=== PATIENT | female | born 1995 | race Two or more races ===

== ENCOUNTER 2020-08-25 12:15 | Outpatient (REF) | payer OTHER, SELFPAY | END 2020-08-25 12:16 | disposition home or self-care (01) | LOC: HO.LAB 12:15 | PROVIDERS: Visit Provider Internal Medicine | DX: Z20.828 Contact with and (suspected) exposure to other viral communicable diseases (principal) | CPT/HCPCS: 87635 ==

== ENCOUNTER → 2020-10-11 10:21 | Outpatient (BNVA) | payer OTHER, SELFPAY | PROVIDERS: PCP Internal Medicine; Visit Provider Student in an Organized Health Care Education/Training Program | DX: M35.00 Sjogren syndrome, unspecified (principal) | CPT/HCPCS: Q3014 ==

== ENCOUNTER 2023-01-28 18:30 | Emergency (ER) | payer OTHER, SELFPAY ==
[2023-01-28 18:37] VITALS: BP 135/94; PULSE 105; RESP 18; TEMP 36.7; O2SAT 100; BMI 25.8
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
[2023-01-28] MEDS: Tetracaine HCl/PF 0.5% Oph Sol 4 ML DROPS 3 DROP EYE-LEFT (20:25)
[2023-01-28] MEDS: Fluorescein Sodium STRIP 1 STRIP EYE-LEFT (20:25)
== END 2023-01-28 20:28 | disposition home or self-care (01) ==
PROVIDERS: Emergency Provider Emergency Medicine Emergency Medical Services
DX: M35.00 Sjogren syndrome, unspecified (principal); H57.12 Ocular pain, left eye; R51.9 Headache, unspecified
CPT/HCPCS: 99282; 99283

== ENCOUNTER 2023-02-26 08:10 | Outpatient (REF) | payer OTHER, SELFPAY ==
[2023-02-26 09:55] LABS: MANUAL DIFF FLAG NO
[2023-02-26 10:08] LABS: Basophils Percent Auto 0.3 % (0-2); Eosinophils Absolute Auto 0.1 X10*3/uL (0.0-0.4); Eosinophils Percent Auto 1.8 % (0-4); Hematocrit 35.6 % (37.0-47.0); Hemoglobin 11.1 g/dl (12.0-16.0); Imm Gran Abs Auto 0.01 X10*3/uL (0.00-0.03); Imm Gran Pct Auto 0.3 % (0.0-0.4); Lymphocytes Absolute Auto 0.9 X10*3/uL (1.2-4.9); Lymphocytes Percent Auto 22.4 % (20-40); Mean Corpuscular HGB Conc 31.2 g/dl (31.0-35.0); Mean Corpuscular Hemoglobin 25.1 pg (27.0-33.0); Mean Corpuscular Volume 80.4 fL (80.0-98.0); Monocytes Absolute Auto 0.2 X10*3/uL (0.1-1.2); Monocytes Percent Auto 4.2 % (2-11); Neutrophils Absolute Auto 2.7 x10*3/uL (2.0-8.3); Platelet Count 310 X10*3/uL (160-400); Red Blood Count 4.43 X10*6/uL (4.20-5.50); White Blood Count 3.8 X10*3/uL (4.8-10.8)
[2023-02-26 10:53] LABS: Erythrocyte Sedimentation Rate 11 MM/HR (0-20)
[2023-02-26 11:00] LABS: Alanine Aminotransferase 9 U/L (0-31); Albumin Level 4.2 g/dL (3.5-5.0); Alkaline Phosphatase 46 U/L (39-117); Anion Gap 10 (12-20); Aspartate Amino Transferase 15 U/L (5-31); Bilirubin Total 0.4 mg/dL (0.0-1.0); Blood Urea Nitrogen 9 mg/dL (9-16); C Reactive Protein 0.49 mg/dL (< or = 0.50); Calcium 9.2 mg/dL (8.4-10.2); Carbon Dioxide 26 mmol/L (22-29); Chloride 107 mmol/L (96-108); Estimated Glomerular Filt Rate > 60; Glucose Random 86 mg/dL (60-115); Potassium 4.1 mmol/L (3.3-5.1); Sodium 139 mmol/L (135-145); Total Protein 7.4 g/dL (6.5-8.0)
[2023-02-26 11:04] LABS: Creatinine Urine 100.78 mg/dL; Total Protein Urine Random < 7 mg/dL (<12)
[2023-02-26 11:17] LABS: TSH reflex Free T4 1.72 uIU/mL (0.32-4.0)
[2023-02-26 11:18] LABS: Vitamin D 25-OH Total 10.2 ng/mL (>30)
[2023-03-03 21:22] LABS: Anti DNA DS Antibody 41 IU/mL; SM/Ribonucleoprotein Ab <1.0 NEG AI (<1.0 NEG); Smith Protein <1.0 NEG AI (<1.0 NEG)
== END 2023-02-26 08:11 | disposition home or self-care (01) ==
LOC: HO.LAB 08:10
PROVIDERS: Absent Provider Nurse Practitioner Family; PCP Nurse Practitioner Family; Visit Provider Nurse Practitioner Family
DX: Z13.29 Encounter for screening for other suspected endocrine disorder (principal); M25.50 Pain in unspecified joint; M35.00 Sjogren syndrome, unspecified; H15.002 Unspecified scleritis, left eye
CPT/HCPCS: 36415; 80053; 82306; 84156; 84443; 85025; 85652; 86140; 86225; 86235; 99212

== ENCOUNTER → 2023-04-02 10:48 | Outpatient (BNVA) | payer OTHER, SELFPAY | PROVIDERS: PCP Nurse Practitioner Family; Visit Provider Nurse Practitioner Family | DX: M35.00 Sjogren syndrome, unspecified (principal); H15.002 Unspecified scleritis, left eye; E55.9 Vitamin D deficiency, unspecified; Z79.899 Other long term (current) drug therapy | CPT/HCPCS: 99212 ==

== ENCOUNTER 2023-06-16 14:11 | Outpatient (REF) | payer OTHER, SELFPAY ==
[2023-06-16 14:31] LABS: MANUAL DIFF FLAG NO
[2023-06-16 15:02] LABS: Basophils Percent Auto 0.2 % (0-2); Eosinophils Absolute Auto 0.1 X10*3/uL (0.0-0.4); Eosinophils Percent Auto 1.7 % (0-4); Hematocrit 35.1 % (37.0-47.0); Hemoglobin 11.2 g/dl (12.0-16.0); Imm Gran Abs Auto 0.02 X10*3/uL (0.00-0.03); Imm Gran Pct Auto 0.5 % (0.0-0.4); Lymphocytes Absolute Auto 0.8 X10*3/uL (1.2-4.9); Lymphocytes Percent Auto 19.5 % (20-40); Mean Corpuscular HGB Conc 31.9 g/dl (31.0-35.0); Mean Corpuscular Hemoglobin 25.6 pg (27.0-33.0); Mean Corpuscular Volume 80.3 fL (80.0-98.0); Mean Platelet Volume 9.6 fL (9.4-12.3); Monocytes Absolute Auto 0.1 X10*3/uL (0.1-1.2); Monocytes Percent Auto 3.4 % (2-11); Neutrophils Absolute Auto 3.1 x10*3/uL (2.0-8.3); Neutrophils Percent Auto 74.7 % (45-73); Platelet Count 299 X10*3/uL (160-400); Red Blood Count 4.37 X10*6/uL (4.20-5.50); Red Cell Distribution Width 14.8 % (11.0-16.0); White Blood Count 4.1 X10*3/uL (4.8-10.8)
[2023-06-16 15:39] LABS: Erythrocyte Sedimentation Rate 7 MM/HR (0-20)
[2023-06-16 19:15] LABS: Appearance Urine Clear; Color Urine Yellow; Glucose Urine UA Negative (Negative); Leukocyte Esterase Urine Negative (Negative); Nitrite Urine Negative (Negative); Urine Blood Negative (Negative); Urine Ketones Negative (Negative); Urine Protein Negative (Neg-Trace)
[2023-06-16 19:19] LABS: Bacteria Urine None Seen (None Seen); Hyaline Casts Urine 0-2 /LPF (0-2); RBC Urine 0-2 /HPF (0-2); Squamous Epithelial Cell Urine 0-2 /HPF (0-2); WBC Urine 0-5 /HPF (0-5)
[2023-06-16 19:25] LABS: Creatinine Urine 190.88 mg/dL; Protein/Creatinine Ratio, Ur 0.05 (<0.2); Total Protein Urine Random 9 mg/dL (<12)
[2023-06-17 02:10] LABS: Alanine Aminotransferase 11 U/L (0-31); Albumin Level 4.1 g/dL (3.5-5.0); Alkaline Phosphatase 45 U/L (39-117); Anion Gap 13 (12-20); Aspartate Amino Transferase 18 U/L (5-31); Bilirubin Total 0.3 mg/dL (0.0-1.0); Blood Urea Nitrogen 9 mg/dL (9-16); C Reactive Protein 0.41 mg/dL (< or = 0.50); Carbon Dioxide 23 mmol/L (22-29); Chloride 108 mmol/L (96-108); Estimated Glomerular Filt Rate > 60; Glucose Random 117 mg/dL (60-115); Potassium 3.7 mmol/L (3.3-5.1); Sodium 140 mmol/L (135-145); Total Protein 7.5 g/dL (6.5-8.0)
[2023-06-17 13:23] LABS: Prot Elec - Albumin 4.1 g/dL (3.8-4.8); Prot Elec - Alpha1 0.3 g/dL (0.2-0.3); Prot Elec - Alpha2 0.6 g/dL (0.5-0.9); Prot Elec - Beta 1 0.4 g/dL (0.4-0.6); Prot Elec - Beta 2 0.3 g/dL (0.2-0.5); Prot Elec - Gamma 1.6 g/dL (0.8-1.7); Prot Elec - Total Protein 7.4 g/dL (6.1-8.1)
[2023-06-17 19:18] LABS: Complement C3 99 mg/dL (83-193)
[2023-06-18 10:34] LABS: IgA 289 mg/dL (47-310); IgG 1937 mg/dL (600-1640); IgM 73 mg/dL (50-300)
[2023-06-18 13:08] LABS: Cardiolipin IgG Ab <2.0 GPL-U/mL; Cardiolipin IgM Ab <2.0 MPL-U/mL
[2023-06-18 21:18] LABS: TS Negative Control Passed; TS Panel A 0; TS Panel B 0; TS Positive Control Passed; TSpotTB Negative (Negative)
[2023-06-19 09:37] LABS: Anti DNA DS Antibody 17 IU/mL; Myeloperoxidase Antibody <1.0 AI; Proteinase 3 PR3 Antibodies <1.0 AI
[2023-06-20 00:14] LABS: PTT (LAC) Screen 33 sec (<=40)
[2023-06-20 18:22] LABS: HLA B27 Negative (Negative)
[2023-06-20 23:53] LABS: Beta-2 Glycoprotein IgA <2.0 U/mL (<20.0); Beta-2 Glycoprotein IgG <2.0 U/mL (<20.0); Beta-2 Glycoprotein IgM <2.0 U/mL (<20.0)
[2023-06-26 16:53] LABS: TPMT Activity 14
== END 2023-06-16 14:12 | disposition home or self-care (01) ==
LOC: HO.LAB 14:11
PROVIDERS: PCP Nurse Practitioner Family; Visit Provider Student in an Organized Health Care Education/Training Program
DX: Z11.7 Encounter for testing for latent tuberculosis infection (principal); D68.61 Antiphospholipid syndrome; M35.00 Sjogren syndrome, unspecified; H15.009 Unspecified scleritis, unspecified eye; Z79.624 Long term (current) use of inhibitors of nucleotide synthesis
CPT/HCPCS: 36415; 80053; 81001; 82657; 82784; 84156; 84165; 85025; 85597; 85598; 85613; 85652; 85670; 85730; 86021; 86140; 86146; 86147; 86160; 86225; 86334; 86481; 86812

== ENCOUNTER 2023-06-20 11:39 | Outpatient (AMB) | payer OTHER, SELFPAY ==
--- NOTE | 2023-06-20 11:42 | A.OFFVIS_ITS ---
Intake Vital Signs 06/20/23 11:43 Height 5 ft 3 in Weight 146 lb 6.191 oz BMI 25.9 BP 102/64 Blood Pressure Location Rt brachial Position Sitting Pulse 93 Pulse Source Pulse Oximeter Temp 97.4 F Temp Source Skin Pulse Oximetry (%) 98 Intake Visit Reasons: sjogrens Intake Note: Pt seen today for SS follow up. Sees Dr Millard for ophthalmology Event Crew Technician Required: No Pc Installation Engineer: Pc Installation Engineer Present Accompanied by: Self / Same As Patient Allergies No Known Allergies [No Known Allergies*] Allergy (Verified 06/20/23 11:45) Medication List - Last Reconciled 06/20/23 by Darien Remy MD hydroxychloroquine 200 mg PO DAILY HPI HPI Comments History of Present Illness Details This is a 27-year-old female with Sjogren's who presents for follow-up. She was last seen by Nichol Fletcher 02/23. Patient states that she was diagnosed with Sjogren's around 2013. She states that she was on hydroxychloroquine consistently at some point, she might have been on other meds but she does not remember. She states that since November of 2022 she has been having left eye redness and swelling. She was evaluated by Ophthalmology and was diagnosed with filamentous keratitis and episcleritis. She received antibiotic and steroid eyedrops which provides some relief but she continues to have left eye redness and pain. This year old so she has been having intermittent rashes on her hands, chest, legs. The rashes are worse in the sun. Also has pain and swelling of her hands associated with morning stiffness lasting a few hours. The rashes burn, they do not itch. 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 Her hands hurt in the morning and at night. She states that she has had Raynaud's all her life. Sometimes she has to wear heated gloves. She also states that she has had dry eyes for many years, she uses artificial tears consistently. She has intermittent dry mouth and sometimes uses Biotene mouthwash. She has been losing a substantial amount of hair recently. Large clumps of hair. She denies any fevers. She does get chills sometimes. She never took her temperature. She denies any significant weight change. Denies mouth ulcers. She denies any history of DVT/PE. Patient never attempted . She is unaware of any family history of autoimmune rheumatic disease. REPLACED BY [facility] Medical History (Updated 06/20/23 @ 14:01 by Darien Remy MD) Joint pain Kidney stones Sjogrens syndrome Sjogrens syndrome Surgical History No pertinent past surgical history Family History Mother HTN (hypertension) Osteoarthritis Father Rosana Gehrig's disease Maternal Grandfather Rheumatoid arthritis Social History Household Members: Family Housing: House Alcohol intake: current Alcohol intake frequency: does not drink Patient Tobacco Use Status: Never used Tobacco Tobacco use type: Cigarette e-Cigarette/Vaping Use: Never Used service: No Current occupational status: employed Current occupation: [employer] Reproductive History Menstrual Total pregnancies: 0 Review of Systems Const Reports chills, Reports fatigue, Denies fever(s) and Denies weight loss Eyes Reports dry eyes and Reports eye pain ENT Reports dry mouth Card Reports no additional complaints Musc Reports arthralgias, Reports joint swelling and Reports stiffness Skin/Breast Reports alopecia, Reports photosensitivity, Reports rash and Reports skin pain Endo Reports fatigue Physical Exam Vital Signs: Last Vital Signs Temp 97.4 F 06/20/23 11:43 Pulse 93 06/20/23 11:43 BP 102/64 06/20/23 11:43 Pulse Ox 98 06/20/23 11:43 BMI result Body Mass Index 25.9 Const General: cooperative, healthy appearing and comfortable Orientation/consciousness: patient oriented x3 Limitations: no limitations HEENT Head: Yes normocephalic and Yes atraumatic Resp Effort & Inspection: normal respiratory effort and able to speak in complete sentences Auscultation: clear to auscultation bilaterally Cardio Rate: regular rate Rhythm: regular rhythm GI Inspection: No distended Palpation (GI): Soft to palpation and nontender Skin Other: Rashes in pictures are over the last few months. Today however patient does not have any active rashes Left breast inspection was with medical reception Saba present in the room as driver trainee. There were no rashes noted Neuro General: patient oriented x3 Extrem Other: Diffuse fibromyalgia tender points with no swollen or tender joints Normal nailfold capillaroscopy Assessment & Plan Assessment & Plan (1) SLE (systemic lupus erythematosus): Code(s): M32.9 - Systemic lupus erythematosus, unspecified Qualifiers: Systemic lupus erythematosus type: other Systemic lupus erythematosus organ involvement: unspecified Qualified Code(s): M32.8 - Other forms of systemic lupus erythematosus Plan: This is a 27-year-old female previously diagnosed with Sjogren's starting around 2013 who presents for follow-up. Upon evaluation I believe patient's symptoms are more consistent with SLE (arthralgias, skin rashes, episcleritis/scleritis, hair loss, lymphopenia, normocytic anemia, +VICKIE +++SSa +SSb +RF + DsDNA) Over the last 8 months patient has been having recurrent attacks of e piscleritis, she was prescribed steroid eyedrops without much improvement. She also has been having recurrent hand swelling, recurrent rashes on hands, chest. Worsening hair loss. Start prednisone 30 mg daily for 1 week then remain on 20 mg daily. Follow-up in 1 month. The rashes on her hands can be an allergic reaction to the left she wears during work as a beautician however the rashes are not be treated they are other painful. Will discuss DMARDs next visit Plan I spent 48 minutes reviewing patient's chart, evaluating patient, ordering diagnostic workup, counseling patient and documenting in the chart Medications: New prednisone Take 3 tabs by mouth once daily with breakfast for 1 week then stay on 2 tabs daily 63 tabs 1RF Changed From hydroxychloroquine 200 mg PO DAILY 30 tabs 0RF M35.00 - Sjogren syndrome, unspecified To hydroxychloroquine Take 2 tabs by mouth daily 4 days a week and 1 tab daily 3 days a week 35 tabs 2RF M35.00 - Sjogren syndrome, unspecified Coding Level of Care Code Est Pt Level 5 (47883) Diagnoses SLE (systemic lupus erythematosus) M32.8 Systemic lupus erythematosus type: other Systemic lupus erythematosus organ involvement: unspecified
[2023-06-20 11:43] VITALS: BP 102/64; PULSE 93; TEMP 36.3; O2SAT 98; BMI 25.9
== END 2023-06-20 12:20 | disposition home or self-care (01) ==
PROVIDERS: PCP Nurse Practitioner Family; Visit Provider Student in an Organized Health Care Education/Training Program
DX: M32.8 Other forms of systemic lupus erythematosus (principal)
CPT/HCPCS: 99215

== ENCOUNTER → 2023-06-20 11:39 | Outpatient (BNVA) | payer OTHER, SELFPAY | PROVIDERS: PCP Nurse Practitioner Family; Visit Provider Student in an Organized Health Care Education/Training Program | DX: M32.8 Other forms of systemic lupus erythematosus (principal); M35.00 Sjogren syndrome, unspecified | CPT/HCPCS: 99212 ==

== ENCOUNTER 2023-07-14 11:41 | Outpatient (AMB) | payer OTHER, SELFPAY ==
--- NOTE | 2023-07-14 11:46 | A.OFFVIS_ITS ---
Intake Vital Signs 07/14/23 11:47 Height 5 ft 3 in Weight 143 lb 11.862 oz BMI 25.5 BP 106/74 Blood Pressure Location Rt brachial Position Sitting Pulse 88 Pulse Source Pulse Oximeter Temp 97.3 F Temp Source Skin Pulse Oximetry (%) 98 Intake Visit Reasons: SLE Intake Note: Pt seen today for SLE follow up. Currently on prednsione 20mg daily. States she feels great and eye is better; missed a couple doses of prednisone and felt the difference in increased pain. Application Integration Engineer Required: No Accompanied by: Self / Same As Patient Allergies No Known Allergies [No Known Allergies*] Allergy (Verified 07/14/23 12:04) Medication List - Last Reconciled 07/14/23 by Darien Remy MD hydroxychloroquine Take 2 tabs by mouth daily 4 days a week and 1 tab daily 3 days a week prednisone 20 mg PO DAILY HPI HPI Comments History of Present Illness Details 27-year-old female with SLE returns for follow-up. Patient took prednisone 30 mg daily for 1 week, 20 mg daily for 1 week and currently is on 10 mg daily. States that she feels much better overall. Left eye redness and pain is much improved. As well as joint pain, body aches and rashes. When she missed prednisone for couple of days she felt increased pain. Initial history: This is a 27-year-old female with Sjogren's who presents for follow-up. She was last seen by Nichol Fletcher 02/23. Patient states that she was diagnosed with Sjogren's around 2013. She states that she was on hydroxychloroquine consistently at some point, she might have been on other meds but she does not remember. She states that since November of 2022 she has been having left eye redness and swelling. She was evaluated by Ophthalmology and was diagnosed with filamentous keratitis and episcleritis. She received antibiotic and steroid eyedrops which provides some relief but she continues to have left eye redness and pain. This year old so she has been having intermittent rashes on her hands, chest, legs. The rashes are worse in the sun. Also has pain and swelling of her hands associated with morning stiffness lasting a few hours. The rashes burn, they do not itch. 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 Her hands hurt in the morning and at night. She states that she has had Raynaud's all her life. Sometimes she has to wear heated gloves. She also states that she has had dry eyes for many years, she uses artificial tears consistently. She has intermittent dry mouth and sometimes uses Biotene mouthwash. She has been losing a substantial amount of hair recently. Large clumps of hair. She denies any fevers. She does get chills sometimes. She never took her temperature. She denies any significant weight change. Denies mouth ulcers. She denies any history of DVT/PE. Patient never attempted preg amee. She is unaware of any family history of autoimmune rheumatic disease. 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 Review of Systems [facility] Reports arthralgias Skin/Breast Reports alopecia Physical Exam Vital Signs: Last Vital Signs Temp 97.3 F 07/14/23 11:47 Pulse 88 07/14/23 11:47 BP 106/74 07/14/23 11:47 Pulse Ox 98 07/14/23 11:47 BMI result Body Mass Index 25.5 Const General: cooperative, healthy appearing and comfortable Orientation/consciousness: patient oriented x3 Limitations: no limitations HEENT Head: Yes normocephalic and Yes atraumatic Eyes Other: Left eye erythema is at least 90% better Resp Effort & Inspection: normal respiratory effort and able to speak in complete sentences Auscultation: clear to auscultation bilaterally Cardio Rate: regular rate Rhythm: regular rhythm GI Inspection: No distended Palpation (GI): Soft to palpation and nontender Neuro General: patient oriented x3 Extrem Other: Diffuse fibromyalgia tender points with no swollen or tender joints Normal nailfold capillaroscopy Assessment & Plan Assessment & Plan (1) SLE (systemic lupus erythematosus): Comment: SLE (arthralgias, skin rashes, episcleritis/scleritis, hair loss, lymphopenia, normocytic anemia, +VICKIE +++SSa +SSb +RF + DsDNA) dx around 2013 Code(s): M32.9 - Systemic lupus erythematosus, unspecified Qualifiers: Systemic lupus erythematosus type: other Systemic lupus erythematosus organ involvement: unspecified Qualified Code(s): M32.8 - Other forms of systemic lupus erythematosus Plan: This is a 27-year-old female presents for follow-up. Patient's scleritis/episcleritis is significantly improved on prednisone. Will continue prednisone and will slowly taper it off. Continue prednisone 10 mg for 2 more weeks then reduce by 2.5 mg every 2 weeks and stay on 2.5 mg daily until next visit. Labs before next visit in 8 weeks If patient's eye symptoms recur after prednisone is tapered. Will have to start another DMARD such as methotrexate Continue hydroxychloroquine 400 mg daily 4 days a week and 200 mg daily 3 days a week Plan I spent 28 minutes reviewing patient's chart, evaluating patient, ordering diagnostic workup, counseling patient and documenting in the chart Orders: Orders Complete Blood Count Auto Diff 7 Weeks M32.9 - Systemic lupus erythematosus, unspecified Complement C4 7 Weeks M32.9 - Systemic lupus erythematosus, unspecified Protein Creatinine Ratio, Ur 7 Weeks M32.9 - Systemic lupus erythematosus, unspecified UA w Microscopic 7 Weeks M32.9 - Systemic lupus erythematosus, unspecified Comprehensive Met. Panel 7 Weeks M32.9 - Systemic lupus erythematosus, unspecified Anti DNA DS Antibody 7 Weeks M32.9 - Systemic lupus erythematosus, unspecified Complement C3 7 Weeks M32.9 - Systemic lupus erythematosus, unspecified Medications: New prednisone Take 3 tabs by mouth once daily for 2 weeks then 2 tabs daily for 2 weeks then stay on 1 tab daily 2.5 mg PO Q OTHER DAY 100 tabs 1RF Coding Level of Care Code Est Pt Level 4 (01478) Diagnoses Other forms of systemic lupus erythematosus, unspecified organ involvement status M32.8 Systemic lupus erythematosus type: other Systemic lupus erythematosus organ involvement: unspecified
[2023-07-14 11:47] VITALS: BP 106/74; PULSE 88; TEMP 36.3; O2SAT 98; BMI 25.5
== END 2023-07-14 12:04 | disposition home or self-care (01) ==
PROVIDERS: PCP Nurse Practitioner Family; Referring Provider Nurse Practitioner Family; Visit Provider Student in an Organized Health Care Education/Training Program
DX: M32.8 Other forms of systemic lupus erythematosus (principal)
CPT/HCPCS: 99214

== ENCOUNTER → 2023-07-14 11:41 | Outpatient (BNVA) | payer OTHER, SELFPAY | PROVIDERS: PCP Nurse Practitioner Family; Referring Provider Nurse Practitioner Family; Visit Provider Student in an Organized Health Care Education/Training Program | DX: M32.8 Other forms of systemic lupus erythematosus (principal); Z79.52 Long term (current) use of systemic steroids; Z79.899 Other long term (current) drug therapy | CPT/HCPCS: 99212 ==

== ENCOUNTER 2023-09-06 10:03 | Outpatient (REF) | payer OTHER, SELFPAY ==
[2023-09-06 10:23] LABS: MANUAL DIFF FLAG NO
[2023-09-06 11:17] LABS: Basophils Percent Auto 0.6 % (0-2); Eosinophils Absolute Auto 0.1 X10*3/uL (0.0-0.4); Eosinophils Percent Auto 2.6 % (0-4); Hematocrit 36.1 % (37.0-47.0); Hemoglobin 11.5 g/dl (12.0-16.0); Imm Gran Abs Auto 0.02 X10*3/uL (0.00-0.03); Imm Gran Pct Auto 0.6 % (0.0-0.4); Lymphocytes Absolute Auto 1.1 X10*3/uL (1.2-4.9); Mean Corpuscular HGB Conc 31.9 g/dl (31.0-35.0); Mean Corpuscular Volume 81.7 fL (80.0-98.0); Mean Platelet Volume 9.6 fL (9.4-12.3); Monocytes Absolute Auto 0.3 X10*3/uL (0.1-1.2); Monocytes Percent Auto 8.6 % (2-11); Neutrophils Percent Auto 56.6 % (45-73); Platelet Count 296 X10*3/uL (160-400); Red Blood Count 4.42 X10*6/uL (4.20-5.50); Red Cell Distribution Width 14.2 % (11.0-16.0); White Blood Count 3.5 X10*3/uL (4.8-10.8)
[2023-09-06 11:20] LABS: Appearance Urine Clear; Color Urine Yellow; Glucose Urine UA Negative (Negative); Leukocyte Esterase Urine Small (1+) (Negative); Nitrite Urine Negative (Negative); PH 6.5 (5.0-9.0); UMIC TRIGGER UA YES; Urine Blood Negative (Negative); Urine Ketones Negative (Negative); Urine Protein Negative (Neg-Trace)
[2023-09-06 11:37] LABS: Bacteria Urine Trace (None Seen); Hyaline Casts Urine 0-2 /LPF (0-2); RBC Urine 0-2 /HPF (0-2); WBC Urine 0-5 /HPF (0-5)
[2023-09-06 11:51] LABS: Creatinine Urine 163.14 mg/dL; Protein/Creatinine Ratio, Ur 0.06 (<0.2); Total Protein Urine Random 9 mg/dL (<12)
[2023-09-06 12:00] LABS: Alanine Aminotransferase 7 U/L (0-31); Alkaline Phosphatase 36 U/L (39-117); Anion Gap 9 (12-20); Aspartate Amino Transferase 15 U/L (5-31); Bilirubin Total 0.3 mg/dL (0.0-1.0); Blood Urea Nitrogen 9 mg/dL (9-16); Calcium 8.9 mg/dL (8.4-10.2); Carbon Dioxide 27 mmol/L (22-29); Chloride 107 mmol/L (96-108); Estimated Glomerular Filt Rate > 60; Glucose Random 85 mg/dL (60-115); Potassium 3.9 mmol/L (3.3-5.1); Sodium 139 mmol/L (135-145)
[2023-09-08 23:24] LABS: Anti DNA DS Antibody 12 IU/mL
[2023-09-09 23:09] LABS: Complement C3 91 mg/dL (83-193)
== END 2023-09-06 10:04 | disposition home or self-care (01) ==
LOC: HO.LAB 10:03
PROVIDERS: PCP Nurse Practitioner Family; Visit Provider Student in an Organized Health Care Education/Training Program
DX: M32.9 Systemic lupus erythematosus, unspecified (principal)
CPT/HCPCS: 36415; 80053; 81001; 82570; 84156; 85025; 86160; 86225

== ENCOUNTER 2023-09-09 10:45 | Outpatient (AMB) | payer OTHER, SELFPAY ==
[2023-09-09 10:46] VITALS: BP 110/80; PULSE 90; TEMP 36.5; O2SAT 98; BMI 26.6
--- NOTE | 2023-09-09 10:46 | A.OFFVIS_ITS ---
Intake Vital Signs 3 09/09/23 10:46 Height 5 ft 3 in Weight 150 lb 5.684 oz BMI 26.6 BP 110/80 Blood Pressure Location Rt brachial Position Sitting Pulse 90 Pulse Source Pulse Oximeter Temp 97.7 F Temp Source Skin Pulse Oximetry (%) 98 Intake Visit Reasons: SLE Intake Note: Pt last seen 07/14/23, presents today for follow up and test results. 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 On hydroxychloroquine and prednisone. Currently on prednisone 2.5 mg daily. States that since prednisone dose was lowered from 10 mg daily she started having intermittent flare-ups of her left eye pain and joint pain. She has not had any rashes recently. States that she continues to lose large clumps of hair Initial history: This is a 27-year-old female with Sjogren's who presents for follow-up. She was last seen by Nichol Fletcher 02/23. Patient states that she was diagnosed with Sjogren's around 2013. She states that she was on hydroxychloroquine consistently at some point, she might have been on other meds but she does not remember. She states that since November of 2022 she has been having left eye redness and swelling. She was evaluated by Ophthalmology and was diagnosed with filamentous keratitis and episcleritis. She received antibiotic and steroid eyedrops which provides some relief but she continues to have left eye redness and pain. This year old so she has been having intermittent rashes on her hands, chest, legs. The rashes are worse in the sun. Also has pain and swelling of her hands associated with morning stiffness lasting a few hours. The rashes burn, they do not itch. 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 Her hands hurt in the morning and at night. She states that she has had Raynaud's all her life. Sometimes she has to wear heated gloves. She also states that she has had dry eyes for many years, she uses artificial tears consistently. She has intermittent dry mouth and sometimes uses Biotene mouthwash. She has been losing a substantial amount of hair recently. Large clumps of hair. She denies any fevers. She does get chills sometimes. She never took her temperature. She denies any significant weight change. Denies mouth ulcers. She denies any history of DVT/PE. Patient never attempted . She is unaware of any family history of autoimmune rheumatic disease. [facility] Medical History (Updated 09/09/23 @ 11:27 by Darien Remy MD) Sjogrens syndrome Joint pain Kidney stones Surgical History No pertinent past surgical history Family History Mother HTN (hypertension) Osteoarthritis Father Rosana Gehrig's disease Maternal Grandfather Rheumatoid arthritis Social History Household Members: Family Housing: House Alcohol intake: current Alcohol intake frequency: does not drink Patient Tobacco Use Status: Never used Tobacco Tobacco use type: Cigarette e-Cigarette/Vaping Use: Never Used service: No Current occupational status: employed 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 Review of Systems Eyes Reports irritation and Reports eye pain Musc Reports arthralgias Skin/Breast Reports alopecia Physical Exam Vital Signs: Last Vital Signs Temp 97.7 F 09/09/23 10:46 Pulse 90 09/09/23 10:46 BP 110/80 09/09/23 10:46 Pulse Ox 98 09/09/23 10:46 BMI result Body Mass Index 26.6 Const General: cooperative, healthy appearing and comfortable Orientation/consciousness: patient oriented x3 Limitations: no limitations HEENT Head: Yes normocephalic and Yes atraumatic Eyes Other: Resp Effort & Inspection: normal respiratory effort and able to speak in complete sentences Auscultation: clear to auscultation bilaterally Cardio Rate: regular rate Rhythm: regular rhythm GI Inspection: No distended Palpation (GI): Soft to palpation and nontender Neuro General: patient oriented x3 Extrem Other: Multiple fibromyalgia tender points Bilateral tender wrists, MCPs and PIPs without swelling Normal nailfold capillaroscopy Assessment & Plan Assessment & Plan (1) SLE (systemic lupus erythematosus): Comment: SLE (arthralgias, skin rashes, episcleritis/scleritis, hair loss, lymphopenia, normocytic anemia, +VICKIE +++SSa +SSb +RF + DsDNA) dx around 2013 Code(s): M32.9 - Systemic lupus erythematosus, unspecified Qualifiers: Systemic lupus erythematosus type: other Systemic lupus erythematosus organ involvement: unspecified Qualified Code(s): M32.8 - Other forms of systemic lupus erythematosus Plan: This is a 27-year-old female with SLE returns for follow-up. Patient's scleritis/episcleritis is significantly improved on on prednisone but started having intermittent flare-ups since dose was reduced to less than 10 mg daily. Increase prednisone to 10 mg daily for 2 weeks, 7.5 mg for 2 weeks then remain on 5 mg daily. Advised patient to make an appointment with Dr. Millard She also has arthralgias. Ongoing hair loss. Given ongoing SLE activity. Will need to add DMARDs. Discussed risks and benefits of methotrexate. 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 technician (current) drug therapy Plan: Follow-up regularly with Ophthalmology (4) Hair loss: Code(s): L65.9 - Nonscarring hair loss, unspecified Plan: Advised patient to request a dermatology referral from her PCP Plan I spent 40 minutes reviewing patient's chart, evaluating patient, ordering diagnostic workup, counseling patient and documenting in the chart Orders: Orders 2 Complete Blood Count Auto Diff 2 Months M32.9 - Systemic lupus erythematosus, unspecified Complement C3 2 Months M32.9 - Systemic lupus erythematosus, unspecified Complement C4 2 Months M32.9 - Systemic lupus erythematosus, unspecified Anti DNA DS Antibody 2 Months M32.9 - Systemic lupus erythematosus, unspecified Erythrocyte Sedimentation Rate 2 Months M32.9 - Systemic lupus erythematosus, unspecified UA w Microscopic 2 Months M32.9 - Systemic lupus erythematosus, unspecified Protein Creatinine Ratio, Ur 2 Months M32.9 - Systemic lupus erythematosus, unspecified Comprehensive Met. Panel 2 Months M32.9 - Systemic lupus erythematosus, unspecified C Reactive Protein 2 Months M32.9 - Systemic lupus erythematosus, unspecified Medications: New 2 folic acid 1 mg PO DAILY 90 tabs 0RF methotrexate sodium 2.5 mg PO QWEEK 48 tabs 0RF Changed 2 From prednisone Take 3 tabs by mouth once daily for 2 weeks then 2 tabs daily for 2 weeks then stay on 1 tab daily 2.5 mg PO Q OTHER DAY 100 tabs 1RF To prednisone Take 4 tabs by mouth once daily for 2 weeks then 3 tabs daily for 2 weeks then stay on 2 tabs daily 158 tabs 1RF Coding Level of Care Code Est Pt Level 5 (65253) Diagnoses Other forms of systemic lupus erythematosus, unspecified organ involvement status M32.8 Systemic lupus erythematosus type: other Systemic lupus erythematosus organ involvement: unspecified 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
== END 2023-09-09 11:16 | disposition home or self-care (01) ==
PROVIDERS: PCP Nurse Practitioner Family; Visit Provider Student in an Organized Health Care Education/Training Program
DX: M32.8 Other forms of systemic lupus erythematosus (principal); Z79.631 Long term (current) use of antimetabolite agent; Z79.899 Other long term (current) drug therapy; L65.9 Nonscarring hair loss, unspecified
CPT/HCPCS: 99215

== ENCOUNTER → 2023-09-09 10:45 | Outpatient (BNVA) | payer OTHER, SELFPAY | PROVIDERS: PCP Nurse Practitioner Family; Visit Provider Student in an Organized Health Care Education/Training Program | DX: M32.8 Other forms of systemic lupus erythematosus (principal); L65.9 Nonscarring hair loss, unspecified; Z79.631 Long term (current) use of antimetabolite agent; Z79.899 Other long term (current) drug therapy | CPT/HCPCS: 99212 ==

== ENCOUNTER 2023-11-10 09:33 | Outpatient (AMB) | payer OTHER, SELFPAY ==
--- NOTE | 2023-11-10 09:39 | MHC.OFFVIS ---
Intake Vital Signs 11/10/23 09:41 Height 5 ft 3 in Weight 151 lb 0.266 oz BMI 26.7 BP 108/62 Blood Pressure Location Rt brachial Position Sitting Pulse 87 Pulse Source Pulse Oximeter Temp 97.0 F Temp Source Skin Pulse Oximetry (%) 98 Oxygen Delivery Method Room Air Intake Visit Reasons: SLE Intake Note: Pt last seen 09/09/23 presents today for follow up and test results. Expressed she did not complete labs because she has not been compliant with medications; feels the new med is not working and feels overwhelmed with current regimen. 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 Over the last 2 months, patient has been overwhelmed with her condition and her medications and she only took methotrexate for about 4 weeks. Has been taking prednisone 2.5 mg daily, not as prescribed. Taking hydroxychloroquine once daily. She states that she continues to get hair thinning, she denies any mouth ulcers. Denies any skin rashes. Continues to have joint pains but no significant swelling. She states that her left eye has been somewhat red recently but overall stable. She has an appointment with Ophthalmology in January Initial history: This is a 27-year-old female with Sjogren's who presents for follow-up. She was last seen by Nichol Fletcher 02/23. Patient states that she was diagnosed with Sjogren's around 2013. She states that she was on hydroxychloroquine consistently at some point, she might have been on other meds but she does not remember. She states that since November of 2022 she has been having left eye redness and swelling. She was evaluated by Ophthalmology and was diagnosed with filamentous keratitis and episcleritis. She received antibiotic and steroid eyedrops which provides some relief but she continues to have left eye redness and pain. This year old so she has been having intermittent rashes on her hands, chest, legs. The rashes are worse in the sun. Also has pain and swelling of her hands associated with morning stiffness lasting a few hours. The rashes burn, they do not itch. 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 Her hands hurt in the morning and at night. She states that she has had Raynaud's all her life. Sometimes she has to wear heated gloves. She also states that she has had dry eyes for many years, she uses artificial tears consistently. She has intermittent dry mouth and sometimes uses Biotene mouthwash. She has been losing a substantial amount of hair recently. Large clumps of hair. She denies any fevers. She does get chills sometimes. She never took her temperature. She denies any significant weight change. Denies mouth ulcers. She denies any history of DVT/PE. Patient never attempted . She is unaware of any family history of autoimmune rheumatic disease. 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 Systems Eyes Reports eye pain Musc Reports arthralgias Skin/Breast Reports alopecia Physical Exam Vital Signs: Last Vital Signs Temp 97.0 F 11/10/23 09:41 Pulse 87 11/10/23 09:41 BP 108/62 11/10/23 09:41 Pulse Ox 98 11/10/23 09:41 Oxygen Delivery Method Room Air 11/10/23 09:41 BMI result Body Mass Index 26.7 Const General: cooperative, healthy appearing and comfortable Orientation/consciousness: patient oriented x3 Limitations: no limitations HEENT Head: Yes normocephalic and Yes atraumatic Resp Effort & Inspection: normal respiratory effort and able to speak in complete sentences Cardio Rate: regular rate Rhythm: regular rhythm GI Inspection: No distended Palpation (GI): Soft to palpation and nontender Neuro General: patient oriented x3 Extrem Other: Multiple fibromyalgia tender points Bilateral tender wrists, MCPs and PIPs without swelling Normal nailfold capillaroscopy Assessment & Plan Assessment & Plan (1) SLE (systemic lupus erythematosus): Comment: SLE (arthralgias, skin rashes, episcleritis/scleritis, hair loss, lymphopenia, normocytic anemia, +VICKIE +++SSa +SSb +RF + DsDNA) dx around 2013 Code(s): M32.9 - Systemic lupus erythematosus, unspecified Qualifiers: Systemic lupus erythematosus type: other Systemic lupus erythematosus organ involvement: unspecified Qualified Code(s): M32.8 - Other forms of systemic lupus erythematosus Plan: This is a 27-year-old female with SLE returns for follow-up. Patient did not take methotrexate as prescribed last visit. She is overwhelmed with her condition and medications. Upon evaluation today. Patient is doing well. Only minimal erythema of her left eye. She is on prednisone 2.5 mg daily and hydroxychloroquine as prescribed Continue hydroxychloroquine 400 mg daily 4 days a week and 200 mg daily 3 days a week. Continue prednisone 2.5 mg daily. Follow-up with ophthalmology Labs before next visit in 3 months (2) Long-term use of hydroxychloroquine: Code(s): Z79.899 - Other usp (current) drug therapy Plan: Follow-up regularly with Ophthalmology. According to patient. She has an appointment in January (3) Hair loss: Code(s): L65.9 - Nonscarring hair loss, unspecified Plan: Advised patient to request a dermatology referral from her PCP Plan I spent 30 minutes reviewing patient's chart, evaluating patient, ordering diagnostic workup, counseling patient and documenting in the chart Orders: Orders Complement C4 3 Months M32.9 - Systemic lupus erythematosus, unspecified C Reactive Protein 3 Months M32.9 - Systemic lupus erythematosus, unspecified Protein Creatinine Ratio, Ur 3 Months M32.9 - Systemic lupus erythematosus, unspecified UA w Microscopic 3 Months M32.9 - Systemic lupus erythematosus, unspecified Anti DNA DS Antibody 3 Months M32.9 - Systemic lupus erythematosus, unspecified Complement C3 3 Months M32.9 - Systemic lupus erythematosus, unspecified Erythrocyte Sedimentation Rate 3 Months M32.9 - Systemic lupus erythematosus, unspecified Complete Blood Count Auto Diff 3 Months M32.9 - Systemic lupus erythematosus, unspecified Comprehensive Met. Panel 3 Months M32.9 - Systemic lupus erythematosus, unspecified Medications: Changed From prednisone 5 mg PO DAILY To prednisone 2.5 mg PO DAILY 90 tabs 1RF Refilled hydroxychloroquine orally; Take 400 mg daily X 5 days a week and 200 mg daily X 2 days a week 144 tabs 0RF M35.00 - Sjogren syndrome, unspecified Coding Level of Care Code Est Pt Level 4 (21514) Diagnoses Other forms of systemic lupus erythematosus, unspecified organ involvement status M32.8 Systemic lupus erythematosus type: other Systemic lupus erythematosus organ involvement: unspecified Long-term use of hydroxychloroquine Z79.899 Hair loss L65.9
[2023-11-10 09:41] VITALS: BP 108/62; PULSE 87; TEMP 36.1; O2SAT 98; BMI 26.7
== END 2023-11-10 10:06 | disposition home or self-care (01) ==
PROVIDERS: PCP Nurse Practitioner Family; Visit Provider Student in an Organized Health Care Education/Training Program
DX: M32.8 Other forms of systemic lupus erythematosus (principal); Z79.899 Other long term (current) drug therapy; L65.9 Nonscarring hair loss, unspecified
CPT/HCPCS: 99214

== ENCOUNTER → 2023-11-10 09:33 | Outpatient (BNVA) | payer OTHER, SELFPAY | PROVIDERS: PCP Nurse Practitioner Family; Visit Provider Student in an Organized Health Care Education/Training Program | DX: M32.8 Other forms of systemic lupus erythematosus (principal); L65.9 Nonscarring hair loss, unspecified; Z79.899 Other long term (current) drug therapy | CPT/HCPCS: 99212 ==

== ENCOUNTER 2024-02-09 12:15 | Outpatient (REF) | payer OTHER, SELFPAY ==
[2024-02-09 13:04] LABS: MANUAL DIFF FLAG NO
[2024-02-09 13:21] LABS: Basophils Percent Auto 0.3 % (0-2); Eosinophils Absolute Auto 0.1 X10*3/uL (0.0-0.4); Eosinophils Percent Auto 1.4 % (0-4); Hematocrit 36.1 % (37.0-47.0); Hemoglobin 11.7 g/dl (12.0-16.0); Imm Gran Abs Auto 0.02 X10*3/uL (0.00-0.03); Imm Gran Pct Auto 0.5 % (0.0-0.4); Lymphocytes Absolute Auto 1.1 X10*3/uL (1.2-4.9); Lymphocytes Percent Auto 29.1 % (20-40); Mean Corpuscular HGB Conc 32.4 g/dl (31.0-35.0); Mean Corpuscular Hemoglobin 25.8 pg (27.0-33.0); Mean Corpuscular Volume 79.5 fL (80.0-98.0); Mean Platelet Volume 9.8 fL (9.4-12.3); Monocytes Absolute Auto 0.2 X10*3/uL (0.1-1.2); Monocytes Percent Auto 4.1 % (2-11); Neutrophils Absolute Auto 2.4 x10*3/uL (2.0-8.3); Neutrophils Percent Auto 64.6 % (45-73); Platelet Count 303 X10*3/uL (160-400); Red Blood Count 4.54 X10*6/uL (4.20-5.50); Red Cell Distribution Width 14.1 % (11.0-16.0); White Blood Count 3.6 X10*3/uL (4.8-10.8)
[2024-02-09 13:35] LABS: Appearance Urine Clear; Color Urine Yellow; Glucose Urine UA Negative (Negative); Leukocyte Esterase Urine Small (1+) (Negative); Nitrite Urine Negative (Negative); UMIC TRIGGER UA YES; Urine Blood Negative (Negative); Urine Ketones Negative (Negative); Urine Protein Negative (Neg-Trace)
[2024-02-09 13:42] LABS: Bacteria Urine 1+ (None Seen); Hyaline Casts Urine 0-2 /LPF (0-2); RBC Urine 0-2 /HPF (0-2)
[2024-02-09 14:01] LABS: Alanine Aminotransferase 11 U/L (0-31); Alkaline Phosphatase 44 U/L (39-117); Anion Gap 9 (12-20); Aspartate Amino Transferase 18 U/L (5-31); Bilirubin Total 0.4 mg/dL (0.0-1.0); Blood Urea Nitrogen 8 mg/dL (9-16); C Reactive Protein 0.69 mg/dL (< or = 0.50); Calcium 9.2 mg/dL (8.4-10.2); Carbon Dioxide 27 mmol/L (22-29); Chloride 106 mmol/L (96-108); Erythrocyte Sedimentation Rate 9 MM/HR (0-20); Estimated Glomerular Filt Rate > 60; Glucose Random 78 mg/dL (60-115); Potassium 3.3 mmol/L (3.3-5.1); Sodium 139 mmol/L (135-145); Total Protein 7.4 g/dL (6.5-8.0)
[2024-02-09 14:07] LABS: Creatinine Urine 46.05 mg/dL; Total Protein Urine Random < 7 mg/dL (<12)
[2024-02-10 11:58] LABS: Complement C3 106 mg/dL (83-193)
[2024-02-10 22:58] LABS: Anti DNA DS Antibody 9 IU/mL
== END 2024-02-09 12:16 | disposition home or self-care (01) ==
LOC: HO.LAB 12:15
PROVIDERS: PCP Nurse Practitioner Family; Visit Provider Student in an Organized Health Care Education/Training Program
DX: N32.9 Bladder disorder, unspecified (principal)
CPT/HCPCS: 36415; 80053; 81001; 82570; 84156; 85025; 85652; 86140; 86160; 86225

== ENCOUNTER 2024-02-11 09:20 | Outpatient (AMB) | payer OTHER, SELFPAY ==
[2024-02-11 09:22] VITALS: BP 118/74; PULSE 104; O2SAT 99; BMI 27.1
--- NOTE | 2024-02-11 09:22 | A.OFFVIS_ITS ---
Intake Vital Signs 02/11/24 09:22 Height 5 ft 3 in Weight 152 lb 12.485 oz BMI 27.1 BP 118/74 Blood Pressure Location Rt brachial Position Sitting Pulse 104 H Pulse Source Pulse Oximeter Pulse Oximetry (%) 99 Oxygen Delivery Method Room Air Intake Visit Reasons: SLE Intake Note: Patient last seen 11/10/23 presents today for follow up and test results. Reports she found out on Friday she was and does not plan on keeping it. Also reports redness in eyes and skin dryness. 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 She remains on hydroxychloroquine 2 tabs daily 5 days a week and 1 tab daily 2 days a week. Remains on prednisone 2.5 mg daily. Has been doing fairly well overall. Continues to have intermittent redness of her left eye. She was recently evaluated by Dr. Millard and no additional treatment was suggested continues to have intermittent rashes. Continues to have hair loss but improved from before. She just found out a few days ago. She has not planning to keep it. Initial history: This is a 27-year-old female with Sjogren's who presents for follow-up. She was last seen by Nichol Fletcher 02/23. Patient states that she was diagnosed with Sjogren's around 2013. She states that she was on hydroxychloroquine consistently at some point, she might have been on other meds but she does not remember. She states that since November of 2022 she has been having left eye redness and swelling. She was evaluated by Ophthalmology and was diagnosed with filamentous keratitis and episcleritis. She received antibiotic and steroid eyedrops which provides some relief but she continues to have left eye redness and pain. This year old so she has been having intermittent rashes on her hands, chest, legs. The rashes are worse in the sun. Also has pain and swelling of her hands associated with morning stiffness lasting a few hours. The rashes burn, they do not itch. 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 Her hands hurt in the morning and at night. She states that she has had Raynaud's all her life. Sometimes she has to wear heated gloves. She also states that she has had dry eyes for many years, she uses artificial tears consistently. She has intermittent dry mouth and sometimes uses Biotene mouthwash. She has been losing a substantial amount of hair recently. Large clumps of hair. She denies any fevers. She does get chills sometimes. She never took her temperature. She denies any significant weight change. Denies mouth ulcers. She denies any history of DVT/PE. Patient never attempted . She is unaware of any family history of autoimmune rheumatic disease. [facility] Medical History (Updated 02/11/24 @ 10:17 by Darien Remy MD) Joint pain Kidney stones Surgical History No pertinent past surgical history Family History Mother HTN (hypertension) Osteoarthritis Father Rosana Gehrig's disease Maternal Grandfather Rheumatoid arthritis Social History Household Members: Family Housing: House Alcohol intake: current Alcohol intake frequency: does not drink Patient Tobacco Use Status: Never used Tobacco Tobacco use type: Cigarette e-Cigarette/Vaping Use: Never Used service: No Current occupational status: employed 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 Review of Systems [facility] Reports arthralgias Skin/Breast Reports alopecia Physical Exam Vital Signs: Last Vital Signs Pulse 104 H 02/11/24 09:22 BP 118/74 02/11/24 09:22 Pulse Ox 99 02/11/24 09:22 Oxygen Delivery Method Room Air 02/11/24 09:22 BMI result Body Mass Index 27.1 Const General: cooperative, healthy appearing and comfortable Orientation/consciousness: patient oriented x3 Limitations: no limitations HEENT Head: Yes normocephalic and Yes atraumatic Eyes Other: Very faint redness on the lateral aspect of left eye Resp Effort & Inspection: normal respiratory effort and able to speak in complete sentences Cardio Rate: regular rate Rhythm: regular rhythm GI Inspection: No distended Palpation (GI): Soft to palpation and nontender Neuro General: patient oriented x3 Extrem Other: Few fibromyalgia tender points No active synovitis today Normal nailfold capillaroscopy Assessment & Plan Assessment & Plan (1) SLE (systemic lupus erythematosus): Comment: SLE (arthralgias, skin rashes, episcleritis/scleritis, hair loss, lymphopenia, normocytic anemia, +VICKIE +++SSa +SSb +RF + DsDNA) dx around 2013 HCQ + PDN regularly 2022 MTX 2022 stopped after one-month could not be tolerated Code(s): M32.9 - Systemic lupus erythematosus, unspecified Qualifiers: Systemic lupus erythematosus type: other Systemic lupus erythematosus organ involvement: unspecified Qualified Code(s): M32.8 - Other forms of systemic lupus erythematosus Plan: This is a 28-year-old female with SLE returns for follow-up. Upon evaluation today. Patient is doing well. Only minimal erythema of her left eye. She is on prednisone 2.5 mg daily and hydroxychloroquine as prescribed Continue hydroxychloroquine 400 mg daily 4 days a week and 200 mg daily 2 days a week. Continue prednisone 2.5 mg daily. Patient just found out that she was . She is 5-6 weeks . She has not planning to keep it. Follow-up with ophthalmology Labs before next visit in 3 months (2) Long-term use of hydroxychloroquine: Comment: eye exam OK 01/2024 Code(s): Z79.899 - Other retirement (current) drug therapy Plan: Continue to follow-up regularly with Ophthalmology (3) Hair loss: Code(s): L65.9 - Nonscarring hair loss, unspecified Plan: Advised patient that if it gets worse, to request a dermatology referral from her PCP Plan I spent 25 minutes reviewing patient's chart, evaluating patient, ordering diagnostic workup, counseling patient and documenting in the chart Medications: Refilled hydroxychloroquine orally; Take 400 mg daily X 5 days a week and 200 mg daily X 2 days a week 144 tabs 0RF M35.00 - Sjogren syndrome, unspecified prednisone 2.5 mg PO DAILY 90 tabs 1RF Coding Level of Care Code Est Pt Level 4 (17399) Diagnoses Other forms of systemic lupus erythematosus, unspecified organ involvement status M32.8 Systemic lupus erythematosus type: other Systemic lupus erythematosus organ involvement: unspecified Long-term use of hydroxychloroquine Z79.899 Hair loss L65.9
== END 2024-02-11 09:53 | disposition home or self-care (01) ==
PROVIDERS: PCP Nurse Practitioner Family; Visit Provider Student in an Organized Health Care Education/Training Program
DX: M32.8 Other forms of systemic lupus erythematosus (principal); Z79.899 Other long term (current) drug therapy; L65.9 Nonscarring hair loss, unspecified
CPT/HCPCS: 99214

== ENCOUNTER → 2024-02-11 09:20 | Outpatient (BNVA) | payer OTHER, SELFPAY | PROVIDERS: PCP Nurse Practitioner Family; Visit Provider Student in an Organized Health Care Education/Training Program | DX: M32.8 Other forms of systemic lupus erythematosus (principal); L65.9 Nonscarring hair loss, unspecified; Z79.899 Other long term (current) drug therapy | CPT/HCPCS: 99212 ==

== ENCOUNTER 2024-05-11 09:17 | Outpatient (AMB) | payer OTHER, SELFPAY ==
--- NOTE | 2024-05-11 09:28 | MHC.PC.OV ---
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 I am assuming her care as her provider has left the practice. Patient is requesting an annual physical. In addition, she has been diagnosed with SLE. Patient is under the care of a sales promoter. She has getting a combination of methotrexate hydroxychloroquine and prednisone. Symptoms are reasonably controlled on the medications. In addition especially since she has been on the prednisone in the past year, patient is reporting symptoms of anxiety and depression. 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 She is feeling tired towards the end of the day and reports inadequate sleep. Frequent crying episodes. 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 1. Little interest or pleasure in doing things: nearly every day 2. Feeling down, depressed, or hopeless: nearly every day 3. Trouble falling or staying asleep, or sleeping too much: more than half the days 4. Feeling tired or having little energy: nearly every day 5. Poor appetite or overeating: nearly every day 6. Feeling bad about yourself - or that you are a failure or have let yourself or your family down: nearly every day 7. Trouble concentrating on things, such as reading the newspaper or watching television: several days 8. Moving or speaking so slowly that other people could have noticed. Or the opposite - being so fidgety or restless that you have been moving around a lot more than usual: more than half the days 9. Thoughts that you would be better off or of hurting yourself in some way: more than half the days Total score: 22 Depression Screening Interpretation: Positive Depression Screening Done: Yes Source: Developed by Drs. Travis Bolton, Christelle Vences, Isaiah Mahoney and colleagues, with an educational damian from [employer]. Thrive Questionnaire Date Thrive assessed: 05/11/24 I am a: Patient What is your living situation today?: I have a steady place to live Within the past 12 months, did the food you bought not last and you didn't have the money to get more?: Never true Within the past 12 months, did you worry whether your food would run out before you got money to buy more?: Never true Do you have trouble paying for medicines?: No Do you have trouble getting transportation to medical appointments?: No Do you have trouble paying your heating and electricity bill?: No Do you have trouble taking care of your child, family member or friend?: No Do you have trouble with day-to-day activities such as bathing, preparing meals, shopping, managing finances, etc.?: No Are you currently unemployed and looking for a job?: No Are you interested in more education?: No Currently or been in a relationship where the following occur: No concerns reported THRIVE Score: 0 AUDIT C Alcohol Use Questionnaire (AUDIT-C) 1. How often do you have a drink containing alcohol?: Never Total Score: 0 FERNY-7 AMB Questionnaire FERNY-7 Date FERNY - 7 assessed: 05/11/24 Feeling nervous, anxious, or on edge: 2 = More than half the days Not being able to stop or control worryin = Nearly every day Worrying too much about different things: 3 = Nearly every day Trouble relaxin = Nearly every day Being so restless that it is hard to sit still: 2 = More than half the days Becoming easily annoyed or irritable: 3 = Nearly every day Feeling afraid as if something awful might happen: 2 = More than half the days Total FERNY-7 score (0-4 normal; 5-9 mild; 10-14 moderate; 15-21 severe): 18 Source: Developed by Drs. Travis Bolton, Christelle Vences, Isaiah Mahoney and colleagues, with an educational damian from [employer]. Physical exam (Primary Care) Vital Signs: Last Vital Signs Pulse 101 H 05/11/24 09:30 BP 132/70 05/11/24 09:30 Pulse Ox 100 05/11/24 09:30 Oxygen Delivery Method Room Air 05/11/24 09:30 BMI result Body Mass Index 26.4 Tobacco/Smoking Status: Tobacco use Status Tobacco use date assessed 05/11/24 05/11/24 09:41 Patient Tobacco Use Status Never used Tobacco 05/11/24 09:41 Tobacco use type Cigarette 05/11/24 09:41 e-Cigarette/Vaping Use Never Used 05/11/24 09:41 PHQ-9: PHQ-9 Score PHQ-9: Total score 22 05/11/24 09:41 Depression Screening Interpretation: Positive Thrive Assessment: Date of Thrive Assessment Date Thrive assessed 05/11/24 05/11/24 09:41 Currently or been in a relationship where the following occur: No concerns reported Const General: cooperative and healthy appearing Nutritional Appearance: well nourished Orientation/consciousness: patient oriented x3 Limitations: no limitations HENMT Head: Yes normal to inspection Eyes General: appearance normal, both eyes and all related structures Neck Neck: Yes normal visual inspection Chest Chest palpation & inspection: normal palpation of entire chest wall Resp Effort & Inspection: normal respiratory effort Neuro General: patient oriented x3 Assessment and Plan Assessment & Plan (1) SLE (systemic lupus erythematosus): Comment: SLE (arthralgias, skin rashes, episcleritis/scleritis, hair loss, lymphopenia, normocytic anemia, +VICKIE +++SSa +SSb +RF + DsDNA) dx around 2013 HCQ + PDN regularly 2022 MTX 2022 stopped after one-month could not be tolerated Code(s): M32.9 - Systemic lupus erythematosus, unspecified Qualifiers: Systemic lupus erythematosus type: other Systemic lupus erythematosus organ involvement: unspecified Qualified Code(s): M32.8 - Other forms of systemic lupus erythematosus Plan: Patient has an upcoming appointment with sales promoter. She believes that the prednisone is causing most of her anxiety symptoms. I encouraged the patient to discuss with him (2) Annual physical exam: Code(s): Z00.00 - Encounter for general adult medical examination without abnormal findings Plan: Blood work has been reviewed. (3) Generalized anxiety disorder: Code(s): F41.1 - Generalized anxiety disorder Plan: High PHQ score noted. Patient is reluctant to start medications. [facility] has been contacted for possible therapy sessions. Coding Level of Care Code Est Pt Level 4 (54683) Est Pt Prev Care 18-39y(38512) Diagnoses Other forms of systemic lupus erythematosus, unspecified organ involvement status M32.8 Systemic lupus erythematosus type: other Systemic lupus erythematosus organ involvement: unspecified Annual physical exam Z00.00 Generalized anxiety disorder F41.1
[2024-05-11 09:30] VITALS: BP 132/70; PULSE 101; O2SAT 100; BMI 26.4
== END 2024-05-11 10:16 | disposition home or self-care (01) ==
PROVIDERS: PCP Nurse Practitioner Family; Visit Provider Internal Medicine
DX: Z00.00 Encounter for general adult medical examination without abnormal findings (principal); F41.1 Generalized anxiety disorder; M32.8 Other forms of systemic lupus erythematosus
CPT/HCPCS: 96127; 99395

== ENCOUNTER 2024-06-28 10:04 | Outpatient (AMB) | payer OTHER, SELFPAY ==
--- NOTE | 2024-06-28 10:11 | MHC.PC.OV ---
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 Required: No Accompanied by: Self / Same As Patient Allergies No Known Allergies [No Known Allergies*] Allergy (Verified 06/29/24 05:43) Medication List - Last Reconciled 06/29/24 by Luca Nelson MD hydrocortisone 1% (Preparation H Hydrocortisone) 1 appl topical TID PRN hydrocortisone acetate (Anusol-HC) 25 mg MO BEDTIME hydroxychloroquine orally; Take 400 mg daily X 5 days a week and 200 mg daily X 2 days a week prednisone 2.5 mg PO DAILY Tobacco use date assessed: 06/28/24 Dental Screening Dental Screen Date: 06/28/24 Did you have a dental visit in the last 12 months?: No Did you have a dental problem in the last 6 months where you did not have access to dental care?: No Was dental information given to patient?: No HPI Back pain and stool with blood HPI Details 28-year-old female presents to the office for a sick visit. Patient is reporting that she has blood-streaked stool on a few occasions in the past week. She admits to be constipated. There has been no change in her diet. She is not taking any prednisone currently. Able to function and do activities of daily living. Has been seeing logistics analytics manager for her lupus. 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 1. Little interest or pleasure in doing things: nearly every day 2. Feeling down, depressed, or hopeless: nearly every day 3. Trouble falling or staying asleep, or sleeping too much: more than half the days 4. Feeling tired or having little energy: nearly every day 5. Poor appetite or overeating: nearly every day 6. Feeling bad about yourself - or that you are a failure or have let yourself or your family down: nearly every day 7. Trouble concentrating on things, such as reading the newspaper or watching television: several days 8. Moving or speaking so slowly that other people could have noticed. Or the opposite - being so fidgety or restless that you have been moving around a lot more than usual: more than half the days 9. Thoughts that you would be better off or of hurting yourself in some way: more than half the days Total score: 22 Depression Screening Interpretation: Positive Depression Screening Done: Yes Source: Developed by Drs. Travis Bolton, Christelle Vences, Isaiah Mahoney and colleagues, with an educational damian from [employer]. Thrive Questionnaire Date Thrive assessed: 06/28/24 I am a: Patient What is your living situation today?: I have a steady place to live Within the past 12 months, did the food you bought not last and you didn't have the money to get more?: Never true Within the past 12 months, did you worry whether your food would run out before you got money to buy more?: Never true Do you have trouble paying for medicines?: No Do you have trouble getting transportation to medical appointments?: No Do you have trouble paying your heating and electricity bill?: No Do you have trouble taking care of your child, family member or friend?: No Do you have trouble with day-to-day activities such as bathing, preparing meals, shopping, managing finances, etc.?: No Are you currently unemployed and looking for a job?: No Are you interested in more education?: No Please select the resources that you would like help with: None Currently or been in a relationship where the following occur: No concerns reported THRIVE Score: 0 AUDIT C Alcohol Use Questionnaire (AUDIT-C) 1. How often do you have a drink containing alcohol?: Never Total Score: 0 FERNY-7 AMB Questionnaire FERNY-7 Date FERNY - 7 assessed: 06/28/24 Feeling nervous, anxious, or on edge: 2 = More than half the days Not being able to stop or control worryin = Nearly every day Worrying too much about different things: 3 = Nearly every day Trouble relaxin = Nearly every day Being so restless that it is hard to sit still: 2 = More than half the days Becoming easily annoyed or irritable: 3 = Nearly every day Feeling afraid as if something awful might happen: 2 = More than half the days Total FERNY-7 score (0-4 normal; 5-9 mild; 10-14 moderate; 15-21 severe): 18 Source: Developed by Drs. Travis Bolton, Christelle Vences, Isaiah Mahoney and colleagues, with an educational damian from [employer]. Physical exam (Primary Care) Vital Signs: Last Vital Signs Pulse 84 06/28/24 10:12 BP 106/80 06/28/24 10:12 Pulse Ox 98 06/28/24 10:12 Oxygen Delivery Method Room Air 06/28/24 10:12 BMI result Body Mass Index 26.1 Tobacco/Smoking Status: Tobacco use Status Tobacco use date assessed 06/28/24 06/28/24 10:16 Patient Tobacco Use Status Never used Tobacco 06/28/24 10:16 Tobacco use type Cigarette 06/28/24 10:16 e-Cigarette/Vaping Use Never Used 06/28/24 10:16 PHQ-9: PHQ-9 Score PHQ-9: Total score 22 06/28/24 10:16 Depression Screening Interpretation: Positive Thrive Assessment: Date of Thrive Assessment Date Thrive assessed 06/28/24 06/28/24 10:16 Currently or been in a relationship where the following occur: No concerns reported Const General: cooperative and healthy appearing Nutritional Appearance: well nourished Orientation/consciousness: patient oriented x3 Limitations: no limitations HENMT Head: Yes normal to inspection Eyes General: appearance normal, both eyes and all related structures Neck Neck: Yes normal visual inspection Chest Chest palpation & inspection: normal palpation of entire chest wall Resp Effort & Inspection: normal respiratory effort Neuro General: patient oriented x3 Assessment and Plan Assessment & Plan (1) Hemorrhoids: Code(s): K64.9 - Unspecified hemorrhoids Plan: Empiric diagnosis of hemorrhoids made. Patient was advised to softeners stool by taking stool softeners or milk of magnesia. Anusol suppositories and preparation H were ordered. If symptoms do not improve to follow-up here. Medications: New hydrocortisone 1% (Preparation H Hydrocortisone) 1 appl topical TID PRN 28.35 grams 0RF skin irritation hydrocortisone acetate (Anusol-HC) 25 mg MO BEDTIME 12 ea 0RF Coding Level of Care Code Est Pt Level 3 (46588) Complex EM visit Add On G2211 Diagnoses Hemorrhoids K64.9
[2024-06-28 10:12] VITALS: BP 106/80; PULSE 84; O2SAT 98; BMI 26.1
== END 2024-06-28 10:55 | disposition home or self-care (01) ==
PROVIDERS: PCP Internal Medicine; Visit Provider Internal Medicine
DX: K64.9 Unspecified hemorrhoids (principal)
CPT/HCPCS: 99213; G2211

== ENCOUNTER 2024-07-22 12:13 | Outpatient (REF) | payer OTHER, SELFPAY ==
[2024-07-23 09:05] LABS: HBS Num1 47.56 mIU/mL (0-7.99); HBc Num1 0.09 S/CO (0.00-0.79); HBsAGNum1 0.31 S/CO (0.00-0.99); Hepatitis A Antibody IgM 0.22 Index (0-0.79); Hepatitis B Core Antibody Nonreactive (Nonreactive); Hepatitis B Surface Antigen Negative (Negative); ~HepC Num1 0.14 S/CO (0.00-0.79); ~Hepatitis A Antibody IgM Nonreactive (Nonreactive); ~Hepatitis B Surface Antibody REACTIVE (Nonreactive); ~Hepatitis C Antibody Nonreactive (Nonreactive)
[2024-07-25 23:28] LABS: TS Negative Control Passed; TS Panel A 0; TS Panel B 0; TS Positive Control Passed; TSpotTB Negative (Negative)
== END 2024-07-22 12:14 | disposition home or self-care (01) ==
LOC: HO.LAB 12:13
PROVIDERS: PCP Internal Medicine; Visit Provider Student in an Organized Health Care Education/Training Program
DX: Z11.59 Encounter for screening for other viral diseases (principal); Z11.7 Encounter for testing for latent tuberculosis infection
CPT/HCPCS: 36415; 86481; 86704; 86706; 86709; 86803; 87340

== ENCOUNTER 2024-07-28 11:10 | Outpatient (AMB) | payer OTHER, SELFPAY ==
--- NOTE | 2024-07-28 11:11 | MHC.OFFWIV ---
Intake Vital Signs 07/28/24 11:12 Height 5 ft 3 in Weight 149 lb BMI 26.4 BP 124/74 Blood Pressure Location Lt brachial Position Sitting Pulse 119 H Pulse Source Pulse Oximeter Temp 100.2 F Temp Source Oral Pulse Oximetry (%) 98 Oxygen Delivery Method Room Air Intake Visit Reasons: EP fever, tension headache Intake Note: PT c/o fever 103 and tension headache. Started Friday. Patient Tobacco Use Status: Never used Tobacco Allergies No Known Allergies [No Known Allergies*] Allergy (Verified 07/28/24 11:11) Do you need a note to return to daycare/school/sports/work: No HPI EP fever, tension headache HPI Details This note is constructed using voice recognition software. While every effort has been made to ensure accuracy, electronics inspector errors may have been included. The patient is a 28 year old female who presents to the clinic today with fever, sinus congestion, and generalized body aches for the past 4 days. She tried Tylenol 500 mg, which did not resolve her symptoms, but higher doses tend to cause GI upset. The headache is frontal, does not involve any confusion, dizziness, lightheadedness and she has not had any trauma, and it seems to be at the same time as the fever. She has not tried any Motrin. 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 Current occupational exposures/hazards: No Cognitive needs: No Hearing needs: No Vision needs: Yes (Glasses) Review of Systems Const All systems reviewed & are unremarkable except as noted in HPI and below Physical Exam Vital Signs: Last Vital Signs Temp 100.2 F 07/28/24 11:12 Pulse 119 H 07/28/24 11:12 BP 124/74 07/28/24 11:12 Pulse Ox 98 07/28/24 11:12 Oxygen Delivery Method Room Air 07/28/24 11:12 BMI result Body Mass Index 26.4 Const General: cooperative, healthy appearing, comfortable and no acute distress Orientation/consciousness: patient oriented x3 Limitations: no limitations HEENT Head: Yes normal to inspection Ears: hearing grossly normal bilaterally, external ears normal, TM normal on the right and TM abnormal bulging (Slight) on the left and erythematous (Mild) on the left General nose exam: Normal external nose present, Normal nares present and No nasal discharge present Face and sinus: Yes normal facial exam and Yes sinuses nontender Mouth: Normal oral and palatal mucosa present and moist mucous membranes Throat: Yes tonsils normal, Yes uvula midline and Yes posterior oropharynx abnormal (Erythema) Eyes General: appearance normal, both eyes and all related structures Neck Neck: Yes normal visual inspection Resp Effort & Inspection: normal respiratory effort, able to speak in complete sentences, Actively coughing, no respiratory distress, not tachypneic, no tripod positioning and no use of accessory muscles Auscultation: clear to auscultation bilaterally Cardio Jugular venous distension: no JVD Rate: regular rate Rhythm: regular rhythm Heart sounds: S1 normal heart sound present, S2 normal heart sound present, no click, no gallops, no murmurs and no rubs Skin General skin exam: no rashes or lesions noted, elasticity normal and turgor normal Neuro General: patient oriented x3 Extrem General: Yes normal to inspection and Yes no clubbing, cyanosis or edema Assessment & Plan Assessment & Plan (1) URI (upper respiratory infection): Code(s): J06.9 - Acute upper respiratory infection, unspecified Qualifiers: URI type: unspecified URI Qualified Code(s): J06.9 - Acute upper respiratory infection, unspecified Plan: Viral swab obtained to rule out Covid based on symptoms. Advised mask wearing while symptomatic and quarantine per current CDC guidelines. Reviewed at home support methods including hydration, humidification, vix vapor rub, sinus rinse. Discussed treatment with antiviral therapy for covid with paxlovid including appropriate use and side effects, and need to start medication within 5 day of symptom onset, preferably within 48 hours of symptom onset. Patient wishes to decline paxlovid. Advised follow up with worsening symptoms such as dyspnea at rest, which would require emergent evaluation. (2) Otitis media: Code(s): H66.90 - Otitis media, unspecified, unspecified ear Qualifiers: Otitis media type: suppurative Chronicity: acute Laterality: left Recurrence: non-recurrent Spontaneous tympanic membrane rupture: without spontaneous rupture Qualified Code(s): H66.002 - Acute suppurative otitis media without spontaneous rupture of ear drum, left ear Plan: Physical examination reveals likely early otitis media on the left. Antibiotic sent to requested pharmacy, and advised patient to hold off on starting medication until after results of COVID swab. Reviewed appropriate use and doses of acetaminophen and ibuprofen, as well as use food in the stomach to help prevent and minimize GI side effects. Plan See above for full details and plan. Reviewed likelihood that headache is associated with fever, and the increased hydration as well as use of antipyretics at appropriate doses will likely resolve this. Additionally she appears to have an early otitis media on the left, which she will start the antibiotics if symptoms do not improve, worsen, and/or her COVID swab is also negative. Advised follow up with worsening symptoms or failure to resolve. Orders: Orders SARS-CoV2/FLU/RSV Today J06.9 - Acute upper respiratory infection, unspecified Medications: New amoxicillin-pot clavulanate 875-125 mg 1 tab PO BID 7 days 14 tabs 0RF Coding Level of Care Code Est Pt Level 3 (52231) Diagnoses Upper respiratory tract infection, unspecified type J06.9 URI type: unspecified URI Non-recurrent acute suppurative otitis media of left ear without spontaneous rupture of tympanic membrane H66.002 Otitis media type: suppurative Chronicity: acute Laterality: left Recurrence: non-recurrent Spontaneous tympanic membrane rupture: without spontaneous rupture
[2024-07-28 11:12] VITALS: BP 124/74; PULSE 119; TEMP 37.9; O2SAT 98; BMI 26.4
== END 2024-07-28 13:12 | disposition home or self-care (01) ==
PROVIDERS: PCP Internal Medicine; Visit Provider Registered Nurse
DX: J06.9 Acute upper respiratory infection, unspecified (principal); H66.002 Acute suppurative otitis media without spontaneous rupture of ear drum, left ear

== ENCOUNTER 2024-07-28 11:10 | Outpatient (REF) | payer OTHER, SELFPAY ==
[2024-07-28 14:35] LABS: Influenza A PCR NEGATIVE (Negative); Influenza B PCR NEGATIVE (Negative); Resp Syncy Virus RNA Qual PCR NEGATIVE (Negative); SARS COV2 PCR INHOUSE NEGATIVE (Negative)
== END 2024-07-28 11:11 | disposition home or self-care (01) ==
LOC: HO.LAB 11:10
PROVIDERS: PCP Internal Medicine; Visit Provider Registered Nurse
DX: J06.9 Acute upper respiratory infection, unspecified (principal); H66.002 Acute suppurative otitis media without spontaneous rupture of ear drum, left ear
CPT/HCPCS: 0241U; 99212

== ENCOUNTER 2024-07-30 10:02 | Emergency (ER) | payer OTHER, SELFPAY ==
--- NOTE | ~2024-07-30 | XR_ITS ---
EXAMINATION: XR CHEST CLINICAL INFORMATION: Fever. Chest pain. COMPARISON: None available. TECHNIQUE: Frontal and lateral chest radiographs were performed. FINDINGS: The heart is normal in size. Both lungs are clear. No pleural effusion. No pneumothorax. No acute osseous abnormality. XR/XR chest 2V IMPRESSION: No acute cardiopulmonary disease. Electronically signed by: Harlan Hancock DO 07/30/2024 02:21 PM EDT RP
--- NOTE | ~2024-07-30 | CT_ITS ---
EXAMINATION: CT HEAD WITHOUT CONTRAST CLINICAL INFORMATION: Head and neck pain. COMPARISON: None available. TECHNIQUE: Contiguous axial imaging was performed from the skull base to vertex without intravenous administration of contrast. This CT examination was performed using dose optimization techniques as appropriate, variously including the following: *Automated exposure control *Adjustment of mA and/or kV according to patient size (this includes techniques or standardized protocols for targeted exams where dose is matched to indication/reason for exam; i.e. extremities or head) *Use of iterative reconstruction technique DLP: 636 mGy-cm FINDINGS: There is no acute intracranial hemorrhage. There is no evidence of acute/subacute cerebral or cerebellar infarction. There is no midline shift or mass effect. There is no extra-axial fluid collection. The ventricles are normal in size. The orbits are symmetric and within normal limits. The calvarium is intact. The visualized paranasal sinuses and mastoid air cells are clear. CT/CT head/brain wo IV con IMPRESSION: No acute intracranial pathology. Electronically signed by: Harlan Hancock DO 07/30/2024 02:20 PM EDT
[2024-07-30 10:12] VITALS: BP 117/83; PULSE 105; RESP 20; TEMP 37.1; O2SAT 99; BMI 26.6
[2024-07-30 10:52] LABS: MANUAL DIFF FLAG NO
[2024-07-30 10:53] LABS: Basophils Percent Auto 0.7 % (0-2); Eosinophils Percent Auto 0.3 % (0-4); Hematocrit 35.5 % (37.0-47.0); Hemoglobin 11.7 g/dl (12.0-16.0); Imm Gran Abs Auto 0.02 X10*3/uL (0.00-0.03); Imm Gran Pct Auto 0.7 % (0.0-0.4); Lymphocytes Absolute Auto 0.3 X10*3/uL (1.2-4.9); Lymphocytes Percent Auto 11.5 % (20-40); Mean Corpuscular Hemoglobin 25.8 pg (27.0-33.0); Mean Corpuscular Volume 78.2 fL (80.0-98.0); Mean Platelet Volume 9.8 fL (9.4-12.3); Monocytes Absolute Auto 0.1 X10*3/uL (0.1-1.2); Monocytes Percent Auto 2.8 % (2-11); Neutrophils Absolute Auto 2.4 x10*3/uL (2.0-8.3); Platelet Count 157 X10*3/uL (160-400); Red Blood Count 4.54 X10*6/uL (4.20-5.50); Red Cell Distribution Width 13.8 % (11.0-16.0); White Blood Count 2.9 X10*3/uL (4.8-10.8)
[2024-07-30 11:01] LABS: INTERNATIONAL NORM RATIO 1.1 (0.9-1.1); Prothrombin Time 12.5 SEC (10.9-12.4)
[2024-07-30 11:12] LABS: Alanine Aminotransferase 48 U/L (0-31); Albumin Level 4.1 g/dL (3.5-5.0); Alkaline Phosphatase 85 U/L (39-117); Anion Gap 12 (12-20); Aspartate Amino Transferase 115 U/L (5-31); Bilirubin Total 0.4 mg/dL (0.0-1.0); Blood Urea Nitrogen 7 mg/dL (9-16); C Reactive Protein 7.99 mg/dL (< or = 0.50); Calcium 8.7 mg/dL (8.4-10.2); Carbon Dioxide 26 mmol/L (22-29); Chloride 102 mmol/L (96-108); Creatinine Clr Calc Pharmacy 106.1; Estimated Glomerular Filt Rate > 60; Glucose Random 111 mg/dL (60-115); Magnesium 2.1 mg/dL (1.6-2.6); Sodium 136 mmol/L (135-145); Total Protein 7.5 g/dL (6.5-8.0)
[2024-07-30 11:47] LABS: Adenovirus PCR Not Detected (Not Detect.); Bordetella parapertussis PCR Not Detected (Not Detect.); Bordetella pertussis PCR Not Detected (Not Detect.); Chlamydia pneumoniae PCR Not Detected (Not Detect.); Coronavirus 229E PCR Not Detected (Not Detect.); Coronavirus HKU1 PCR Not Detected (Not Detect.); Coronavirus NL63 PCR Not Detected (Not Detect.); Coronavirus OC43 PCR Not Detected (Not Detect.); Erythrocyte Sedimentation Rate 10 MM/HR (0-20); Human metapneumovirus PCR Not Detected (Not Detect.); Influenza A PCR Not Detected (Not Detect.); Influenza B PCR Not Detected (Not Detect.); Mycoplasma pneumoniae PCR Not Detected (Not Detect.); Parainfluenza 1 PCR Not Detected (Not Detect.); Parainfluenza 2 PCR Not Detected (Not Detect.); Parainfluenza 3 PCR Not Detected (Not Detect.); Parainfluenza 4 PCR Not Detected (Not Detect.); RSV PCR Not Detected (Not Detect.); Rhino/Enterovirus PCR Not Detected (Not Detect.)
[2024-07-30 11:51] LABS: SARS-CoV-2 PCR Not Detected (Not Detect.)
[2024-07-30 12:03] VITALS: TEMP 37.1
[2024-07-30 12:06] LABS: Monotest Negative (Negative)
[2024-07-30 12:21] LABS: Lipase 21 U/L (8-78)
[2024-07-30 12:35] LABS: Lactic Acid 0.9 mmol/L (0.5-2.0)
[2024-07-30 13:10] LABS: CT PCR NOT DETECTED (Not Detect.); NG PCR NOT DETECTED (Not Detect.)
--- NOTE | 2024-07-30 13:11 | ED_ITS ---
HPI - Fever General Chief Complaint: Fever Stated Complaint: fever Time Seen by Provider: 07/30/24 13:10 Source: patient Mode of arrival: ambulatory Limitations: no limitations History of Present Illness HPI Narrative: 28-year-old female presents emergency department for fever. Patient is on hydroxychloroquine for systemic lupus erythematous patient has also been diagnosed with rheumatoid arthritis in the past. She has gone for the past few days she was seen at a walk-in and given some antibiotics she had she continues to have fevers patient did get a CT scan of her head but no x-ray or urine was sent while waiting in triage. She had complained of ORTIZ and neck stiffness in triage. She does have hypervigilant polypositive review of systems for me but denies neck pain or stiffness. Has a headache not worse when shaking her head. Last dose of tylenol at 0700 afebrile now and on arrival. MD elicited complaint: fever Related Data Previous Rx's ?Medication ?Instructions ?Recorded hydroxychloroquine 200 mg tablet See Rx Instructions PO .COMPLEX 02/11/24 #144 tabs amoxicillin 875 mg-potassium 1 tab PO BID 7 days #14 tabs 07/28/24 clavulanate 125 mg tablet cefuroxime axetil 500 mg tablet 500 mg PO BID 7 days #14 tabs 07/30/24 Allergies Allergy/AdvReac Type Severity Reaction Status Date / Time No Known Allergies Allergy Verified 07/30/24 10:16 [No Known Allergies*] Review of Systems 2 Review of Systems: Review of systems: General: Patient complains of fever but does not have 1 on arrival denies any chills recent illness or falls Musculoskeletal: back pain or body aches no injuries HEENT: headache, denies runny nose, ear pain Respiratory: shortness of breath, cough Cardiovascular: no chest pain or palpitations : denies dysuria, frequency Abdomen: o nausea vomiting and abdominal pain Extremities: no swelling, has pain Skin: no diaphoresis Yes all other systems are reviewed and are negative PMFSH Past Medical History Medical History Joint pain Kidney stones Surgical History No pertinent past surgical history Family History Family History Mother HTN (hypertension) Osteoarthritis Father Rosana Gehrig's disease Maternal Grandfather Rheumatoid arthritis Other Mental health disorder Social History Social History Household Members: Family Housing: House Alcohol intake: current Alcohol intake frequency: a few times a month Patient Tobacco Use Status: Never used Tobacco Tobacco use type: Cigarette e-Cigarette/Vaping Use: Never Used Second Hand Smoke Exposure: No Advance Directives: No Advance Directives Information Provided: Yes Do you have a plan to hurt others: No Plan service: No Current occupational status: employed 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 Patient is alert and oriented to person place and time. Patient has no dysphagia or dysarthia, denies good vision in all four vision oneal no nystagmus on exam, good strength to upper and lower extremities with normal reflexes to brachioradialis, wrist, patella and achilles. Negative romberg, good finger to nose and heel to newberry. General: Well-appearing well-nourished in no signs of distress HEENT: Normocephalic atraumatic Neck: No signs of JVD, no masses no tenderness or lymphadenopathy Cardiovascular: Regular rate and rhythm Respiratory: Clear to auscultation bilaterally but very limited effort on respiration Abdomen: Soft nontender no masses Extremities: Normal pedal pulses no signs of edema Skin: Dry warm no rashes Back: No tenderness full ROM Course Course Course Narrative: Patient in the room still is not going to see urine sample and now is complaining of ?major headache? which I will treat with Toradol Tylenol fluids Reglan and Benadryl. Patient continues to look well continues to have normal vitals still afebrile has had no episodes of emesis but states she is nauseous placing this pending is urinalysis with an isolated elevated CRP I do not think this is something that continues to require an LP and I do think she is likely safe to go home if the urinalysis unremarkable. Reevaluation(s) Reevaluation #1: Patient ambulate to the bathroom without any issues was able to give us a urine sample at this time which was sent. Time: 14:53 Reevaluation #2: He is urine does show he bladder infection start the patient cefuroxime have the patient follow up with her doctor. Time: 15:08 Medications Administered Discontinued Medications Generic Name Dose Route Start Last Admin Trade Name Freq PRN Reason Stop Dose Admin Diphenhydramine HCl 25 mg 07/30/24 14:28 07/30/24 14:52 Diphenhydramine Hcl 50 Mg/Ml Vial IVPUSH 07/30/24 14:29 25 mg ONCE ONE Administration Sodium Chloride 1,000 mls @ 999 mls/hr 07/30/24 13:30 07/30/24 14:53 Ns IV 07/30/24 14:30 999 mls/hr .Q1H1M SHIRA Administration Acetaminophen 1,000 mg in 100 mls @ 400 mls/hr 07/30/24 13:19 07/30/24 14:52 Ofirmev IV 07/30/24 13:33 400 mls/hr ONCE ONE Administration Ketorolac Tromethamine 15 mg 07/30/24 13:19 07/30/24 14:52 Ketorolac Tromethamine 15 Mg/Ml Vial IVPUSH 07/30/24 13:20 15 mg ONCE ONE Administration Metoclopramide HCl 10 mg 07/30/24 14:28 07/30/24 14:52 Metoclopramide Hcl 10 Mg/2 Ml Vial IVPUSH 07/30/24 14:29 10 mg ONCE ONE Administration Medical Decision Making Medical Decision Making [facility] Narrative: Patient is very nontoxic appearance I do not think she has no LP at this time I will add on an x-ray and labs and urine. Differential Diagnosis Differential Diagnoses: The differential diagnosis associated with the presentation includes Lupus viral syndrome weakness recurrent fever the appears to have resolved very less likely meningitis as the patient is nontoxic in appearance has no sign of meningismus on arrival here has not given us a urine sample labs are fairly unremarkable other than elevated LFTs which is likely associated with long-term hydroxychloroquine use and an elevated CRP. Admission/Observation Consideration of admission/observation: Escalation of care including admission/observation considered Consult Healthcare Provider Management of the patient was discussed with: Hospitalist and Content Analyst Lab Data MDM Lab Attestation statement: I reviewed the patient's lab results. Elevated CRP low white blood cell count 07/30/24 10:44 07/30/24 10:44 Labs: Lab Results 07/30/24 07/30/24 07/30/24 Range/Units 10:44 10:44 12:01 WBC 2.9 L (4.8-10.8) X10*3/uL RBC 4.54 (4.20-5.50) X10*6/uL Hgb 11.7 L (12.0-16.0) g/dl Hct 35.5 L (37.0-47.0) % MCV 78.2 L (80.0-98.0) fL MCH 25.8 L (27.0-33.0) pg MCHC 33.0 (31.0-35.0) g/dl RDW 13.8 (11.0-16.0) % Plt Count 157 L D (160-400) X10*3/uL MPV 9.8 (9.4-12.3) fL Immature Gran % (Auto) 0.7 H (0.0-0.4) % Neut % (Auto) 84.0 H (45-73) % Lymph % (Auto) 11.5 L (20-40) % [place] % (Auto) 2.8 (2-11) % Eos % (Auto) 0.3 (0-4) % Baso % (Auto) 0.7 (0-2) % Lymph # (Auto) 0.3 L (1.2-4.9) X10*3/uL [place] # (Auto) 0.1 (0.1-1.2) X10*3/uL Eos # (Auto) 0.0 (0.0-0.4) X10*3/uL Baso # (Auto) 0.0 (0.0-0.2) X10*3/uL Abs Immat Gran (auto) 0.02 (0.00-0.03) X10*3/uL Absolute Neuts (auto) 2.4 (2.0-8.3) x10*3/uL Absolute Nucleated RBC 0.000 (0.0-0.012) X10*3/uL Nucleated RBC % (auto) 0.0 (0.0-0.2) /100WBC ESR 10 (0-20) MM/HR PT 12.5 H (10.9-12.4) SEC INR 1.1 (0.9-1.1) Sodium 136 (135-145) mmol/L Potassium 4.0 D (3.3-5.1) mmol/L Chloride 102 (96-108) mmol/L Carbon Dioxide 26 (22-29) mmol/L Anion Gap 12 (12-20) BUN 7 L (9-16) mg/dL Creatinine 0.71 (0.5-1.4) mg/dL Estim Creat Clear Calc 106.1 Estimated GFR > 60 Random Glucose 111 (60-115) mg/dL Lactic Acid 0.9 (0.5-2.0) mmol/L Calcium 8.7 (8.4-10.2) mg/dL Magnesium 2.1 (1.6-2.6) mg/dL Total Bilirubin 0.4 (0.0-1.0) mg/dL AST 115 H (5-31) U/L ALT 48 H (0-31) U/L Alkaline Phosphatase 85 (39-117) U/L C-Reactive Protein 7.99 H (< or = 0.50) mg/dL Total Protein 7.5 (6.5-8.0) g/dL Albumin 4.1 (3.5-5.0) g/dL Lipase 21 (8-78) U/L Urine Color Urine Appearance Urine pH (5.0-9.0) Ur Specific Delta (1.005-1.025) Urine Protein (Neg-Trace) mg/dL Urine Glucose (UA) (Negative) mg/dL Urine Ketones (Negative) mg/dL Urine Blood (Negative) Urine Nitrite (Negative) Ur Leukocyte Esterase (Negative) Urine RBC (0-2) /HPF Urine WBC (0-5) /HPF Ur Squamous Epith Cells (0-2) /HPF Urine Bacteria (None Seen) Hyaline Casts (0-2) /LPF Respiratory Panel Kimble See Note Adenovirus (Rapid PCR) Not Detected (Not Detect.) B.pert (TEM-PCR) Not Detected (Not Detect.) B.parapertussis DNA PCR Not Detected (Not Detect.) C. pneumoniae DNA (PCR) Not Detected (Not Detect.) Chlam trachomat DNA PCR NOT DETECTED (Not Detect.) Coronavirus OC43 (PCR) Not Detected (Not Detect.) Coronavirus HKU1 (PCR) Not Detected (Not Detect.) Coronavirus 229E (PCR) Not Detected (Not Detect.) Coronavirus NL63 (PCR) Not Detected (Not Detect.) Monoscreen Negative (Negative) Human Metapneumovir PCR Not Detected (Not Detect.) Influenza A (RT-PCR) Not Detected (Not Detect.) Influenza Type A (PCR) Cancelled Influenza B (RT-PCR) Not Detected (Not Detect.) Influenza Type B (PCR) Cancelled M. pneumoniae (PCR) Not Detected (Not Detect.) N.gonorrhoeae DNA (PCR) NOT DETECTED (Not Detect.) Parainfluenza 1 (PCR) Not Detected (Not Detect.) Parainfluenza 2 (PCR) Not Detected (Not Detect.) Parainfluenza 3 (PCR) Not Detected (Not Detect.) Parainfluenza 4 (PCR) Not Detected (Not Detect.) RSV (PCR) Not Detected (Not Detect.) RSV RNA Qual (PCR) Cancelled Entero/Rhino (PCR) Not Detected (Not Detect.) SARS-CoV-2 RNA (RT-PCR) Cancelled Not Detected 07/30/24 Range/Units 14:50 WBC (4.8-10.8) X10*3/uL RBC (4.20-5.50) X10*6/uL Hgb (12.0-16.0) g/dl Hct (37.0-47.0) % MCV (80.0-98.0) fL MCH (27.0-33.0) pg MCHC (31.0-35.0) g/dl RDW (11.0-16.0) % Plt Count (160-400) X10*3/uL MPV (9.4-12.3) fL Immature Gran % (Auto) (0.0-0.4) % Neut % (Auto) (45-73) % Lymph % (Auto) (20-40) % [place] % (Auto) (2-11) % Eos % (Auto) (0-4) % Baso % (Auto) (0-2) % Lymph # (Auto) (1.2-4.9) X10*3/uL [place] # (Auto) (0.1-1.2) X10*3/uL Eos # (Auto) (0.0-0.4) X10*3/uL Baso # (Auto) (0.0-0.2) X10*3/uL Abs Immat Gran (auto) (0.00-0.03) X10*3/uL Absolute Neuts (auto) (2.0-8.3) x10*3/uL Absolute Nucleated RBC (0.0-0.012) X10*3/uL Nucleated RBC % (auto) (0.0-0.2) /100WBC ESR (0-20) MM/HR PT (10.9-12.4) SEC INR (0.9-1.1) Sodium (135-145) mmol/L Potassium (3.3-5.1) mmol/L Chloride (96-108) mmol/L Carbon Dioxide (22-29) mmol/L Anion Gap (12-20) BUN (9-16) mg/dL Creatinine (0.5-1.4) mg/dL Estim Creat Clear Calc Estimated GFR Random Glucose (60-115) mg/dL Lactic Acid (0.5-2.0) mmol/L Calcium (8.4-10.2) mg/dL Magnesium (1.6-2.6) mg/dL Total Bilirubin (0.0-1.0) mg/dL AST (5-31) U/L ALT (0-31) U/L Alkaline Phosphatase (39-117) U/L C-Reactive Protein (< or = 0.50) mg/dL Total Protein (6.5-8.0) g/dL Albumin (3.5-5.0) g/dL Lipase (8-78) U/L Urine Color Dark Yellow Urine Appearance Clear Urine pH 6.5 (5.0-9.0) Ur Specific Delta 1.025 (1.005-1.025) Urine Protein 100 (2+) H (Neg-Trace) mg/dL Urine Glucose (UA) Negative (Negative) mg/dL Urine Ketones 80 (Negative) mg/dL Urine Blood Large (3+) H (Negative) Urine Nitrite Negative (Negative) Ur Leukocyte Esterase Trace H (Negative) Urine RBC >20 H (0-2) /HPF Urine WBC 6-10 H (0-5) /HPF Ur Squamous Epith Cells 3-5 (0-2) /HPF Urine Bacteria None Seen (None Seen) Hyaline Casts 0-2 (0-2) /LPF Respiratory Panel [place] Adenovirus (Rapid PCR) (Not Detect.) B.pert (TEM-PCR) (Not Detect.) B.parapertussis DNA PCR (Not Detect.) C. pneumoniae DNA (PCR) (Not Detect.) Chlam trachomat DNA PCR (Not Detect.) Coronavirus OC43 (PCR) (Not Detect.) Coronavirus HKU1 (PCR) (Not Detect.) Coronavirus 229E (PCR) (Not Detect.) Coronavirus NL63 (PCR) (Not Detect.) Monoscreen (Negative) Human Metapneumovir PCR (Not Detect.) Influenza A (RT-PCR) (Not Detect.) Influenza Type A (PCR) Influenza B (RT-PCR) (Not Detect.) Influenza Type B (PCR) M. pneumoniae (PCR) (Not Detect.) N.gonorrhoeae DNA (PCR) (Not Detect.) Parainfluenza 1 (PCR) (Not Detect.) Parainfluenza 2 (PCR) (Not Detect.) Parainfluenza 3 (PCR) (Not Detect.) Parainfluenza 4 (PCR) (Not Detect.) RSV (PCR) (Not Detect.) RSV RNA Qual (PCR) Entero/Rhino (PCR) (Not Detect.) SARS-CoV-2 RNA (RT-PCR) Independent Interpretation I performed an independent interpretation of an: Plain X-Ray Radiology Impression Discussion of test interpretation with radiology: I discussed test interpretation with the radiologist and I have reviewed the radiologist's reading. Independent Historian Clinical information obtained from an independent historian. History obtained from or confirmed by: Parent External Record Review External record reviewed: Inpatient record, Office record, Outpatient record, Prior outpatient labs and Prior outpatient radiology Discharge Plan Discharge Clinical Impression: UTI (urinary tract infection) Patient Disposition: Home, Self-Care Instructions: Urinary Tract Infection in Women (DC) Additional Instructions: You were seen today for a bladder infection. You were treat with antibiotics. Please call to follow up. Prescriptions: New cefuroxime axetil 500 mg tablet 500 mg PO BID 7 Days Qty: 14 0RF No Action hydroxychloroquine 200 mg tablet See Rx Instructions PO .COMPLEX Qty: 144 0RF Rx Instructions: orally; Take 400 mg daily X 5 days a week and 200 mg daily X 2 days a week amoxicillin-pot clavulanate 875-125 mg tablet 1 tab PO BID 7 Days Qty: 14 0RF Referrals: Luca Nelson MD [Primary Care Provider] - (Please call follow-up for your bladder infection.) Stand Alone Forms: Work/School Release Print Language: Welsh
[2024-07-30] MEDS: Metoclopramide HCl 10 MG/2 ML VIAL IVPUSH (14:52)
[2024-07-30] MEDS: Acetaminophen 1,000 MG/100 ML PIGGYBACK 400 MG IV (14:52)
[2024-07-30] MEDS: diphenhydrAMINE HCL 50 MG/ML VIAL 25 MG IVPUSH (14:52)
[2024-07-30] MEDS: Ketorolac Tromethamine 15 MG/ML VIAL IVPUSH (14:52)
[2024-07-30] MEDS: 0.9 % Sodium Chloride 1,000 ML 999 ML IV (14:53)
[2024-07-30 14:55] LABS: Appearance Urine Clear; Color Urine Dark Yellow; Glucose Urine UA Negative (Negative); Leukocyte Esterase Urine Trace (Negative); Nitrite Urine Negative (Negative); PH 6.5 (5.0-9.0); Specific Gravity - Urine 1.025 (1.005-1.025); UMIC TRIGGER UACC YES; Urine Blood Large (3+) (Negative); Urine Ketones 80 mg/dL (Negative); Urine Protein 100 (2+) mg/dL (Neg-Trace)
[2024-07-30 14:58] LABS: Bacteria Urine None Seen (None Seen); Hyaline Casts Urine 0-2 /LPF (0-2); RBC Urine >20 /HPF (0-2); UACC Culture Trigger YES
[2024-07-30 16:00] VITALS: BP 94/59; PULSE 94; RESP 15; TEMP 37.3; O2SAT 98
[2024-07-30] MEDS: cefuroxime axetiL 500 MG TABLET PO (16:08)
[2024-07-30 16:12] VITALS: BP 94/59; PULSE 94; RESP 15; TEMP 37.3; O2SAT 98
== END 2024-07-30 16:14 | disposition home or self-care (01) ==
PROVIDERS: Physician Assistant; Emergency Provider Student in an Organized Health Care Education/Training Program; PCP Internal Medicine
DX: N39.0 Urinary tract infection, site not specified (principal); Z03.818 Encounter for observation for suspected exposure to other biological agents ruled out; R05.9 Cough, unspecified; R50.9 Fever, unspecified; R06.02 Shortness of breath; Z79.899 Other long term (current) drug therapy; M32.9 Systemic lupus erythematosus, unspecified
CPT/HCPCS: 36415; 70450; 71046; 80053; 81001; 83605; 83690; 83735; 85025; 85610; 85652; 86140; 86308; 87040; 87086; 87491; 87591; 87633; 96374; 96375; 99284; J0131; J1200; J1885; J2765

== ENCOUNTER 2024-08-02 11:43 | Outpatient (AMB) | payer OTHER, SELFPAY ==
--- NOTE | 2024-08-02 11:48 | MHC.OFFVIS ---
Vital Signs 08/02/24 11:51 Height 5 ft 2 in Weight 141 lb 12.116 oz BMI 25.9 BP 100/62 Blood Pressure Location Rt brachial Position Sitting Pulse 91 Pulse Source Pulse Oximeter Pulse Oximetry (%) 98 Oxygen Delivery Method Room Air Intake Visit Reasons: Sle Intake Note: Patient presents for SLE. Allergies No Known Allergies [No Known Allergies*] Allergy (Verified 08/02/24 11:50) Medication List - Last Reconciled 08/02/24 by Darien Remy MD cefuroxime axetil 500 mg PO BID 7 days hydroxychloroquine orally; Take 400 mg daily X 5 days a week and 200 mg daily X 2 days a week prednisone Take 4 tabs daily for 1 week, 3 tabs daily for 1 week, 2 tabs daily for 1 week, 1 tab daily for 1 week then stop HPI Comments Details: 28-year-old female with SLE returns for follow-up. Patient was on hydroxychloroquine as prescribed and prednisone 2.5 mg daily. She self-discontinued her prednisone in the beginning of June due to mood changes. About a week ago patient started having a diffuse skin rash, on her chest, abdomen, extremities. She is on slightly itchy, also having diffuse muscle and joint pains. Five days ago she went to the emergency room with fever and a headache. She was diagnosed with otitis media and prescribed Augmentin. She did not take the Augmentin. Two days later she went back to the hospital complaining of fever. She was diagnosed with UTI and discharged on Keflex. CT scan of the head was negative. She states that the fevers and headaches have resolved. She has not had a flare-up of her eye inflammation. She states that she has history of kidney stones. She had 5 episodes. She had lithotripsy approximately 2018 and has not had any recurrence since. She was told to hydrate regularly she has been having diffuse abdominal pain, more towards the left flank area. Associated with bloating. She also had some blood in the stool. She was evaluated by her PCP and diagnosed with hemorrhoids Initial history: This is a 27-year-old female with Sjogren's who presents for follow-up. She was last seen by Nichol Fletcher 02/23. Patient states that she was diagnosed with Sjogren's around 2013. She states that she was on hydroxychloroquine consistently at some point, she might have been on other meds but she does not remember. She states that since November of 2022 she has been having left eye redness and swelling. She was evaluated by Ophthalmology and was diagnosed with filamentous keratitis and episcleritis. She received antibiotic and steroid eyedrops which provides some relief but she continues to have left eye redness and pain. This year old so she has been having intermittent rashes on her hands, chest, legs. The rashes are worse in the sun. Also has pain and swelling of her hands associated with morning stiffness lasting a few hours. The rashes burn, they do not itch. 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 Her hands hurt in the morning and at night. She states that she has had Raynaud's all her life. Sometimes she has to wear heated gloves. She also states that she has had dry eyes for many years, she uses artificial tears consistently. She has intermittent dry mouth and sometimes uses Biotene mouthwash. She has been losing a substantial amount of hair recently. Large clumps of hair. She denies any fevers. She does get chills sometimes. She never took her temperature. She denies any significant weight change. Denies mouth ulcers. She denies any history of DVT/PE. Patient never attempted . She is unaware of any family history of autoimmune rheumatic disease. [facility] Medical History Joint pain Kidney stones Surgical History No pertinent past surgical history Family History Mother HTN (hypertension) Osteoarthritis Father Rosana Gehrig's disease Maternal Grandfather Rheumatoid arthritis Other Mental health disorder Social History Household Members: Family Housing: House Alcohol intake: current Alcohol intake frequency: a few times a month Patient Tobacco Use Status: Never used Tobacco Tobacco use type: Cigarette e-Cigarette/Vaping Use: Never Used Second Hand Smoke Exposure: No service: No Current occupational status: employed 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 Current occupational exposures/hazards: No Cognitive needs: No Hearing needs: No Vision needs: Yes (Glasses) Female Reproductive History Menstrual Total pregnancies: 0 Review of Systems GI Reports abdominal pain and Reports bloating Musc Reports myalgias and Reports arthralgias Skin/Breast Reports alopecia and Reports rash Physical Exam Vital Signs: Last Vital Signs Pulse 91 08/02/24 11:51 BP 100/62 08/02/24 11:51 Pulse Ox 98 08/02/24 11:51 Oxygen Delivery Method Room Air 08/02/24 11:51 BMI result Body Mass Index 25.9 Const General: cooperative, healthy appearing and comfortable Orientation/consciousness: patient oriented x3 Limitations: no limitations HEENT Head: Yes normocephalic and Yes atraumatic Eyes Other: Very faint redness on the lateral aspect of left eye Resp Effort & Inspection: normal respiratory effort and able to speak in complete sentences Cardio Rate: regular rate Rhythm: regular rhythm GI Other: Mild diffuse abdominal tenderness, some guarding towards the epigastric area Skin Other: Diffuse maculopapular rash on chest, abdomen, arms, legs. Neuro General: patient oriented x3 Extrem Other: Diffuse muscle and joint tenderness. No sherman synovitis Assessment & Plan Assessment & Plan (1) SLE (systemic lupus erythematosus): Comment: SLE (arthralgias, skin rashes, episcleritis/scleritis, hair loss, lymphopenia, normocytic anemia, +VICKIE +++SSa +SSb +RF + DsDNA) dx around 2013 HCQ + PDN regularly 2022 MTX 2022 stopped after one-month could not be tolerated Code(s): M32.9 - Systemic lupus erythematosus, unspecified Category: Medical Qualifiers: Systemic lupus erythematosus type: other Systemic lupus erythematosus organ involvement: unspecified Qualified Code(s): M32.8 - Other forms of systemic lupus erythematosus Plan: This is a 28-year-old female with SLE returns for follow-up. Patient was doing fairly well on hydroxychloroquine and was on 2.5 mg daily. She self discontinued her prednisone in the beginning of June due to mood changes. She has been having symptoms of fever, headache, diffuse rashes, diffuse body aches, over the last 1-2 weeks. Labs showed leukopenia and thrombocytopenia, elevated LFTs. Symptoms consistent with an SLE flare likely due to discontinuation of prednisone. Start prednisone taper. Continue with hydroxychloroquine 400 mg daily x5 days a week and 200 mg daily x2 days a week I will consider adding azathioprine. However can not do it today due to transaminitis which may be a component of her SLE flare-up. Labs before next visit in 4 weeks (2) Long-term use of hydroxychloroquine: Comment: eye exam OK 01/2024 Code(s): Z79.899 - Other fdc (current) drug therapy Category: Medical Plan: Continue to follow-up regularly with Ophthalmology (3) Abdominal pain: Code(s): R10.9 - Unspecified abdominal pain Category: Medical Plan: Complaining of diffuse abdominal pain and bloating, history of kidney stones s/p lithotripsy, will check an abdominal CT scan Plan I spent 35 minutes reviewing patient's chart, evaluating patient, ordering diagnostic workup, counseling patient and documenting in the chart Orders: Orders Complete Blood Count Auto Diff 4 Weeks M32.8 - Other forms of systemic lupus erythematosus Comprehensive Met. Panel 4 Weeks M32.8 - Other forms of systemic lupus erythematosus C Reactive Protein 4 Weeks M32.8 - Other forms of systemic lupus erythematosus Erythrocyte Sedimentation Rate 4 Weeks M32.8 - Other forms of systemic lupus erythematosus CT abdomen pelvis wo IV con Today R10.9 - Unspecified abdominal pain Medications: New prednisone Take 4 tabs daily for 1 week, 3 tabs daily for 1 week, 2 tabs daily for 1 week, 1 tab daily for 1 week then stop 70 tabs 0RF Coding Level of Care Code Est Pt Level 4 (44681) Complex EM visit Add On G2211 Diagnoses Other forms of systemic lupus erythematosus, unspecified organ involvement status M32.8 Systemic lupus erythematosus type: other Systemic lupus erythematosus organ involvement: unspecified Long-term use of hydroxychloroquine Z79.899 Abdominal pain R10.9
[2024-08-02 11:51] VITALS: BP 100/62; PULSE 91; O2SAT 98; BMI 25.9
== END 2024-08-02 12:17 | disposition home or self-care (01) ==
PROVIDERS: PCP Internal Medicine; Visit Provider Student in an Organized Health Care Education/Training Program
DX: M32.8 Other forms of systemic lupus erythematosus (principal); Z79.899 Other long term (current) drug therapy; R10.9 Unspecified abdominal pain
CPT/HCPCS: 99214; G2211

== ENCOUNTER → 2024-08-02 11:43 | Outpatient (BNVA) | payer OTHER, SELFPAY | PROVIDERS: PCP Internal Medicine; Visit Provider Student in an Organized Health Care Education/Training Program | DX: M32.8 Other forms of systemic lupus erythematosus (principal); R10.9 Unspecified abdominal pain; Z79.899 Other long term (current) drug therapy | CPT/HCPCS: 99212 ==

== ENCOUNTER 2024-09-03 13:07 | Outpatient (REF) | payer OTHER, SELFPAY ==
[2024-09-03 13:25] LABS: MANUAL DIFF FLAG NO
[2024-09-03 13:47] LABS: Basophils Percent Auto 0.5 % (0-2); Eosinophils Absolute Auto 0.1 X10*3/uL (0.0-0.4); Eosinophils Percent Auto 2.1 % (0-4); Hematocrit 34.9 % (37.0-47.0); Hemoglobin 11.3 g/dl (12.0-16.0); Imm Gran Abs Auto 0.05 X10*3/uL (0.00-0.03); Imm Gran Pct Auto 0.8 % (0.0-0.4); Lymphocytes Absolute Auto 1.9 X10*3/uL (1.2-4.9); Mean Corpuscular HGB Conc 32.4 g/dl (31.0-35.0); Mean Corpuscular Hemoglobin 25.7 pg (27.0-33.0); Mean Corpuscular Volume 79.5 fL (80.0-98.0); Mean Platelet Volume 9.6 fL (9.4-12.3); Monocytes Absolute Auto 0.3 X10*3/uL (0.1-1.2); Monocytes Percent Auto 4.1 % (2-11); Neutrophils Percent Auto 62.5 % (45-73); Platelet Count 409 X10*3/uL (160-400); Red Blood Count 4.39 X10*6/uL (4.20-5.50); Red Cell Distribution Width 14.9 % (11.0-16.0); White Blood Count 6.3 X10*3/uL (4.8-10.8)
[2024-09-03 13:48] LABS: Appearance Urine Clear; Color Urine Yellow; Glucose Urine UA Negative (Negative); Leukocyte Esterase Urine Negative (Negative); Nitrite Urine Negative (Negative); Specific Gravity - Urine 1.015 (1.005-1.025); Urine Blood Negative (Negative); Urine Ketones Negative (Negative); Urine Protein Negative (Neg-Trace)
[2024-09-03 13:50] LABS: Bacteria Urine None Seen (None Seen); Hyaline Casts Urine 0-2 /LPF (0-2); RBC Urine 0-2 /HPF (0-2); Squamous Epithelial Cell Urine 0-2 /HPF (0-2); WBC Urine 0-5 /HPF (0-5)
[2024-09-03 14:21] LABS: Creatinine Urine 102.85 mg/dL; Total Protein Urine Random < 7 mg/dL (<12)
[2024-09-03 14:25] LABS: Alanine Aminotransferase 8 U/L (0-31); Albumin Level 4.4 g/dL (3.5-5.0); Alkaline Phosphatase 49 U/L (39-117); Anion Gap 12 (12-20); Aspartate Amino Transferase 19 U/L (5-31); Bilirubin Total 0.3 mg/dL (0.0-1.0); Blood Urea Nitrogen 8 mg/dL (9-16); C Reactive Protein 0.21 mg/dL (< or = 0.50); Calcium 9.3 mg/dL (8.4-10.2); Carbon Dioxide 25 mmol/L (22-29); Chloride 105 mmol/L (96-108); Estimated Glomerular Filt Rate > 60; Glucose Random 83 mg/dL (60-115); Potassium 3.4 mmol/L (3.3-5.1); Sodium 139 mmol/L (135-145); Total Protein 7.7 g/dL (6.5-8.0)
[2024-09-03 14:29] LABS: Erythrocyte Sedimentation Rate 6 MM/HR (0-20)
[2024-09-06 09:53] LABS: Complement C3 104 mg/dL (83-193)
[2024-09-07 16:09] LABS: Anti DNA DS Antibody 14 IU/mL
== END 2024-09-03 13:08 | disposition home or self-care (01) ==
LOC: HO.LAB 13:07
PROVIDERS: PCP Internal Medicine; Visit Provider Student in an Organized Health Care Education/Training Program
DX: M32.9 Systemic lupus erythematosus, unspecified (principal); M32.8 Other forms of systemic lupus erythematosus
CPT/HCPCS: 36415; 80053; 81001; 82570; 84156; 85025; 85652; 86140; 86160; 86225

== ENCOUNTER 2024-09-07 11:38 | Outpatient (AMB) | payer OTHER, SELFPAY ==
--- NOTE | 2024-09-07 11:43 | A.OFFVIS_ITS ---
Vital Signs 09/07/24 11:45 Height 5 ft 2 in Weight 147 lb 11.355 oz BMI 27.0 BP 100/70 Blood Pressure Location Lt brachial Position Sitting Pulse 94 Pulse Source Pulse Oximeter Pulse Oximetry (%) 98 Oxygen Delivery Method Room Air Intake Visit Reasons: SLE/CM Intake Note: Patient presents for SLE. Allergies No Known Allergies [No Known Allergies*] Allergy (Verified 09/07/24 11:45) Medication List - Last Reconciled 09/07/24 by Darien Remy MD azathioprine 50 mg PO DAILY cefuroxime axetil 500 mg PO BID 7 days hydroxychloroquine orally; Take 400 mg daily X 5 days a week and 200 mg daily X 2 days a week prednisone 2.5 mg PO DAILY HPI Comments Details: 28-year-old female with SLE returns for follow-up. She finished her prednisone taper as prescribed. She is doing much better overall. She has no complaints today. She remains on hydroxychloroquine as prescribed. Initial history: This is a 27-year-old female with Sjogren's who presents for follow-up. She was last seen by Nichol Fletcher 02/23. Patient states that she was diagnosed with Sjogren's around 2013. She states that she was on hydroxychloroquine consistently at some point, she might have been on other meds but she does not remember. She states that since November of 2022 she has been having left eye redness and swelling. She was evaluated by Ophthalmology and was diagnosed with filamentous keratitis and episcleritis. She received antibiotic and steroid eyedrops which provides some relief but she continues to have left eye redness and pain. This year old so she has been having intermittent rashes on her hands, chest, legs. The rashes are worse in the sun. Also has pain and swelling of her hands associated with morning stiffness lasting a few hours. The rashes burn, they do not itch. 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 Her hands hurt in the morning and at night. She states that she has had Raynaud's all her life. Sometimes she has to wear heated gloves. She also states that she has had dry eyes for many years, she uses artificial tears consistently. She has intermittent dry mouth and sometimes uses Biotene mouthwash. She has been losing a substantial amount of hair recently. Large clumps of hair. She denies any fevers. She does get chills sometimes. She never took her temperature. She denies any significant weight change. Denies mouth ulcers. She denies any history of DVT/PE. Patient never attempted . She is unaware of any family history of autoimmune rheumatic disease. COUNT INCLUDES THE [facility] Medical History Joint pain Kidney stones Surgical History No pertinent past surgical history Family History Mother HTN (hypertension) Osteoarthritis Father Rosana Gehrig's disease Maternal Grandfather Rheumatoid arthritis Other Mental health disorder Social History Household Members: Family Housing: House Alcohol intake: current Alcohol intake frequency: a few times a month Patient Tobacco Use Status: Never used Tobacco Tobacco use type: Cigarette e-Cigarette/Vaping Use: Never Used Second Hand Smoke Exposure: No service: No Current occupational status: employed 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 Current occupational exposures/hazards: No Cognitive needs: No Hearing needs: No Vision needs: Yes (Glasses) Female Reproductive History Menstrual Total pregnancies: 1 Number of Living Children: 0 Review of Systems Const Reports no additional complaints Musc Denies arthralgias and Denies joint swelling Skin/Breast Denies rash Physical Exam Vital Signs: Last Vital Signs Pulse 94 09/07/24 11:45 BP 100/70 09/07/24 11:45 Pulse Ox 98 09/07/24 11:45 Oxygen Delivery Method Room Air 09/07/24 11:45 BMI result Body Mass Index 27.0 Const General: cooperative, healthy appearing and comfortable Orientation/consciousness: patient oriented x3 Limitations: no limitations HEENT Head: Yes normocephalic and Yes atraumatic Eyes Other: No conjunctival erythema today Resp Effort & Inspection: normal respiratory effort and able to speak in complete sen tences Auscultation: clear to auscultation bilaterally Cardio Rate: regular rate Rhythm: regular rhythm GI Other: Mild diffuse abdominal tenderness, some guarding towards the epigastric area Skin Other: Her rashes resolved Neuro General: patient oriented x3 Extrem Other: No active synovitis today Assessment & Plan Assessment & Plan (1) SLE (systemic lupus erythematosus): Comment: SLE (arthralgias, skin rashes, episcleritis/scleritis, hair loss, lymphopenia, normocytic anemia, +VICKIE +++SSa +SSb +RF + DsDNA) dx around 2013 HCQ + PDN regularly 2022 MTX 2022 stopped after one-month could not be tolerated Code(s): M32.9 - Systemic lupus erythematosus, unspecified Category: Medical Qualifiers: Systemic lupus erythematosus type: other Systemic lupus erythematosus organ involvement: unspecified Qualified Code(s): M32.8 - Other forms of systemic lupus erythematosus Plan: This is a 28-year-old female with SLE returns for follow-up. Her SLE flare resolved with prednisone taper. Advised patient to keep the prednisone at 2.5 mg daily for now. Continue hydroxychloroquine as prescribed Start azathioprine 50 mg daily. Blood work in one-month and before next visit in 2 months (2) Long-term use of hydroxychloroquine: Comment: eye exam OK 01/2024 Code(s): Z79.899 - Other termite technician (current) drug therapy Category: Medical Plan: Continue to follow-up regularly with Ophthalmology (3) Encounter for monitoring azathioprine therapy: Code(s): Z51.81 - Encounter for therapeutic drug level monitoring; Z79.624 - termite technician (current) use of inhibitors of nucleotide synthesis Category: Medical Plan: Discussed risks and benefits of azathioprine including GI upset, slightly increased risk of infections, transaminitis, cytopenias. We will monitor her blood work frequently Plan I spent 25 minutes reviewing patient's chart, evaluating patient, ordering diagnostic workup, counseling patient and documenting in the chart Orders: Orders Complete Blood Count Auto Diff 2 Months M32.8 - Other forms of systemic lupus erythematosus Comprehensive Met. Panel 2 Months M32.8 - Other forms of systemic lupus e rythematosus Comprehensive Met. Panel 1 Month M32.8 - Other forms of systemic lupus erythematosus Erythrocyte Sedimentation Rate 1 Month M32.8 - Other forms of systemic lupus erythematosus C Reactive Protein 2 Months M32.8 - Other forms of systemic lupus erythematosus Erythrocyte Sedimentation Rate 2 Months M32.8 - Other forms of systemic lupus erythematosus Complete Blood Count Auto Diff 1 Month M32.8 - Other forms of systemic lupus erythematosus C Reactive Protein 1 Month M32.8 - Other forms of systemic lupus erythematosus Medications: New azathioprine 50 mg PO DAILY 30 tabs 0RF prednisone 2.5 mg PO DAILY 90 tabs 0RF Refilled hydroxychloroquine orally; Take 400 mg daily X 5 days a week and 200 mg daily X 2 days a week 144 tabs 0RF M35.00 - Sjogren syndrome, unspecified Discontinued prednisone Discontinued Reason: Doctor's Order Take 4 tabs daily for 1 week, 3 tabs daily for 1 week, 2 tabs daily for 1 week, 1 tab daily for 1 week then stop 70 tabs 0RF Coding Level of Care Code Est Pt Level 4 (77075) Complex EM visit Add On G2211 Diagnoses Other forms of systemic lupus erythematosus, unspecified organ involvement status M32.8 Systemic lupus erythematosus type: other Systemic lupus erythematosus organ involvement: unspecified Long-term use of hydroxychloroquine Z79.899 Encounter for monitoring azathioprine therapy Z51.81; Z79.624
[2024-09-07 11:45] VITALS: BP 100/70; PULSE 94; O2SAT 98; BMI 27.0
== END 2024-09-07 12:04 | disposition home or self-care (01) ==
LOC: HO.RHE 11:39
PROVIDERS: PCP Internal Medicine; Visit Provider Student in an Organized Health Care Education/Training Program
DX: M32.8 Other forms of systemic lupus erythematosus (principal); Z79.899 Other long term (current) drug therapy; Z51.81 Encounter for therapeutic drug level monitoring; Z79.624 Long term (current) use of inhibitors of nucleotide synthesis
CPT/HCPCS: 99214; G2211

== ENCOUNTER → 2024-09-07 11:38 | Outpatient (BNVA) | payer OTHER, SELFPAY | PROVIDERS: PCP Internal Medicine; Visit Provider Student in an Organized Health Care Education/Training Program | DX: M32.8 Other forms of systemic lupus erythematosus (principal); M35.01 Sjogren syndrome with keratoconjunctivitis; Z79.899 Other long term (current) drug therapy; Z79.624 Long term (current) use of inhibitors of nucleotide synthesis; Z51.81 Encounter for therapeutic drug level monitoring | CPT/HCPCS: 99212 ==

== ENCOUNTER 2024-09-24 17:06 | Outpatient (REF) | payer OTHER, SELFPAY | END 2024-09-24 17:07 | disposition home or self-care (01) | LOC: HO.CT 17:06 | PROVIDERS: PCP Internal Medicine; Visit Provider Student in an Organized Health Care Education/Training Program | DX: R10.9 Unspecified abdominal pain (principal) | CPT/HCPCS: 74176 ==

== ENCOUNTER → 2024-09-24 17:09 | Outpatient (BNV) | payer OTHER, SELFPAY | PROVIDERS: PCP Internal Medicine; Visit Provider Radiology Diagnostic Radiology | DX: R10.9 Unspecified abdominal pain (principal) | CPT/HCPCS: 74176 ==

== ENCOUNTER 2024-11-17 10:15 | Outpatient (AMB) | payer OTHER, SELFPAY ==
--- NOTE | 2024-11-17 10:38 | MHC.OFFVIS ---
Vital Signs 11/17/24 10:42 Height 5 ft 2 in Weight 150 lb 12.739 oz BMI 27.6 BP 112/80 Blood Pressure Location Lt brachial Position Sitting Pulse 86 Pulse Source Pulse Oximeter Pulse Oximetry (%) 98 Oxygen Delivery Method Room Air Intake Visit Reasons: SLE Intake Note: Patient presents for SLE. Allergies No Known Allergies [No Known Allergies*] Allergy (Verified 11/17/24 10:41) Medication List - Last Reconciled 11/17/24 by Darien Remy MD cefuroxime axetil 500 mg PO BID 7 days cholecalciferol (vitamin D3) 50 mcg PO DAILY 3 months hydroxychloroquine orally; Take 400 mg daily X 5 days a week and 200 mg daily X 2 days a week prednisone 2.5 mg PO DAILY HPI Comments Details: 29-year-old female with SLE returns for follow-up. She remains on hydroxychloroquine and prednisone 2.5 mg daily. She took azathioprine 50 mg daily for one-month, she did not do the requested blood work. She states that she continues feel about the same. She continues to have significant hair loss, she showed me pictures when she had clumps of hair falling out, she also gets intermittent rashes on her palms. She has been having abdominal pain and bloating that has been chronic. CT scan of the abdomen was done 2 months ago but has not been read yet Initial history: This is a 27-year-old female with Sjogren's who presents for follow-up. She was last seen by Nichol Fletcher 02/23. Patient states that she was diagnosed with Sjogren's around 2013. She states that she was on hydroxychloroquine consistently at some point, she might have been on other meds but she does not remember. She states that since November of 2022 she has been having left eye redness and swelling. She was evaluated by Ophthalmology and was diagnosed with filamentous keratitis and episcleritis. She received antibiotic and steroid eyedrops which provides some relief but she continues to have left eye redness and pain. This year old so she has been having intermittent rashes on her hands, chest, legs. The rashes are worse in the sun. Also has pain and swelling of her hands associated with morning stiffness lasting a few hours. The rashes burn, they do not itch. 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 Her hands hurt in the morning and at night. She states that she has had Raynaud's all her life. Sometimes she has to wear heated gloves. She also states that she has had dry eyes for many years, she uses artificial tears consistently. She has intermittent dry mouth and sometimes uses Biotene mouthwash. She has been losing a substantial amount of hair recently. Large clumps of hair. She denies any fevers. She does get chills sometimes. She never took her temperature. She denies any significant weight change. Denies mouth ulcers. She denies any history of DVT/PE. Patient never attempted . She is unaware of any family history of autoimmune rheumatic disease. 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 Current occupational exposures/hazards: No Cognitive needs: No Hearing needs: No Vision needs: Yes (Glasses) Female Reproductive History Menstrual Total pregnancies: 1 Number of Living Children: 0 Review of Systems Musc Reports myalgias Skin/Breast Reports alopecia and Reports rash Physical Exam Vital Signs: Last Vital Signs Pulse 86 11/17/24 10:42 BP 112/80 11/17/24 10:42 Pulse Ox 98 11/17/24 10:42 Oxygen Delivery Method Room Air 11/17/24 10:42 BMI result Body Mass Index 27.6 Const General: cooperative, healthy appearing and comfortable Orientation/consciousness: patient oriented x3 Limitations: no limitations HEENT Head: Yes normocephalic and Yes atraumatic Eyes Other: No conjunctival erythema today Resp Effort & Inspection: normal respiratory effort and able to speak in complete sentences Auscultation: clear to auscultation bilaterally Cardio Rate: regular rate Rhythm: regular rhythm Skin General skin exam: no rashes or lesions noted Neuro General: patient oriented x3 Extrem Other: No active synovitis today Multiple fibromyalgia tender points Assessment & Plan Assessment & Plan (1) SLE (systemic lupus erythematosus): Comment: SLE (arthralgias, skin rashes, episcleritis/scleritis, hair loss, lymphopenia, normocytic anemia, +VICKIE +++SSa +SSb +RF + DsDNA) dx around 2013 HCQ + PDN regularly 2022 MTX 2022 stopped after one-month could not be tolerated Code(s): M32.9 - Systemic lupus erythematosus, unspecified Category: Medical Qualifiers: Systemic lupus erythematosus type: other Systemic lupus erythematosus organ involvement: unspecified Qualified Code(s): M32.8 - Other forms of systemic lupus erythematosus Plan: This is a 29-year-old female with SLE returns for follow-up. On hydroxychloroquine and prednisone 2.5 mg daily. She took azathioprine 50 mg daily for one-month and did not do the requested blood work. She does not recall any side effects related to it. She continues to have signs suggestive of active SLE including significant hair loss and intermittent rashes. Discussed with patient that we need to escalate her treatment, restart azathioprine again and slowly increase the dose. Patient however would like to try natural treatments 1st We discussed natural treatments and supplements for lupus. At this time I will start patient on vitamin-D 2000 units daily, advised patient to start taking turmeric around 2000 mg a day. Follow an anti-inflammatory diet Labs before next visit in 3 months (2) Long-term use of hydroxychloroquine: Comment: eye exam OK 01/2024 Code(s): Z79.899 - Other terminal operations supervisor (current) drug therapy Category: Medical Plan: Continue to follow-up regularly with Ophthalmology (3) Abdominal pain: Code(s): R10.9 - Unspecified abdominal pain Category: Medical Qualifiers: Abdominal location: generalized Qualified Code(s): R10.84 - Generalized abdominal pain Plan: Ongoing abdominal pain for more than 2 months. Referred patient to GI. Patient did a CT scan about 2 months ago and has not been read yet. We will attempt to reach out to radiology and ask for a to be read as soon as possible (4) Fibromyalgia, primary: Code(s): M79.7 - Fibromyalgia Category: Medical Plan: Discussed management of fibromyalgia including managing stress, sleeping well, regular exercise Plan I spent 25 minutes reviewing patient's chart, evaluating patient, ordering diagnostic workup, counseling patient and documenting in the chart Orders: Orders Anti DNA DS Antibody 3 Months M32.8 - Other forms of systemic lupus erythematosus, Z79.899 - Other terminal operations supervisor (current) drug therapy Complement C3 3 Months M32.8 - Other forms of systemic lupus erythematosus, Z79.899 - Other terminal operations supervisor (current) drug therapy Complement C4 3 Months M32.8 - Other forms of systemic lupus erythematosus, Z79.899 - Other longterm (current) drug therapy Protein Creatinine Ratio, Ur 3 Months M32.8 - Other forms of systemic lupus erythematosus, Z79.899 - Other terminal operations supervisor (current) drug therapy UA w Microscopic 3 Months M32.8 - Other forms of systemic lupus erythematosus, Z79.899 - Other terminal operations supervisor (current) drug therapy Complement C3 3 Months M32.8 - Other forms of systemic lupus erythematosus, Z79.899 - Other terminal operations supervisor (current) drug therapy UA w Microscopic 3 Months M32.8 - Other forms of systemic lupus erythematosus, Z79.899 - Other longterm (current) drug therapy Comprehensive Met. Panel 3 Months M32.8 - Other forms of systemic lupus erythematosus, Z79.899 - Other terminal operations supervisor (current) drug therapy C Reactive Protein 3 Months M32.8 - Other forms of systemic lupus erythematosus, Z79.899 - Other longterm (current) drug therapy Erythrocyte Sedimentation Rate 3 Months M32.8 - Other forms of systemic lupus erythematosus, Z79.899 - Other terminal operations supervisor (current) drug therapy Complete Blood Count Auto Diff 3 Months M32.8 - Other forms of systemic lupus erythematosus, Z79.899 - Other longterm (current) drug therapy Comprehensive Met. Panel 3 Months M32.8 - Other forms of systemic lupus erythematosus, Z79.899 - Other terminal operations supervisor (current) drug therapy Vitamin D 25-OH Total 3 Months E55.9 - Vitamin D deficiency, unspecified Anti DNA DS Antibody 3 Months M32.8 - Other forms of systemic lupus erythematosus, Z79.899 - Other terminal operations supervisor (current) drug therapy Complement C4 3 Months M32.8 - Other forms of systemic lupus erythematosus, Z79.899 - Other terminal operations supervisor (current) drug therapy C Reactive Protein 3 Months M32.8 - Other forms of systemic lupus erythematosus, Z79.899 - Other longterm (current) drug therapy Erythrocyte Sedimentation Rate 3 Months M32.8 - Other forms of systemic lupus erythematosus, Z79.899 - Other longterm (current) drug therapy Protein Creatinine Ratio, Ur 3 Months M32.8 - Other forms of systemic lupus erythematosus, Z79.899 - Other longterm (current) drug therapy Complete Blood Count Auto Diff 3 Months M32.8 - Other forms of systemic lupus erythematosus, Z79.899 - Other terminal operations supervisor (current) drug therapy Referrals Gastroenterology Referral R10.9 - Unspecified abdominal pain Medications: New cholecalciferol (vitamin D3) 50 mcg PO DAILY 3 months 90 caps 0RF Refilled prednisone 2.5 mg PO DAILY 90 tabs 0RF hydroxychloroquine orally; Take 400 mg daily X 5 days a week and 200 mg daily X 2 days a week 144 tabs 0RF M35.00 - Sjogren syndrome, unspecified Discontinued azathioprine Discontinued Reason: Patient Completed Course 50 mg PO DAILY 30 tabs 0RF Coding Level of Care Code Est Pt Level 4 (48249) Diagnoses Other forms of systemic lupus erythematosus, unspecified organ involvement status M32.8 Systemic lupus erythematosus type: other Systemic lupus erythematosus organ involvement: unspecified Long-term use of hydroxychloroquine Z79.899 Generalized abdominal pain R10.84 Abdominal location: generalized Fibromyalgia, primary M79.7
[2024-11-17 10:42] VITALS: BP 112/80; PULSE 86; O2SAT 98; BMI 27.6
== END 2024-11-17 11:18 | disposition home or self-care (01) ==
PROVIDERS: PCP Internal Medicine; Visit Provider Student in an Organized Health Care Education/Training Program
DX: M32.8 Other forms of systemic lupus erythematosus (principal); Z79.899 Other long term (current) drug therapy; R10.84 Generalized abdominal pain; M79.7 Fibromyalgia
CPT/HCPCS: 99214

== ENCOUNTER → 2024-11-17 10:15 | Outpatient (BNVA) | payer OTHER, SELFPAY | PROVIDERS: PCP Internal Medicine; Visit Provider Student in an Organized Health Care Education/Training Program | DX: M32.8 Other forms of systemic lupus erythematosus (principal); M79.7 Fibromyalgia; E55.9 Vitamin D deficiency, unspecified; M35.00 Sjogren syndrome, unspecified; R10.84 Generalized abdominal pain; Z79.899 Other long term (current) drug therapy | CPT/HCPCS: 99212 ==

== ENCOUNTER 2025-02-09 06:35 | Outpatient (REF) | payer OTHER, SELFPAY ==
--- OUTSIDE RECORDS SUMMARY | 2025-02-09 06:38 | XMS_ITS | Encounter Summary ---
Author Organization [facility] Address [address] [place] [address] [address] [place] [address] Care Team Providers Care Blacksmith Supervisor Name Role Phone Toshia King Primary Care Provider [phone] Encounter Details Date Type Department Care Team (Latest Contact Info) Description 04/23/2019 Abstract [facility] CONVERSIONS Dental, Provider, DDS Social History Tobacco Use Types Packs/Day Years Used Date Smoking Tobacco: Never Assessed Comments Unknown Sex and Gender Information Value Date Recorded Sex Assigned at Female 09/02/2022 10:31 AM EDT Legal Sex Female 10:31 AM EDT Gender Identity Not on file Sexual Orientation Not on file documented as of this encounter Plan of Treatment Not on file documented as of this encounter Visit Diagnoses Not on filedocumented in this encounter Care Teams Blacksmith Supervisor Relationship Specialty Start Date End Date Toshia King FNP PCP - General Family Medicine 08/24/21 04/17/23 documented as of this encounter
--- OUTSIDE RECORDS SUMMARY | 2025-02-09 06:38 | XMS_ITS | Encounter Summary ---
Author Organization [facility] Address [address] [place] [address] Phone Care Team Providers Care Hostel Manager Name Role Phone Nati Winter NP Primary Care Provider Raven jackson Encounter Details Date Type Department Care Team (Late st Contact Info) Description 07/09/2012 Documentation EM Family Medicine [address] [place], [place] [id number] Family Medicine, Physician [address] [place] [address] Social History Tobacco Use Types Packs/Day Years Used Date Smoking Tobacco: Never Assessed Comments Unknown Sex and Gender Information Value Date Recorded Sex Assigned at Not on file Legal Sex Female 5:06 PM EDT Gender Identity Not on file Sexual Orientation Not on file documented as of this encounter Plan of Treatment Not on file documented as of this encounter Visit Diagnoses Not on filedocumented in this encounter Care Teams Hostel Manager Relationship Specialty Start Date End Date Nati Winter NP PCP - General 06/13/17 04/09/23 documented as of this encounter
--- OUTSIDE RECORDS SUMMARY | 2025-02-09 06:38 | XMS_ITS | Encounter Summary ---
Author Organization [facility] Address [address] [place] [address] Phone Care Team Providers Care Oil Recovery Unit Operator Name Role Phone Nati Winter NP Primary Care Provider Raven jackson Encounter Details Date Type Department Care Team (Late st Contact Info) Description 01/27/2015 Documentation EM Family Medicine [address] [place], [place] [phone] Family Medicine, Physician [address] [place] [address] Social History Tobacco Use Types Packs/Day Years [...] on filedocumented in this encounter Care Teams Oil Recovery Unit Operator Relationship Specialty Start Date End Date Nati Winter NP PCP - General 06/13/17 04/09/23 documented as of this encounter
--- OUTSIDE RECORDS SUMMARY | 2025-02-09 06:38 | XMS_ITS | Encounter Summary ---
Author Organization [facility] Address [address] [place] [address] Phone Care Team Providers Care Curriculum Designer Name Role Phone Nati Winter NP Primary Care Provider Raven jackson Encounter Details Date Type Department Care Team (Late st Contact Info) Description 09/06/2013 Documentation EM Family Medicine [address] [place], [place] [phone] Family Medicine, Physician [address] [place] [address] Social History Tobacco Use Types Packs/Day Years [...] on filedocumented in this encounter Care Teams Curriculum Designer Relationship Specialty Start Date End Date Nati Winter NP PCP - General 06/13/17 04/09/23 documented as of this encounter
--- OUTSIDE RECORDS SUMMARY | 2025-02-09 06:38 | XMS_ITS | Clinical Summary ---
Author Organization [employer] Address [address] [place] [address] [address] [place] [address] Care Team Providers Care Sash Clamp Operator Name Role Phone Unavailable Primary Care Provider Unavailabl e Social History Tobacco Use Types Packs/Day Years Used Date Smoking Tobacco: Never Assessed Comments Unknown Sex and Gender Information Value Date Recorded Sex Assigned at Female 09/02/2022 10:31 AM EDT Legal Sex Female 10:31 AM EDT Gender Identity Not on file Sexual Orientation Not on file Last Filed Vital Signs Vital Sign Reading Time Taken Comments Blood Pressure 122/82 01/06/2020 12:03 AM EST Pulse 60 01/06/2020 12:03 AM EST Temperature - - Respiratory Rate - - Oxygen Saturation - - Inhaled Oxygen Concentration - - Weight 65 kg (143 lb 3.2 oz) 01/06/2020 12:03 AM EST Height 161.3 cm (5' 3.5 ) 01/06/2020 12:03 AM ES T Body Mass Index 24.97 01/06/2020 12:03 AM EST Plan of Treatment Health Maintenance Due Date Last Done Comments Depression Screening 1996 Alcohol/Substance Use Screening 2008 Tobacco Screening 2008 Family Planning (PISQ) 2011 Pap Smear 2017 Hepatitis B Vaccines (2 of 3 - 19+ 3-dose series) 03/25/2019 02/25/2019 COVID-19 Vaccine ( - 2023-2 5 season) 2024 Influenza Vaccine (#1) 2024 8, 09/29/2017 DTaP/Tdap/Td Vaccines (2 - T d or Tdap) 02/25/2029 02/25/2019 Zoster Vaccines (1 of 2) 2046 RSV Patients and Patients Aged 60 years or older (1 - 1-dose 75+ series) 2071 HIB Vaccines Aged Out No longer eligi ble based on patient's age to complete this topic HPV Vaccines Aged Out No longer eligi ble based on patient's age to complete this topic Hepatitis A Vaccines Aged Out No long er eligible based on patient's age to complete this topic IPV Vaccines Aged Out No longer eligi ble based on patient's age to complete this topic Meningococcal Vaccine Aged Out No neeraj remigio eligible based on patient's age to complete this topic Pneumococcal Vaccine: Pediatrics (0 to 5 Years) and At-Risk Patients (6 to 49) Years) Aged Out No longer eligible b ased on patient's age to complete this topic RSV under 20 months Aged Out No longe r eligible based on patient's age to complete this topic Rotavirus Vaccines Aged Out No longer eligible based on patient's age to complete this topic
--- OUTSIDE RECORDS SUMMARY | 2025-02-09 06:38 | XMS_ITS | Clinical Summary ---
Author Organization [facility] Address [address] [place] [address] Phone Care Team Providers Care Violin Mechanic Name Role Phone Unavailable Primary Care Provider Unavailabl e Immunizations Immunization Administration Dates Next Due DTaP 5 11/02/2001, 8,05/02/1997, 997,1996 H1N1 01/11/2010 HPV, Quadrivalent 05/31/2011,08/10/2010,01/12/20 10 Hep A, ped/adol 11/23/2014,05/31/2011 Hep B, ped/adol 04/04/1997,1996,1996 Hib (PRP-T) 05/01/1998, 7,01/27/1997, 997 IPV 11/02/2001 Influenza Split 08/03/2013,11/16/2012,07/17/2011 Influenza, injectable, quadrivalent 11/23/2014 MMR 11/02/2001,05/01/1998 Meningococcal Conj (Menactra) MCV4P 06/11/2016,1 OPV 04/04/1997,01/27/1997,1996 Tdap 09/01/2008 Varicella 09/01/2008,04/23/1999 Family History Relation Name Status Comments Mother Alive Mother: Hyperte nsion Other Family history of Hyperlipidemia, No family history of ADD/ADHD, No family history of Strabismus, Family history of Obesity, No family history of Cancer, Family history of Diabetes mellitus, Family history of Asthma, Family history of *CVA/Stroke, No family history of Deafness, Family history of *Sudden /MO under 55, Family history of Migraines, Family history of *Heart Disease, Family history of *Thrombophilia, No family history of Seizure disorder, No family history of Developmental dislocation of hip, No family history of *Dental caries Sister Alive Sister: Alive a nd well Social History Tobacco Use Types Packs/Day Years Used Date Smoking Tobacco: Never Comments:Never smoker Comments Unknown Sex and Gender Information Value Date Recorded Sex Assigned at Not on file Legal Sex Female 5:06 PM EDT Gender Identity Not on file Sexual Orientation Not on file Last Filed Vital Signs Vital Sign Reading Time Taken Comments Blood Pressure 105/74 03/05/2016 12:00 AM EDT Pulse 82 03/05/2016 12:00 AM EDT Temperature 36.6 ??C (97.9 ??F) 07/12/2013 12:00 AM E DT Respiratory Rate - - Oxygen Saturation - - Inhaled Oxygen Concentration - - Weight 64.2 kg (141 lb 9.6 oz) 03/05/2016 12:00 AM EDT Height 158.8 cm (5' 2.5 ) 03/05/2016 12:00 AM ED T Body Mass Index 25.49 03/05/2016 12:00 AM EDT Plan of Treatment Health Maintenance Due Date Last Done Comments DTaP,Tdap,and Td Vaccines (7 - Td or Tdap) 09/01/2018 09/01/2008, 11/02/2001, 05/02/1998, Additional history exists Influenza Vaccines (#1) 2024 11/23/19 15, 08/03/2013, 11/16/2012, Additional history exists COVID-19 Vaccine ( season) 2024 Hepatitis B Vaccines Completed 04/04/1997, 1996, 1996 HIB Vaccines Completed 05/01/1998, 12/1996, 01/27/1997, Additional history exists IPV Vaccines Completed 11/02/2001, 12/1996, 01/27/1997, Additional history exists MMR Vaccines Completed 11/02/2001, 05/01/1998 Varicella Vaccines Completed 09/01/2008, 04/23/1999 HPV Vaccines Completed 05/31/2011, 06/2010, 01/11/2010 Hepatitis A Vaccines Completed 11/23/2014, 05/31/20 11 Meningococcal Vaccine Aged Out 06/11/2016, 008 No longer eligible based on patient's age to complete this topic Men B Vaccine Aged Out No longer elig ible based on patient's age to complete this topic Pneumococcal Vaccine Aged Out No long er eligible based on patient's age to complete this topic
--- OUTSIDE RECORDS SUMMARY | 2025-02-09 06:38 | XMS_ITS ---
Author Organization [facility] Address [address] [place], [place] [id number] Care Team Providers Care Analyst Market Intelligence Name Role Phone ArturoRaymond Unavailable [phone] Results Component Value Reference Range Notes Ultrasound : Pelvic Reviewed date:02/19/2024 05:32:00 PM Interpretation:failed MAB Performing Lab: Notes/Report: failed MAB Medications Medication SIG (Take, Route, Frequency, Duration) Notes Start Date End Date Status Ondansetron 4 MG 1 tablet on the tongue and allow to dissolve Orally Every 8 hours PRN for 30 days 02/12/2024 Active Acetaminophen 500 MG 2 tablets Orally every 8 hrs PRN 02/12/2024 Active miSOPROStol 200 MCG 4 tablets Buccally every 3 hours for 3-4 doses for 1 days as directed disp in house [id number] exp. 12/2802/12/2024 Active metroNIDAZOLE 0.75 % 1 applicatorful at bedtime Vaginal Nightly for 5 days 05/27/2023 Not-Taking Ibuprofen 800 MG 1 tablet with food or milk as needed Orally every 6-8 hrs for 3 days As needed for pain and cramping with food, max 3 tablets every 24 hours 02/12/2024 Active predniSONE Active Hydroxychloroquine Sulfate Active Social History Sex Assigned At : Social History Observation Description Sex Assigned At Female Encounters Encounter Location Date Provider Diagnosis [facility] [address] [place], [place] [id number] 02/19/2024 Raymond Morris Failed attempted termination of with unspecified complications O07.30 and Counseling/Contraceptiv e Advice Z30.09 Assessments Encounter Date Diagnosis (ICD Code) Assessment Notes Treatment Notes Treatment Clinical Notes Section Notes 02/19/2024 Failed attempted termination of with unspecified complications (ICD-10 - O07.30) refer for D&C and possible IUD placement under deep sedation at [facility] with Dr. Amaya. extension counseling completed. reviewed anticipatory guidance and ED recos in interim 02/19/2024 Counseling/Contra ceptive Advice (ICD-10 - Z30.09) discussed options. client had suicidal ideation on nexplanon and prefers non-hormonal methods if possible. was considering hormonal vs. non-hormonal IUD but not sure yet. Reviewed [facility] handouts and referred to [email or web address]. client will discuss with Dr. Amaya at referral 02/19/2024 Other Plan Of Treatment Treatment Notes Assessment Notes Failed attempted termination of with unspecified complications refer for D&C and possible IUD placement under deep sedation at [facility] with Dr. Amaya. extension counseling completed. reviewed anticipatory guidance and ED recos in interim Counseling/Contraceptive Advice discusse d options. client had suicidal ideation on nexplanon and prefers non-hormonal methods if possible. was considering hormonal vs. non-hormonal IUD but not sure yet. Reviewed [facility] handouts and referred to [email or web address]. client will discuss with Dr. 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 [address] [place], [id number] Subjective: * Chief Complaints: * ??? 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 Client is here for a MAB follow up. Client took 4 rounds of misoprostol for misoprostol only regimen on Sat. 02/13. Had a small amount of bleeding filling one pad with a few clots. Now spotting, continues to have moderate intermittent cramping and nausea. ???Visit Narrative:?Reason for the visit:?MAB Follow Up.? Client is here for a MAB follow up. Client took 4 rounds of misoprostol for misoprostol only regimen on Sat. 02/13. Had a small amount of bleeding filling one pad with a few clots. Now spotting, continues to have moderate intermittent cramping and nausea. * ROS:?General/Constitutional:?Denies?Chills.?Denies?Fever.?Denies?Lightheadedness.?Gastrointestinal:?Denies?Abdominal pain.?Admits?Nausea.?Vaginal/Breast/ Control FU:?Patient denies?Heavy vaginal bleeding.?Admits?Signs/Symptoms of .?Denies?Breast pain.? * Medical History:? * Surgical History:? * Hospitalization/Major Diagno stic Procedure:? * Medications:?TakingpredniSON E Hydroxychloroquine Sulfate Ibuprofen 800 MG Tablet 1 tablet with food or milk as needed Orally every 6-8 hrs As needed for pain and cramping with food, max 3 tablets every 24 hoursOndansetron 4 MG Tablet Disintegrating 1 tablet on the tongue and allow to dissolve Orally Every 8 hours PRN Acetaminophen 500 MG Capsule 2 tablets Orally every 8 hrs PRN miSOPROStol 200 MCG Tablet 4 tablets Buccally every 3 hours for 3-4 doses as directed, Notes to Pharmacist: disp in house [id number] exp. 12/28Taking predniSONE Taking Hydroxychloroquine Sulfate Taking Ibuprofen 800 MG Tablet 1 tablet with food or milk as needed Orally every 6-8 hrs As needed for pain and cramping with food, max 3 tablets every 24 hoursTaking Ondansetron 4 MG Tablet Disintegrating 1 tablet on the tongue and allow to dissolve Orally Every 8 hours PRN Taking Acetaminophen 500 MG Capsule 2 tablets Orally every 8 hrs PRN Taking miSOPROStol 200 MCG Tablet 4 tablets Buccally every 3 hours for 3-4 doses as directed, Notes to Pharmacist: disp in house [id number] exp. 12/28Not-Taking/PRNmetroNIDAZOLE 0.75 % Gel 1 applicatorful at bedtime Vaginal Nightly Not-Taking/PRN metroNIDAZOLE 0.75 % Gel 1 applicatorful at bedtime Vaginal Nightly Objective: * Vitals:? * Examination: ???General Examination: ?GENERAL APPEARANCE:? in no acute distress.?PSYCH:? alert, oriented.? Assessment: * Assessment: 1.?Failed attempted terminat ion of with unspecified complications - O07.30?2.?Counseling/Contraceptive Advice - Z.? Plan: * Treatment: 2.?Counseling/Contraceptive Advice? Notes: discussed options. client had suicidal ideation on nexplanon and prefers non-hormonal methods if possible. was considering hormonal vs. non-hormonal IUD but not sure yet. Reviewed [facility] handouts and referred to [email or web address]. client will discuss with Dr. Amaya at referral ?? * Imaging:? * ?Imaging: Ultrasound : Melchor moffett (Performed Date - 02/19/2024) * Procedure Codes:? 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 * Procedure Codes:? * Sign off status: Completed true * Provider:?Raymond Morris CNM, SHIPPING ROOM SUPERVISOR Date:?0 02/19/2024 Generated for Mark wylie/Karlee/Pieteritting on:?02/09/2025 06:38 AM EDT History and Physical Notes * HPI (History of Present Illness) Category Sub-Category Detail Notes Category Not es Visit Narrative Reason for the visit: MAB Follow Up Client is here for a MAB follow up. Client took 4 rounds of misoprostol for misoprostol only regimen on Sat. 02/13. Had a small amount of bleeding filling one pad with a few clots. Now spotting, continues to have moderate intermittent cramping and nausea. MAB Followup [place] When Mifepristone Taken 6 weeks Client is here for a MAB follow up. Client took 4 rounds of misoprostol for misoprostol only regimen on Sat. 02/13. Had a small amount of bleeding filling one pad with a few clots. Now spotting, continues to have moderate intermittent cramping and nausea. Date Mifepristone taken 02/13 Date/time misoprostol taken 02/14 Agreed Follow-Up Plan , Ultrasound Heavy cramping & bleeding within 24 hour s of miso? , Yes Passed (tissue, clots)? , Yes Still experiencing symptoms? 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 Yes Examination Category Sub-Category Detail Notes Category Not es General Examination GENERAL APPEARANCE: in no acute di stress PSYCH: alert, oriented
--- OUTSIDE RECORDS SUMMARY | 2025-02-09 06:38 | XMS_ITS | Patient Health Record ---
Author Organization [facility] Address [address] [id number] Care Team Providers Care Farm Appraiser Name Role Phone Raymond Morris Unavailable [phone] Allergies No Known Allergies Results Component Value Reference Range Notes Ultrasound : Pelvic Reviewed date:02/19/2024 05:32:00 PM Interpretation:failed MAB Performing Lab: Notes/Report: failed MAB Test, Urine Reviewed date:02/12/2024 04:14:13 PM Interpretation:Positive Performing Lab: Notes/Report: Positive Test, Urine positive Lot # [id number] Exp. Date 05/05/2025 hCG,Beta Subunit, [id number] Reviewed date:02/16/2024 04:26:08 PM Interpretation:9301 Performing Lab:[facility], [address] [place] [address], Phone - [phone], Director - [facility] Notes/Report: hCG,Beta Subunit,Qnt,Serum 9301 <5 MIU/ML Males and non- females: <5 mIU/mL Female (weeks of gestation): 4 weeks 5-100 mIU/mL 5 weeks 200-3000 mIU/mL 6 weeks 10,000-80,000 mIU/mL 7-14 weeks 90,000-500,000 mIU/mL 15-26 weeks 5,000-80,000 mIU/mL Peak: Late 1st Trimester 300,000 mIU/mL Interpretation: hCG levels increase exponentially during very early , after reaching a plateau during the late first trimester. hCG levels steadily decline until a steady state which is seen throughout the second and third trimesters. Although the main clinical utility of hCG levels lies within early , these findings underline the importance of hCG throughout gestational physiology and suggest that variations in hCG levels may be associated with adverse clinical outcomes such as loss, preeclampsia, delivery and growth restriction. Reason For Referral No Information Medications Medication SIG (Take, Route, Frequency, Duration) [...] 1 days as directed disp in house [id number] exp. 12/2802/12/2024 Active predniSONE Active Hydroxychloroquine Sulfate Active metroNIDAZOLE 0.75 % 1 applicatorful at bedtime Vaginal Nightly for 5 days 05/27/2023 Not-Taking Ibuprofen 800 MG 1 tablet with food or milk as needed Orally every 6-8 hrs for 3 days As needed for pain and cramping with food, max 3 tablets every 24 hours 02/12/2024 Active Social History Sex Assigned At : Social History Observation Description Sex Assigned At Female Vital Signs Height 63 in 02/12/2024 Weight 152 lbs 02/12/2024 BMI 26.92 kg/m2 02/12/2024 Encounters Encounter Location Date Provider Diagnosis [address] [id number] 02/12/2024 Raymond Morris Encounter for electi ve termination of Z33.2 and test, result positive Z32.[address] [id number] 02/19/2024 Raymond Morris Failed attempted termination of with unspecified complications O07.30 and Counseling/Contraceptiv e Advice Z30.[address] [id number] 02/10/2024 Raymond Morris Assessments Encounter Date Diagnosis (ICD Code) Assessment Notes Treatment Notes Treatment Clinical Notes Section Notes 02/12/2024 Encounter for elective termination of (ICD-10 - Z33.2) Clt is a good candidate for medication with a at less than or equal to 77 days gestational age. The patient has no medical contraindications. The patient understands the protocol and possible side effects, the follow up options, and the need for an aspiration procedure if the medication fails. The patient has been given emergency contact information.Client is contraindicated for mifepristone due to chronic corticosteroid use and in collaboration with medical receptionist biller and extended informed consent conversation including benefits, risks and alternatives client opts for trial of misoprostol only regimen. She understands efficacy may be approximately 80%. reviewed medication education Consents reviewed and signed by Clt. Preprocedure ultrasound done: {NOT PERFORMED. CLT understands the risks of foregoing a preprocedure ultrasound that include: ectopic , inaccurate dating and early loss} Hgb POC done: No. Gestational age less than 70 days and no anemia symptoms or hx After review with the CLT on FU methods the agreed upon follow up method will be: (2) Hcg quant in 4-7 days MED AB KIT given with: Med AB during and aftercare instructions, [facility] Fact Sheet, Rh form, All options Talk[facility] referral card, ectopic warnings sheet, provided online links to misoprostol only regimen instructions handout from [facility] 02/19/2024 Failed attempted termination of with unspecified complications (ICD-10 - O07.30) refer for D&C and possible IUD placement under deep sedation at [facility] with Dr. Amaya. extension counseling completed. reviewed anticipatory guidance and ED recos in interim 02/19/2024 Counseling/Contra ceptive Advice (ICD-10 - Z30.09) discussed options. client had suicidal ideation on nexplanon and prefers non-hormonal methods if possible. was considering hormonal vs. non-hormonal IUD but not sure yet. Reviewed [facility] handouts and referred to [email or web address]. client will discuss with Dr. Amaya at referral 02/12/2024 test, result positive (ICD-10 - Z32.01) 02/19/2024 Other Plan Of Treatment No Information Insurance Providers Payer Name Payer Address Payer Phone Subscriber Number Group Number Insured Name Patient Relationship to Insured Coverage Start Date Coverage End Date [facility] [address] [place] [phone] [id number] Niranjan Keerthi Self - patient is the insured 2022 Medical (General) History Medical History History ICD Code Past hx of BV Depression/Anxiety lupus sepsis age 16 with acute renal and hepat ic failure Hospitalization History Reason Date(Month/Year) Years ago hospitalization for TSS
--- OUTSIDE RECORDS SUMMARY | 2025-02-09 06:38 | XMS_ITS ---
Author Organization [facility] Address [address] [id number] Care Team Providers Care Olericulture Teacher Name Role Phone Raymond Morris Unavailable [phone] Allergies No Known Allergies Results Component Value Reference Range Notes Test, Urine Reviewed date:02/12/2024 04:14:13 PM Interpretation:Positive Performing Lab: Notes/Report: Positive Test, Urine positive Lot # [id number] Exp. Date 05/05/2025 hCG,Beta Subunit, [id number] Reviewed date:02/16/2024 04:26:08 PM Interpretation:9301 Performing Lab:[facility], [address] [place] [address], Phone - [phone], Director - [facility] Notes/Report: hCG,Beta Subunit,Qnt,Serum 9301 <5 MIU/ML Males [...] as loss, preeclampsia, delivery and growth restriction. REASON FOR VISIT 6weeks 4d Medications Medication SIG (Take, Route, Frequency, Duration) Notes Start Date End Date Status miSOPROStol 200 MCG 4 tablets Buccally every 3 hours for 3-4 doses for 1 days as directed disp in house [id number] exp. 12/2802/12/2024 Active Acetaminophen 500 MG 2 tablets Orally every 8 hrs PRN 02/12/2024 Active metroNIDAZOLE 0.75 % 1 applicatorful at bedtime Vaginal Nightly for 5 days 05/27/2023 Not-Taking Ondansetron 4 MG 1 tablet on the tongue and allow to dissolve Orally Every 8 hours PRN for 30 days 02/12/2024 Active Hydroxychloroquine Sulfate Active Ibuprofen 800 MG 1 tablet with food or milk as needed Orally every 6-8 hrs for 3 days As needed for pain and cramping with food, max 3 tablets every 24 hours 02/12/2024 Active predniSONE Active Social History Sex Assigned At : Social History Observation Description Sex Assigned At Female Vital Signs Height 63 in 02/12/2024 Weight 152 lbs 02/12/2024 BMI 26.92 kg/m2 02/12/2024 Encounters Encounter Location Date Provider Diagnosis [facility] [address] [place], [place] [id number] 02/12/2024 Raymond Morris Encounter for electi ve termination of Z33.2 and test, result positive Z32.01 Assessments Encounter Date Diagnosis (ICD Code) Assessment [...] chronic corticosteroid use and in collaboration with special forces medical sergeant and extended informed consent conversation including benefits, [...] with: Med AB during and aftercare instructions, [facility] Fact Sheet, Rh form, All options Talkline referral card, ectopic warnings sheet, provided online links to misoprostol only regimen instructions handout from [facility] 02/12/2024 test, result positive (ICD-10 - Z32.01) Plan Of Treatment Medication Medication Name Sig Start Date Stop Date Notes miSOPROStol 200 MCG 4 tablets Buccally every 3 hours for 3-4 doses for 1 days 02/12/2024 disp in house [id number] exp. 12/28 Acetaminophen 500 MG 2 tablets Orally ev beka 8 hrs PRN 02/12/2024 Ondansetron 4 MG 1 tablet on the tong ue and allow to dissolve Orally Every 8 hours PRN for 30 days 02/12/2024 Ibuprofen 800 MG 1 tablet with food o r milk as needed Orally every 6-8 hrs for 3 days 02/12/2024 Treatment Notes Assessment Notes Encounter for elective termi [place] of [place] is a good candidate for medication with [...] chronic corticosteroid use and in collaboration with special forces medical sergeant and extended informed consent conversation including benefits, [...] with: Med AB during and aftercare instructions, [facility] Fact Sheet, Rh form, All options Talkline referral card, ectopic warnings sheet, provided online links to misoprostol only regimen instructions handout from [facility] Next Appt Details Follow Up: 1 Week, Reason: w ould like to discuss contraception at follow up visit Progress Notes * [place]ion UREÑAiDOB:1995 (28 yo F)Acc No.[id number]:02/12/2024 Patient:?Keerthi UREÑA Provider:?Raymond Morris CNM, FNP :1995???Age:28 Y???Sex:Female D ate:02/12/2024 Address:[address] [place] [address], [id number] Subjective: * Chief Complaints: * ???6weeks 4d * HPI: ???MAB Eligibility:?Further F/U Needed:?Dizziness, clt was having bw at [facility] and reports fainted during, reports had never experienced before. Reports no fainting since, diziness come and goes with nausea, usually in morning. , Hx or current anemia, reports currently ok with bw today. , Syncope (fainting) during bw.?.?Contraindications?Long-term systemic corticosteroid use.?EGA?6 weeks and 4 days days based on , Sure LMP Brainjuicer.?Where and when client is planning on completing MAB?Clt is planning to take miso 02/14/24. clt reports does not have work on this day and will have mother to support them. Clt reports mother is aware and will be present for support. Clt will take roughly midday, vaginally..?Client presenting for medication visit. * ROS:?General/Constitutional:?Patient denies?Dizziness.?Denies?Chills.?Denies?Fever.?Denies?Lightheadedness.?Gastrointestinal:?Admits?Nausea.?Vaginal/Breast/ Control FU:?Patient denies?Vaginal bleeding.?Admits?Signs/Symptoms of .?Admits?Breast pain.?Missed period(s)? Admits.?Genitourinary:?Denies?Abdominal pain/swelling.?Musculoskeletal:?Patient denies?R shoulder pain.? * Medical History:? * Tallier History:?Last menstrual period:?06/03/2023.?Last pap smear date:?3+ years ago as of 2022 ,NIL per client,.?Menarche: ?Past the age of menarche:?Yes ?Age of menarche:?11 ???Periods:?every 28 days.?Sexual activity:?currently sexually active.? * OB History:?Total pregnancies:?0.? * Surgical History:?Denies Pas t Surgical History * Hospitalization/Major Diagno stic Procedure:?Years ago hospitalization for TSS * Family History:? Parents have hx of HBP. * Social History:?Food Access:?Food Access?The Client's current access to food is?Secure Food Access ???Housing:?Housing?The client's current living situation is:?stable housing ???Medication :?Medication ?Patent provided verbal consent for MAB today.?Yes ?Patient would like to discuss STI testing today.?No ?Patient would like to discuss contraception today.?Yes, at follow up appt Would be open to nexplanon ?Some people experience pressure around or control from others in their life. Is anyone pressuring you around your decisions about your ??No ?Are you experiencing pressure around sex you are having??No ?Is anyone trying to interfere with your use of contraception??No ?MAB patient plan?Reviewed caregiving obligations, Reviewed work obligations, Reviewed support person plan, Reviewed safety/privacy plan (describe in notes), Offered medical note, Reviewed patient self care (describe in notes) * Medications:?TakingpredniSON E Hydroxychloroquine Sulfate Taking predniSONE Taking Hydroxychloroquine Sulfate Not-Taking/PRNmetroNIDAZOLE 0.75 % Gel 1 applicatorful at bedtime Vaginal Nightly Medication List reviewed and reconciled with the patientNot-Taking/PRN metroNIDAZOLE 0.75 % Gel 1 applicatorful at bedtime Vaginal Nightly Medication List reviewed and reconciled with the patient * Allergies:?N.K.D.A.no[Allerg ies Verified] Objective: * Vitals:?BP: Not Taken - Decl ined by Patient, Ht: 63 in, Wt:152lbs, BMI:26.92Index, Ht-cm: 160.02, Wt-k.95. * Examination: ???General Examination: ?GENERAL APPEARANCE:? in no acute distress , in no acute distress.?PSYCH:? alert, oriented , alert, oriented.? Assessment: * Assessment: 1.?Encounter for elective te rmination of - Z33.2 (Primary)?2.? test, result positive - Z32.01? Plan: * Treatment: ?LAB: Test, Urine (Collection Date & Time - 02/12/2024)?Positive* ? Value Reference Range ? Test, Urine positive * ?Lot # [id number] * ?Exp. Date 05/05/2025 Notes: Clt is a good candidate for medication with a at less than or equal to 77 days gestational age. The patient has no medical contraindications. The patient understands the protocol and possible side effects, the follow up options, and the need for an aspiration procedure if the medication fails. The patient has been given emergency contact information. Client is contraindicated for mifepristone due to chronic corticosteroid use and in collaboration with special forces medical sergeant and extended informed consent conversation including benefits, [...] with: Med AB during and aftercare instructions, [facility] Fact Sheet, Rh form,All options Talkline referral card, ectopic warnings sheet, provided online links to misoprostol only regimen instructions handout from [facility] ??2.? test, result positive?LAB: hCG,Beta Subunit, [id number] (Collection Date & Time - 02/12/2024 02:18 PM)* Gigi Busch 02/12/2024 02 :18:16 PM EDT >stat labbaseline HCG ?LAB: Test, Urine (Collection Date & Time - 02/12/2024)?Positive* ? Value Reference Range ? Test, Urine positive * ?Lot # [id number] * ?Exp. Date 05/05/2025 * Procedure Codes:?44068 Pregn sailaja, [id number] MISOPROSTOL ORAL 200 MCG, Units: 4.00 S0199 MED INDUCED AB ORAL INGEST MED * Follow Up:?1 Week (Reason: w ould like to discuss contraception at follow up visit) * Billing Information: * Visit Code:? * Procedure Codes:? 97334 , Urine. S0191 MISOPROSTOL ORAL 200 MCG. Units: 4.00. S0199 MED INDUCED AB ORAL INGEST MED. * Sign off status: Completed true * Provider:?Raymond Morris CNM, MOBILE CRANE OPERATOR Date:?0 02/12/2024 Generated for Mark wylie/Karlee/Emmaransmitting on:?02/09/2025 06:38 AM EDT History and Physical Notes * HPI (History of Present Illness) Category Sub-Category Detail Notes Category Not es MAB Eligibility Further F/U Needed: Dizziness, c lt was having bw at [facility] and reports fainted during, reports had never experienced before. Reports no fainting since, diziness come and goes with nausea, usually in morning. , Hx or current anemia, reports currently ok with bw today. , Syncope (fainting) during bw. Client presenting for medication visit Contraindications Long-term systemic c orticosteroid use EGA 6 weeks and 4 days d ays based on , Sure LMP upPlaySay Where and when client is carlos nning on completing MAB Clt is planning to take miso 02/14/24. c lt reports does not have work on this day and will have mother to support them. Clt reports mother is aware and will be present for support. Clt will take roughly midday, vaginally. Examination Category Sub-Category Detail Notes Category Not es General Examination GENERAL APPEARANCE: in no ac [place] distress , in no acute distress PSYCH: alert, oriented , al ert, oriented
--- OUTSIDE RECORDS SUMMARY | 2025-02-09 06:38 | XMS_ITS | Encounter Summary ---
Author Organization [facility] Address [address] [place] [address] Phone Care Team Providers Care Bill Checker Name Role Phone Nati Winter NP Primary Care Provider Raven jackson Encounter Details Date Type Department Care Team (Late st Contact Info) Description 06/17/2014 Documentation EM Family Medicine [address] [place], [place] [phone] Family Medicine, Physician [address] [place] [address] Social History Tobacco Use Types Packs/Day Years [...] on filedocumented in this encounter Care Teams Bill Checker Relationship Specialty Start Date End Date Nati Winter NP PCP - General 06/13/17 04/09/23 documented as of this encounter
--- OUTSIDE RECORDS SUMMARY | 2025-02-09 06:38 | XMS_ITS | Encounter Summary ---
Author Organization [facility] Address [address] [place] [address] Phone Care Team Providers Care Sales Associate Cashier Name Role Phone Nati Winter NP Primary Care Provider Raven jackson Encounter Details Date Type Department Care Team (Late st Contact Info) Description 06/19/2017 Conversion Encounter [facility] - [address] [address] Social History Tobacco Use Types Packs/Day Years [...] on filedocumented in this encounter Care Teams Sales Associate Cashier Relationship Specialty Start Date End Date Nati Winter NP PCP - General 06/13/17 04/09/23 documented as of this encounter
--- OUTSIDE RECORDS SUMMARY | 2025-02-09 06:38 | XMS_ITS | Clinical Summary ---
Author Organization [facility] Address [address] [place] [address] Care Team Providers Care Delivery Supervisor Name Role Phone Marija Rubio MD Primary Care Provider Social History Tobacco Use Types Packs/Day Years Used Date Smoking Tobacco: Never Assessed Comments Unknown Sex and Gender Information Value Date Recorded Sex Assigned at Not on file Legal Sex Female 11:25 AM EDT Gender Identity Not on file Sexual Orientation Not on file Plan of Treatment Health Maintenance Due Date Last Done Comments Hepatitis C Screening 1995 Pap Smear 2012 DTaP/Tdap/Td (1 - Tdap) 2014 Hep B (1 of 3 - 19+ 3-dose series) 2015 COVID-19 Vaccine ( - 2023-2 5 season) 2024 Influenza (#1) 2024 Zoster (Shingrix) (1 of 2) 2046 HPV Vaccine Aged Out No longer eligi ble based on patient's age to complete this topic Hep A Aged Out No longer eligi ble based on patient's age to complete this topic Hib Aged Out No longer eligi ble based on patient's age to complete this topic Meningococcal ACWY Aged Out No longer eligible based on patient's age to complete this topic Pneumococcal Aged Out No longer eligi ble based on patient's age to complete this topic Care Teams Delivery Supervisor Relationship Specialty Start Date End Date Marija Rubio MD [address] [place] [id number] PCP - General 06/09/23
--- OUTSIDE RECORDS SUMMARY | 2025-02-09 06:38 | XMS_ITS | Encounter Summary ---
Author Organization [facility] Address [address] [place] [address] Phone Care Team Providers Care Change Of Address Clerk Name Role Phone Nati Winter NP Primary Care Provider Raven jackson Encounter Details Date Type Department Care Team (Late st Contact Info) Description 07/31/2012 Documentation EM Family Medicine [address] [place], [place] [phone] Family Medicine, Physician [address] [place] [address] Social History Tobacco Use Types Packs/Day Years [...] on filedocumented in this encounter Care Teams Change Of Address Clerk Relationship Specialty Start Date End Date Nati Winter NP PCP - General 06/13/17 04/09/23 documented as of this encounter
--- OUTSIDE RECORDS SUMMARY | 2025-02-09 06:38 | XMS_ITS | Encounter Summary ---
Author Organization [facility] Address [address] [place] [address] Phone Care Team Providers Care Multimedia Services Coordinator Name Role Phone Nati Winter NP Primary Care Provider Raven jackson Encounter Details Date Type Department Care Team (Late st Contact Info) Description 12/21/2014 Documentation EM Family Medicine [address] [place], [place] [phone] Family Medicine, Physician [address] [place] [address] Social History Tobacco Use Types Packs/Day Years [...] on filedocumented in this encounter Care Teams Multimedia Services Coordinator Relationship Specialty Start Date End Date Nati Winter NP PCP - General 06/13/17 04/09/23 documented as of this encounter
--- OUTSIDE RECORDS SUMMARY | 2025-02-09 06:38 | XMS_ITS | Encounter Summary ---
Author Organization [facility] Address [address] [place] [address] Phone Care Team Providers Care Bid Clerk Name Role Phone Nati Winter NP Primary Care Provider Raven jackson Encounter Details Date Type Department Care Team (Late st Contact Info) Description 07/09/2012 Documentation EM Family Medicine [address] [place], [place] [phone] Family Medicine, Physician [address] [place] [address] Social History Tobacco Use Types Packs/Day Years [...] on filedocumented in this encounter Care Teams Bid Clerk Relationship Specialty Start Date End Date Nati Winter NP PCP - General 06/13/17 04/09/23 documented as of this encounter
--- OUTSIDE RECORDS SUMMARY | 2025-02-09 06:38 | XMS_ITS | Encounter Summary ---
Author Organization [facility] Address [address] [place] [address] Phone Care Team Providers Care Ditcher Name Role Phone Nati Winter NP Primary Care Provider Raven jackson Encounter Details Date Type Department Care Team (Late st Contact Info) Description 02/10/2015 Documentation EM Family Medicine [address] [place], [place] [phone] Family Medicine, Physician [address] [place] [address] Social History Tobacco Use Types Packs/Day Years [...] on filedocumented in this encounter Care Teams Ditcher Relationship Specialty Start Date End Date Nati Winter NP PCP - General 06/13/17 04/09/23 documented as of this encounter
--- OUTSIDE RECORDS SUMMARY | 2025-02-09 06:38 | XMS_ITS ---
Author Organization [facility] Address [address] [place] [id number] Care Team Providers Care Fitting Supervisor Name Role Phone Raymond Morris Unavailable [phone] REASON FOR VISIT MAB F/U - non urgent Social History Sex Assigned At : Social History Observation Description Sex Assigned At Female Encounters Encounter Location Date Provider Diagnosis [facility] [address] [facility] [address] [place], [place] [phone] 02/10/2024 Raymond Morris Plan Of Treatment No Information Progress Notes * [place] UREÑAB:1995 (28 yo F)Acc No.[id number]:02/10/2024 Patient:?Keerthi UREÑA :1995???Age:28 Y???Sex:Female Address:[address] [place] [address], [phone] * true * Date:? Generated for Printi inessa/Kennag/eTransmitting on:?02/09/2025 06:38 AM EDT
--- OUTSIDE RECORDS SUMMARY | 2025-02-09 06:39 | XMS_ITS | Encounter Summary ---
Author Organization [facility] Address [address] [place] [address] Phone Care Team Providers Care Director Of Resource Development Name Role Phone Nati Winter NP Primary Care Provider Raven jackson Encounter Details Date Type Department Care Team (Late st Contact Info) Description 07/09/2012 Documentation EM Family Medicine [address] [place], [place] [phone] Family Medicine, Physician [address] [place] [address] Social History Tobacco Use Types Packs/Day Years [...] on filedocumented in this encounter Care Teams Director Of Resource Development Relationship Specialty Start Date End Date Nati Winter NP PCP - General 06/13/17 04/09/23 documented as of this encounter
--- OUTSIDE RECORDS SUMMARY | 2025-02-09 06:39 | XMS_ITS | Encounter Summary ---
Author Organization [facility] Address [address] [place] [address] Phone Care Team Providers Care Consumer Marketing Manager Name Role Phone Nati Winter NP Primary Care Provider Raven jackson Encounter Details Date Type Department Care Team (Late st Contact Info) Description 07/09/2012 Documentation EM Family Medicine [address] [place], [place] [phone] Family Medicine, Physician [address] [place] [address] Social History Tobacco Use Types Packs/Day Years [...] on filedocumented in this encounter Care Teams Consumer Marketing Manager Relationship Specialty Start Date End Date Nati Winter NP PCP - General 06/13/17 04/09/23 documented as of this encounter
[2025-02-09 06:54] LABS: MANUAL DIFF FLAG NO
[2025-02-09 07:29] LABS: Eosinophils Absolute Auto 0.1 X10*3/uL (0.0-0.4); Eosinophils Percent Auto 3.4 % (0-4); Hematocrit 35.9 % (37.0-47.0); Hemoglobin 11.3 g/dl (12.0-16.0); Imm Gran Abs Auto 0.03 X10*3/uL (0.00-0.03); Imm Gran Pct Auto 0.8 % (0.0-0.4); Mean Corpuscular HGB Conc 31.5 g/dl (31.0-35.0); Mean Corpuscular Hemoglobin 25.2 pg (27.0-33.0); Mean Corpuscular Volume 80.1 fL (80.0-98.0); Monocytes Absolute Auto 0.2 X10*3/uL (0.1-1.2); Monocytes Percent Auto 4.5 % (2-11); Neutrophils Absolute Auto 2.2 x10*3/uL (2.0-8.3); Neutrophils Percent Auto 63.3 % (45-73); Platelet Count 304 X10*3/uL (160-400); Red Blood Count 4.48 X10*6/uL (4.20-5.50); Red Cell Distribution Width 14.5 % (11.0-16.0); White Blood Count 3.5 X10*3/uL (4.8-10.8)
[2025-02-09 07:54] LABS: Appearance Urine Clear; Color Urine Yellow; Glucose Urine UA Negative (Negative); Leukocyte Esterase Urine Negative (Negative); Nitrite Urine Negative (Negative); PH 5.5 (5.0-9.0); Specific Gravity - Urine >= 1.030 (1.005-1.025); Urine Blood Negative (Negative); Urine Ketones Negative (Negative); Urine Protein Negative (Neg-Trace)
[2025-02-09 08:01] LABS: Bacteria Urine None Seen (None Seen); Hyaline Casts Urine 0-2 /LPF (0-2); RBC Urine 0-2 /HPF (0-2); WBC Urine 0-5 /HPF (0-5)
[2025-02-09 08:07] LABS: Alanine Aminotransferase 10 U/L (0-31); Albumin Level 4.1 g/dL (3.5-5.0); Alkaline Phosphatase 44 U/L (39-117); Anion Gap 9 (12-20); Aspartate Amino Transferase 24 U/L (5-31); Bilirubin Total 0.2 mg/dL (0.0-1.0); Blood Urea Nitrogen 16 mg/dL (9-16); C Reactive Protein 0.54 mg/dL (< or = 0.50); Calcium 8.8 mg/dL (8.4-10.2); Carbon Dioxide 22 mmol/L (22-29); Chloride 110 mmol/L (96-108); Estimated Glomerular Filt Rate > 60; Glucose Random 87 mg/dL (60-115); Potassium 4.1 mmol/L (3.3-5.1); Sodium 137 mmol/L (135-145); Total Protein 7.2 g/dL (6.5-8.0)
[2025-02-09 08:17] LABS: Erythrocyte Sedimentation Rate 8 MM/HR (0-20)
[2025-02-09 08:23] LABS: Vitamin D 25-OH Total 26.7 ng/mL (>30)
[2025-02-09 08:53] LABS: Protein/Creatinine Ratio, Ur 0.04 (<0.2); Total Protein Urine Random 9 mg/dL (<12)
[2025-02-10 12:53] LABS: Complement C3 107 mg/dL (83-193)
[2025-02-10 22:28] LABS: Anti DNA DS Antibody 26 IU/mL
== END 2025-02-09 06:36 | disposition home or self-care (01) ==
LOC: HO.LAB 06:35
PROVIDERS: PCP Internal Medicine; Visit Provider Student in an Organized Health Care Education/Training Program
DX: M32.8 Other forms of systemic lupus erythematosus (principal); E55.9 Vitamin D deficiency, unspecified; Z79.899 Other long term (current) drug therapy
CPT/HCPCS: 36415; 80053; 81001; 82306; 82570; 84156; 85025; 85652; 86140; 86160; 86225

== ENCOUNTER 2025-02-15 15:37 | Outpatient (AMB) | payer OTHER, SELFPAY ==
[2025-02-15 15:39] VITALS: BP 116/64; PULSE 75; O2SAT 99; BMI 28.4
--- NOTE | 2025-02-15 15:39 | MHC.OFFVIS ---
Vital Signs 02/15/25 15:39 Height 5 ft 2 in Weight 155 lb 3.287 oz BMI 28.4 BP 116/64 Blood Pressure Location Lt brachial Position Sitting Pulse 75 Pulse Source Pulse Oximeter Pulse Oximetry (%) 99 Oxygen Delivery Method Room Air Intake Visit Reasons: SLE Intake Note: Patient last seen by Doctor Darien Remy on 07/14/24. Presents today for Crohn's Colitis follow up and test results. Allergies No Known Allergies [No Known Allergies*] Allergy (Verified 02/15/25 15:42) Medication List - Last Reconciled 02/15/25 by Fransisca Palacios MD cholecalciferol (vitamin D3) 50 mcg PO DAILY 3 months hydroxychloroquine orally; Take 400 mg daily X 5 days a week and 200 mg daily X 2 days a week prednisone 2.5 mg PO DAILY HPI Comments Details: Patient is a 29 year female with SLE here today for follow up Interval History: Patient last seen 11/17/[address] Remy. At that time patient was following up for her lupus and her lupus was not well controlled. But because she was frustrated with medications she wanted to try natural remedies including turmeric and healthy lifestyle. Despite changing her lifestyle she has not noticed significant improvement and today continues to be frustrated with her diagnosis and complains of the same rash, joint pain, brain fog and fatigue. Rheumatologic History: SLE (arthralgias, skin rashes, episcleritis/scleritis, hair loss, lymphopenia, normocytic anemia, +VICKIE +++SSa +SSb +RF + DsDNA) dx around 2013 HCQ + PDN regularly 2022 MTX 2022 stopped after one-month could not be tolerated Initial history: This is a 27-year-old female with Sjogren's who presents for follow-up. She was last seen by Nichol Fletcher 02/23. Patient states that she was diagnosed with Sjogren's around 2013. She states that she was on hydroxychloroquine consistently at some point, she might have been on other meds but she does not remember. She states that since November of 2022 she has been having left eye redness and swelling. She was evaluated by Ophthalmology and was diagnosed with filamentous keratitis and episcleritis. She received antibiotic and steroid eyedrops which provides some relief but she continues to have left eye redness and pain. This year old so she has been having intermittent rashes on her hands, chest, legs. The rashes are worse in the sun. Also has pain and swelling of her hands associated with morning stiffness lasting a few hours. The rashes burn, they do not itch. 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 Her hands hurt in the morning and at night. She states that she has had Raynaud's all her life. Sometimes she has to wear heated gloves. She also states that she has had dry eyes for many years, she uses artificial tears consistently. She has intermittent dry mouth and sometimes uses Biotene mouthwash. She has been losing a substantial amount of hair recently. Large clumps of hair. She denies any fevers. She does get chills sometimes. She never took her temperature. She denies any significant weight change. Denies mouth ulcers. She denies any history of DVT/PE. Patient never attempted . She is unaware of any family history of autoimmune rheumatic disease. Current Rheumatology Medication(s): Hydroxychloroquine 200 mg twice a day 5 days a week and 200 mg once a day 2 days a week Prednisolone 2.5 mg daily [facility] Medical History Joint pain Kidney stones Surgical History No pertinent past surgical history Family History Mother HTN (hypertension) Osteoarthritis Father Rosana Gehrig's disease Maternal Grandfather Rheumatoid arthritis Other Mental health disorder Social History Household Members: Family Housing: House Alcohol intake: current Alcohol intake frequency: a few times a month Patient Tobacco Use Status: Never used Tobacco Tobacco use type: Cigarette e-Cigarette/Vaping Use: Never Used Second Hand Smoke Exposure: No service: No Current occupational status: employed 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 Current occupational exposures/hazards: No Cognitive needs: No Hearing needs: No Vision needs: Yes (Glasses) Review of Systems Const Details: Review of Systems Constitutional: Denies fever, chills, weight loss ENT: Denies vision changes, eye pain or eye redness, dental caries, dry mouth GI: Denies nausea, vomiting, diarrhea, abdominal pain, change in BM Pulm: Denies SOB, LEVIN, hemoptysis, wheezing Cards: Denies chest pain, palpitations Skin: Denies Raynaud's, rash, nail changes, photosensitivity, TIRE ASSEMBLER: Denies headaches, weakness, paresthesias, recurrent falls MSK: as per HPI All other systems reviewed and are unremarkable except noted above Physical Exam Vital Signs: Last Vital Signs Pulse 75 02/15/25 15:39 BP 116/64 02/15/25 15:39 Pulse Ox 99 02/15/25 15:39 Oxygen Delivery Method Room Air 02/15/25 15:39 BMI result Body Mass Index 28.4 Vital signs reviewed Physical Examination CONSTITUITIONAL Patient alert and cooperative. Well appearing and in no apparent painful distress HEENT Conjunctiva and sclera clear. ?Pupils equal round and reactive to light. ?No lymphadenopathy. ? CHEST/RESPIRATORY SYSTEM Normal respiratory effort and able to speak in complete sentences. ?Clear to auscultation bilaterally. ?No crackles, rales, rhonchi, wheezes heard. CARDIAC SYSTEM Regular rate and rhythm. ?S1 and S2 heard no murmurs. ?Radial pulses intact bilaterally MSK Hands: ?Able to make a fist. Tenderness to palpation of the MCPs and PIPs bilaterally right wrists and left. Wrists: ?Full range of motion at the wrists. And S2 palpation bilaterally Elbows: Full range of motion without pain. No tenderness, weakness, swelling, increased warmth or erythema. Shoulders: Full range of motion without pain. No tenderness, weakness, swelling, increased warmth or erythema. Knees: ?Full range of motion. ?No tenderness, swelling, increased warmth or erythema.?No effusion or crepitations Ankles: Full range of motion. ?No tenderness, swelling, increased warmth or erythema.? Feet: ?Positive squeeze test bilaterally Tender points:?No tenderness to palpation of the bilateral trapezius, supraspinatus, greater trochanters, anterior costochondral junctions, bilateral gluteal areas, bilateral suboccipital muscle insertions SKIN Inflammatory papules noted in scalp. Hair thinning Results Reviewed Results Reviewed: Laboratory Tests 09/03/24 02/09/25 13:22 06:52 WBC 3.5 L RBC 4.48 Hgb 11.3 L Hct 35.9 L Plt Count 304 D ESR 8 Sodium 137 Potassium 4.1 D Chloride 110 H Carbon Dioxide 22 BUN 16 Creatinine 0.76 AST 24 ALT 10 C-Reactive Protein 0.21 0.54 H 25-OH Vitamin D Total 26.7 L Lupus activity labs 02/09/24 09/03/24 02/09/25 13:01 13:22 06:52 Double Strand DNA Ab 9 H 14 H 26 H Complement C3 106 104 Complement C4 20 17 18 Urine studies 02/09/25 06:45 Urine Color Yellow Urine Protein Negative Urine Blood Negative Protein/Creatinin Ratio 0.04 CT Abdomen 09/2024 FINDINGS: LUNG BASES: The visualized lung bases are unremarkable. LIVER, GALLBLADDER, AND BILIARY TREE: The liver is normal in size, shape, and attenuation. No focal hepatic lesion or biliary ductal dilatation is present. The gallbladder is unremarkable with no evidence of radiopaque gallstones, gallbladder wall thickening, or obvious pericholecystic inflammatory changes. PANCREAS: Unremarkable. SPLEEN: Unremarkable. ADRENAL GLANDS: Unremarkable. KIDNEYS AND URETERS: The kidneys are normal in size, shape, and attenuation. A punctate calcification midpole right kidney. There is no caliectasis or hydronephrosis. There is no perinephric stranding. BLADDER: Not is nondistended. GASTROINTESTINAL TRACT: The small and large bowel are unremarkable. The appendix is normal. ABDOMINAL WALL: No significant hernia is appreciated. LYMPH NODES: Normal. VASCULAR: Unremarkable. PELVIC VISCERA: There is no free air or free fluid. The uterus is anteverted. No adnexal mass seen. OSSEOUS STRUCTURES: Unremarkable. CT/CT abdomen pelvis wo IV con IMPRESSION: 2 mm nonobstructive radiopaque calculi upper pole right kidney . No caliectasis or hydronephrosis seen. No additional radiopaque calculi. Assessment & Plan Assessment & Plan (1) SLE (systemic lupus erythematosus): Comment: SLE (arthralgias, skin rashes, episcleritis/scleritis, hair loss, lymphopenia, normocytic anemia, +VICKIE +++SSa +SSb +RF + DsDNA) dx around 2013 HCQ + PDN regularly 2022 MTX 2022 stopped after one-month could not be tolerated Code(s): M32.9 - Systemic lupus erythematosus, unspecified Category: Medical Qualifiers: Systemic lupus erythematosus type: other Systemic lupus erythematosus organ involvement: unspecified Qualified Code(s): M32.8 - Other forms of systemic lupus erythematosus Plan: #SLE Patient is a 29-year-old female with SLE here today for follow up. Patient's lupus is currently not controlled on Plaquenil monotherapy. FARZAD SLEDAI 8 (rash, joints, elevated dsDNA) indicating active disease. Not a candidate for methotrexate due to intolerance. Start PA for Benlysta infusions Plan - Start Benlysta 10mg/kg every 2 weeks for 3 doses then every 4 weeks - Continue plaquenil 200mg twice a day for 5 days and once a day for 2 days - Continue prednisone 2.5mg daily - RTC 4 months - Labs before visit: CBC, CMP, ESR, CRP, C3, C4, dsDNA, UA, UPC (2) Long-term use of hydroxychloroquine: Comment: eye exam OK 01/2024 Code(s): Z79.899 - Other moth exterminator (current) drug therapy Category: Medical Plan: #Long-term Use of Hydroxychloroquine Discussed with patient the risks and benefits of hydroxychloroquine in managing the rheumatic condition Benefits include: - Reduced pain, reduce mortality, maintenance of remission and reduction of flares Risks include: - GI upset, skin hyperpigmentation, retinal toxicity (especially after more than 5 years of use), myopathy Advised yearly ophthalmology visits (3) Encounter for monitoring of belimumab therapy: Code(s): Z51.81 - Encounter for therapeutic drug level monitoring; Z79.620 - long term care pharmacist (current) use of immunosuppressive biologic Plan: #long term care pharmacist Belimumab Discussed with patient the risks and benefits of hydroxychloroquine in managing the rheumatic condition Benefits include: - Reduced pain, reduce mortality, maintenance of remission and reduction of flares Risks include: - insomnia, injection site reactions, psychiatric events such as worsening depression/anxiety or suicidal ideation, increased risk of infection Plan I spent 42 minutes reviewing the record and labs, taking a history, examining the patient, discussing the treatment plan, ordering diagnostic work up and documenting in the medical record Orders: Orders Complement C4 4 Months M32.8 - Other forms of systemic lupus erythematosus Erythrocyte Sedimentation Rate 4 Months M32.8 - Other forms of systemic lupus erythematosus Anti DNA DS Antibody 4 Months M32.8 - Other forms of systemic lupus erythematosus Protein Creatinine Ratio, Ur 4 Months M32.8 - Other forms of systemic lupus erythematosus UA w Microscopic 4 Months M32.8 - Other forms of systemic lupus erythematosus Vitamin D 25-OH (D2 and D3) 4 Months E55.9 - Vitamin D deficiency, unspecified Complement C3 4 Months M32.8 - Other forms of systemic lupus erythematosus Complete Blood Count Auto Diff 4 Months M32.8 - Other forms of systemic lupus erythematosus Comprehensive Met. Panel 4 Months M32.8 - Other forms of systemic lupus erythematosus C Reactive Protein 4 Months M32.8 - Other forms of systemic lupus erythematosus Hepatitis A,B,C Profile 4 Months M32.8 - Other forms of systemic lupus erythematosus T Spot TB 4 Months M32.8 - Other forms of systemic lupus erythematosus Referrals Infusion Center Notification M32.8 - Other forms of systemic lupus erythematosus Medications: Refilled prednisone 2.5 mg PO DAILY 90 tabs 1RF M32.8 - Other forms of systemic lupus erythematosus hydroxychloroquine orally; Take 400 mg daily X 5 days a week and 200 mg daily X 2 days a week 144 tabs 1RF M32.8 - Other forms of systemic lupus erythematosus Coding Level of Care Code Est Pt Level 5 (56414) Complex EM visit Add On G2211 Diagnoses Other forms of systemic lupus erythematosus, unspecified organ involvement status M32.8 Systemic lupus erythematosus type: other Systemic lupus erythematosus organ involvement: unspecified Long-term use of hydroxychloroquine Z79.899 Encounter for monitoring of belimumab therapy Z51.81; Z79.620
--- OUTSIDE RECORDS SUMMARY | 2025-02-15 18:41 | XMS_ITS | Encounter Summary ---
Author Organization [employer] [facility] Address [address] [place] [address] 7 [place] [address] Care Team Providers Care Rotor Coil Taper Name Role Phone Toshia King Primary Care Provider [phone] Encounter Details Date Type Department Care Team (Latest Contact Info) Description 04/23/2019 Abstract [facility] CONVERSIONS Dental, Provider, DDS Social History [...] on filedocumented in this encounter Care Teams Rotor Coil Taper Relationship Specialty Start Date End Date Toshia King FNP PCP - General Family Medicine 08/24/21 04/17/23 documented as of this encounter
--- OUTSIDE RECORDS SUMMARY | 2025-02-15 18:41 | XMS_ITS | Patient Health Record ---
Author Organization [facility] Address [address] [id number] Care Team Providers Care Kier Boiler Name Role Phone [place], Raymond Unavailable [phone] Allergies No Known Allergies Results Component Value Reference Range Notes Ultrasound : Pelvic Reviewed date:02/19/2024 05:32:00 PM Interpretation:failed MAB Performing Lab: Notes/Report: failed MAB Reason For Referral No Information Medications Medication [...] 1 days as directed disp in house [id number] exp. 12/2802/12/2024 Active predniSONE Active Hydroxychloroquine Sulfate [...] Female Encounters Encounter Location Date Provider Diagnosis [facility] [address] [facility] [address] [place], [place] [phone] 02/19/2024 Raymond Morris Failed attempted termination of with unspecified complications O07.30 and Counseling/Contraceptiv e Advice Z30.09 Assessments Encounter Date Diagnosis (ICD Code) Assessment Notes Treatment Notes Treatment Clinical Notes Section Notes 02/19/2024 Failed attempted termination of with unspecified complications (ICD-10 - O07.30) refer for D&C and possible IUD placement under deep sedation at [facility] with Dr. Amaya. extension counseling completed. reviewed [...] at referral 02/19/2024 Other Plan Of Treatment No Information Insurance Providers Payer Name Payer Address Payer Phone Subscriber Number Group Number Insured Name Patient Relationship to Insured Coverage Start Date Coverage End Date [facility] [address] [place] [phone] [id number] Keerthi Ureña Self - patient is the insured 2022 Medical (General) History Medical History History ICD Code Past hx of BV Depression/Anxiety lupus sepsis age 16 with acute renal and hepat ic failure Hospitalization History Reason Date(Month/Year) Years ago hospitalization for TSS
--- OUTSIDE RECORDS SUMMARY | 2025-02-15 18:41 | XMS_ITS | Encounter Summary ---
Author Organization [facility] Address [address] [place] [address] Phone Care Team Providers Care Ladle Liner Helper Name Role Phone Nati Winter NP Primary Care Provider Raven jackson Encounter Details Date Type Department Care Team (Late st Contact Info) Description 09/06/2013 Documentation EM Family Medicine [address] [place], [place] [phone] Family Medicine, Physician [address] [place] [address] Social History Tobacco Use Types Packs/Day Years [...] on filedocumented in this encounter Care Teams Ladle Liner Helper Relationship Specialty Start Date End Date Nati Winter NP PCP - General 06/13/17 04/09/23 documented as of this encounter
--- OUTSIDE RECORDS SUMMARY | 2025-02-15 18:41 | XMS_ITS | Encounter Summary ---
Author Organization [facility] Address [address] [place] [address] Phone Care Team Providers Care Almond Paste Molder Name Role Phone Nati Winter NP Primary Care Provider Raven jackson Encounter Details Date Type Department Care Team (Late st Contact Info) Description 06/17/2014 Documentation EM Family Medicine [address] [place], [place] [phone] Family Medicine, Physician [address] [place] [address] Social History Tobacco Use Types Packs/Day Years [...] on filedocumented in this encounter Care Teams Almond Paste Molder Relationship Specialty Start Date End Date Nati Winter NP PCP - General 06/13/17 04/09/23 documented as of this encounter
--- OUTSIDE RECORDS SUMMARY | 2025-02-15 18:41 | XMS_ITS | Encounter Summary ---
Author Organization [facility] Address [address] [place] [address] Phone Care Team Providers Care Automation Engineering Manager Name Role Phone Nati Winter NP Primary Care Provider Raven jackson Encounter Details Date Type Department Care Team (Late st Contact Info) Description 12/21/2014 Documentation EM Family Medicine [address] [place], [place] [phone] Family Medicine, Physician [address] [place] [address] Social History Tobacco Use Types Packs/Day Years [...] on filedocumented in this encounter Care Teams Automation Engineering Manager Relationship Specialty Start Date End Date Nati Winter NP PCP - General 06/13/17 04/09/23 documented as of this encounter
--- OUTSIDE RECORDS SUMMARY | 2025-02-15 18:41 | XMS_ITS ---
Author Organization [facility] Address [address] [facility] [address] [place], [place] [id number] Care Team Providers Care Mine Engineer Name Role Phone [place] Unavailable [phone] Results Component Value Reference Range Notes Ultrasound [...] 1 days as directed disp in house [id number] exp. 12/2802/12/2024 Active metroNIDAZOLE 0.75 % 1 [...] Female Encounters Encounter Location Date Provider Diagnosis [facility] [address] [place], [place] [id number] 02/19/2024 Raymond Morris Failed attempted termination of with unspecified complications O07.30 and Counseling/Contraceptiv e Advice Z30.09 Assessments Encounter Date Diagnosis (ICD Code) Assessment Notes Treatment Notes Treatment Clinical Notes Section Notes 02/19/2024 Failed attempted termination of with unspecified complications (ICD-10 - O07.30) refer for D&C and possible IUD placement under deep sedation at [facility] with Dr. Amaya. extension counseling completed. reviewed [...] possible IUD placement under deep sedation at [facility] with Dr. Amaya. extension counseling completed. reviewed [...] Follow Up: , Reason: for rou mario BOTTOM FILLER care at patient's request in future Progress Notes * Asuncion UREÑAiDOB:1995 (28 yo F)Acc No.[id number]:02/19/2024 Patient:?Keerthi UREÑA Provider:?Raymond Morris CNM, FNP :1995???Age:28 Y???Sex:Female D ate:02/19/2024 Address:[facility] [address] [place], [id number] Subjective: * Chief Complaints: * ??? * HPI: ???MAB Followup:?[place] When Mifepristone Taken?6 weeks.?Date Mifepristone taken?02/13.?Date/time misoprostol taken?02/14.?Agreed Follow-Up Plan?, Ultrasound.?Heavy cramping & bleeding within 24 hours of miso??, Yes.?Passed (tissue, clots)??, Yes.?Still experiencing symptoms??Yes, some nausea.?Current bleeding k9 handler than heaviest after miso??Yes.? Client is here [...] directed, Notes to Pharmacist: disp in house [id number] exp. 12/28Taking predniSONE Taking Hydroxychloroquine Sulfate Taking [...] directed, Notes to Pharmacist: disp in house [id number] exp. 12/28Not-Taking/PRNmetroNIDAZOLE 0.75 % Gel 1 applicatorful at bedtime Vaginal Nightly Not-Taking/PRN metroNIDAZOLE 0.75 % Gel 1 applicatorful at bedtime Vaginal Nightly Objective: * Vitals:? * Examination: ???General Examination: ?GENERAL APPEARANCE:? in no acute distress.?PSYCH:? alert, oriented.? Assessment: * Assessment: 1.?Failed attempted terminat ion of with unspecified complications - O07.30?2.?Counseling/Contraceptive Advice - Z30.09? Plan: * Treatment: 2.?Counseling/Contraceptive Advice? Notes: discussed [...] Codes:? * Follow Up:?Reason: for routi ne BOTTOM FILLER care at patient's request in future * Billing Information: * Visit Code:? * Procedure Codes:? * Sign off status: Completed true * Provider:?Raymond Morris CNM, ELECTRICAL ENGINEERING TECHNOLOGIST Date:?0 02/19/2024 Generated for Mark wylie/Karlee/eTromeliasmitting on:?02/15/2025 06:41 PM EDT History and Physical Notes * HPI [...] symptoms? Y es, some nausea Current bleeding k9 handler than heaviest a fter miso? Yes Examination Category Sub-Category Detail Notes Category Not es General Examination GENERAL APPEARANCE: in no acute di stress PSYCH: alert, oriented
--- OUTSIDE RECORDS SUMMARY | 2025-02-15 18:41 | XMS_ITS ---
Author Organization [facility] Address [address] [place] [id number] Care Team Providers Care Water Pumper Name Role Phone Raymond Morris Unavailable [phone] REASON FOR VISIT MAB F/U - non urgent Social History Sex Assigned At : Social History Observation Description Sex Assigned At Female Encounters Encounter Location Date Provider Diagnosis [facility] [address] [facility] [address] [place], [place] [phone] 02/10/2024 Raymond Morris Plan Of Treatment No Information Progress Notes * Asuncion UREÑAiDOB:1995 (28 yo F)Acc No.[id number]:02/10/2024 Patient:?Keerthi UREÑA :1995???Age:28 Y???Sex:Female Address:[address] [place] [address], [id number] * true * Date:? Generated for Printi ng/Fastanleyg/eTransmitting on:?02/15/2025 06:41 PM EDT
--- OUTSIDE RECORDS SUMMARY | 2025-02-15 18:41 | XMS_ITS | Encounter Summary ---
Author Organization [facility] Address [address] [place] [address] Phone Care Team Providers Care Metal Trim Erector Name Role Phone Nati Winter NP Primary Care Provider Raven jackson Encounter Details Date Type Department Care Team (Late st Contact Info) Description 02/10/2015 Documentation EM Family Medicine [address] [place], [place] [phone] Family Medicine, Physician [address] [place] [address] Social History Tobacco Use Types Packs/Day Years [...] on filedocumented in this encounter Care Teams Metal Trim Erector Relationship Specialty Start Date End Date Nati Winter NP PCP - General 06/13/17 04/09/23 documented as of this encounter
--- OUTSIDE RECORDS SUMMARY | 2025-02-15 18:41 | XMS_ITS | Clinical Summary ---
Author Organization [employer] Address [address] [place] [address] [address] [place] [address] Care Team Providers Care Environmental Auditor Name Role Phone Unavailable Primary Care Provider [...]
--- OUTSIDE RECORDS SUMMARY | 2025-02-15 18:42 | XMS_ITS | Encounter Summary ---
Author Organization [facility] Address [address] [place] [address] Phone Care Team Providers Care Oriental Medicine Practitioner Name Role Phone Nati Winter NP Primary Care Provider Raven jackson Encounter Details Date Type Department Care Team (Late st Contact Info) Description 07/09/2012 Documentation EM Family Medicine [address] [place], [place] [phone] Family Medicine, Physician [address] [place] [address] Social History Tobacco Use Types Packs/Day Years [...] on filedocumented in this encounter Care Teams Oriental Medicine Practitioner Relationship Specialty Start Date End Date Nati Winter NP PCP - General 06/13/17 04/09/23 documented as of this encounter
--- OUTSIDE RECORDS SUMMARY | 2025-02-15 18:42 | XMS_ITS | Encounter Summary ---
Author Organization [facility] Address [address] [place] [address] Phone Care Team Providers Care Harmonica Maker Name Role Phone Nati Winter NP Primary Care Provider Raven jackson Encounter Details Date Type Department Care Team (Late st Contact Info) Description 06/19/2017 Conversion Encounter [facility] - [address] [address] Social History Tobacco Use Types Packs/Day Years [...] on filedocumented in this encounter Care Teams Harmonica Maker Relationship Specialty Start Date End Date Nati Winter NP PCP - General 06/13/17 04/09/23 documented as of this encounter
--- OUTSIDE RECORDS SUMMARY | 2025-02-15 18:42 | XMS_ITS ---
Author Organization [facility] Address [address] [id number] Care Team Providers Care Director Of Design Name Role Phone Raymond Morris Unavailable [phone] Allergies No Known Allergies Results Component Value Reference Range Notes Test, Urine Reviewed date:02/12/2024 04:14:13 PM Interpretation:Positive Performing Lab: Notes/Report: Positive Test, Urine positive Lot # [id number] Exp. Date 05/05/2025 hCG,Beta Subunit, [id number] Reviewed date:02/16/2024 04:26:08 PM Interpretation:9301 Performing Lab:[facility], [address] [place] [address], Phone - [phone], Director - [facility] Notes/Report: hCG,Beta Subunit,Qnt,Serum 9301 <5 MIU/ML Males [...] 1 days as directed disp in house [id number] exp. 12/2802/12/2024 Active Acetaminophen 500 MG 2 [...] 02/12/2024 Encounters Encounter Location Date Provider Diagnosis [facility] [address] [facility] [address] [place], [place] [id number] 02/12/2024 Raymond Morris Encounter for electi ve [...] corticosteroid use and in collaboration with medical physics professor and extended informed consent conversation including benefits, [...] with: Med AB during and aftercare instructions, [facility] Fact Sheet, Rh form, All options Talkline referral card, ectopic warnings sheet, provided online links to misoprostol only regimen instructions handout from [facility] 02/12/2024 test, result positive (ICD-10 - Z32.01) Plan Of Treatment Medication Medication Name Sig Start Date Stop Date Notes miSOPROStol 200 MCG 4 tablets Buccally every 3 hours for 3-4 doses for 1 days 02/12/2024 disp in house [id number] exp. 12/28 Acetaminophen 500 MG 2 tablets [...] corticosteroid use and in collaboration with medical physics professor and extended informed consent conversation including benefits, [...] with: Med AB during and aftercare instructions, [facility] Fact Sheet, Rh form, All options Talkline referral card, ectopic warnings sheet, provided online links to misoprostol only regimen instructions handout from [facility] Next Appt Details Follow Up: 1 Week, Reason: w ould like to discuss contraception at follow up visit Progress Notes * Asuncion UREÑAiDOB:1995 (28 yo F)Acc No.[id number]:02/12/2024 Patient:?Keerthi UREÑA Provider:?Raymond Morris CNM, FNP :1995???Age:28 Y???Sex:Female D ate:02/12/2024 Address:[address] [place] [address], [place], [id number] Subjective: * Chief Complaints: * ???6weeks 4d * HPI: ???MAB Eligibility:?Further F/U Needed:?Dizziness, clt was having bw at [facility] and reports fainted during, reports had never experienced before. Reports no fainting since, diziness come and goes with nausea, usually in morning. , Hx or current anemia, reports currently ok with bw today. , Syncope (fainting) during bw.?.?Contraindications?Long-term systemic corticosteroid use.?EGA?6 weeks and 4 days days based on , Sure LMP [place].?Where and when client is planning on completing [...] denies?R shoulder pain.? * Medical History:? * Environmental Health And Safety Leader History:?Last menstrual period:?06/03/2023.?Last pap smear date:?3+ years [...] ? Test, Urine positive * ?Lot # [id number] * ?Exp. Date 05/05/2025 Notes: Clt is [...] corticosteroid use and in collaboration with medical physics professor and extended informed consent conversation including benefits, [...] with: Med AB during and aftercare instructions, [facility] Fact Sheet, Rh form,All options Talkline referral card, ectopic warnings sheet, provided online links to misoprostol only regimen instructions handout from [facility] ??2.? test, result positive?LAB: hCG,Beta Subunit, Qnt-[id number] (Collection Date & Time - 02/12/2024 02:18 PM)* Gigi Busch 02/12/2024 02 :18:16 PM EDT >stat labbaseline HCG ?LAB: Test, Urine (Collection Date & Time - 02/12/2024)?Positive* ? Value Reference Range ? Test, Urine positive * ?Lot # [id number] * ?Exp. Date 05/05/2025 * Procedure Codes:?32197 Pregn sailaja, [id number] MISOPROSTOL ORAL 200 MCG, Units: 4.00 S0199 MED INDUCED AB ORAL INGEST MED * Follow Up:?1 Week (Reason: w ould like to discuss contraception at follow up visit) * Billing Information: * Visit Code:? * Procedure Codes:? 60097 , Urine. S0191 MISOPROSTOL ORAL 200 MCG. Units: 4.00. S0199 MED INDUCED AB ORAL INGEST MED. * Sign off status: Completed true * Provider:?Raymond Morris CNM, CAR KNOCKER Date:?0 02/12/2024 Generated for Mark wylie/Karlee/Emmaransmitting on:?02/15/2025 06:41 PM EDT History and Physical Notes * HPI (History of Present Illness) Category Sub-Category Detail Notes Category Not es MAB Eligibility Further F/U Needed: Dizziness, c lt was having bw at sack sorter and reports fainted during, reports had never experienced before. Reports no fainting since, diziness come and goes with nausea, usually in morning. , Hx or current anemia, reports currently ok with bw today. , Syncope (fainting) during bw. Client presenting for medication visit Contraindications Long-term systemic c orticosteroid use EGA 6 weeks and 4 days d ays based on , Sure LMP [place] Where and when client is carlos nning [...] General Examination GENERAL APPEARANCE: in no ac kennedi distress , in no acute distress PSYCH: alert, oriented , al ert, oriented
--- OUTSIDE RECORDS SUMMARY | 2025-02-15 18:42 | XMS_ITS | Encounter Summary ---
Author Organization [facility] Address [address] [place] [address] Phone Care Team Providers Care Safety Relief Valve Technician Name Role Phone Nati Winter NP Primary Care Provider Raven jackson Encounter Details Date Type Department Care Team (Late st Contact Info) Description 07/09/2012 Documentation EM Family Medicine [address] [place], [place] [phone] Family Medicine, Physician [address] [place] [address] Social History Tobacco Use Types Packs/Day Years [...] on filedocumented in this encounter Care Teams Safety Relief Valve Technician Relationship Specialty Start Date End Date Nati Winter NP PCP - General 06/13/17 04/09/23 documented as of this encounter
--- OUTSIDE RECORDS SUMMARY | 2025-02-15 18:42 | XMS_ITS | Encounter Summary ---
Author Organization [facility] Address [address] [place] [address] Phone Care Team Providers Care Waterway Traffic Checker Name Role Phone Nati Winter NP Primary Care Provider Raven jackson Encounter Details Date Type Department Care Team (Late st Contact Info) Description 07/09/2012 Documentation EM Family Medicine [address] [place], [place] [phone] Family Medicine, Physician [address] [place] [address] Social History Tobacco Use Types Packs/Day Years [...] on filedocumented in this encounter Care Teams Waterway Traffic Checker Relationship Specialty Start Date End Date Nati Winter NP PCP - General 06/13/17 04/09/23 documented as of this encounter
--- OUTSIDE RECORDS SUMMARY | 2025-02-15 18:42 | XMS_ITS | Encounter Summary ---
Author Organization [facility] Address [address] [place] [address] Phone Care Team Providers Care Warehouse Trainer Name Role Phone Nati Winter NP Primary Care Provider Raven jackson Encounter Details Date Type Department Care Team (Late st Contact Info) Description 01/27/2015 Documentation EM Family Medicine [address] [place], [place] [phone] Family Medicine, Physician [address] [place] [address] Social History Tobacco Use Types Packs/Day Years [...] on filedocumented in this encounter Care Teams Warehouse Trainer Relationship Specialty Start Date End Date Nati Winter NP PCP - General 06/13/17 04/09/23 documented as of this encounter
--- OUTSIDE RECORDS SUMMARY | 2025-02-15 18:42 | XMS_ITS | Encounter Summary ---
Author Organization [facility] Address [address] [place] [address] Phone Care Team Providers Care Gripper Attacher Name Role Phone Nati Winter NP Primary Care Provider Raven jackson Encounter Details Date Type Department Care Team (Late st Contact Info) Description 07/09/2012 Documentation EM Family Medicine [address] [place], [place] [phone] Family Medicine, Physician [address] [place] [address] Social History Tobacco Use Types Packs/Day Years [...] on filedocumented in this encounter Care Teams Gripper Attacher Relationship Specialty Start Date End Date Nati Winter NP PCP - General 06/13/17 04/09/23 documented as of this encounter
--- OUTSIDE RECORDS SUMMARY | 2025-02-15 18:42 | XMS_ITS | Clinical Summary ---
Author Organization [facility] Address [address] [place] [address] Care Team Providers Care Hole Digger Operator Name Role Phone Marija Rubio MD Primary [...] age to complete this topic Care Teams Hole Digger Operator Relationship Specialty Start Date End Date Marija Rubio MD [address] [place] [address] PCP - General 06/09/23
--- OUTSIDE RECORDS SUMMARY | 2025-02-15 18:42 | XMS_ITS | Clinical Summary ---
Author Organization [facility] Address [address] [place] [address] Phone Care Team Providers Care Melting Furnace Skimmer Name Role Phone Unavailable Primary Care Provider [...] history of Deafness, Family history of *Sudden /NM under 55, Family history of Migraines, Family [...]
--- OUTSIDE RECORDS SUMMARY | 2025-02-15 18:42 | XMS_ITS | Encounter Summary ---
Author Organization [facility] Address [address] [place] [address] Phone Care Team Providers Care Horticulturalist Name Role Phone Nati Winter NP Primary Care Provider Raven jackson Encounter Details Date Type Department Care Team (Late st Contact Info) Description 07/31/2012 Documentation EM Family Medicine [address] [place], [place] [phone] Family Medicine, Physician [address] [place] [address] Social History Tobacco Use Types Packs/Day Years [...] on filedocumented in this encounter Care Teams Horticulturalist Relationship Specialty Start Date End Date Nati Winter NP PCP - General 06/13/17 04/09/23 documented as of this encounter
== END 2025-02-15 16:11 | disposition home or self-care (01) ==
LOC: HO.RHE 15:37
PROVIDERS: PCP Internal Medicine; Visit Provider Student in an Organized Health Care Education/Training Program
DX: M32.8 Other forms of systemic lupus erythematosus (principal); Z79.899 Other long term (current) drug therapy; Z51.81 Encounter for therapeutic drug level monitoring; Z79.620 Long term (current) use of immunosuppressive biologic
CPT/HCPCS: 99215; G2211

== ENCOUNTER → 2025-02-15 15:37 | Outpatient (BNVA) | payer OTHER, SELFPAY | PROVIDERS: PCP Internal Medicine; Visit Provider Student in an Organized Health Care Education/Training Program | DX: M32.8 Other forms of systemic lupus erythematosus (principal); E55.9 Vitamin D deficiency, unspecified; Z51.81 Encounter for therapeutic drug level monitoring; Z79.620 Long term (current) use of immunosuppressive biologic; Z79.899 Other long term (current) drug therapy | CPT/HCPCS: 99212 ==

== ENCOUNTER 2025-02-28 14:51 | Outpatient (AMB) | payer OTHER, SELFPAY ==
--- NOTE | 2025-02-28 15:01 | A.OFFPC_ITS ---
Vital Signs 02/28/25 15:03 Height 5 ft 2 in Weight 154 lb 2 oz BMI 28.2 BP 100/64 Blood Pressure Location Rt brachial Position Sitting Pulse 98 Pulse Source Pulse Oximeter Temp 96.8 F Temp Source Temporal Artery Scan Pulse Oximetry (%) 98 Oxygen Delivery Method Room Air Intake Visit Reasons: blood in her stool Intake Note: Patient is here to follow up on blood in stool. Phlebotomy Coordinator Required: No Global Marketing Coordinator: Not Required per policy Accompanied by: Self / Same As Patient Allergies No Known Allergies [No Known Allergies*] Allergy (Verified 02/28/25 15:20) Medication List - Last Reconciled 02/28/25 by Jon Conner PA-C cholecalciferol (vitamin D3) 50 mcg PO DAILY 3 months hydroxychloroquine orally; Take 400 mg daily X 5 days a week and 200 mg daily X 2 days a week prednisone 2.5 mg PO DAILY Tobacco use date assessed: 02/28/25 Dental Screening Dental Screen Date: 02/28/25 Did you have a dental visit in the last 12 months?: No Did you have a dental problem in the last 6 months where you did not have access to dental care?: No Was dental information given to patient?: No HPI blood in her stool HPI Details Patient is a 29-year-old female here today for problem visit. This is the 1st time I am meeting this 29-year-old female with a past medical history significant for lupus, fibromyalgia,? Crohn's colitis. She reports intermittent bright red blood in her stool, with the issue per sisting despite treatment for presumptive hemorrhoids. Notably, the bleeding frequency increased recently, prompting this visit. The stool consistency varies, with episodes of pebble-like and irregularly-shaped stools. The patient has a known history of systemic lupus erythematosus and iron deficiency anemia, with past treatments including steroid use for lupus resulting in weight gain. Constipation is a recurrent issue for her, accompanied by occasional lower abdominal pain. Previous visits determined her anemia status with hemoglobin levels noted at 11.3 in recent lab workups. She is scheduled to see a insurance sales professional regarding her concerns and is eager for interim management advice. The patient denies black tarry stools and instead describes the bleeding as localized, suggesting it may be related to hemorrhoids or anal fissures. [facility] Medical History Joint pain Kidney stones Surgical History No pertinent past surgical history Family History Mother HTN (hypertension) Osteoarthritis Father Rosana Gehrig's disease Maternal Grandfather Rheumatoid arthritis Other Mental health disorder Social History Household Members: Family Housing: House Alcohol intake: current Alcohol intake frequency: a few times a month Patient Tobacco Use Status: Never used Tobacco Tobacco use type: Cigarette e-Cigarette/Vaping Use: Never Used Second Hand Smoke Exposure: No service: No Current occupational status: employed 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 1. Little interest or pleasure in doing things: not at all 2. Feeling down, depressed, or hopeless: not at all 3. Trouble falling or staying asleep, or sleeping too much: not at all 4. Feeling tired or having little energy: not at all 5. Poor appetite or overeating: not at all 6. Feeling bad about yourself - or that you are a failure or have let yourself or your family down: not at all 7. Trouble concentrating on things, such as reading the newspaper or watching television: not at all 8. Moving or speaking so slowly that other people could have noticed. Or the opposite - being so fidgety or restless that you have been moving around a lot more than usual: not at all 9. Thoughts that you would be better off or of hurting yourself in some way: not at all Total score: 0 Depression Screening Interpretation: Negative Depression Screening Done: Yes Source: Developed by Drs. Travis Bolton, Christelle Vences, Isaiah Mahoney and colleagues, with an educational damian from [employer]. Thrive Questionnaire Date Thrive assessed: 02/28/25 I am a: Patient What is your living situation today?: I choose not to answer this question Within the past 12 months, did the food you bought not last and you didn't have the money to get more?: I choose not to answer this question Within the past 12 months, did you worry whether your food would run out before you got money to buy more?: I choose not to answer this question Do you have trouble paying for medicines?: I choose not to answer this question Do you have trouble getting transportation to medical appointments?: I choose not to answer this question Do you have trouble paying your heating and electricity bill?: I choose not to answer this question Do you have trouble taking care of your child, family member or friend?: I choose not to answer this question Do you have trouble with day-to-day activities such as bathing, preparing meals, shopping, managing finances, etc.?: I choose not to answer this question Are you currently unemployed and looking for a job?: I choose not to answer this question Are you interested in more education?: I choose not to answer this question Please select the resources that you would like help with: Transportation and None Currently or been in a relationship where the following occur: I choose not to answer THRIVE Score: 0 AUDIT C Alcohol Use Questionnaire (AUDIT-C) 1. How often do you have a drink containing alcohol?: Never Total Score: 0 FERNY-7 AMB Questionnaire FERNY-7 Date FERNY - 7 assessed: 02/28/25 Feeling nervous, anxious, or on edge: 0 = Not at all Not being able to stop or control worryin = Not at all Worrying too much about different things: 0 = Not at all Trouble relaxin = Not at all Being so restless that it is hard to sit still: 0 = Not at all Becoming easily annoyed or irritable: 0 = Not at all Feeling afraid as if something awful might happen: 0 = Not at all Total FERNY-7 score (0-4 normal; 5-9 mild; 10-14 moderate; 15-21 severe): 0 Source: Developed by Drs. Travis Bolton, Christelle Vences, Isaiah Mahoney and colleagues, with an educational damian from [employer] FERNY-7 Assessment Billing FERNY-7 Assessment Tool: FERNY-7 Assessment 06088 Review of Systems Const Denies headache(s) Eyes Denies loss of vision ENT Denies vertigo, Denies dizziness, Denies headache(s) and Denies sore throat Card Denies chest pain, Denies leg edema and Denies lightheadedness Resp Denies cough, Denies hemoptysis and Denies wheezing GI Denies abdominal pain, Denies melena, Denies constipation, Denies diarrhea and Denies vomiting Denies urinary frequency, Denies dysuria and Denies urinary urgency Musc Denies arthralgias, Denies joint swelling, Denies numbness and Denies tingling Neuro Denies Abnormal speech present, Denies behavioral changes, Denies vertigo, Denies dizziness, Denies headache(s), Denies loss of vision, Denies memory loss, Denies numbness and Denies tingling Psych Denies anxiety, Denies behavioral changes, Denies depression, Denies memory loss and Denies panic attacks Aldo/Lymph Denies easy bleeding and Denies easy bruising Aller/Immun Denies wheezing Physical exam (Primary Care) Vital Signs: Last Vital Signs Temp 96.8 F 02/28/25 15:03 Pulse 98 02/28/25 15:03 BP 100/64 02/28/25 15:03 Pulse Ox 98 02/28/25 15:03 Oxygen Delivery Method Room Air 02/28/25 15:03 BMI result Body Mass Index 28.2 Tobacco/Smoking Status: Tobacco use Status Tobacco use date assessed 02/28/25 02/28/25 15:08 Patient Tobacco Use Status Never used Tobacco 02/28/25 15:08 Tobacco use type Cigarette 02/28/25 15:08 e-Cigarette/Vaping Use Never Used 02/28/25 15:08 PHQ-9: PHQ-9 Score PHQ-9: Total score 0 02/28/25 15:08 Depression Screening Interpretation: Negative Thrive Assessment: Date of Thrive Assessment Date Thrive assessed 02/28/25 02/28/25 15:08 Currently or been in a relationship where the following occur: I choose not to answer Const General: healthy appearing, no acute distress, alert and awake Nutritional Appearance: well nourished Orientation/consciousness: oriented to person, oriented to place and oriented to time HENMT Ears: TM's normal bilaterally General nose exam: Normal nasal mucous membranes and turbinates present Eyes Conjunctivae: conjunctivae normal Sclerae: sclerae normal Pupils: Equal, round and reactive pupils present Neck Neck: Yes no lymphadenopathy and Yes no JVD Thyroid: Thyroid normal Carotids: no bruits Resp Effort & Inspection: normal respiratory effort and not tachypneic Auscultation: no crackles, no rales, no rhonchi and no wheezes Cardio Rate: regular rate Rhythm: regular rhythm Heart sounds: no murmurs and normal S1 and S2 GI Palpation (GI): Soft to palpation, nontender, no hepatomegaly and no splenomegaly Auscultation: normal bowel sounds Skin General skin exam: no rashes or lesions noted and dry skin Neuro General: oriented to person, oriented to place and oriented to time Cranial nerves: Yes Equal, round and reactive pupils present Speech: No Abnormal speech present Gait exam (Neuro): Normal gait present Motor exam (neuro): no tremor noted Extrem Right upper extremity: full ROM Left upper extremity: full ROM Right lower extremity: full ROM; no edema Left lower extremity: full ROM; no edema Psych Mental Status: mental status grossly normal Speech and movement: Normal speech and movement present Affect: normal affect Attitude: cooperative Thought process: Normal thought process present Coding Level of Care Code Est Pt Level 3 (44336) Diagnoses Bright red blood per rectum K62.5 Additional Codes FERNY-7 Assessment Billing - FERNY-7 Assessment Tool: FERNY-7 Assessment 94492 ([id number]) Assessment & Plan Assessment & Plan (1) Bright red blood per rectum: Code(s): K62.5 - Hemorrhage of anus and rectum Category: Medical Plan: Bright red rectal bleeding is suspected to be related to hemorrhoids or anal fissures due to its color indicating a distal source. Management includes stool softeners (Colace) and sitz baths. Pending a gastroenterology evaluation, the patient may require a colonoscopy to rule out conditions like inflammatory bowel disease, given her lupus history.
[2025-02-28 15:03] VITALS: BP 100/64; PULSE 98; TEMP 36; O2SAT 98; BMI 28.2
--- OUTSIDE RECORDS SUMMARY | 2025-02-28 17:40 | XMS_ITS | Encounter Summary ---
Author Organization [employer] [facility] Address [address] [place] [address] [address] [place] [address] Care Team Providers Care Glass Embosser Name Role Phone Toshia King Primary Care Provider [phone] Encounter Details Date Type Department Care Team (Latest Contact Info) Description 04/23/2019 Abstract [facility] CONVERSIONS Dental, Provider, DDS Social History [...] on filedocumented in this encounter Care Teams Glass Embosser Relationship Specialty Start Date End Date Toshia King FNP PCP - General Family Medicine 08/24/21 04/17/23 documented as of this encounter
--- OUTSIDE RECORDS SUMMARY | 2025-02-28 17:40 | XMS_ITS | Patient Health Record ---
Author Organization [facility] Address [address] [id number] Support Name Relationship Address Phone Puja Ureña Emergency Contact Unknown Unava ilable Keerthi Ureña Guarantor Unknown [phone] Allergies No Known Allergies Reason For Referral No Information Medications Medication [...] 1 days as directed disp in house [id number] exp. 12/2802/12/2024 Active predniSONE Active Hydroxychloroquine Sulfate [...] History Observation Description Sex Assigned At Female Plan Of Treatment No Information Insurance Providers Payer Name Payer Address Payer Phone Subscriber Number Group Number Insured Name Patient Relationship to Insured Coverage Start Date Coverage End Date [facility] [address] [place] [phone] [id number] Keerthi Ureña Self - patient is the insured 2022 Medical (General) History Medical History History ICD Code Past hx of BV Depression/Anxiety lupus sepsis age 16 with acute renal and hepat ic failure Hospitalization History Reason Date(Month/Year) Years ago hospitalization for TSS
--- OUTSIDE RECORDS SUMMARY | 2025-02-28 17:40 | XMS_ITS ---
Author Organization [facility] Address [address] [facility] [address] [place], [place] [id number] Care Team Providers Care Customer Sales Consultant Name Role Phone BreedenRaymond Unavailable [phone] Results Component Value Reference Range Notes Ultrasound [...] 1 days as directed disp in house [id number] exp. 12/2802/12/2024 Active metroNIDAZOLE 0.75 % 1 [...] Female Encounters Encounter Location Date Provider Diagnosis [facility] [address] [place], [place] [id number] 02/19/2024 Raymond Morris Failed attempted termination of with unspecified complications O07.30 and Counseling/Contraceptiv e Advice Z30.09 Assessments Encounter Date Diagnosis (ICD Code) Assessment Notes Treatment Notes Treatment Clinical Notes Section Notes 02/19/2024 Failed attempted termination of with unspecified complications (ICD-10 - O07.30) refer for D&C and possible IUD placement under deep sedation at [facility] with Dr. Amaya. extension counseling completed. [...] possible IUD placement under deep sedation at [facility] with Dr. Amaya. extension counseling completed. 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 * HPI: ???MAB Followup:?GA When Mifepristone Taken?6 weeks.?Date Mifepristone taken?02/13.?Date/time misoprostol taken?02/14.?Agreed Follow-Up Plan?, Ultrasound.?Heavy cramping & bleeding within 24 hours of miso??, Yes.?Passed (tissue, clots)??, Yes.?Still experiencing symptoms??Yes, some nausea.?Current bleeding cloth shrinking tester than heaviest after miso??Yes.? Client is here [...] directed, Notes to Pharmacist: disp in house [id number] exp. 12/28Taking predniSONE Taking Hydroxychloroquine Sulfate Taking [...] directed, Notes to Pharmacist: disp in house [id number] exp. 12/28Not-Taking/PRNmetroNIDAZOLE 0.75 % Gel 1 applicatorful [...] Codes:? 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 * Procedure Codes:? * Sign off status: Completed true * Provider:?Raymond Morris CNM, CONDUCTOR SLEEPING CAR Date:?0 02/19/2024 Generated for Mark wylie/Karlee/eTromeliasmitting on:?02/28/2025 05:40 PM EDT History and Physical Notes * [...] symptoms? Y es, some nausea Current bleeding cloth shrinking tester than heaviest a fter miso? Yes Examination Category Sub-Category Detail Notes Category Not es General Examination GENERAL APPEARANCE: in no acute di stress PSYCH: alert, oriented
--- OUTSIDE RECORDS SUMMARY | 2025-02-28 17:40 | XMS_ITS | Clinical Summary ---
Author Organization [employer] Address [address] [place] [address] [address] [place] [address] Care Team Providers Care Slate Splitting Supervisor Name Role Phone Unavailable Primary Care Provider [...]
--- OUTSIDE RECORDS SUMMARY | 2025-02-28 17:41 | XMS_ITS | Encounter Summary ---
Author Organization [facility] Address [address] [place] [address] Phone Care Team Providers Care Rouge Sifter And Miller Name Role Phone Nati Winter NP Primary Care Provider Raven jackson Encounter Details Date Type Department Care Team (Late st Contact Info) Description 12/21/2014 Documentation EM Family Medicine [address] [place], [place] [phone] Family Medicine, Physician [address] [place] [address] Social History Tobacco Use Types Packs/Day Years [...] on filedocumented in this encounter Care Teams Rouge Sifter And Miller Relationship Specialty Start Date End Date Nati Winter NP PCP - General 06/13/17 04/09/23 documented as of this encounter
--- OUTSIDE RECORDS SUMMARY | 2025-02-28 17:41 | XMS_ITS ---
Author Organization [facility] Address [address] [place] [id number] Care Team Providers Care Tank Driver Name Role Phone Raymond Morris Unavailable [phone] REASON FOR VISIT MAB F/U - non urgent Social History Sex Assigned At : Social History Observation Description Sex Assigned At Female Encounters Encounter Location Date Provider Diagnosis [facility] [address] [facility] [address] [place] [phone] 02/10/2024 Raymond Morris Plan Of Treatment No Information Progress Notes * Asuncion UREÑAiDOB:1995 (28 yo F)Acc No.[id number]:02/10/2024 Patient:?Keerthi UREÑA :1995???Age:28 Y???Sex:Female Address:[address] [place] [address], [id number] * true * Date:? Generated for Jodii inessa/Kennag/eTransmitting on:?02/28/2025 05:40 PM EDT
--- OUTSIDE RECORDS SUMMARY | 2025-02-28 17:41 | XMS_ITS | Encounter Summary ---
Author Organization [facility] Address [address] [place] [address] Phone Care Team Providers Care Industrial Design Intern Name Role Phone Nati Winter NP Primary Care Provider Raven jackson Encounter Details Date Type Department Care Team (Late st Contact Info) Description 01/27/2015 Documentation EM Family Medicine [address] [place], [place] [phone] Family Medicine, Physician [address] [place] [address] Social History Tobacco Use Types Packs/Day Years [...] on filedocumented in this encounter Care Teams Industrial Design Intern Relationship Specialty Start Date End Date Nati Winter NP PCP - General 06/13/17 04/09/23 documented as of this encounter
--- OUTSIDE RECORDS SUMMARY | 2025-02-28 17:41 | XMS_ITS | Clinical Summary ---
Author Organization [facility] Address [address] [place] [address] Care Team Providers Care Sql Database Programmer Name Role Phone Marija Rubio MD Primary [...] age to complete this topic Care Teams Sql Database Programmer Relationship Specialty Start Date End Date Marija Rubio MD [address] [place] [address] PCP - General 06/09/23
--- OUTSIDE RECORDS SUMMARY | 2025-02-28 17:41 | XMS_ITS | Encounter Summary ---
Author Organization [facility] Address [address] [place] [address] Phone Care Team Providers Care Help Desk Associate Name Role Phone Nati Winter NP Primary Care Provider Raven jackson Encounter Details Date Type Department Care Team (Late st Contact Info) Description 02/10/2015 Documentation EM Family Medicine [address] [place], [place] [phone] Family Medicine, Physician [address] [place] [address] Social History Tobacco Use Types Packs/Day Years [...] on filedocumented in this encounter Care Teams Help Desk Associate Relationship Specialty Start Date End Date Nati Winter NP PCP - General 06/13/17 04/09/23 documented as of this encounter
--- OUTSIDE RECORDS SUMMARY | 2025-02-28 17:41 | XMS_ITS | Clinical Summary ---
Author Organization [facility] Address [address] [place] [address] Phone Care Team Providers Care Multimedia Specialist Name Role Phone Unavailable Primary Care Provider [...] history of Deafness, Family history of *Sudden /[place] under 55, Family history of Migraines, Family [...]
--- OUTSIDE RECORDS SUMMARY | 2025-02-28 17:41 | XMS_ITS | Encounter Summary ---
Author Organization [facility] Address [address] [place] [address] Phone Care Team Providers Care Liner Assembler Name Role Phone Nati Winter NP Primary Care Provider Raven jackson Encounter Details Date Type Department Care Team (Late st Contact Info) Description 07/09/2012 Documentation EM Family Medicine [address] [place], [place] [phone] Family Medicine, Physician [address] [place] [address] Social History Tobacco Use Types Packs/Day Years [...] on filedocumented in this encounter Care Teams Liner Assembler Relationship Specialty Start Date End Date Nati Winter NP PCP - General 06/13/17 04/09/23 documented as of this encounter
--- OUTSIDE RECORDS SUMMARY | 2025-02-28 17:41 | XMS_ITS | Encounter Summary ---
Author Organization [facility] Address [address] [place] [address] Phone Care Team Providers Care Vp Product Management Name Role Phone Nati Winter NP Primary Care Provider Raven jackson Encounter Details Date Type Department Care Team (Late st Contact Info) Description 09/06/2013 Documentation EM Family Medicine [address] [place], [place] [phone] Family Medicine, Physician [address] [place] [address] Social History Tobacco Use Types Packs/Day Years [...] on filedocumented in this encounter Care Teams Vp Product Management Relationship Specialty Start Date End Date Nati Winter NP PCP - General 06/13/17 04/09/23 documented as of this encounter
--- OUTSIDE RECORDS SUMMARY | 2025-02-28 17:41 | XMS_ITS | Encounter Summary ---
Author Organization [facility] Address [address] [place] [address] Phone Care Team Providers Care Animal Physiology Teacher Name Role Phone Nati Winter NP Primary Care Provider Raven jackson Encounter Details Date Type Department Care Team (Late st Contact Info) Description 07/09/2012 Documentation EM Family Medicine [address] [place], [place] [phone] Family Medicine, Physician [address] [place] [address] Social History Tobacco Use Types Packs/Day Years [...] on filedocumented in this encounter Care Teams Animal Physiology Teacher Relationship Specialty Start Date End Date Nati Winter NP PCP - General 06/13/17 04/09/23 documented as of this encounter
--- OUTSIDE RECORDS SUMMARY | 2025-02-28 17:41 | XMS_ITS | Encounter Summary ---
Author Organization [facility] Address [address] [place] [address] Phone Care Team Providers Care Microbiology Technologist Name Role Phone Nati Winter NP Primary Care Provider Raven jackson Encounter Details Date Type Department Care Team (Late st Contact Info) Description 07/09/2012 Documentation EM Family Medicine [address] [place], [place] [phone] Family Medicine, Physician [address] [place] [address] Social History Tobacco Use Types Packs/Day Years [...] on filedocumented in this encounter Care Teams Microbiology Technologist Relationship Specialty Start Date End Date Nati Winter NP PCP - General 06/13/17 04/09/23 documented as of this encounter
--- OUTSIDE RECORDS SUMMARY | 2025-02-28 17:41 | XMS_ITS | Encounter Summary ---
Author Organization [facility] Address [address] [place] [address] Phone Care Team Providers Care Multifocal Button Generator Name Role Phone Nati Winter NP Primary Care Provider Raven jackson Encounter Details Date Type Department Care Team (Late st Contact Info) Description 06/17/2014 Documentation EM Family Medicine [address] [place], [place] [phone] Family Medicine, Physician [address] [place] [address] Social History Tobacco Use Types Packs/Day Years [...] on filedocumented in this encounter Care Teams Multifocal Button Generator Relationship Specialty Start Date End Date Nati Winter NP PCP - General 06/13/17 04/09/23 documented as of this encounter
--- OUTSIDE RECORDS SUMMARY | 2025-02-28 17:41 | XMS_ITS | Encounter Summary ---
Author Organization [facility] Address [address] [place] [address] Phone Care Team Providers Care Junior Systems Engineer Name Role Phone Nati Winter NP Primary Care Provider Raven jackson Encounter Details Date Type Department Care Team (Late st Contact Info) Description 07/09/2012 Documentation EM Family Medicine [address] [place], [place] [phone] Family Medicine, Physician [address] [place] [address] Social History Tobacco Use Types Packs/Day Years [...] on filedocumented in this encounter Care Teams Junior Systems Engineer Relationship Specialty Start Date End Date Nati Winter NP PCP - General 06/13/17 04/09/23 documented as of this encounter
--- OUTSIDE RECORDS SUMMARY | 2025-02-28 17:41 | XMS_ITS ---
Author Organization [facility] Address [address] [phone] Care Team Providers Care Sharepoint Administrator Name Role Phone Raymond Morris Unavailable [phone] Allergies No Known Allergies Results Component Value Reference Range Notes Test, Urine Reviewed date:02/12/2024 04:14:13 PM Interpretation:Positive Performing Lab: Notes/Report: Positive Test, Urine positive Lot # [id number] Exp. Date 05/05/2025 hCG,Beta Subunit, Qnt-[id number] Reviewed date:02/16/2024 04:26:08 PM Interpretation:9301 Performing Lab:[facility], [address] [place] [address], Phone - [phone], Director - [facility] Notes/Report: hCG,Beta Subunit,Qnt,Serum 9301 <5 MIU/ML Males [...] 1 days as directed disp in house [id number] exp. 12/2802/12/2024 Active Acetaminophen 500 MG 2 [...] 02/12/2024 Encounters Encounter Location Date Provider Diagnosis [facility] [address] [facility] [address] [place], [place] [phone] 02/12/2024 Raymond Morris Encounter for electi ve [...] corticosteroid use and in collaboration with medical claims assistant and extended informed consent conversation including benefits, [...] with: Med AB during and aftercare instructions, [facility] Fact Sheet, Rh form, All options Talkline referral card, ectopic warnings sheet, provided online links to misoprostol only regimen instructions handout from [facility] 02/12/2024 test, result positive (ICD-10 - Z32.01) Plan Of Treatment Medication Medication Name Sig Start Date Stop Date Notes miSOPROStol 200 MCG 4 tablets Buccally every 3 hours for 3-4 doses for 1 days 02/12/2024 disp in house [id number] exp. 12/28 Acetaminophen 500 MG 2 tablets [...] corticosteroid use and in collaboration with medical claims assistant and extended informed consent conversation including benefits, [...] with: Med AB during and aftercare instructions, [facility] Fact Sheet, Rh form, All options Talkline referral card, ectopic warnings sheet, provided online links to misoprostol only regimen instructions handout from [facility] Next Appt Details Follow Up: 1 Week, Reason: w ould like to discuss contraception at follow up visit Progress Notes * Asuncion UREÑAiDOB:1995 (28 yo F)Acc No.[id number]:02/12/2024 Patient:?Keerthi UREÑA Provider:?Raymond Morris CNM, FNP :1995???Age:28 Y???Sex:Female D ate:02/12/2024 Address:[address] [place] [address], [place], [id number] Subjective: * Chief Complaints: * ???6weeks 4d * HPI: ???MAB Eligibility:?Further F/U Needed:?Dizziness, clt was having bw at [facility] and reports fainted during, reports had never experienced before. Reports no fainting since, diziness come and goes with nausea, usually in morning. , Hx or current anemia, reports currently ok with bw today. , Syncope (fainting) during bw.?.?Contraindications?Long-term systemic corticosteroid use.?EGA?6 weeks and 4 days days based on , Sure LMP SoftLayer.?Where and when client is planning on completing [...] denies?R shoulder pain.? * Medical History:? * Nail Cutter History:?Last menstrual period:?06/03/2023.?Last pap smear date:?3+ years [...] ? Test, Urine positive * ?Lot # [id number] * ?Exp. Date 05/05/2025 Notes: Clt is [...] corticosteroid use and in collaboration with medical claims assistant and extended informed consent conversation including benefits, [...] with: Med AB during and aftercare instructions, [facility] Fact Sheet, Rh form,All options Talkline referral card, ectopic warnings sheet, provided online links to misoprostol only regimen instructions handout from [facility] ??2.? test, result positive?LAB: hCG,Beta Subunit, Qnt-[id number] (Collection Date & Time - 02/12/2024 02:18 PM)* Gigi Busch 02/12/2024 02 :18:16 PM EDT >stat labbaseline HCG ?LAB: Test, Urine (Collection Date & Time - 02/12/2024)?Positive* ? Value Reference Range ? Test, Urine positive * ?Lot # [id number] * ?Exp. Date 05/05/2025 * Procedure Codes:?24706 Pregn sailaja, [id number] MISOPROSTOL ORAL 200 MCG, Units: 4.00 S0199 MED INDUCED AB ORAL INGEST MED * Follow Up:?1 Week (Reason: w ould like to discuss contraception at follow up visit) * Billing Information: * Visit Code:? * Procedure Codes:? 61806 , Urine. S0191 MISOPROSTOL ORAL 200 MCG. Units: 4.00. S0199 MED INDUCED AB ORAL INGEST MED. * Sign off status: Completed true * Provider:?Raymond Morris CNM, PROFESSOR OF APOLOGETICS Date:?0 02/12/2024 Generated for Mark wylie/Karlee/Emmaransmitting on:?02/28/2025 05:40 PM EDT History and Physical Notes * HPI (History of Present Illness) Category Sub-Category Detail Notes Category Not es MAB Eligibility Further F/U Needed: Dizziness, c lt was having bw at [facility] and reports fainted during, reports had never experienced before. Reports no fainting since, diziness come and goes with nausea, usually in morning. , Hx or current anemia, reports currently ok with bw today. , Syncope (fainting) during bw. Client presenting for medication visit Contraindications Long-term systemic c orticosteroid use EGA 6 weeks and 4 days d ays based on , Sure LMP upPAYMEY Where and when client is carlos nning [...]
--- OUTSIDE RECORDS SUMMARY | 2025-02-28 17:41 | XMS_ITS | Encounter Summary ---
Author Organization [facility] Address [address] [place] [address] Phone Care Team Providers Care Pharmacy Affairs Assistant Name Role Phone Nati Winter NP Primary Care Provider Raven jackson Encounter Details Date Type Department Care Team (Late st Contact Info) Description 06/19/2017 Conversion Encounter [facility] - [address] [address] Social History Tobacco Use Types Packs/Day Years [...] on filedocumented in this encounter Care Teams Pharmacy Affairs Assistant Relationship Specialty Start Date End Date Nati Winter NP PCP - General 06/13/17 04/09/23 documented as of this encounter
--- OUTSIDE RECORDS SUMMARY | 2025-02-28 17:41 | XMS_ITS | Encounter Summary ---
Author Organization [facility] Address [address] [place] [address] Phone Care Team Providers Care Carpenter Maintenance Name Role Phone Nati Winter NP Primary Care Provider Raven jackson Encounter Details Date Type Department Care Team (Late st Contact Info) Description 07/31/2012 Documentation EM Family Medicine [address] [place], [place] [phone] Family Medicine, Physician [address] [place] [address] Social History Tobacco Use Types Packs/Day Years [...] on filedocumented in this encounter Care Teams Carpenter Maintenance Relationship Specialty Start Date End Date Nati Winter NP PCP - General 06/13/17 04/09/23 documented as of this encounter
== END 2025-02-28 15:31 | disposition home or self-care (01) ==
LOC: HO.HMCH 14:52
PROVIDERS: PCP Internal Medicine; Visit Provider Physician Assistant
DX: K62.5 Hemorrhage of anus and rectum (principal)

== ENCOUNTER → 2025-02-28 14:51 | Outpatient (BNVA) | payer OTHER, SELFPAY | PROVIDERS: PCP Internal Medicine; Visit Provider Physician Assistant | DX: K62.5 Hemorrhage of anus and rectum (principal) | CPT/HCPCS: 96127; 99212 ==

== ENCOUNTER 2025-03-22 08:09 | Outpatient (REF) | payer OTHER, SELFPAY ==
--- OUTSIDE RECORDS SUMMARY | 2025-03-22 09:05 | XMS_ITS | Encounter Summary ---
Author Organization [facility] Address [address] [place] [address] Phone Care Team Providers Care Telegraph Inspector Name Role Phone Nati Winter NP Primary Care Provider Raven jackson Encounter Details Date Type Department Care Team (Late st Contact Info) Description 12/21/2014 Documentation EM Family Medicine [address] [place], [place] [phone] Family Medicine, Physician [address] [place] [address] Social History Tobacco Use Types Packs/Day Years [...] on filedocumented in this encounter Care Teams Telegraph Inspector Relationship Specialty Start Date End Date Nati Winter NP PCP - General 06/13/17 04/09/23 documented as of this encounter
--- OUTSIDE RECORDS SUMMARY | 2025-03-22 09:05 | XMS_ITS | Encounter Summary ---
Author Organization [employer] Address [address] [place] [address] [address] [place] [address] Care Team Providers Care Watch Parts Inspector Name Role Phone Toshia King Primary Care Provider +1- [phone] Encounter Details Date Type Department Care Team (Latest Contact Info) Description 04/23/2019 Abstract [facility] CONVERSIONS Dental, Provider, DDS Social History [...] on filedocumented in this encounter Care Teams Watch Parts Inspector Relationship Specialty Start Date End Date Toshia King FNP PCP - General Family Medicine 08/24/21 04/17/23 documented as of this encounter
--- OUTSIDE RECORDS SUMMARY | 2025-03-22 09:05 | XMS_ITS | Encounter Summary ---
Author Organization [facility] Address [address] [place] [address] Phone Care Team Providers Care Product Management Intern Name Role Phone Nati Winter NP Primary Care Provider Raven jackson Encounter Details Date Type Department Care Team (Late st Contact Info) Description 07/09/2012 Documentation EM Family Medicine [address] [place], [place] [phone] Family Medicine, Physician [address] [place] [address] Social History Tobacco Use Types Packs/Day Years [...] on filedocumented in this encounter Care Teams Product Management Intern Relationship Specialty Start Date End Date Nati Winter NP PCP - General 06/13/17 04/09/23 documented as of this encounter
--- OUTSIDE RECORDS SUMMARY | 2025-03-22 09:05 | XMS_ITS | Encounter Summary ---
Author Organization [facility] Address [address] [place] [address] Phone Care Team Providers Care Payroll Associate Name Role Phone Nati Winter NP Primary Care Provider Raven jackson Encounter Details Date Type Department Care Team (Late st Contact Info) Description 02/10/2015 Documentation EM Family Medicine [address] [place], [place] [phone] Family Medicine, Physician [address] [place] [address] Social History Tobacco Use Types Packs/Day Years [...] on filedocumented in this encounter Care Teams Payroll Associate Relationship Specialty Start Date End Date Nati Winter NP PCP - General 06/13/17 04/09/23 documented as of this encounter
--- OUTSIDE RECORDS SUMMARY | 2025-03-22 09:05 | XMS_ITS | Encounter Summary ---
Author Organization [facility] Address [address] [place] [address] Phone Care Team Providers Care Monitor And Storage Bin Tender Name Role Phone Nati Winter NP Primary Care Provider Raven jackson Encounter Details Date Type Department Care Team (Late st Contact Info) Description 07/09/2012 Documentation EM Family Medicine [address] [place], [place] [phone] Family Medicine, Physician [address] [place] [address] Social History Tobacco Use Types Packs/Day Years [...] on filedocumented in this encounter Care Teams Monitor And Storage Bin Tender Relationship Specialty Start Date End Date Nati Winter NP PCP - General 06/13/17 04/09/23 documented as of this encounter
--- OUTSIDE RECORDS SUMMARY | 2025-03-22 09:05 | XMS_ITS | Encounter Summary ---
Author Organization [facility] Address [address] [place] [address] Phone Care Team Providers Care Shopping Investigator Name Role Phone Nati Winter NP Primary Care Provider Raven jackson Encounter Details Date Type Department Care Team (Late st Contact Info) Description 09/06/2013 Documentation EM Family Medicine [address] [place], [place] [phone] Family Medicine, Physician [address] [place] [address] Social History Tobacco Use Types Packs/Day Years [...] on filedocumented in this encounter Care Teams Shopping Investigator Relationship Specialty Start Date End Date Nati Winter NP PCP - General 06/13/17 04/09/23 documented as of this encounter
--- OUTSIDE RECORDS SUMMARY | 2025-03-22 09:05 | XMS_ITS | Encounter Summary ---
Author Organization [facility] Address [address] [place] [address] Phone Care Team Providers Care Children'S Entertainer Name Role Phone Nati Winter NP Primary Care Provider Raven jackson Encounter Details Date Type Department Care Team (Late st Contact Info) Description 07/09/2012 Documentation EM Family Medicine [address] [place], [place] [id number] Family Medicine, Physician [address] [place] [address] Social History Tobacco Use Types Packs/Day Years [...] on filedocumented in this encounter Care Teams Children'S Entertainer Relationship Specialty Start Date End Date Nati Winter NP PCP - General 06/13/17 04/09/23 documented as of this encounter
--- OUTSIDE RECORDS SUMMARY | 2025-03-22 09:05 | XMS_ITS | Clinical Summary ---
Author Organization [employer] Address [address] [place] [address] [address] [place] [address] Care Team Providers Care Traffic Counter Name Role Phone Unavailable Primary Care Provider [...]
--- OUTSIDE RECORDS SUMMARY | 2025-03-22 09:05 | XMS_ITS | Clinical Summary ---
Author Organization [facility] Address [address] [place] [address] Care Team Providers Care Clinical Application Manager Name Role Phone Marija Rubio MD Primary [...] age to complete this topic Care Teams Clinical Application Manager Relationship Specialty Start Date End Date Marija Rubio MD [address] [place] [id number] PCP - General 06/09/23
--- OUTSIDE RECORDS SUMMARY | 2025-03-22 09:05 | XMS_ITS | Encounter Summary ---
Author Organization [facility] Address [address] [place] [address] Phone Care Team Providers Care Machine Fur Cleaner Name Role Phone Nati Winter NP Primary Care Provider Raven jackson Encounter Details Date Type Department Care Team (Late st Contact Info) Description 07/09/2012 Documentation EM Family Medicine [address] [place], [place] [phone] Family Medicine, Physician [address] [place] [address] Social History Tobacco Use Types Packs/Day Years [...] on filedocumented in this encounter Care Teams Machine Fur Cleaner Relationship Specialty Start Date End Date Nati Winter NP PCP - General 06/13/17 04/09/23 documented as of this encounter
--- OUTSIDE RECORDS SUMMARY | 2025-03-22 09:05 | XMS_ITS | Encounter Summary ---
Author Organization [facility] Address [address] [place] [address] Phone Care Team Providers Care Dye House Hand Name Role Phone Nati Winter NP Primary Care Provider Raven jackson Encounter Details Date Type Department Care Team (Late st Contact Info) Description 01/27/2015 Documentation EM Family Medicine [address] [place], [place] [phone] Family Medicine, Physician [address] [place] [address] Social History Tobacco Use Types Packs/Day Years [...] on filedocumented in this encounter Care Teams Dye House Hand Relationship Specialty Start Date End Date Nati Winter NP PCP - General 06/13/17 04/09/23 documented as of this encounter
--- OUTSIDE RECORDS SUMMARY | 2025-03-22 09:05 | XMS_ITS | Encounter Summary ---
Author Organization [facility] Address [address] [place] [address] Phone Care Team Providers Care Sewer And Drain Technician Name Role Phone Nati Winter NP Primary Care Provider Raven jackson Encounter Details Date Type Department Care Team (Late st Contact Info) Description 06/17/2014 Documentation EM Family Medicine [address] [place], [place] [phone] Family Medicine, Physician [address] [place] [address] Social History Tobacco Use Types Packs/Day Years [...] on filedocumented in this encounter Care Teams Sewer And Drain Technician Relationship Specialty Start Date End Date Nati Winter NP PCP - General 06/13/17 04/09/23 documented as of this encounter
--- OUTSIDE RECORDS SUMMARY | 2025-03-22 09:05 | XMS_ITS | Encounter Summary ---
Author Organization [facility] Address [address] [place] [address] Phone Care Team Providers Care Cloth Picker Name Role Phone Nati Winter NP Primary Care Provider Raven jackson Encounter Details Date Type Department Care Team (Late st Contact Info) Description 06/19/2017 Conversion Encounter [facility] - [address] [address] Social History Tobacco Use Types Packs/Day Years [...] on filedocumented in this encounter Care Teams Cloth Picker Relationship Specialty Start Date End Date Nati Winter NP PCP - General 06/13/17 04/09/23 documented as of this encounter
--- OUTSIDE RECORDS SUMMARY | 2025-03-22 09:05 | XMS_ITS | Encounter Summary ---
Author Organization [facility] Address [address] [place] [address] Phone Care Team Providers Care Carbonizer Name Role Phone Nati Winter NP Primary Care Provider Raven jackson Encounter Details Date Type Department Care Team (Late st Contact Info) Description 07/31/2012 Documentation EM Family Medicine [address] [place], [place] [phone] Family Medicine, Physician [address] [place] [address] Social History Tobacco Use Types Packs/Day Years [...] on filedocumented in this encounter Care Teams Carbonizer Relationship Specialty Start Date End Date Nati Winter NP PCP - General 06/13/17 04/09/23 documented as of this encounter
--- OUTSIDE RECORDS SUMMARY | 2025-03-22 09:05 | XMS_ITS | Clinical Summary ---
Author Organization [facility] Address [address] [place] [address] Phone Care Team Providers Care Film Laboratory Technician Name Role Phone Unavailable Primary Care Provider [...] history of Deafness, Family history of *Sudden /[place] under 55, Family history of Migraines, Family [...]
[2025-03-22 10:20] LABS: TSH reflex Free T4 1.61 uIU/mL (0.32-4.0)
[2025-03-22 11:11] LABS: Folate 6.2 ng/mL (> or = 4.0); Vitamin B12 567 pg/mL (200-900)
[2025-03-23 20:54] LABS: Transglutaminase IgA <1.0 U/mL
[2025-03-26 17:38] LABS: Vitamin D 25-OH, D2 <4 ng/mL; Vitamin D 25-OH, D3 19 ng/mL; Vitamin D 25-OH, Total 19 ng/mL (30-100)
== END 2025-03-22 08:10 | disposition home or self-care (01) ==
LOC: HO.LAB 08:09
PROVIDERS: PCP Internal Medicine; Visit Provider Nurse Practitioner Family
DX: R10.84 Generalized abdominal pain (principal); K59.01 Slow transit constipation; R19.7 Diarrhea, unspecified; E55.9 Vitamin D deficiency, unspecified; K62.5 Hemorrhage of anus and rectum; R14.0 Abdominal distension (gaseous)
CPT/HCPCS: 36415; 82306; 82607; 82746; 84443; 86364; 99202

== ENCOUNTER 2025-03-22 08:09 | Outpatient (AMB) | payer OTHER, SELFPAY ==
--- NOTE | 2025-03-22 08:12 | A.OFFVIS_ITS ---
Vital Signs 03/22/25 08:24 Height 5 ft 2 in Weight 155 lb BMI 28.3 BP 110/72 Blood Pressure Location Rt brachial Position Sitting Pulse 82 Pulse Source Pulse Oximeter Pulse Oximetry (%) 99 Oxygen Delivery Method Room Air Intake Visit Reasons: Abdominal pain Intake Note: ESTABLISHED PATIENT for intial eval of melena. Last abd CT done 09/2024 per PCP. Chief Complaint; C.O. generalized abd pain, rectal pain, mixed BRB/DRB per rectum, GERD + occasional nausea, constipation. Pt reports onset within the last few months. Pt has hx of Lupus. Train Planner Required: No Accompanied by: Self / Same As Patient Allergies No Known Allergies [No Known Allergies*] Allergy (Verified 02/28/25 15:20) HPI HPI Abdominal pain: Details: 29 years old female with past medical history of SLE, fibromyalgia, anemia is here today for initial consultation. Patient was sent to us by her pipe cleaner. Patient reports that for the past few months she has been having more frequent blood in her stool. Patient does admit that she has to strain in order to have a bowel movement. Patient denies any mucus in her stool. Patient denies melena, unintentional weight loss or ribbon like stools. Patient was diagnosed with lupus and has been on hydroxychloroquine and belimubab. Patient reports that she is currently not taking anything to help her move her bowels. Patient is showing me a picture of her bowel movement with bright red blood about 1 cm long and 0.3 cm why outside of the stool. Patient also reports abdominal bloating specially when she is constipated. Patient reports that certain food makes her also your very bloated. Reports acid reflux and epigastric pain occasionally. When constipated her pain is mainly in the lower part of her abdomen. 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 Patient reports that she drinks plenty water. Denies any family history of IBD or colon cancer [facility] Medical History Joint pain Kidney stones Surgical History History of lithotripsy No pertinent past surgical history Family History Mother HTN (hypertension) Osteoarthritis Father Rosana Gehrig's disease Maternal Grandfather Rheumatoid arthritis Other Mental health disorder Social History Household Members: Family Housing: House Alcohol intake: current Alcohol intake frequency: a few times a month Patient Tobacco Use Status: Never used Tobacco Tobacco use type: Cigarette e-Cigarette/Vaping Use: Never Used Second Hand Smoke Exposure: No service: No Current occupational status: employed 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 Current occupational exposures/hazards: No Cognitive needs: No Hearing needs: No Vision needs: Yes (Glasses) Review of Systems Const Denies weight gain and Denies weight loss ENT Reports no additional complaints, Denies dysphagia and Denies odynophagia Card Reports no additional complaints Resp Reports no additional complaints GI Reports abdominal pain, Denies belching, Denies melena, Reports bloating, Denies change in bowel habits, Reports constipation, Denies dysphagia, Denies excessive flatus, Denies dyspepsia, Reports heartburn, Denies diarrhea, Denies loose stools, Denies nausea, Denies odynophagia and Denies vomiting Reports no additional complaints Musc Reports no additional complaints Neuro Reports no additional complaints Psych Reports no additional complaints Endo Reports no additional complaints Physical Exam Vital Signs: Last Vital Signs Pulse 82 03/22/25 08:24 BP 110/72 03/22/25 08:24 Pulse Ox 99 03/22/25 08:24 Oxygen Delivery Method Room Air 03/22/25 08:24 BMI result Body Mass Index 28.3 Const General: healthy appearing, no acute distress and well developed Nutritional Appearance: well nourished Orientation/consciousness: patient oriented x3 Resp Effort & Inspection: normal respiratory effort, able to speak in complete sentences, no tracheal deviation and symmetric chest movement Auscultation: clear to auscultation bilaterally Cardio Rate: regular rate GI Inspection: Yes normal to inspection and No distended Palpation (GI): Soft to palpation, not firm, nontender and No hepatosplenomegaly present Auscultation: normal bowel sounds General: Yes no CVA tenderness Back/Spine/Pelvis Back: no CVA tenderness Skin General skin exam: elasticity normal, turgor normal and dry skin Neuro General: patient oriented x3 Psych Appearance: grossly normal Mental Status: mental status grossly normal Assessment & Plan Assessment & Plan (1) Bright red blood per rectum: Code(s): K62.5 - Hemorrhage of anus and rectum Category: Medical (2) Abdominal pain: Code(s): R10.9 - Unspecified abdominal pain Category: Medical Qualifiers: Abdominal location: generalized Qualified Code(s): R10.84 - Generalized abdominal pain (3) Constipation: Code(s): K59.00 - Constipation, unspecified Qualifiers: Constipation type: slow transit constipation Qualified Code(s): K59.01 - Slow transit constipation (4) Postprandial abdominal bloating: Code(s): R14.0 - Abdominal distension (gaseous) Plan Patient was encouraged to increase fluid intake and activity to promote better bowel motility. Patient will start taking senna daily. Patient reports acid reflux and epigastric pain occasionally postprandially. Will send her for upper GI with barium swallow to evaluate reflux. Will check thyroid studies, transglutaminase, vitamin B12, folate and vitamin-D levels. Will start her on low-dose omeprazole. Patient was encouraged to take his in the morning and have something to eat even small within the half an hour after taking the medication. Patient reports occasional abdominal bloating. Discussed with patient no FODMAP diet. List of food recommended as well as distal to avoid given to patient. We will consider sending her for colonoscopy if she will continue to have rectal bleed. Will consider getting IBD studies with fecal calprotectin. Staff is to call insurance for PA. If positive she will definitely go for colonoscopy. We will order CT enterography to evaluate small bowel. She will return in our office in 3-4 months, sooner on as needed basis. She is agreeable to this plan and verbalizes understanding of instructions. She was given the opportunity to ask questions all questions answered Thank you for allowing me to participate in her care Orders: Orders TSH reflex Free T4 Today K59.00 - Constipation, unspecified FL upper GI w Ba Swallow Today K21.9 - Gastro-esophageal reflux disease without esophagitis Calprotectin, Fecal Today R15.9 - Full incontinence of feces Transglutaminase IgA Today R10.9 - Unspecified abdominal pain Vitamin B12 and Folate Today R19.7 - Diarrhea, unspecified Vitamin D 25-OH (D2 and D3) Today E55.9 - Vitamin D deficiency, unspecified Medications: New sennosides (Natural Senna Laxative) 17.2 mg (2 x 8.6 mg) PO BEDTIME 60 tabs 3RF constipation K59.00 - Constipation, unspecified omeprazole 20 mg PO DAILY 30 caps 3RF K21.9 - Gastro-esophageal reflux disease without esophagitis hydrocortisone 2.5% (Proctosol HC) 1 appl AL BID-QID PRN 30 grams 2RF hemorrhoids K64.9 - Unspecified hemorrhoids Coding Level of Care Code New Pt Level 4 (69923) Diagnoses Bright red blood per rectum K62.5 Generalized abdominal pain R10.84 Abdominal location: generalized Slow transit constipation K59.01 Constipation type: slow transit constipation Postprandial abdominal bloating R14.0 Time Spent (min) 50 Comment 35 minutes spent with patient and additional 15 minutes spent reviewing her records
--- OUTSIDE RECORDS SUMMARY | 2025-03-22 08:13 | XMS_ITS | Patient Health Record ---
Author Organization [facility] Address [address] [id number] Support Name Relationship Address Phone Puja Ureña Emergency Contact Unknown Unava ilable Keerthi Ureña Guarantor Unknown [phone] Allergies No Known Allergies Reason For Referral [...] 1 days as directed disp in house [id number] exp. 12/2802/12/2024 Active predniSONE Active Hydroxychloroquine Sulfate [...] Insured Coverage Start Date Coverage End Date [facility] [address] [place] [phone] [id number] Keerthi Ureña Self - patient is the insured 2022 Medical (General) History Medical History History ICD Code Past hx of BV Depression/Anxiety lupus sepsis age 16 with acute renal and hepat ic failure Hospitalization History Reason Date(Month/Year) Years ago hospitalization for TSS
--- OUTSIDE RECORDS SUMMARY | 2025-03-22 08:13 | XMS_ITS | Encounter Summary ---
Author Organization [employer] Address [address] [place] [address] 7 [place] [address] Care Team Providers Care Primary School Teacher Librarian Name Role Phone Toshia King Primary Care Provider +1- [phone] Encounter Details Date Type Department Care Team (Latest Contact Info) Description 04/23/2019 Abstract [facility] CONVERSIONS Dental, Provider, DDS Social History Tobacco [...] on filedocumented in this encounter Care Teams Primary School Teacher Librarian Relationship Specialty Start Date End Date Toshia King FNP PCP - General Family Medicine 08/24/21 04/17/23 documented as of this encounter
--- OUTSIDE RECORDS SUMMARY | 2025-03-22 08:13 | XMS_ITS | Encounter Summary ---
Author Organization [facility] Address [address] [place] [address] Phone Care Team Providers Care Consulting Sales Executive Name Role Phone Nati Winter NP Primary Care Provider Raven jackson Encounter Details Date Type Department Care Team (Late st Contact Info) Description 12/21/2014 Documentation EM Family Medicine [address] [place], [place] [phone] Family Medicine, Physician [address] [place] [address] Social History Tobacco Use Types Packs/Day Years [...] on filedocumented in this encounter Care Teams Consulting Sales Executive Relationship Specialty Start Date End Date Nati Winter NP PCP - General 06/13/17 04/09/23 documented as of this encounter
--- OUTSIDE RECORDS SUMMARY | 2025-03-22 08:13 | XMS_ITS | Encounter Summary ---
Author Organization [facility] Address [address] [place] [address] Phone Care Team Providers Care Management Liaison Name Role Phone Nati Winter NP Primary Care Provider Raven jackson Encounter Details Date Type Department Care Team (Late st Contact Info) Description 06/17/2014 Documentation EM Family Medicine [address] [place], [place] [phone] Family Medicine, Physician [address] [place] [address] Social History Tobacco Use Types Packs/Day Years [...] on filedocumented in this encounter Care Teams Management Liaison Relationship Specialty Start Date End Date Nati Winter NP PCP - General 06/13/17 04/09/23 documented as of this encounter
--- OUTSIDE RECORDS SUMMARY | 2025-03-22 08:13 | XMS_ITS | Encounter Summary ---
Author Organization [facility] Address [address] [place] [address] Phone Care Team Providers Care Md Allergy Immunology Name Role Phone Nati Winter NP Primary Care Provider Raven jackson Encounter Details Date Type Department Care Team (Late st Contact Info) Description 02/10/2015 Documentation EM Family Medicine [address] [place], [place] [phone] Family Medicine, Physician [address] [place] [address] Social History Tobacco Use Types Packs/Day Years [...] on filedocumented in this encounter Care Teams Md Allergy Immunology Relationship Specialty Start Date End Date Nati Winter NP PCP - General 06/13/17 04/09/23 documented as of this encounter
--- OUTSIDE RECORDS SUMMARY | 2025-03-22 08:13 | XMS_ITS | Clinical Summary ---
Author Organization [employer] Address [address] [place] [address] [address] [place] [address] Care Team Providers Care Commercial Real Estate Associate Name Role Phone Unavailable Primary Care Provider [...] 19+ 3-dose series) 03/25/2019 02/25/2019 COVID-19 Vaccine (2023-2 5 season) 2024 Influenza Vaccine (#1) 2024 [...] patient's age to complete this topic Meningococcal B Vaccine Aged Out No l onger eligible based on patient's age to complete [...]
--- OUTSIDE RECORDS SUMMARY | 2025-03-22 08:13 | XMS_ITS | Encounter Summary ---
Author Organization [facility] Address [address] [place] [address] Phone Care Team Providers Care Quality Nurse Name Role Phone Nati Winter NP Primary Care Provider Raven jackson Encounter Details Date Type Department Care Team (Late st Contact Info) Description 09/06/2013 Documentation EM Family Medicine [address] [place], [place] [phone] Family Medicine, Physician [address] [place] [address] Social History Tobacco Use Types Packs/Day Years [...] on filedocumented in this encounter Care Teams Quality Nurse Relationship Specialty Start Date End Date Nati Winter NP PCP - General 06/13/17 04/09/23 documented as of this encounter
--- OUTSIDE RECORDS SUMMARY | 2025-03-22 08:14 | XMS_ITS | Clinical Summary ---
Author Organization [facility] Address [address] [place] [address] Care Team Providers Care Lining Sewer Name Role Phone Marija Rubio MD Primary [...] age to complete this topic Care Teams Lining Sewer Relationship Specialty Start Date End Date Marija Rubio MD [address] [place] [id number] PCP - General 06/09/23
--- OUTSIDE RECORDS SUMMARY | 2025-03-22 08:14 | XMS_ITS | Encounter Summary ---
Author Organization [facility] Address [address] [place] [address] Phone Care Team Providers Care General Utility Maintenance Repairer Name Role Phone Nati Winter NP Primary Care Provider Raven jackson Encounter Details Date Type Department Care Team (Late st Contact Info) Description 07/09/2012 Documentation EM Family Medicine [address] [place], [place] [phone] Family Medicine, Physician [address] [place] [address] Social History Tobacco Use Types Packs/Day Years [...] on filedocumented in this encounter Care Teams General Utility Maintenance Repairer Relationship Specialty Start Date End Date Nati Winter NP PCP - General 06/13/17 04/09/23 documented as of this encounter
--- OUTSIDE RECORDS SUMMARY | 2025-03-22 08:14 | XMS_ITS | Encounter Summary ---
Author Organization [facility] Address [address] [place] [address] Phone Care Team Providers Care Batt Machine Operator Name Role Phone Nati Winter NP Primary Care Provider Raven jackson Encounter Details Date Type Department Care Team (Late st Contact Info) Description 07/09/2012 Documentation EM Family Medicine [address] [place], [place] [phone] Family Medicine, Physician [address] [place] [address] Social History Tobacco Use Types Packs/Day Years [...] on filedocumented in this encounter Care Teams Batt Machine Operator Relationship Specialty Start Date End Date Nati Winter NP PCP - General 06/13/17 04/09/23 documented as of this encounter
--- OUTSIDE RECORDS SUMMARY | 2025-03-22 08:14 | XMS_ITS | Encounter Summary ---
Author Organization [facility] Address [address] [place] [address] Phone Care Team Providers Care Orthotic And Prosthetic Technician Name Role Phone Nati Winter NP Primary Care Provider Raven jackson Encounter Details Date Type Department Care Team (Late st Contact Info) Description 01/27/2015 Documentation EM Family Medicine [address] [place], [place] [phone] Family Medicine, Physician [address] [place] [address] Social History Tobacco Use Types Packs/Day Years [...] on filedocumented in this encounter Care Teams Orthotic And Prosthetic Technician Relationship Specialty Start Date End Date Nati Winter NP PCP - General 06/13/17 04/09/23 documented as of this encounter
--- OUTSIDE RECORDS SUMMARY | 2025-03-22 08:14 | XMS_ITS | Encounter Summary ---
Author Organization [facility] Address [address] [place] [address] Phone Care Team Providers Care Occupational Therapist Rehab Manager Name Role Phone Nati Winter NP Primary Care Provider Raven jackson Encounter Details Date Type Department Care Team (Late st Contact Info) Description 07/31/2012 Documentation EM Family Medicine [address] [place], [place] [phone] Family Medicine, Physician [address] [place] [address] Social History Tobacco Use Types Packs/Day Years [...] on filedocumented in this encounter Care Teams Occupational Therapist Rehab Manager Relationship Specialty Start Date End Date Nati Winter NP PCP - General 06/13/17 04/09/23 documented as of this encounter
--- OUTSIDE RECORDS SUMMARY | 2025-03-22 08:14 | XMS_ITS | Encounter Summary ---
Author Organization [facility] Address [address] [place] [address] Phone Care Team Providers Care Privacy Attorney Name Role Phone Nati Winter NP Primary Care Provider Raven jackson Encounter Details Date Type Department Care Team (Late st Contact Info) Description 07/09/2012 Documentation EM Family Medicine [address] [place], [place] [phone] Family Medicine, Physician [address] [place] [address] Social History Tobacco Use Types Packs/Day Years [...] on filedocumented in this encounter Care Teams Privacy Attorney Relationship Specialty Start Date End Date Nati Winter NP PCP - General 06/13/17 04/09/23 documented as of this encounter
--- OUTSIDE RECORDS SUMMARY | 2025-03-22 08:14 | XMS_ITS | Encounter Summary ---
Author Organization [facility] Address [address] [place] [address] Phone Care Team Providers Care Brim Stitcher Name Role Phone Nati Winter NP Primary Care Provider Raven jackson Encounter Details Date Type Department Care Team (Late st Contact Info) Description 07/09/2012 Documentation EM Family Medicine [address] [place], [place] [phone] Family Medicine, Physician [address] [place] [address] Social History Tobacco Use Types Packs/Day Years [...] on filedocumented in this encounter Care Teams Brim Stitcher Relationship Specialty Start Date End Date Nati Winter NP PCP - General 06/13/17 04/09/23 documented as of this encounter
--- OUTSIDE RECORDS SUMMARY | 2025-03-22 08:14 | XMS_ITS | Clinical Summary ---
Author Organization [facility] Address [address] [place] [address] Phone Care Team Providers Care Pbx Inspector Name Role Phone Unavailable Primary Care Provider [...] history of Deafness, Family history of *Sudden /[place] under 55, Family history of Migraines, Family [...]
--- OUTSIDE RECORDS SUMMARY | 2025-03-22 08:14 | XMS_ITS | Encounter Summary ---
Author Organization [facility] Address [address] [place] [address] Phone Care Team Providers Care Torch Straightener Name Role Phone Nati Winter NP Primary Care Provider Raven jackson Encounter Details Date Type Department Care Team (Late st Contact Info) Description 06/19/2017 Conversion Encounter [facility] - [address] [address] Social History Tobacco Use Types Packs/Day Years [...] on filedocumented in this encounter Care Teams Torch Straightener Relationship Specialty Start Date End Date Nati Winter NP PCP - General 06/13/17 04/09/23 documented as of this encounter
[2025-03-22 08:24] VITALS: BP 110/72; PULSE 82; O2SAT 99; BMI 28.3
== END 2025-03-22 08:43 | disposition home or self-care (01) ==
LOC: HO.HGI 08:10
PROVIDERS: PCP Internal Medicine; Visit Provider Nurse Practitioner Family
DX: K62.5 Hemorrhage of anus and rectum (principal); R10.84 Generalized abdominal pain; K59.01 Slow transit constipation; R14.0 Abdominal distension (gaseous)
CPT/HCPCS: 99204

== ENCOUNTER 2025-06-08 14:50 | Outpatient (AMB) | payer OTHER, SELFPAY ==
--- NOTE | 2025-06-08 14:53 | MHC.PC.OV ---
Vital Signs 06/08/25 14:54 Height 5 ft 2 in Weight 155 lb 2 oz BMI 28.4 BP 130/80 Blood Pressure Location Lt brachial Position Sitting Pulse 77 Pulse Source Pulse Oximeter Temp 97.1 F Temp Source Temporal Artery Scan Pulse Oximetry (%) 98 Oxygen Delivery Method Room Air Intake Visit Reasons: Annual Exam Intake Note: Patient is here today for a physical. Adult Parole Officer Required: No Recoating Machine Operator: Not Required per policy Accompanied by: Self / Same As Patient Allergies No Known Allergies (No Known Allergies*) Allergy (Verified 06/08/25 14:54) Tobacco use date assessed: 06/08/25 Dental Screening Dental Screen Date: 02/28/25 [facility] Medical History Joint pain Kidney stones Surgical History History of lithotripsy No pertinent past surgical history Family History Mother HTN (hypertension) Osteoarthritis Father Rosana Gehrig's disease Maternal Grandfather Rheumatoid arthritis Other Mental health disorder Social History Household Members: Family Housing: House Alcohol intake: current Alcohol intake frequency: a few times a month Patient Tobacco Use Status: Never used Tobacco Tobacco use type: Cigarette e-Cigarette/Vaping Use: Never Used Second Hand Smoke Exposure: No service: No Current occupational status: employed 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 Current occupational exposures/hazards: No Cognitive needs: No Hearing needs: No Vision needs: Yes (Glasses) Questionnaire Thrive Questionnaire Date Thrive assessed: 02/28/25 I am a: Patient What is your living situation today?: I choose not to answer this question Within the past 12 months, did the food you bought not last and you didn't have the money to get more?: I choose not to answer this question Within the past 12 months, did you worry whether your food would run out before you got money to buy more?: I choose not to answer this question Do you have trouble paying for medicines?: I choose not to answer this question Do you have trouble getting transportation to medical appointments?: I choose not to answer this question Do you have trouble paying your heating and electricity bill?: I choose not to answer this question Do you have trouble taking care of your child, family member or friend?: I choose not to answer this question Do you have trouble with day-to-day activities such as bathing, preparing meals, shopping, managing finances, etc.?: I choose not to answer this question Are you currently unemployed and looking for a job?: I choose not to answer this question Are you interested in more education?: I choose not to answer this question Currently or been in a relationship where the following occur: I choose not to answer THRIVE Score: 0 AUDIT C Alcohol Use Questionnaire (AUDIT-C) 2. How many drinks containing alcohol do you have on a typical day when you are drinking?: 1 or 2 3. How often do you have six or more drinks on one occasion?: Less than monthly Total Score: 1 FERNY-7 AMB Questionnaire FERNY-7 Date FERNY - 7 assessed: 02/28/25 Source: Developed by Drs. Travis Bolton, Christelle Vences, Isaiah Mahoney and colleagues, with an educational damian from [employer]. Physical exam (Primary Care) Vital Signs: Last Vital Signs Temp 97.1 F 06/08/25 14:54 Pulse 77 06/08/25 14:54 BP 130/80 06/08/25 14:54 Pulse Ox 98 06/08/25 14:54 Oxygen Delivery Method Room Air 06/08/25 14:54 BMI result Body Mass Index 28.4 Tobacco/Smoking Status: Tobacco use Status Tobacco use date assessed 06/08/25 06/08/25 15:04 Patient Tobacco Use Status Never used Tobacco 06/08/25 15:04 Tobacco use type Cigarette 06/08/25 15:04 e-Cigarette/Vaping Use Never Used 06/08/25 15:04 Thrive Assessment: Date of Thrive Assessment Date Thrive assessed 02/28/25 06/08/25 15:04 Currently or been in a relationship where the following occur: I choose not to answer Coding Level of Care Code Est Pt Prev Care 18-39y(74682) Diagnoses Other forms of systemic lupus erythematosus, unspecified organ involvement status M32.8 Systemic lupus erythematosus organ involvement: unspecified Systemic lupus erythematosus type: other Annual physical exam Z00.00 Assessment & Plan Assessment & Plan (1) SLE (systemic lupus erythematosus): Comment: SLE (arthralgias, skin rashes, episcleritis/scleritis, hair loss, lymphopenia, normocytic anemia, +VICKIE +++SSa +SSb +RF + DsDNA) dx around 2013 HCQ + PDN regularly 2022 MTX 2022 stopped after one-month could not be tolerated Code(s): M32.9 - Systemic lupus erythematosus, unspecified Category: Medical Qualifiers: Systemic lupus erythematosus organ involvement: unspecified Systemic lupus erythematosus type: other Qualified Code(s): M32.8 - Other forms of systemic lupus erythematosus Plan: Patient was requesting a referral for Dermatology and Psychiatry. Referrals were made. (2) Annual physical exam: Code(s): Z00.00 - Encounter for general adult medical examination without abnormal findings Plan: History of Present Illness - The patient is a 29-year-old female presenting with a routine physical examination and immunization review. - Diagnosed with Systemic Lupus Erythematosus (SLE), managed with hydroxychloroquine and prednisone, and receives infusions. - Reports dry skin, rashes, and hair thinning, attributed to lupus. - Experiences brain fog and difficulty focusing, affecting work and studies. - Vision changes monitored due to Plaquenil use, with no significant issues reported. 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 - Consumes alcohol socially and acknowledges the need for more regular exercise. 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 - Housing: Lives with a friend. - Substance Use: Consumes alcohol socially. - Exercise: Acknowledges the need for more regular exercise. Review of Systems - Dermatological: Reports dry skin and rashes. - Neurological: Reports brain fog and difficulty focusing. - Ophthalmological: Reports vision changes, monitored due to Plaquenil use. - Musculoskeletal: Reports back pain and fatigue during work shifts. Physical Exam General: Cooperative and healthy appearing Nutritional Appearance: Well nourished Orientation/consciousness: Patient oriented x3 Limitations: No limitations Head: Normal to inspection General: Appearance normal, both eyes and all related structures Neck: Normal visual inspection Chest: Normal palpation of entire chest wall Respiratory: N ormal respiratory effort Neurology: Patient oriented x3, reports difficulty focusing and brain fog; referral to psychiatrist recommended for attention issues. Results Plan 1. Systemic Lupus Erythematosus (Sle) - Continue hydroxychloroquine and prednisone, and maintain infusion therapy. - Dermatology referral for skin and hair issues. 2. Preventative Care: Immunization Status Review - Verify immunization records for completeness. 3. Cognitive Concerns: Brain Fog And Difficulty Focusing - Psychiatric referral for assessment of attention difficulties. Discussion Notes During the visit, we discussed the management of systemic lupus erythematosus, including the continuation of current medications and infusions. I recommended a dermatology referral for skin and hair concerns. We also addressed cognitive issues, with a referral to psychiatry for further evaluation. The patient was advised to verify her immunization status to ensure it is up to date. Patient Instructions - Continue taking hydroxychloroquine and prednisone as prescribed. - Follow up with dermatology for skin and hair concerns. - Schedule an appointment with psychiatry for attention and focus issues. - Check immunization records to ensure all vaccines are current. Orders: Referrals Dermatology Referral M32.8 - Other forms of systemic lupus erythematosus Psychiatry Outpatient Consultation Service M32.8 - Other forms of systemic lupus erythematosus
[2025-06-08 14:54] VITALS: BP 130/80; PULSE 77; TEMP 36.2; O2SAT 98; BMI 28.4
--- OUTSIDE RECORDS SUMMARY | 2025-06-08 15:19 | XMS_ITS | Clinical Summary ---
Author Organization [facility] Address [address] [place] [address] Care Team Providers Care Process Expert Name Role Phone Marija Rubio MD Primary [...] - 2023-2 5 season) 2024 Influenza (#1) 2025 Zoster (Shingrix) (1 of 2) 2046 HPV Vaccine (No Doses Required) Completed Hep A Aged Out No longer eligi ble based on patient's age to complete this topic Hib Aged Out No longer eligi ble based on patient's age to complete this topic Meningococcal ACWY Aged Out No longer eligible based on patient's age to complete this topic Pneumococcal Aged Out No longer eligi ble based on patient's age to complete this topic Care Teams Process Expert Relationship Specialty Start Date End Date Marija Rubio MD [address] [place] [address] PCP - General 06/09/23
--- OUTSIDE RECORDS SUMMARY | 2025-06-08 15:19 | XMS_ITS | Encounter Summary ---
Author Organization [employer] Address [address] [place] [address] [address] [place] [address] Care Team Providers Care Credentialer Name Role Phone Toshia KingP Primary Care Provider Keturah vailable Encounter Details Date Type Department Care Team (Latest Contact Info) Description 04/23/2019 Abstract [facility] CONVERSIONS Dental, Provider, DDS Social History [...] on filedocumented in this encounter Care Teams Credentialer Relationship Specialty Start Date End Date Toshia King FNP PCP - General Family Medicine 08/24/21 04/17/23 documented as of this encounter
--- OUTSIDE RECORDS SUMMARY | 2025-06-08 15:19 | XMS_ITS | Clinical Summary ---
Author Organization [facility] Address [address] [place] [address] Phone Care Team Providers Care Air Saw Operator Name Role Phone Unknown, Unknown Primary Care Provider Raven lable Allergies No known active allergies Medications hydrOXYchloroQUI NE (PLAQUENIL) 200 mg tabletIndication s:pt states taking this med 1tab every other day 09/30/20LjC Take by mouth daily. Indications : pt states taking this med 1tab every other day 09/30/20LjC Active Social History Tobacco Use Types Packs/Day Years Used Date Smoking Tobacco: Never Smokeless Tobacco: Never Education Answer Date Recorded Are you interested in more education? Not on josie e 02/28/2023 Are you concerned about learning? Not on file 02/28/2023 No 02/28/2023 No 02/28/2023 Digital Access Answer Date Recorded No 03/29/2023 No 03/29/2023 No 03/29/2023 Reliable internet access at home? Not on file 03/29/2023 Device with a working camera? Not on file Comments Unknown Sex and Gender Information Value Date Recorded Sex Assigned at Not on file Legal Sex Female 3:19 PM EST Gender Identity Not on file Sexual Orientation Not on file Last Filed Vital Signs Vital Sign Reading Time Taken Comments Blood Pressure 122/60 09/30/2020 3:31 PM EST Pulse 90 09/30/2020 3:31 PM EST Temperature 36.1 C (97 F) 09/30/2020 3:31 PM EST Respiratory Rate - - Oxygen Saturation 98% 09/30/2020 3:31 PM EST Inhaled Oxygen Concentration - - Weight 65.8 kg (145 lb) 09/30/2020 3:31 PM EST Height 160 cm (5' 3 ) 09/30/2020 3:31 PM EST Body Mass Index 25.69 09/30/2020 3:31 PM EST Plan of Treatment Health Maintenance Due Date Last Done Comments DEPRESSION SCREENING 2008 HEPATITIS C SCREENING 2014 PAP SMEAR 2017 SMOKING STATUS SCREENING (Once After 26 Yrs) 2022 COVID-19 VACCINE (2023- season) 2024 Adult Td,Tdap Booster 02/25/2029 02/25/2019, 008 HIB VACCINES Completed 05/01/1998, 12/1996, 01/27/1997, Additional history exists HEPATITIS A VACCINES Completed 11/23/2014, 05/31/20 11 MENINGOCOCCAL VACCINES (ACWY) Aged Out 06/11/2016, 09/01/2008 No longer eligibl e based on patient's age to complete this topic HIV ONE-TIME SCREENING (18-65 YEARS) Completed 10/02/2020 MENINGOCOCCAL VACCINES (B) Aged Out N o longer eligible based on patient's age to complete this topic PNEUMOCOCCAL VACCINES (0-49 years) Aged Out No longer eligible based on patient's age to complete this topic Medical Devices Not on file Insurance [facility] DIRECT [facility] DIRECT [facility] DIRECT [facility] DIRECT [address] [facility] [place] [facility] DIRECT [facility] DIRECT [facility] DIRECT [facility] DIRECT Care Teams Air Saw Operator Relationship Specialty Start Date End Date Unknown, Unknown, PCP - General 09/30/20 Additional Source Comments The information contained in this document represents components of the legal health record. It is not the complete legal health record.[facility]
--- OUTSIDE RECORDS SUMMARY | 2025-06-08 15:19 | XMS_ITS | Patient Health Record ---
Author Organization [employer] [facility] Address [address] [facility] [address] [place], [place] [id number] Support Name Relationship Address Phone Puja Ureña Emergency Contact Unknown Unava ilable Keerthi Ureña Guarantor Unknown [phone] Allergies No Known Allergies Reason For Referral No Information Medications Medication SIG (Take, Route, Frequency, Duration) Notes Start Date End Date Status Ondansetron 4 MG 1 tablet on the tongue and allow to dissolve Orally Every 8 hours PRN; Duration: 30 days 02/12/2024 Active Acetaminophen 500 MG 2 tablets Orally every 8 hrs PRN 02/12/2024 Active miSOPROStol 200 MCG 4 tablets Buccally every 3 hours for 3-4 doses; Duration: 1 days as directed disp in house [id number] exp. 12/2802/12/2024 Active predniSONE Active Hydroxychloroquine Sulfate Active metroNIDAZOLE 0.75 % 1 applicatorful at bedtime Vaginal Nightly; Duration: 5 days 05/27/2023 Not-Taking Ibuprofen 800 MG 1 tablet with food or milk as needed Orally every 6-8 hrs; Duration: 3 days As needed for pain and cramping with food, max 3 tablets every 24 hours 02/12/2024 Active Social History Sex Assigned At : Social History Observation Description Sex Assigned At Female Plan Of Treatment No Information Insurance Providers Payer Name Payer Address Payer Phone Subscriber Number Group Number Insured Name Patient Relationship to Insured Coverage Start Date Coverage End Date [facility] [address] [place] [phone] [id number] Keerthi Ureña Self - patient is the insured 2022 Medical (General) History Medical History History ICD Code Past hx of BV Depression/Anxiety lupus sepsis age 16 with acute renal and hepat ic failure Hospitalization History Reason Date(Month/Year) Years ago hospitalization for TSS
--- OUTSIDE RECORDS SUMMARY | 2025-06-08 15:19 | XMS_ITS | Encounter Summary ---
Author Organization [facility] Address [address] [place] [address] Phone Care Team Providers Care Single Wire Saw Operator Name Role Phone Nati Winter NP Primary Care Provider Raven jackson Encounter Details Date Type Department Care Team (Late st Contact Info) Description 06/17/2014 Documentation EM Family Medicine [address] [place], [place] [phone] Family Medicine, Physician [address] [place] [address] Social History Tobacco Use Types Packs/Day Years [...] on filedocumented in this encounter Care Teams Single Wire Saw Operator Relationship Specialty Start Date End Date Nait Winter NP PCP - General 06/13/17 04/09/23 documented as of this encounter
== END 2025-06-08 15:33 | disposition home or self-care (01) ==
LOC: HO.HMCH 14:50
PROVIDERS: PCP Internal Medicine; Visit Provider Internal Medicine
DX: M32.8 Other forms of systemic lupus erythematosus (principal); Z00.00 Encounter for general adult medical examination without abnormal findings

== ENCOUNTER → 2025-06-08 14:50 | Outpatient (BNVA) | payer OTHER, SELFPAY | PROVIDERS: PCP Internal Medicine; Visit Provider Internal Medicine | DX: Z00.00 Encounter for general adult medical examination without abnormal findings (principal); M32.9 Systemic lupus erythematosus, unspecified | CPT/HCPCS: 99395 ==

== ENCOUNTER 2025-06-20 07:00 | Outpatient (REF) | payer OTHER, SELFPAY ==
--- OUTSIDE RECORDS SUMMARY | 2025-06-20 07:03 | XMS_ITS | Clinical Summary ---
Author Organization [facility] Address [address] [place] [id number] Phone Care Team Providers Care Supply Tech Name Role Phone Unknown, Unknown Primary Care [...] topic Medical Devices Not on file Insurance [facility] DIRECT [facility] DIRECT [facility] DIRECT [facility] DIRECT [facility] DIRECT [facility] DIRECT [facility] DIRECT [facility] DIRECT Care Teams Supply Tech Relationship Specialty Start Date End Date Unknown, Unknown, PCP - General 09/30/20 Additional Source Comments The information contained in this document represents components of the legal health record. It is not the complete legal health record.[facility]
--- OUTSIDE RECORDS SUMMARY | 2025-06-20 07:03 | XMS_ITS | Encounter Summary ---
Author Organization [facility] Address [address] [place] [address] Phone Care Team Providers Care Human Services Manager Name Role Phone Nati Winter NP Primary Care Provider Raven jackson Encounter Details Date Type Department Care Team (Late st Contact Info) Description 06/17/2014 Documentation EM Family Medicine [address] [place], [place] [phone] Family Medicine, Physician [address] [place] [address] Social History Tobacco Use Types Packs/Day Years [...] on filedocumented in this encounter Care Teams Human Services Manager Relationship Specialty Start Date End Date Nati Winter NP PCP - General 06/13/17 04/09/23 documented as of this encounter
--- OUTSIDE RECORDS SUMMARY | 2025-06-20 07:03 | XMS_ITS | Patient Health Record ---
Author Organization [facility] Address [address] [facility] [address] [place], [place] [id number] Support Name Relationship Address Phone Puja Ureña Emergency Contact Unknown Unava ilable Keerthi Ureña Guarantor Unknown [phone] Allergies No Known Allergies Reason For Referral [...] 1 days as directed disp in house [id number] exp. 12/2802/12/2024 Active predniSONE Active Hydroxychloroquine Sulfate [...] Insured Coverage Start Date Coverage End Date [facility] [address] [place] [phone] [id number] Keerthi Ureña Self - patient is the insured 2022 Medical (General) History Medical History History ICD Code Past hx of BV Depression/Anxiety lupus sepsis age 16 with acute renal and hepat ic failure Hospitalization History Reason Date(Month/Year) Years ago hospitalization for TSS
--- OUTSIDE RECORDS SUMMARY | 2025-06-20 07:03 | XMS_ITS | Clinical Summary ---
Author Organization [facility] Address [address] [place] [address] Care Team Providers Care Forging Operator Name Role Phone Marija Rubio MD [...] age to complete this topic Care Teams Forging Operator Relationship Specialty Start Date End Date Marija Rubio MD [address] [place] [address] PCP - General 06/09/23
[2025-06-20 07:16] LABS: MANUAL DIFF FLAG NO
[2025-06-20 08:01] LABS: Appearance Urine Clear; Glucose Urine UA Negative (Negative); PH 6.0 (5.0-9.0); Specific Gravity - Urine 1.025 (1.005-1.025); UMIC TRIGGER UA YES
[2025-06-20 08:01] LABS: Hematocrit 36.7 % (37.0-47.0); Hemoglobin 11.5 g/dl (12.0-16.0); Imm Gran Abs Auto 0.03 X10*3/uL (0.00-0.03); Imm Gran Pct Auto 0.7 % (0.0-0.4); Lymphocytes Absolute Auto 1.3 X10*3/uL (1.2-4.9); Mean Corpuscular HGB Conc 31.3 g/dl (31.0-35.0); Mean Corpuscular Hemoglobin 25.1 pg (27.0-33.0); Mean Corpuscular Volume 80.1 fL (80.0-98.0); NRBC Abs Auto 0.000 X10*3/uL (0.0-0.012); NRBC Pct Auto 0.0 /100WBC (0.0-0.2); Platelet Count 291 X10*3/uL (160-400); Red Blood Count 4.58 X10*6/uL (4.20-5.50); White Blood Count 4.2 X10*3/uL (4.8-10.8)
[2025-06-20 08:53] LABS: Alanine Aminotransferase 12 U/L (0-31); Albumin Level 4.2 g/dL (3.5-5.0); Alkaline Phosphatase 49 U/L (39-117); Anion Gap 13 (12-20); Aspartate Amino Transferase 19 U/L (5-31); Blood Urea Nitrogen 10 mg/dL (9-16); Calcium 8.7 mg/dL (8.4-10.2); Carbon Dioxide 25 mmol/L (22-29); Chloride 107 mmol/L (96-108); Estimated Glomerular Filt Rate > 60; Potassium 3.5 mmol/L (3.3-5.1); Sodium 141 mmol/L (135-145); Total Protein 6.9 g/dL (6.5-8.0)
[2025-06-20 08:59] LABS: Protein/Creatinine Ratio, Ur 0.06 (<0.2); Total Protein Urine Random 12 mg/dL (<12)
[2025-06-20 09:15] LABS: HBS Num1 36.78 mIU/mL (0-7.99); HBc Num1 0.06 S/CO (0.00-0.79); HBsAGNum1 0.39 S/CO (0.00-0.99); Hepatitis A Antibody IgM 0.24 Index (0-0.79); Hepatitis B Surface Antigen Negative (Negative); ~HepC Num1 0.11 S/CO (0.00-0.79); ~Hepatitis A Antibody IgM Nonreactive (Nonreactive); ~Hepatitis B Surface Antibody REACTIVE (Nonreactive); ~Hepatitis C Antibody Nonreactive (Nonreactive)
[2025-06-23 07:43] LABS: TS Negative Control Passed; TS Panel A 1; TS Panel B 0; TS Positive Control Passed; TSpotTB Negative (Negative)
[2025-06-24 14:23] LABS: Vitamin D 25-OH, D2 <4 ng/mL; Vitamin D 25-OH, D3 18 ng/mL; Vitamin D 25-OH, Total 18 ng/mL (30-100)
== END 2025-06-20 07:01 | disposition home or self-care (01) ==
LOC: HO.LAB 07:00
PROVIDERS: PCP Internal Medicine; Visit Provider Student in an Organized Health Care Education/Training Program
DX: Z11.1 Encounter for screening for respiratory tuberculosis (principal); Z11.59 Encounter for screening for other viral diseases; M32.8 Other forms of systemic lupus erythematosus; E55.9 Vitamin D deficiency, unspecified
CPT/HCPCS: 36415; 80053; 81001; 82306; 82570; 84156; 85025; 85652; 86140; 86160; 86225; 86481; 86704; 86706; 86709; 86803; 87340

== ENCOUNTER 2025-06-21 11:40 | Outpatient (AMB) | payer OTHER, SELFPAY ==
[2025-06-21 11:48] VITALS: BP 124/62; PULSE 77; O2SAT 97; BMI 28.5
--- NOTE | 2025-06-21 11:48 | MHC.OFFVIS ---
Vital Signs 06/21/25 11:48 Height 5 ft 2 in Weight 156 lb BMI 28.5 BP 124/62 Blood Pressure Location Lt brachial Position Sitting Pulse 77 Pulse Source Pulse Oximeter Pulse Oximetry (%) 97 Oxygen Delivery Method Room Air Intake Visit Reasons: SLE Intake Note: Patient presents for SLE follow up. Patient would like Prednisone refill today. Accompanied by: Child Allergies No Known Allergies (No Known Allergies*) Allergy (Verified 06/21/25 11:52) HPI Comments Details: Patient is a 29 year female with SLE here today for follow up Interval History: Patient last seen 02/15/2025 with me - On HCQ - Lupus not controlled with persistent rash and joint pain - Started saphnelo infusions Today - On HCQ and Saphnelo infusions - Patient doing overall better - Does get headaches with the infusions but these are tolerable Rheumatologic History: SLE (arthralgias, skin rashes, episcleritis/scleritis, hair loss, lymphopenia, normocytic anemia, +VICKIE +++SSa +SSb +RF + DsDNA) dx around 2013 HCQ + PDN regularly 2022 MTX 2022 stopped after one-month could not be tolerated Initial history: This is a 27-year-old female with Sjogren's who presents for follow-up. She was last seen by Nichol Fletcher 02/23. Patient states that she was diagnosed with Sjogren's around 2013. She states that she was on hydroxychloroquine consistently at some point, she might have been on other meds but she does not remember. She states that since November of 2022 she has been having left eye redness and swelling. She was evaluated by Ophthalmology and was diagnosed with filamentous keratitis and episcleritis. She received antibiotic and steroid eyedrops which provides some relief but she continues to have left eye redness and pain. This year old so she has been having intermittent rashes on her hands, chest, legs. The rashes are worse in the sun. Also has pain and swelling of her hands associated with morning stiffness lasting a few hours. The rashes burn, they do not itch. 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 Her hands hurt in the morning and at night. She states that she has had Raynaud's all her life. Sometimes she has to wear heated gloves. She also states that she has had dry eyes for many years, she uses artificial tears consistently. She has intermittent dry mouth and sometimes uses Biotene mouthwash. She has been losing a substantial amount of hair recently. Large clumps of hair. She denies any fevers. She does get chills sometimes. She never took her temperature. She denies any significant weight change. Denies mouth ulcers. She denies any history of DVT/PE. Patient never attempted . She is unaware of any family history of autoimmune rheumatic disease. Current Rheumatology Medication(s): Hydroxychloroquine 200 mg twice a day 5 days a week and 200 mg once a day 2 days a week Prednisone 2.5 mg daily PFSH Medical History Joint pain Kidney stones Surgical History History of lithotripsy No pertinent past surgical history Family History Mother HTN (hypertension) Osteoarthritis Father Rosana Gehrig's disease Maternal Grandfather Rheumatoid arthritis Other Mental health disorder Social History Household Members: Family Housing: House Alcohol intake: current Alcohol intake frequency: a few times a month Patient Tobacco Use Status: Never used Tobacco Tobacco use type: Cigarette e-Cigarette/Vaping Use: Never Used Second Hand Smoke Exposure: No service: No Current occupational status: employed Current occupation: [employer] Current occupational exposures/hazards: No Cognitive needs: No Hearing needs: No Vision needs: Yes (Glasses) Review of Systems Const Details: Review of Systems Constitutional: Denies fever, chills, weight loss ENT: Denies vision changes, eye pain or eye redness, dental caries, dry mouth GI: Denies nausea, vomiting, diarrhea, abdominal pain, change in BM Pulm: Denies SOB, LEVIN, hemoptysis, wheezing Cards: Denies chest pain, palpitations Skin: Denies nail changes, photosensitivity, AIRCRAFT LAYOUT WORKER: Denies headaches, weakness, paresthesias, recurrent falls MSK: as per HPI All other systems reviewed and are unremarkable except noted above Physical Exam Exam Exam: Vital signs reviewed Physical Examination CONSTITUITIONAL Patient alert and cooperative. Well appearing and in no apparent painful distress HEENT Conjunctiva and sclera clear. No lymphadenopathy. MSK Hands Right Hand: Able to make a fist. No swelling or tenderness to palpation of these joints. No deformities noted. Left Hand: Able to make a fist. No swelling or tenderness to palpation of these joints. No deformities noted. Wrists Right Wrist: Full ROM. 70 degrees of wrist flexion, 80 degrees of wrist extension. No swelling or TTP Left Wrist: Full ROM. 70 degrees of wrist flexion, 80 degrees of wrist extension. No swelling or TTP Elbows Right Elbow: Full ROM. No swelling or TTP. No TTP of the medial and lateral epicondyles Left Elbow: Full ROM. No swelling or TTP. No TTP of the medial and lateral epicondyles Shoulders Right shoulder: Full ROM. No swelling noted. No TTP of the AC joint, subacromial bursa or posterior shoulder Left shoulder: Full ROM. No swelling noted. No TTP of the AC joint, subacromial bursa or posterior shoulder Knees Right knee: Full ROM. No swelling noted. No TTP of the knee joint lie or pes anserine bursa Left knee: Full ROM. No swelling noted. No TTP of the knee joint lie or pes anserine bursa. Ankles Right ankle: Good ankle dorsiflexion and plantar flexion. No swelling. No TTP of the ankle joint Left ankle: Good ankle dorsiflexion and plantar flexion. No swelling. No TTP of the ankle joint Feet Right foot: Negative squeeze test Left foot: Negative squeeze test Tender points? No tenderness to palpation of the bilateral trapezius, supraspinatus, anterior costochondral junctions, bilateral suboccipital muscle insertions SKIN Post inflammatory rash on the lateral aspect of the right index finger Vital Signs: Last Vital Signs Pulse 77 06/21/25 11:48 BP 124/62 06/21/25 11:48 Pulse Ox 97 06/21/25 11:48 Oxygen Delivery Method Room Air 06/21/25 11:48 BMI result Body Mass Index 28.5 Results Reviewed Results Reviewed: Laboratory Tests 02/09/25 03/22/25 06/20/25 06:52 08:57 07:08 WBC 4.2 L RBC 4.58 Hgb 11.5 L Hct 36.7 L Plt Count 291 ESR 4 Sodium 141 Potassium 3.5 Chloride 107 Carbon Dioxide 25 BUN 10 Creatinine 0.71 AST 19 ALT 12 C-Reactive Protein 0.54 H 0.47 25-OH Vitamin D Total 19 L Pending Laboratory Tests 02/09/25 06/20/25 06:52 07:08 Double Strand DNA Ab 26 H Pending Complement C3 107 Pending Complement C4 18 Pending Laboratory Tests 06/20/25 07:05 Urine Color Yellow Urine Protein Negative Urine Blood Negative Protein/Creatinin Ratio 0.06 Assessment & Plan Assessment & Plan (1) SLE (systemic lupus erythematosus): Comment: SLE (arthralgias, skin rashes, episcleritis/scleritis, hair loss, lymphopenia, normocytic anemia, +VICKIE +++SSa +SSb +RF + DsDNA) dx around 2013 HCQ + PDN regularly 2022 MTX 2022 stopped after one-month could not be tolerated Added Saphenlo 02/2025 - effective Code(s): M32.9 - Systemic lupus erythematosus, unspecified Category: Medical Qualifiers: Systemic lupus erythematosus type: other Systemic lupus erythematosus organ involvement: unspecified Qualified Code(s): M32.8 - Other forms of systemic lupus erythematosus Plan: #SLE Patient is a 29-year-old female with SLE here today for follow up. Lupus control improved on Benlysta Plan - Benlysta 10mg/kg every 4 weeks - Plaquenil 200mg daily - Decrease prednisone/Stop prednisone - Follow up complement and dsDNA - RTC 4 months - Labs before visit: CBC, CMP, ESR, CRP, C3, C4, dsDNA, UA, UPC (2) Long-term use of hydroxychloroquine: Comment: eye exam OK 01/2024 Code(s): Z79.899 - Other medical terminologist (current) drug therapy Category: Medical Plan: #Long-term Use of Hydroxychloroquine Discussed with patient the risks and benefits of hydroxychloroquine in managing the rheumatic condition Benefits include: - Reduced pain, reduce mortality, maintenance of remission and reduction of flares Risks include: - GI upset, skin hyperpigmentation, retinal toxicity (especially after more than 5 years of use), myopathy Advised yearly ophthalmology visits (3) Encounter for monitoring of belimumab therapy: Code(s): Z51.81 - Encounter for therapeutic drug level monitoring; Z79.620 - prison (current) use of immunosuppressive biologic Plan: #medical terminologist Belimumab Discussed with patient the risks and benefits of hydroxychloroquine in managing the rheumatic condition Benefits include: - Reduced pain, reduce mortality, maintenance of remission and reduction of flares Risks include: - insomnia, injection site reactions, psychiatric events such as worsening depression/anxiety or suicidal ideation, increased risk of infection Plan I spent 30 minutes reviewing the record and labs, taking a history, examining the patient, discussing the treatment plan, ordering diagnostic work up and documenting in the medical record Orders: Orders Complete Blood Count Auto Diff 4 Months M32.9 - Systemic lupus erythematosus, unspecified Protein Creatinine Ratio, Ur 4 Months M32.9 - Systemic lupus erythematosus, unspecified Complement C4 4 Months M32.9 - Systemic lupus erythematosus, unspecified DNA Double Stranded-Crithidia 4 Months M32.9 - Systemic lupus erythematosus, unspecified C Reactive Protein 4 Months M32.9 - Systemic lupus erythematosus, unspecified Comprehensive Met. Panel 4 Months M32.9 - Systemic lupus erythematosus, unspecified Anti DNA DS Antibody 4 Months M32.9 - Systemic lupus erythematosus, unspecified Erythrocyte Sedimentation Rate 4 Months M32.9 - Systemic lupus erythematosus, unspecified Complement C3 4 Months M32.9 - Systemic lupus erythematosus, unspecified UA ClnCatch+Micro w/rflx Cult 4 Months M32.9 - Systemic lupus erythematosus, unspecified Coding Level of Care Code Est Pt Level 4 (67300) Complex EM visit Add On G2211 Diagnoses Other forms of systemic lupus erythematosus, unspecified organ involvement status M32.8 Systemic lupus erythematosus type: other Systemic lupus erythematosus organ involvement: unspecified Long-term use of hydroxychloroquine Z79.899 Encounter for monitoring of belimumab therapy Z51.81; Z79.620
--- OUTSIDE RECORDS SUMMARY | 2025-06-21 13:13 | XMS_ITS | Encounter Summary ---
Author Organization [employer] Address [address] [place] [address] [address] [place] [address] Care Team Providers Care Heliarc Welder Name Role Phone Toshia KingP Primary Care Provider Keturah vailable Encounter Details Date Type Department Care Team (Latest Contact Info) Description 04/23/2019 Abstract [facility] CONVERSIONS Dental, Provider, DDS Social History Tobacco [...] on filedocumented in this encounter Care Teams Heliarc Welder Relationship Specialty Start Date End Date Toshia King FNP PCP - General Family Medicine 08/24/21 04/17/23 documented as of this encounter
--- OUTSIDE RECORDS SUMMARY | 2025-06-21 13:13 | XMS_ITS | Clinical Summary ---
Author Organization [facility] Address [address] [place] [id number] Phone Care Team Providers Care Uke Operator Name Role Phone Unknown, Unknown Primary [...] topic Medical Devices Not on file Insurance [facility] DIRECT [facility] [employer] DIRECT [facility] [employer] DIRECT [facility] DIRECT [facility] DIRECT [address] [facility] [place] [facility] DIRECT [facility] [employer] DIRECT [facility] [employer] DIRECT [facility] [employer] DIRECT Care Teams Uke Operator Relationship Specialty Start Date End Date Unknown, Unknown, PCP - General 09/30/20 Additional Source Comments The information contained in this document represents components of the legal health record. It is not the complete legal health record.[facility]
--- OUTSIDE RECORDS SUMMARY | 2025-06-21 13:13 | XMS_ITS | Patient Health Record ---
[facility] Organization [facility] Address [address] [facility] [address] [place], [place] [id number] Support Name Relationship Address Phone Puja Ureña Emergency Contact Unknown Unava ilable Keerthi Ureña Guarantor Unknown [phone] Allergies No Known Allergies Reason For Referral [...] 1 days as directed disp in house [id number] exp. 12/2802/12/2024 Active predniSONE Active Hydroxychloroquine Sulfate [...] Insured Coverage Start Date Coverage End Date [facility] [address] [place] [phone] [id number] Keerthi Ureña Self - patient is the insured 2022 Medical (General) History Medical History History ICD Code Past hx of BV Depression/Anxiety lupus sepsis age 16 with acute renal and hepat ic failure Hospitalization History Reason Date(Month/Year) Years ago hospitalization for TSS
--- OUTSIDE RECORDS SUMMARY | 2025-06-21 13:13 | XMS_ITS | Encounter Summary ---
Author Organization [facility] Address [address] [place] [address] Phone Care Team Providers Care Jute Bag Sewer Name Role Phone Nati Winter NP Primary Care Provider Raven jackson Encounter Details Date Type Department Care Team (Late st Contact Info) Description 06/17/2014 Documentation EM Family Medicine [address] [place], [place] [id number] Family Medicine, Physician [address] [place] [address] Social History Tobacco Use Types Packs/Day Years [...] on filedocumented in this encounter Care Teams Jute Bag Sewer Relationship Specialty Start Date End Date Nati Winter NP PCP - General 06/13/17 04/09/23 documented as of this encounter
--- OUTSIDE RECORDS SUMMARY | 2025-06-21 13:13 | XMS_ITS | Clinical Summary ---
Author Organization [facility] Address [address] [place] [address] Care Team Providers Care Bread Packer Name Role Phone Marija Rubio MD Primary [...] age to complete this topic Care Teams Bread Packer Relationship Specialty Start Date End Date Marija Rubio MD [address] [place] [address] PCP - General 06/09/23
== END 2025-06-21 12:11 | disposition home or self-care (01) ==
LOC: HO.RHES 11:41
PROVIDERS: PCP Internal Medicine; Visit Provider Student in an Organized Health Care Education/Training Program
DX: M32.8 Other forms of systemic lupus erythematosus (principal); Z79.899 Other long term (current) drug therapy; Z51.81 Encounter for therapeutic drug level monitoring; Z79.620 Long term (current) use of immunosuppressive biologic
CPT/HCPCS: 99214

== ENCOUNTER → 2025-06-21 11:40 | Outpatient (BNVA) | payer OTHER, SELFPAY | PROVIDERS: PCP Internal Medicine; Visit Provider Student in an Organized Health Care Education/Training Program | DX: M32.8 Other forms of systemic lupus erythematosus (principal); Z79.899 Other long term (current) drug therapy; Z51.81 Encounter for therapeutic drug level monitoring; Z79.620 Long term (current) use of immunosuppressive biologic | CPT/HCPCS: 99212 ==

== ENCOUNTER 2025-06-28 09:16 | Outpatient (AMB) | payer OTHER, SELFPAY ==
--- NOTE | 2025-06-28 09:17 | MHC.OFFVIS ---
Vital Signs 06/28/25 09:21 Height 5 ft 2 in Weight 156 lb BMI 28.5 BP 112/70 Blood Pressure Location Rt brachial Position Sitting Pulse 90 Pulse Source Pulse Oximeter Pulse Oximetry (%) 99 Oxygen Delivery Method Room Air Intake Visit Reasons: 3m abd pain Intake Note: Est pt for mgmt of chronic abd pain. Labs done but fecal outstanding, likely not approved by insurance ([facility]). Imaging next month. CC; C.O. RUQ pain, hematochezia, constipation. Pt denies any additional sx at this time. Operations Specialists Required: No Accompanied by: Self / Same As Patient Allergies No Known Allergies (No Known Allergies*) Allergy (Verified 06/28/25 09:18) HPI HPI 3m abd pain: Details: LAST VISIT: Bright red blood per rectum Abdominal pain Constipation Postprandial abdominal bloating Plan Patient was encouraged to increase fluid intake and activity to promote better bowel motility. Patient will start taking senna daily. Patient reports acid reflux and epigastric pain occasionally postprandially. Will send her for upper GI with barium swallow to evaluate reflux. Will check thyroid studies, transglutaminase, vitamin B12, folate and vitamin-D levels. Will start her on low-dose omeprazole. Patient was encouraged to take his in the morning and have something to eat even small within the half an hour after taking the medication. Patient reports occasional abdominal bloating. Discussed with patient no FODMAP diet. List of food recommended as well as distal to avoid given to patient. We will consider sending her for colonoscopy if she will continue to have rectal bleed. Will consider getting IBD studies with fecal calprotectin. Staff is to call insurance for PA. If positive she will definitely go for colonoscopy. We will order CT enterography to evaluate small bowel. She will return in our office in 3-4 months, sooner on as needed basis. She is agreeable to this plan and verbalizes understanding of instructions. She was given the opportunity to ask questions all questions answered ? Thank you for allowing me to participate in her care Orders TSH reflex Free T4 Today K59.00 FL upper GI w Ba Swallow Today K21.9 Calprotectin, Fecal Today R15.9 Transglutaminase IgA Today R10.9 Vitamin B12 and Folate Today R19.7 Vitamin D 25-OH (D2 and D3) Today E55.9 New sennosides (Natural Senna Laxative) 17.2 mg (2 x 8.6 mg) PO BEDTIME 60 tabs 3RF constipation K59.00 omeprazole 20 mg PO DAILY 30 caps 3RF K21.9 hydrocortisone 2.5% (Proctosol HC) 1 appl [place] BID-QID PRN 30 grams 2RF hemorrhoids K64.9 TODAY'S VISIT Patient is here today for follow-up and to discuss lab results. Patient is going for upper GI series next month. Unable to get fecal calprotectin as patient's insurance was not covering. Patient continues to have a low vitamin-D level. Patient is taking supplement. She continues to have blood in her stool occasionally. She is moving her bowels better now that she is taking senna. However occasionally she is constipated and feels like she does not empty her bowels completely. Occasional epigastric pain postprandially, however for the most part patient reports that omeprazole has been working for her. Patient denies dyspepsia, dysphagia or odynophagia. Denies any nausea or vomiting. [facility] Medical History (Updated 06/28/25 @ 09:48 by Estefania Santizo [facility]) GERD (gastroesophageal reflux disease) Joint pain Kidney stones Surgical History History of lithotripsy No pertinent past surgical history Family History Mother HTN (hypertension) Osteoarthritis Father Rosana Gehrig's disease Maternal Grandfather Rheumatoid arthritis Other Mental health disorder Social History Household Members: Family Housing: House Alcohol intake: current Alcohol intake frequency: a few times a month Patient Tobacco Use Status: Never used Tobacco Tobacco use type: Cigarette e-Cigarette/Vaping Use: Never Used Second Hand Smoke Exposure: No service: No Current occupational status: employed 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 Current occupational exposures/hazards: No Cognitive needs: No Hearing needs: No Vision needs: Yes (Glasses) Review of Systems Const Denies weight gain and Denies weight loss ENT Reports no additional complaints, Denies dysphagia and Denies odynophagia Card Reports no additional complaints Resp Reports no additional complaints GI Reports abdominal pain (Epigastric), Denies belching, Denies melena, Reports bloating, Denies change in bowel habits, Reports constipation (Occasional), Denies dysphagia, Denies excessive flatus, Denies dyspepsia, Reports heartburn (Occasional), Denies diarrhea, Denies loose stools, Denies nausea, Denies odynophagia and Denies vomiting Reports no additional complaints Musc Reports no additional complaints Neuro Reports no additional complaints Psych Reports no additional complaints Endo Reports no additional complaints Physical Exam Vital Signs: BMI result Body Mass Index 28.5 Const General: healthy appearing, no acute distress and well developed Nutritional Appearance: well nourished Orientation/consciousness: patient oriented x3 Resp Effort & Inspection: normal respiratory effort, able to speak in complete sentences, no tracheal deviation and symmetric chest movement Auscultation: clear to auscultation bilaterally Cardio Rate: regular rate GI Inspection: Yes normal to inspection and No distended Palpation (GI): Soft to palpation, not firm, nontender and No hepatosplenomegaly present Auscultation: normal bowel sounds General: Yes no CVA tenderness Back/Spine/Pelvis Back: no CVA tenderness Skin General skin exam: elasticity normal, turgor normal and dry skin Neuro General: patient oriented x3 Psych Appearance: grossly normal Mental Status: mental status grossly normal Results Reviewed Results Reviewed: Laboratory Tests 03/22/25 06/20/25 08:57 07:08 WBC 4.2 L Hgb 11.5 L Hct 36.7 L MCV 80.1 MCH 25.1 L Vitamin B12 567 25-OH Vitamin D Total 19 L 18 L Folate 6.2 TSH 1.61 Tiss Transglutamin IgA <1.0 Assessment & Plan Assessment & Plan (1) Vitamin D deficiency: Code(s): E55.9 - Vitamin D deficiency, unspecified Category: Medical (2) Bright red blood per rectum: Code(s): K62.5 - Hemorrhage of anus and rectum Category: Medical (3) Abdominal pain: Code(s): R10.9 - Unspecified abdominal pain Category: Medical Qualifiers: Abdominal location: generalized Qualified Code(s): R10.84 - Generalized abdominal pain (4) GERD (gastroesophageal reflux disease): Code(s): K21.9 - Gastro-esophageal reflux disease without esophagitis Category: Medical Qualifiers: Esophagitis presence: esophagitis presence not specified Qualified Code(s): K21.9 - Gastro-esophageal reflux disease without esophagitis (5) Postprandial epigastric pain: Code(s): R10.13 - Epigastric pain Plan Patient will continue to take omeprazole. Avoid dietary triggers and late night snacking. Staying upright for minimum 3 hours after meals discussed with patient. Patient will be sent for upper endoscopy to check for gastritis, esophagitis, duodenitis, celiac, Cervantes's. Patient will be sent for colonoscopy. She continues to have due blood in her stools. Moving her bowels better now. Patient reports that her stool is soft. What to expect before during and after procedure discussed with patient. Stressed importance of good bowel prep and clear liquid diet day before procedure. Patient reports no issues with anesthesia in the past. No history of sleep apnea. Not on any anticoagulation medication. We will see patient after the procedure, sooner on as needed basis. She has to understanding of instructions. She was given the opportunity to ask questions and all questions answered. Thank you for allowing me to participate in her care Medications: New bisacodyl (Dulcolax (bisacodyl)) take 4 tabs at noon the day before your colonoscopy 20 mg (4 x 5 mg) PO ONCE 4 tabs 0RF constipation 1 day Z12.11 - Encounter for screening for malignant neoplasm of colon polyethylene glycol 3350 (Miralax) As directed by gastroenterology department at [facility] 238 grams PO ONCE 238 grams 0RF Z12.11 - Encounter for screening for malignant neoplasm of colon Coding Level of Care Code Est Pt Level 4 (66129) Diagnoses Vitamin D deficiency E55.9 Bright red blood per rectum K62.5 Generalized abdominal pain R10.84 Abdominal location: generalized Gastroesophageal reflux disease, unspecified whether esophagitis present K21.9 Esophagitis presence: esophagitis presence not specified Postprandial epigastric pain R10.13 Time Spent (min) 35 Comment 25 minutes spent with patient and additional 10 minutes spent reviewing her records
[2025-06-28 09:21] VITALS: BP 112/70; PULSE 90; O2SAT 99; BMI 28.5
--- OUTSIDE RECORDS SUMMARY | 2025-06-28 09:42 | XMS_ITS | Encounter Summary ---
Author Organization [facility] Address [address] [place] [address] Phone Care Team Providers Care Surgical Aide Name Role Phone Nati Winter NP Primary Care Provider Raven jackson Encounter Details Date Type Department Care Team (Late st Contact Info) Description 01/27/2015 Documentation EM Family Medicine [address] [place], [place] [phone] Family Medicine, Physician [address] [place] [address] Social History Tobacco Use Types Packs/Day Years [...] on filedocumented in this encounter Care Teams Surgical Aide Relationship Specialty Start Date End Date Nati Winter NP PCP - General 06/13/17 04/09/23 documented as of this encounter
--- OUTSIDE RECORDS SUMMARY | 2025-06-28 09:42 | XMS_ITS | Clinical Summary ---
Author Organization [facility] Address [address] [place] [address] Care Team Providers Care Bookseamer Blindstitch Name Role Phone Marija Rubio MD Primary [...] age to complete this topic Care Teams Bookseamer Blindstitch Relationship Specialty Start Date End Date Marija Rubio MD [address] [place] [address] PCP - General 06/09/23
--- OUTSIDE RECORDS SUMMARY | 2025-06-28 09:42 | XMS_ITS | Clinical Summary ---
Author Organization [facility] Address [address] [place] [address] Phone Care Team Providers Care Cinder Snapper Name Role Phone Unknown, Unknown Primary Care [...] topic Medical Devices Not on file Insurance [facility] DIRECT [facility] [address] [facility] [place] [facility] DIRECT [facility] DIRECT [facility] DIRECT [facility] DIRECT Care Teams Cinder Snapper Relationship Specialty Start Date End Date Unknown, Unknown, PCP - General 09/30/20 Additional Source Comments The information contained in this document represents components of the legal health record. It is not the complete legal health record.[facility]
--- OUTSIDE RECORDS SUMMARY | 2025-06-28 09:42 | XMS_ITS | Encounter Summary ---
Author Organization [facility] Address [address] [place] [address] Phone Care Team Providers Care Fibre Composite Technician Name Role Phone Nati Winter NP Primary Care Provider Raven jackson Encounter Details Date Type Department Care Team (Late st Contact Info) Description 06/19/2017 Conversion Encounter [facility] - [address] [address] Social History Tobacco Use Types Packs/Day Years [...] on filedocumented in this encounter Care Teams Fibre Composite Technician Relationship Specialty Start Date End Date Nati Winter NP PCP - General 06/13/17 04/09/23 documented as of this encounter
--- OUTSIDE RECORDS SUMMARY | 2025-06-28 09:42 | XMS_ITS | Encounter Summary ---
Author Organization [facility] Address [address] [place] [address] Phone Care Team Providers Care Ship'S Electronic Warfare Officer Name Role Phone Nati Winter NP Primary Care Provider Raven jackson Encounter Details Date Type Department Care Team (Late st Contact Info) Description 02/10/2015 Documentation EM Family Medicine [address] [place], [place] [phone] Family Medicine, Physician [address] [place] [address] Social History Tobacco Use Types Packs/Day Years [...] on filedocumented in this encounter Care Teams Ship'S Electronic Warfare Officer Relationship Specialty Start Date End Date Nati Winter NP PCP - General 06/13/17 04/09/23 documented as of this encounter
--- OUTSIDE RECORDS SUMMARY | 2025-06-28 09:42 | XMS_ITS | Clinical Summary ---
Author Organization [employer] Address [address] [place] [address] [address] [place] [address] Care Team Providers Care Printer Floor Covering Assistant Name Role Phone Unavailable Primary Care Provider [...] Date Last Done Comments Depression Screening 1996 Disability Screening 1996 Alcohol/Substance Use Screening 2008 Tobacco Screening 2008 Family Planning (PISQ) 2011 HPV Vaccines (1 - 3-dose series) 2011 Pap Smear 2017 Hepatitis B Vaccines (2 of 3 - 19+ 3-dose series) 03/25/2019 02/25/2019 COVID-19 Vaccine ( - 2023-2 5 season) 2024 Influenza Vaccine (#1) 2025 8, 09/29/2017 DTaP/Tdap/Td Vaccines (2 - T [...] Years) and At-Risk Patients (6 to 49) Years Aged Out No longer eligible b ased on patient's age to complete this topic RSV under 20 months Aged Out No longe r eligible based on patient's age to complete this topic Rotavirus Vaccines Aged Out No longer eligible based on patient's age to complete this topic
--- OUTSIDE RECORDS SUMMARY | 2025-06-28 09:42 | XMS_ITS | Patient Health Record ---
Author Organization [facility] [facility] Address [address] [facility] [address] [place], [place] [id number] Support Name Relationship Address Phone Puja Ureña Emergency Contact Unknown Unava ilable Keerthi Ureña Guarantor Unknown [phone] Allergies No Known Allergies Reason For Referral [...] 1 days as directed disp in house [id number] exp. 12/2802/12/2024 Active predniSONE Active Hydroxychloroquine Sulfate [...] Insured Coverage Start Date Coverage End Date [facility] [address] [place] [phone] [id number] Keerthi Ureña Self - patient is the insured 2022 Medical (General) History Medical History History ICD Code Past hx of BV Depression/Anxiety lupus sepsis age 16 with acute renal and hepat ic failure Hospitalization History Reason Date(Month/Year) Years ago hospitalization for TSS
--- OUTSIDE RECORDS SUMMARY | 2025-06-28 09:42 | XMS_ITS | Encounter Summary ---
Author Organization [facility] Address [address] [place] [address] Phone Care Team Providers Care Assembler Radio And Electrical Name Role Phone Nati Winter NP Primary Care Provider Raven jackson Encounter Details Date Type Department Care Team (Late st Contact Info) Description 09/06/2013 Documentation EM Family Medicine [address] [place], [place] [phone] Family Medicine, Physician [address] [place] [address] Social History Tobacco Use Types Packs/Day Years [...] on filedocumented in this encounter Care Teams Assembler Radio And Electrical Relationship Specialty Start Date End Date Nati Winter NP PCP - General 06/13/17 04/09/23 documented as of this encounter
--- OUTSIDE RECORDS SUMMARY | 2025-06-28 09:42 | XMS_ITS | Encounter Summary ---
Author Organization [employer] Address [address] [place] [address] [address] [place] [address] Care Team Providers Care Phosphoric Acid Supervisor Name Role Phone Toshia KingP Primary Care Provider Keturah vailable Encounter Details Date Type Department Care Team (Latest Contact Info) Description 04/23/2019 Abstract [facility] CONVERSIONS Dental, Provider, DDS Social History [...] on filedocumented in this encounter Care Teams Phosphoric Acid Supervisor Relationship Specialty Start Date End Date Toshia King FNP PCP - General Family Medicine 08/24/21 04/17/23 documented as of this encounter
--- OUTSIDE RECORDS SUMMARY | 2025-06-28 09:42 | XMS_ITS | Encounter Summary ---
Author Organization [facility] Address [address] [place] [address] Phone Care Team Providers Care Turning Machine Operator Name Role Phone Nati Winter NP Primary Care Provider Raven jackson Encounter Details Date Type Department Care Team (Late st Contact Info) Description 06/17/2014 Documentation EM Family Medicine [address] [place], [place] [phone] Family Medicine, Physician [address] [place] [address] Social History Tobacco Use Types Packs/Day Years [...] on filedocumented in this encounter Care Teams Turning Machine Operator Relationship Specialty Start Date End Date Nati Winter NP PCP - General 06/13/17 04/09/23 documented as of this encounter
--- OUTSIDE RECORDS SUMMARY | 2025-06-28 09:42 | XMS_ITS | Encounter Summary ---
Author Organization [facility] Address [address] [place] [address] Phone Care Team Providers Care Superintendent Renting Managing Name Role Phone Nati Winter NP Primary Care Provider Raven jackson Encounter Details Date Type Department Care Team (Late st Contact Info) Description 07/31/2012 Documentation EM Family Medicine [address] [place], [place] [phone] Family Medicine, Physician [address] [place] [address] Social History Tobacco Use Types Packs/Day Years [...] on filedocumented in this encounter Care Teams Superintendent Renting Managing Relationship Specialty Start Date End Date Nati Winter NP PCP - General 06/13/17 04/09/23 documented as of this encounter
--- OUTSIDE RECORDS SUMMARY | 2025-06-28 09:42 | XMS_ITS | Clinical Summary ---
Author Organization [facility] Address [address] [place] [address] Phone Care Team Providers Care Manager Assessment Name Role Phone Unavailable Primary Care Provider [...] history of Deafness, Family history of *Sudden /[place] under 55, Family history of Migraines, Family [...] 82 03/05/2016 12:00 AM EDT Temperature 36.6 C (97.9 F) 07/12/2013 12:00 AM EDT Respiratory Rate - - Oxygen Saturation - [...] 09/01/2018 09/01/2008, 11/02/2001, 05/02/1998, Additional history exists COVID-19 Vaccine ( season) 2024 Influenza Vaccines (#1) 2025 11/23/19 15, 08/03/2013, 11/16/2012, Additional history exists Hepatitis B Vaccines Completed 04/04/1997, 1996, 1996 [...]
--- OUTSIDE RECORDS SUMMARY | 2025-06-28 09:42 | XMS_ITS | Encounter Summary ---
Author Organization [facility] Address [address] [place] [address] Phone Care Team Providers Care Supervisor Carbon Electrodes Name Role Phone Nati Winter NP Primary Care Provider Raven jackson Encounter Details Date Type Department Care Team (Late st Contact Info) Description 12/21/2014 Documentation EM Family Medicine [address] [place], [place] [phone] Family Medicine, Physician [address] [place] [address] Social History Tobacco Use Types Packs/Day Years [...] on filedocumented in this encounter Care Teams Supervisor Carbon Electrodes Relationship Specialty Start Date End Date Nati Winter NP PCP - General 06/13/17 04/09/23 documented as of this encounter
--- OUTSIDE RECORDS SUMMARY | 2025-06-28 09:42 | XMS_ITS | Encounter Summary ---
Author Organization [facility] Address [address] [place] [address] Phone Care Team Providers Care Retention Representative Name Role Phone Nati Winter NP Primary Care Provider Raven jackson Encounter Details Date Type Department Care Team (Late st Contact Info) Description 07/09/2012 Documentation EM Family Medicine [address] [place], [place] [phone] Family Medicine, Physician [address] [place] [address] Social History Tobacco Use Types Packs/Day Years [...] on filedocumented in this encounter Care Teams Retention Representative Relationship Specialty Start Date End Date Nati Winter NP PCP - General 06/13/17 04/09/23 documented as of this encounter
--- OUTSIDE RECORDS SUMMARY | 2025-06-28 09:43 | XMS_ITS | Encounter Summary ---
Author Organization [facility] Address [address] [place] [address] Phone Care Team Providers Care Taffy Puller Name Role Phone Nati Winter NP Primary Care Provider Raven jackson Encounter Details Date Type Department Care Team (Late st Contact Info) Description 07/09/2012 Documentation EM Family Medicine [address] [place], [place] [phone] Family Medicine, Physician [address] [place] [address] Social History Tobacco Use Types Packs/Day Years [...] on filedocumented in this encounter Care Teams Taffy Puller Relationship Specialty Start Date End Date Nati Winter NP PCP - General 06/13/17 04/09/23 documented as of this encounter
--- OUTSIDE RECORDS SUMMARY | 2025-06-28 09:43 | XMS_ITS | Encounter Summary ---
Author Organization [facility] Address [address] [place] [address] Phone Care Team Providers Care Plastering Contractor Name Role Phone Nati Winter NP Primary Care Provider Raven jackson Encounter Details Date Type Department Care Team (Late st Contact Info) Description 07/09/2012 Documentation EM Family Medicine [address] [place], [place] [phone] Family Medicine, Physician [address] [place] [address] Social History Tobacco Use Types Packs/Day Years [...] on filedocumented in this encounter Care Teams Plastering Contractor Relationship Specialty Start Date End Date Nati Winter NP PCP - General 06/13/17 04/09/23 documented as of this encounter
--- OUTSIDE RECORDS SUMMARY | 2025-06-28 09:43 | XMS_ITS | Encounter Summary ---
Author Organization [facility] Address [address] [place] [address] Phone Care Team Providers Care Graduate Civil Engineer Name Role Phone Nati Winter NP Primary Care Provider Raven jackson Encounter Details Date Type Department Care Team (Late st Contact Info) Description 07/09/2012 Documentation EM Family Medicine [address] [place], [place] [phone] Family Medicine, Physician [address] [place] [address] Social History Tobacco Use Types Packs/Day Years [...] on filedocumented in this encounter Care Teams Graduate Civil Engineer Relationship Specialty Start Date End Date Nati Winter NP PCP - General 06/13/17 04/09/23 documented as of this encounter
== END 2025-06-28 10:14 | disposition home or self-care (01) ==
LOC: HO.HGI 09:17
PROVIDERS: PCP Internal Medicine; Visit Provider Nurse Practitioner Family
DX: E55.9 Vitamin D deficiency, unspecified (principal); K62.5 Hemorrhage of anus and rectum; R10.84 Generalized abdominal pain; K21.9 Gastro-esophageal reflux disease without esophagitis; R10.13 Epigastric pain
CPT/HCPCS: 99214

== ENCOUNTER → 2025-06-28 09:16 | Outpatient (BNVA) | payer OTHER, SELFPAY | PROVIDERS: PCP Internal Medicine; Visit Provider Nurse Practitioner Family | DX: K62.5 Hemorrhage of anus and rectum (principal); E55.9 Vitamin D deficiency, unspecified; R10.84 Generalized abdominal pain; K21.9 Gastro-esophageal reflux disease without esophagitis; R10.13 Epigastric pain | CPT/HCPCS: 99212 ==

== ENCOUNTER 2025-07-07 10:08 | Outpatient (REF) | payer OTHER, SELFPAY ==
--- NOTE | ~2025-07-07 | FL_ITS ---
EXAMINATION: XR UPPER GI SERIES WITH BARIUM SWALLOW CLINICAL INFORMATION: Gastroesophageal reflux disease with midsternal chest pain COMPARISON: None available. TECHNIQUE: Routine upper GI contrast study in upright and lying position was performed. Saltine crackers with barium paste was a standard in upright view. FINDINGS: Following oral administration of saltine crackers with barium paste there is normal oral mastication and propagation bolus from the oral cavity through the pharynx, esophagus into stomach without any obstruction, narrowing or stricture. On oral administration of thick barium and effervescent granules in upright view there is normal propagation bolus from the oral cavity through the pharynx, esophagus into stomach without any evidence of obstruction, narrowing or stricture. On placing patient supine and prone lying there is single episode of gastroesophageal reflux without hiatal hernia. The course, caliber and peristalsis of the stomach, duodenal bulb and the sweep is normal. The mucosal pattern of the esophagus, stomach and the duodenum is normal. FLUOROSCOPY TIME: 2 minutes 21 seconds. DOSE AREA PRODUCT: 1685 uGy-m2 (microgray-meter squared) FL/FL upper GI w air w Ba Swallow IMPRESSION: Mild gastroesophageal reflux without hiatal hernia. Electronically signed by: Cj Orozco MD 07/07/2025 12:15 PM EDT
--- OUTSIDE RECORDS SUMMARY | 2025-07-07 11:19 | XMS_ITS | Encounter Summary ---
Author Organization [employer] Address [address] [place] [address] [address] [place] [address] Care Team Providers Care Podiatric Assistant Name Role Phone Toshia KingP Primary Care Provider Keturah vailable Encounter Details Date Type Department Care Team (Latest Contact Info) Description 04/23/2019 Abstract [facility] CONVERSIONS Dental, Provider, DDS Social [...] on filedocumented in this encounter Care Teams Podiatric Assistant Relationship Specialty Start Date End Date Toshia King FNP PCP - General Family Medicine 08/24/21 04/17/23 documented as of this encounter
--- OUTSIDE RECORDS SUMMARY | 2025-07-07 11:19 | XMS_ITS | Clinical Summary ---
Author Organization [facility] Address [address] [place] [address] Care Team Providers Care Screw Machine Operator Name Role Phone Marija Rubio MD [...] COVID-19 Vaccine ( - 2023-2 5 season) 2025 Influenza (#1) 2025 Zoster (Shingrix) (1 of [...] age to complete this topic Care Teams Screw Machine Operator Relationship Specialty Start Date End Date Marija Rubio MD [address] [place] [address] PCP - General 06/09/23
--- OUTSIDE RECORDS SUMMARY | 2025-07-07 11:19 | XMS_ITS | Encounter Summary ---
Author Organization [facility] Address [address] [place] [address] Phone Care Team Providers Care Assembly Riveter Name Role Phone Nati Winter NP Primary Care Provider Raven jackson Encounter Details Date Type Department Care Team (Late st Contact Info) Description 07/09/2012 Documentation EM Family Medicine [address] [place], [place] [phone] Family Medicine, Physician [address] [place] [address] Social History Tobacco Use Types Packs/Day Years [...] on filedocumented in this encounter Care Teams Assembly Riveter Relationship Specialty Start Date End Date Nati Winter NP PCP - General 06/13/17 04/09/23 documented as of this encounter
--- OUTSIDE RECORDS SUMMARY | 2025-07-07 11:19 | XMS_ITS | Encounter Summary ---
Author Organization [facility] Address [address] [place] [address] Phone Care Team Providers Care Associate Professor Of Surgery Name Role Phone Nati Winter NP Primary Care Provider Raven jackson Encounter Details Date Type Department Care Team (Late st Contact Info) Description 07/09/2012 Documentation EM Family Medicine [address] [place], [place] [phone] Family Medicine, Physician [address] [place] [address] Social History Tobacco Use Types Packs/Day Years [...] on filedocumented in this encounter Care Teams Associate Professor Of Surgery Relationship Specialty Start Date End Date Nati Winter NP PCP - General 06/13/17 04/09/23 documented as of this encounter
--- OUTSIDE RECORDS SUMMARY | 2025-07-07 11:19 | XMS_ITS | Encounter Summary ---
Author Organization [facility] Address [address] [place] [address] Phone Care Team Providers Care Cash Reconciliation Specialist Name Role Phone Nati Winter NP Primary Care Provider Raven jackson Encounter Details Date Type Department Care Team (Late st Contact Info) Description 06/17/2014 Documentation EM Family Medicine [address] [place], [place] [phone] Family Medicine, Physician [address] [place] [address] Social History Tobacco Use Types Packs/Day Years [...] on filedocumented in this encounter Care Teams Cash Reconciliation Specialist Relationship Specialty Start Date End Date Nati Winter NP PCP - General 06/13/17 04/09/23 documented as of this encounter
--- OUTSIDE RECORDS SUMMARY | 2025-07-07 11:19 | XMS_ITS | Encounter Summary ---
Author Organization [facility] Address [address] [place] [address] Phone Care Team Providers Care Communications Field Technician Name Role Phone Nati Winter NP Primary Care Provider Raven jackson Encounter Details Date Type Department Care Team (Late st Contact Info) Description 07/09/2012 Documentation EM Family Medicine [address] [place], [place] [phone] Family Medicine, Physician [address] [place] [address] Social History Tobacco Use Types Packs/Day Years [...] on filedocumented in this encounter Care Teams Communications Field Technician Relationship Specialty Start Date End Date Nati Winter NP PCP - General 06/13/17 04/09/23 documented as of this encounter
--- OUTSIDE RECORDS SUMMARY | 2025-07-07 11:19 | XMS_ITS | Patient Health Record ---
Author Organization [facility] Address [address] [facility] [address] [place], [place] [id number] Support Name Relationship Address Phone Puja Ureña Emergency Contact Unknown Unava ilable Keerthi Ureña Guarantor Unknown [phone] Allergies No Known Allergies Reason For Referral No Information Medications Medication SIG (Take, Route, Frequency, Duration) Notes Start Date End Date Status Ondansetron 4 MG Tablet Disintegrating 1 tablet on the tongue and allow to dissolve Orally Every 8 hours PRN; Duration: 30 days 02/12/2024 Active Acetaminophen 500 MG Capsule 2 tablets Orally every 8 hrs PRN 02/12/2024 Active miSOPROStol 200 MCG Tablet 4 tablets Buccally every 3 hours for 3-4 doses; Duration: 1 days as directed disp in house [id number] exp. 12/2802/12/2024 Active predniSONE Active Hydroxychloroquine Sulfate Active metroNIDAZOLE 0.75 % Gel 1 applicatorful at bedtime Vaginal Nightly; Duration: 5 days 05/27/2023 Not-Taking/ PRN Ibuprofen 800 MG Tablet 1 tablet with food or milk as needed Orally every 6-8 hrs; Duration: 3 days As needed for pain and cramping with food, max 3 tablets every 24 hours 02/12/2024 Active Social History Sex Assigned At : Social History Observation Description Sex Assigned At Female Social History HIV Risk Assessment Social Info Question Answer Notes Additional Questions Is an HIV Risk Asse ssment being conducted? Yes Reproductive Life Plan: Social Info Question Answer Notes Reproductive Life Plan: Do you want to h ave children? No Human Trafficking: Social Info Question Answer Notes Human Trafficking Experienced: No PrEP for HIV: Social Info Question Answer Notes PrEP for HIV Is the client clay maxwell in beginning/continuing PrEP for HIV? No Sexual History: Social Info Question Answer Notes Sexual History: Sexual History Reviewed: Partner s, Practices, Protection/Past STIs, Prevention of , ___ Currently sexually active? Yes Sexually active with: Men Number of male partners 1 male partner x 3 months Your sexual activities include: oral intercourse, vaginal intercourse Do you use condoms? Yes Condoms are used: always Date of last unprotected intercourse: 05/01/2023 Number of partners in past year: 2 Counseling Provided: Social Info Question Answer Notes Counseling Provided The client was couns eled on the following topics at this visit: STIs, Control, Condom Use Please indicate the length o f time, in minutes, that counseling was provided. 10 Counseling Was Provided By: mohit Drugs/Alcohol: Social Info Question Answer Notes Drug/Alcohol Use Do you or have you used drugs? No Do you or have you used alcohol? Yes, currently Food Access: Social Info Question Answer Notes Food Access The Client's current access to food is Secure Food Access Relationships: Social Info Question Answer Notes Relationships Has the client exper ienced any of the following: Client has never experienced harmful relationships Housing Social Info Question Answer Notes Housing The client's current living situation is: stable housing Medication Social Info Question Answer Notes Medication Patent provided verb al consent for MAB today. Yes Patient would like to [employer] STI testing today. No Patient would like to [employer] contraception today. Yes, at follow up appt Would be open to [employer] Some people experience press ure around or control from others in their life. Is anyone pressuring you around your decisions about your ? No Are you experiencing pressur e around sex you are having? No Is anyone trying to interfer e with your use of contraception? No MAB patient plan Reviewed caregiving obligations, Reviewed work obligations, Reviewed support person plan, Reviewed safety/privacy plan (describe in notes), Offered medical note, Reviewed patient self care (describe in notes) Tobacco Use: Social Info Question Answer Notes Tobacco Use: Do you/have you used tobacco? No Plan Of Treatment No Information Insurance Providers Payer Name Payer Address Payer Phone Subscriber Number Group Number Insured Name Patient Relationship to Insured Coverage Start Date Coverage End Date [facility] [address] [place] [phone] [id number] Asuncion Ureñai Self - patient is the insured 2022 Medical (General) History Medical History History ICD Code Past hx of BV Depression/Anxiety lupus sepsis age 16 with acute renal and hepat ic failure Hospitalization History Reason Date(Month/Year) Years ago hospitalization for TSS
--- OUTSIDE RECORDS SUMMARY | 2025-07-07 11:19 | XMS_ITS | Clinical Summary ---
Author Organization [facility] Address [address] [place] [address] Phone Care Team Providers Care Coding Compliance Auditor Name Role Phone Unavailable Primary Care [...] history of Deafness, Family history of *Sudden /[place] under 55, Family history of Migraines, Family [...] 05/02/1998, Additional history exists Influenza Vaccines (#1) 2025 11/23/19 15, 08/03/2013, 11/16/2012, Additional history exists COVID-19 Vaccine ( season) 2025 Hepatitis B Vaccines Completed 04/04/1997, 1996, 1996 [...]
--- OUTSIDE RECORDS SUMMARY | 2025-07-07 11:19 | XMS_ITS | Encounter Summary ---
Author Organization [facility] Address [address] [place] [address] Phone Care Team Providers Care Income Tax Advisor Name Role Phone Nati Winter NP Primary Care Provider Raven jackson Encounter Details Date Type Department Care Team (Late st Contact Info) Description 06/19/2017 Conversion Encounter [facility] - [address] [address] Social History Tobacco Use Types Packs/Day Years [...] on filedocumented in this encounter Care Teams Income Tax Advisor Relationship Specialty Start Date End Date Nati Winter NP PCP - General 06/13/17 04/09/23 documented as of this encounter
--- OUTSIDE RECORDS SUMMARY | 2025-07-07 11:19 | XMS_ITS | Encounter Summary ---
Author Organization [facility] Address [address] [place] [address] Phone Care Team Providers Care E Learning Manager Name Role Phone Nati Winter NP Primary Care Provider Raven jackson Encounter Details Date Type Department Care Team (Late st Contact Info) Description 07/31/2012 Documentation EM Family Medicine [address] [place], [place] [phone] Family Medicine, Physician [address] [place] [address] Social History Tobacco Use Types Packs/Day Years [...] on filedocumented in this encounter Care Teams E Learning Manager Relationship Specialty Start Date End Date Nati Winter NP PCP - General 06/13/17 04/09/23 documented as of this encounter
--- OUTSIDE RECORDS SUMMARY | 2025-07-07 11:19 | XMS_ITS | Clinical Summary ---
Author Organization [facility] Address [address] [place] [address] Phone Care Team Providers Care Hands And Dial Inspector Name Role Phone Unknown, Unknown Primary Care [...] topic Medical Devices Not on file Insurance [facility] DIRECT [facility] DIRECT [facility] DIRECT [facility] DIRECT [facility] DIRECT [facility] DIRECT [facility] DIRECT Care Teams Hands And Dial Inspector Relationship Specialty Start Date End Date Unknown, Unknown, PCP - General 09/30/20 Additional Source Comments The information contained in this document represents components of the legal health record. It is not the complete legal health record.[facility]
--- OUTSIDE RECORDS SUMMARY | 2025-07-07 11:19 | XMS_ITS | Encounter Summary ---
Author Organization [facility] Address [address] [place] [address] Phone Care Team Providers Care Doormaker Name Role Phone Nati Winter NP Primary Care Provider Raven jackson Encounter Details Date Type Department Care Team (Late st Contact Info) Description 01/27/2015 Documentation EM Family Medicine [address] [place], [place] [phone] Family Medicine, Physician [address] [place] [address] Social History Tobacco Use Types Packs/Day Years [...] on filedocumented in this encounter Care Teams Doormaker Relationship Specialty Start Date End Date Nati Winter NP PCP - General 06/13/17 04/09/23 documented as of this encounter
--- OUTSIDE RECORDS SUMMARY | 2025-07-07 11:19 | XMS_ITS | Clinical Summary ---
Author Organization [employer] Address [address] [place] [address] [address] [place] [address] Care Team Providers Care Curer Foam Rubber Name Role Phone Unavailable Primary Care Provider [...]
--- OUTSIDE RECORDS SUMMARY | 2025-07-07 11:19 | XMS_ITS | Encounter Summary ---
Author Organization [facility] Address [address] [place] [address] Phone Care Team Providers Care Marketing Strategist Name Role Phone Nati Winter NP Primary Care Provider Raven jackson Encounter Details Date Type Department Care Team (Late st Contact Info) Description 07/09/2012 Documentation EM Family Medicine [address] [place], [place] [phone] Family Medicine, Physician [address] [place] [address] Social History Tobacco Use Types Packs/Day Years [...] on filedocumented in this encounter Care Teams Marketing Strategist Relationship Specialty Start Date End Date Nati Winter NP PCP - General 06/13/17 04/09/23 documented as of this encounter
--- OUTSIDE RECORDS SUMMARY | 2025-07-07 11:19 | XMS_ITS | Encounter Summary ---
Author Organization [facility] Address [address] [place] [address] Phone Care Team Providers Care Electrical Line Worker Name Role Phone Nati Winter NP Primary Care Provider Raven jackson Encounter Details Date Type Department Care Team (Late st Contact Info) Description 09/06/2013 Documentation EM Family Medicine [address] [place], [place] [phone] Family Medicine, Physician [address] [place] [address] Social History Tobacco Use Types Packs/Day Years [...] on filedocumented in this encounter Care Teams Electrical Line Worker Relationship Specialty Start Date End Date Nati Winter NP PCP - General 06/13/17 04/09/23 documented as of this encounter
--- OUTSIDE RECORDS SUMMARY | 2025-07-07 11:19 | XMS_ITS | Encounter Summary ---
Author Organization [facility] Address [address] [place] [address] Phone Care Team Providers Care Sweet Potato Disintegrator Name Role Phone Nati Winter NP Primary Care Provider Raven jackson Encounter Details Date Type Department Care Team (Late st Contact Info) Description 02/10/2015 Documentation EM Family Medicine [address] [place], [place] [phone] Family Medicine, Physician [address] [place] [address] Social History Tobacco Use Types Packs/Day Years [...] on filedocumented in this encounter Care Teams Sweet Potato Disintegrator Relationship Specialty Start Date End Date Nati Winter NP PCP - General 06/13/17 04/09/23 documented as of this encounter
--- OUTSIDE RECORDS SUMMARY | 2025-07-07 11:19 | XMS_ITS | Encounter Summary ---
Author Organization [facility] Address [address] [place] [address] Phone Care Team Providers Care Bulk Coolers Installer Name Role Phone Nati Winter NP Primary Care Provider Raven jackson Encounter Details Date Type Department Care Team (Late st Contact Info) Description 12/21/2014 Documentation EM Family Medicine [address] [place], [place] [phone] Family Medicine, Physician [address] [place] [address] Social History Tobacco Use Types Packs/Day Years [...] on filedocumented in this encounter Care Teams Bulk Coolers Installer Relationship Specialty Start Date End Date Nati Winter NP PCP - General 06/13/17 04/09/23 documented as of this encounter
== END 2025-07-07 10:09 | disposition home or self-care (01) ==
LOC: HO.XRAY 10:08
PROVIDERS: PCP Internal Medicine; Visit Provider Nurse Practitioner Family
DX: K21.9 Gastro-esophageal reflux disease without esophagitis (principal)
CPT/HCPCS: 74246

== ENCOUNTER → 2025-07-07 10:09 | Outpatient (BNV) | payer OTHER, SELFPAY | PROVIDERS: PCP Internal Medicine; Visit Provider Radiology Diagnostic Radiology | DX: K21.9 Gastro-esophageal reflux disease without esophagitis (principal); R07.9 Chest pain, unspecified | CPT/HCPCS: 74246 ==

== ENCOUNTER 2025-07-18 16:41 | Outpatient (AMB) | payer OTHER, SELFPAY ==
--- NOTE | 2025-07-18 15:54 | A.OFFPSYCH_ITS ---
Intake Intake Visit Reasons: consultation Stonemason Apprentice Required: No Allergies No Known Allergies (No Known Allergies*) Allergy (Verified 06/28/25 09:18) Medication List - Last Reconciled 07/18/25 by Gisell Cespedes APRN belimumab (Benlysta) 400 mg IV Q4W bisacodyl (Dulcolax (bisacodyl)) 20 mg (4 x 5 mg) PO ONCE 1 day cholecalciferol (vitamin D3) 1,250 mcg PO QWEEK 90 days hydroxychloroquine orally; Take 400 mg daily X 5 days a week and 200 mg daily X 2 days a week omeprazole 20 mg PO DAILY polyethylene glycol 3350 (Miralax) 238 grams PO ONCE prednisone 2.5 mg PO DAILY sennosides (Natural Senna Laxative) 17.2 mg (2 x 8.6 mg) PO BEDTIME HPI- Psychiatric Chief Complaint: consultation HPI Narrative: Pt referred by PCP for evaluation re brain fog. Pt presents to office with tearfulness. Presnet very sad. PHQ(=23 with low energy, low enjoyments, hopeless at times, passive SI with ni plan and no intent. she repirts very anxious and nevous, worries frequnetly. Has nightmares, wakes crying, has hypervigilance and intrusive memories of past trauma from childhood. She reports a very chaotic childhood. She avoids reminders of past trauma, she avoids social interaction. Her GAD7=18. She has sjogrens dx age 16 and lupus from early adulthood. Past Psychiatric History: outpt therapy in past ; NO IPLOC, no hx of meds hx of suicide attempts age [age] by cutting -no interventions Mental Status Exam Mental Status Exam Patient Appearance: Well Grooomed and Appropriate Patient Orientation: Person, Place, Time and Situation Level of Consciousness: Awake and Alert Patient Behavior: Appropriate, Cooperative, Anxious and Crying Mood Description: Depressed, Anxious and Sad Affect Description: Depressed, Anxious and Sad Patient Cognition Impaired: No Ability to Follow Directions: Good Speech Pattern: Clear and Soft-Spoken Memory Description: Intact Hallucinations: None Delusions: Not Present Thought Process: Intact and Rumination Thought Content: positive for Intact and positive for Suicidal Ideation (passive, no plan or intent) Judgement: Good Assessment and Plan Assessment & Plan (1) PTSD (post-traumatic stress disorder): Status: Acute Code(s): F43.10 - Post-traumatic stress disorder, unspecified (2) Major depressive disorder, recurrent, moderate: Status: Acute Code(s): F33.1 - Major depressive disorder, recurrent, moderate Plan discussed options for treatment and agree with trial of prozac 20mg daily rule out ADHD Medications: New fluoxetine (Prozac) 20 mg PO DAILY 30 caps 0RF fluoxetine (Prozac) 20 mg PO DAILY 30 caps 1RF Counseling and coordination of Care Pt. Self Management counseling: Mod caffeine/ETOH intake, Nutrition education and improvement and General coping skills Medication management counseling: Effectiveness, Side effects, Dosing range, Duration and Drug interaction Diagnosis and Prognosis Counseling: Accuracy of diagnosis, Prognosis over time, Impact of diagnosis on life functions, Impact of family relationship, Problematic behaviors secondary to diagnosis and Adequacy of current interventions Details: I spent 75 minutes reviewing the record, seeing the patient and documenting in the medical record. Counseling provided to the patient/caregiver as outlined below. Addressed patient/caregiver concerns regarding current medication regime including effective adherence. Addressed patient/caregiver concerns regarding diagnosis and prognosis including accuracy of diagnosis, prognosis over time, impact of diagnosis. Addressed patient/caregiver concerns regarding impact of recent stre ssors. [facility] Medical History (Updated 07/18/25 @ 17:21 by Gisell Cespedes APRN) GERD (gastroesophageal reflux disease) Joint pain Kidney stones Surgical History History of lithotripsy No pertinent past surgical history Family History Mother HTN (hypertension) Osteoarthritis Father Rosana Gehrig's disease Maternal Grandfather Rheumatoid arthritis Other Mental health disorder Social History Household Members: Family Housing: House Alcohol intake: current Alcohol intake frequency: a few times a month Patient Tobacco Use Status: Never used Tobacco Tobacco use type: Cigarette e-Cigarette/Vaping Use: Never Used Second Hand Smoke Exposure: No service: No Current occupational status: employed 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
--- OUTSIDE RECORDS SUMMARY | 2025-07-18 21:34 | XMS_ITS | Encounter Summary ---
Author Organization [facility] Address [address] [place] [address] Phone Care Team Providers Care Auto Brake Technician Name Role Phone Nati Winter NP Primary Care Provider Raven jackson Encounter Details Date Type Department Care Team (Late st Contact Info) Description 07/09/2012 Documentation EM Family Medicine [address] [place], [place] [phone] Family Medicine, Physician [address] [place] [address] Social History Tobacco Use Types Packs/Day Years [...] on filedocumented in this encounter Care Teams Auto Brake Technician Relationship Specialty Start Date End Date Nati Winter NP PCP - General 06/13/17 04/09/23 documented as of this encounter
--- OUTSIDE RECORDS SUMMARY | 2025-07-18 21:34 | XMS_ITS | Encounter Summary ---
Author Organization [facility] Address [address] [place] [address] Phone Care Team Providers Care Oracle Identity Management Consultant Name Role Phone Nati Winter NP Primary Care Provider Raven jackson Encounter Details Date Type Department Care Team (Late st Contact Info) Description 06/19/2017 Conversion Encounter [facility] - [address] [address] Social History Tobacco Use Types Packs/Day Years [...] on filedocumented in this encounter Care Teams Oracle Identity Management Consultant Relationship Specialty Start Date End Date Nati Winter NP PCP - General 06/13/17 04/09/23 documented as of this encounter
--- OUTSIDE RECORDS SUMMARY | 2025-07-18 21:34 | XMS_ITS | Encounter Summary ---
Author Organization [facility] Address [address] [place] [address] Phone Care Team Providers Care Geomatics Professor Name Role Phone Nati Winter NP Primary Care Provider Raven jackson Encounter Details Date Type Department Care Team (Late st Contact Info) Description 06/17/2014 Documentation EM Family Medicine [address] [place], [place] [phone] Family Medicine, Physician [address] [place] [address] Social History Tobacco Use Types Packs/Day Years [...] on filedocumented in this encounter Care Teams Geomatics Professor Relationship Specialty Start Date End Date Nati Winter NP PCP - General 06/13/17 04/09/23 documented as of this encounter
--- OUTSIDE RECORDS SUMMARY | 2025-07-18 21:34 | XMS_ITS | Encounter Summary ---
Author Organization [facility] Address [address] [place] [address] Phone Care Team Providers Care Brim And Crown Presser Name Role Phone Nati Winter NP Primary Care Provider Raven jackson Encounter Details Date Type Department Care Team (Late st Contact Info) Description 07/31/2012 Documentation EM Family Medicine [address] [place], [place] [phone] Family Medicine, Physician [address] [place] [address] Social History Tobacco Use Types Packs/Day Years [...] filedocumented in this encounter Care Teams Brim And Crown Presser Relationship Specialty Start Date End Date Nati Winter NP PCP - General 06/13/17 04/09/23 documented as of this encounter
--- OUTSIDE RECORDS SUMMARY | 2025-07-18 21:34 | XMS_ITS | Encounter Summary ---
Author Organization [facility] Address [address] [place] [address] Phone Care Team Providers Care Pineapple Plantation Manager Name Role Phone Nati Winter NP Primary Care Provider Raven jackson Encounter Details Date Type Department Care Team (Late st Contact Info) Description 02/10/2015 Documentation EM Family Medicine [address] [place], [place] [phone] Family Medicine, Physician [address] [place] [address] Social History Tobacco Use Types Packs/Day Years [...] on filedocumented in this encounter Care Teams Pineapple Plantation Manager Relationship Specialty Start Date End Date Nati Winter NP PCP - General 06/13/17 04/09/23 documented as of this encounter
--- OUTSIDE RECORDS SUMMARY | 2025-07-18 21:34 | XMS_ITS | Encounter Summary ---
Author Organization [facility] Address [address] [place] [address] Phone Care Team Providers Care Boat Joiner Helper Name Role Phone Nati Winter NP Primary Care Provider Raven jackson Encounter Details Date Type Department Care Team (Late st Contact Info) Description 01/27/2015 Documentation EM Family Medicine [address] [place], [place] [phone] Family Medicine, Physician [address] [place] [address] Social History Tobacco Use Types Packs/Day Years [...] on filedocumented in this encounter Care Teams Boat Joiner Helper Relationship Specialty Start Date End Date Nati Winter NP PCP - General 06/13/17 04/09/23 documented as of this encounter
--- OUTSIDE RECORDS SUMMARY | 2025-07-18 21:34 | XMS_ITS | Encounter Summary ---
Author Organization [facility] Address [address] [place] [address] Phone Care Team Providers Care Delicatessen Clerk Name Role Phone Nati Winter NP Primary Care Provider Raven jackson Encounter Details Date Type Department Care Team (Late st Contact Info) Description 07/09/2012 Documentation EM Family Medicine [address] [place], [place] [phone] Family Medicine, Physician [address] [place] [address] Social History Tobacco Use Types Packs/Day Years [...] on filedocumented in this encounter Care Teams Delicatessen Clerk Relationship Specialty Start Date End Date Nati Winter NP PCP - General 06/13/17 04/09/23 documented as of this encounter
--- OUTSIDE RECORDS SUMMARY | 2025-07-18 21:34 | XMS_ITS | Clinical Summary ---
Author Organization [facility] Address [address] [place] [address] Care Team Providers Care Leather Carver Name Role Phone Marija Rubio MD Primary [...] age to complete this topic Care Teams Leather Carver Relationship Specialty Start Date End Date Marija Rubio MD [address] [place] [address] PCP - General 06/09/23
--- OUTSIDE RECORDS SUMMARY | 2025-07-18 21:34 | XMS_ITS | Encounter Summary ---
Author Organization [facility] Address [address] [place] [address] Phone Care Team Providers Care Human Resource Consultant Name Role Phone Nati Winter NP Primary Care Provider Raven jackson Encounter Details Date Type Department Care Team (Late st Contact Info) Description 07/09/2012 Documentation EM Family Medicine [address] [place], [place] [phone] Family Medicine, Physician [address] [place] [address] Social History Tobacco Use Types Packs/Day Years [...] filedocumented in this encounter Care Teams Human Resource Consultant Relationship Specialty Start Date End Date Nati Winter NP PCP - General 06/13/17 04/09/23 documented as of this encounter
--- OUTSIDE RECORDS SUMMARY | 2025-07-18 21:34 | XMS_ITS | Encounter Summary ---
Author Organization [facility] Address [address] [place] [address] Phone Care Team Providers Care Demolition Worker Name Role Phone Nati Winter NP Primary Care Provider Raven jackson Encounter Details Date Type Department Care Team (Late st Contact Info) Description 07/09/2012 Documentation EM Family Medicine [address] [place], [place] [phone] Family Medicine, Physician [address] [place] [address] Social History Tobacco Use Types Packs/Day Years [...] on filedocumented in this encounter Care Teams Demolition Worker Relationship Specialty Start Date End Date Nati Winter NP PCP - General 06/13/17 04/09/23 documented as of this encounter
--- OUTSIDE RECORDS SUMMARY | 2025-07-18 21:34 | XMS_ITS | Clinical Summary ---
Author Organization [employer] Address [address] [place] [address] [address] [place] [address] Care Team Providers Care Parts Interpreter Name Role Phone Unavailable Primary Care Provider [...] ( - 2023-2 5 season) 2025 Influenza Vaccine (#1) 2025 8, 09/29/2017 DTaP/Tdap/Td [...]
--- OUTSIDE RECORDS SUMMARY | 2025-07-18 21:34 | XMS_ITS | Clinical Summary ---
Author Organization [facility] Address [address] [place] [address] Phone Care Team Providers Care Patient Centered Care Specialist Name Role Phone Unknown, Unknown Primary Care [...] STATUS SCREENING (Once After 26 Yrs) 2022 INFLUENZA VACCINE (#1) 2025 8, 09/29/2017, 11/23/2014, Additional history exists COVID-19 VACCINE ( season) 2025 Adult Td,Tdap Booster 02/25/2029 02/25/2019, 008 HIB [...] topic Medical Devices Not on file [place] [facility] [id number] [facility] [place] [address] [place] [address] [facility] DIRECT [facility] DIRECT [facility] DIRECT Care Teams Patient Centered Care Specialist Relationship Specialty Start Date End Date Unknown, Unknown, PCP - General 09/30/20 Additional Source Comments The information contained in this document represents components of the legal health record. It is not the complete legal health record.[facility]
--- OUTSIDE RECORDS SUMMARY | 2025-07-18 21:34 | XMS_ITS | Patient Health Record ---
Author Organization [facility] Address [address] [facility] [address] [place], [place] [id number] Support Name Relationship Address Phone Puja Ureña Emergency Contact Unknown Unava ilable Keerthi Ureña Guarantor Unknown [phone] Allergies No Known Allergies Reason For Referral [...] 1 days as directed disp in house [id number] exp. 12/2802/12/2024 Active predniSONE Active Hydroxychloroquine Sulfate [...] MAB today. Yes Patient would like to Likelii STI testing today. No Patient would like to Likelii contraception today. Yes, at follow up appt Would be open to [employer] Some people experience press ure around or [...] Insured Coverage Start Date Coverage End Date [facility] [address] [place] [phone] [id number] Asuncion Ureñai Self - patient is the insured 2022 Medical (General) History Medical History History ICD Code Past hx of BV Depression/Anxiety lupus sepsis age 16 with acute renal and hepat ic failure Hospitalization History Reason Date(Month/Year) Years ago hospitalization for TSS
--- OUTSIDE RECORDS SUMMARY | 2025-07-18 21:34 | XMS_ITS | Encounter Summary ---
Author Organization [facility] Address [address] [place] [address] Phone Care Team Providers Care Slasher Tender Helper Name Role Phone Nati Winter NP Primary Care Provider Raven jackson Encounter Details Date Type Department Care Team (Late st Contact Info) Description 09/06/2013 Documentation EM Family Medicine [address] [place], [place] [phone] Family Medicine, Physician [address] [place] [address] Social History Tobacco Use Types Packs/Day Years [...] on filedocumented in this encounter Care Teams Slasher Tender Helper Relationship Specialty Start Date End Date Nati Winter NP PCP - General 06/13/17 04/09/23 documented as of this encounter
--- OUTSIDE RECORDS SUMMARY | 2025-07-18 21:34 | XMS_ITS | Encounter Summary ---
Author Organization [employer] Address [address] [place] [address] [address] [place] [address] Care Team Providers Care Human Service Technician Name Role Phone Toshia KingP Primary Care Provider Keturah vailable Encounter Details Date Type Department Care Team (Latest Contact Info) Description 04/23/2019 Abstract [facility] CONVERSIONS Dental, Provider, DDS Social History Tobacco [...] filedocumented in this encounter Care Teams Human Service Technician Relationship Specialty Start Date End Date Toshia King FNP PCP - General Family Medicine 08/24/21 04/17/23 documented as of this encounter
--- OUTSIDE RECORDS SUMMARY | 2025-07-18 21:34 | XMS_ITS | Encounter Summary ---
Author Organization [facility] Address [address] [place] [address] Phone Care Team Providers Care Dairy Husbandman Name Role Phone Nati Winter NP Primary Care Provider Raven jackson Encounter Details Date Type Department Care Team (Late st Contact Info) Description 12/21/2014 Documentation EM Family Medicine [address] [place], [place] [phone] Family Medicine, Physician [address] [place] [address] Social History Tobacco Use Types Packs/Day Years [...] on filedocumented in this encounter Care Teams Dairy Husbandman Relationship Specialty Start Date End Date Nati Winter NP PCP - General 06/13/17 04/09/23 documented as of this encounter
--- OUTSIDE RECORDS SUMMARY | 2025-07-18 21:34 | XMS_ITS | Clinical Summary ---
Author Organization [facility] Address [address] [place] [address] Phone Care Team Providers Care Mva Reactor Operator Name Role Phone Unavailable Primary Care [...] history of Deafness, Family history of *Sudden /[place] under 55, Family history of Migraines, Family [...]
== END 2025-07-18 16:44 | disposition home or self-care (01) ==
LOC: HO.HOP 16:41
PROVIDERS: PCP Internal Medicine; Visit Provider Clinical Nurse Specialist Psychiatric/Mental Health
DX: F43.10 Post-traumatic stress disorder, unspecified (principal); F33.1 Major depressive disorder, recurrent, moderate
CPT/HCPCS: 90792

== ENCOUNTER → 2025-07-18 16:41 | Outpatient (BNVA) | payer OTHER, SELFPAY | PROVIDERS: PCP Internal Medicine; Visit Provider Clinical Nurse Specialist Psychiatric/Mental Health | DX: F33.1 Major depressive disorder, recurrent, moderate (principal); F43.10 Post-traumatic stress disorder, unspecified | CPT/HCPCS: 90792 ==

== ENCOUNTER → 2025-08-12 08:00 | Day surgery (SDC) | payer OTHER, SELFPAY ==
--- OUTSIDE RECORDS SUMMARY | 2025-07-26 16:01 | XMS_ITS | Patient Health Record ---
Author Organization [facility] Address [address] [facility] [address] [place], [place] [id number] Support Name Relationship Address Phone Puja Ureña Emergency Contact Unknown Unava ilable Keerthi Ureña Guarantor Unknown [phone] Allergies No Known Allergies Reason For Referral [...] 1 days as directed disp in house [id number] exp. 12/2802/12/2024 Active predniSONE Active Hydroxychloroquine Sulfate [...] MAB today. Yes Patient would like to Clearwire STI testing today. No Patient would like to Clearwire contraception today. Yes, at follow up appt Would be open to [employer] Some people experience press ure around or [...] Insured Coverage Start Date Coverage End Date [facility] [address] [place] [phone] [id number] Asuncion Ureñai Self - patient is the insured 2022 Medical (General) History Medical History History ICD Code Past hx of BV Depression/Anxiety lupus sepsis age 16 with acute renal and hepat ic failure Hospitalization History Reason Date(Month/Year) Years ago hospitalization for TSS
--- OUTSIDE RECORDS SUMMARY | 2025-07-26 16:01 | XMS_ITS | Clinical Summary ---
Author Organization [facility] Address [address] [place] [address] Care Team Providers Care Electromedical Service Engineer Name Role Phone Marija Rubio MD Primary [...] age to complete this topic Care Teams Electromedical Service Engineer Relationship Specialty Start Date End Date Marija Rubio MD [address] [place] [address] PCP - General 06/09/23
--- OUTSIDE RECORDS SUMMARY | 2025-07-26 16:01 | XMS_ITS | Encounter Summary ---
Author Organization [facility] Address [address] [place] [address] Phone Care Team Providers Care Diesel Locomotive Firer Name Role Phone Nati Winter NP Primary Care Provider Raven jackson Encounter Details Date Type Department Care Team (Late st Contact Info) Description 09/06/2013 Documentation EM Family Medicine [address] [place], [place] [phone] Family Medicine, Physician [address] [place] [address] Social History Tobacco Use Types Packs/Day Years [...] on filedocumented in this encounter Care Teams Diesel Locomotive Firer Relationship Specialty Start Date End Date Nati Winter NP PCP - General 06/13/17 04/09/23 documented as of this encounter
--- OUTSIDE RECORDS SUMMARY | 2025-07-26 16:01 | XMS_ITS | Encounter Summary ---
Author Organization [facility] Address [address] [place] [address] Phone Care Team Providers Care Dental Detail Representative Name Role Phone Nati Winter NP Primary Care Provider Raven jackson Encounter Details Date Type Department Care Team (Late st Contact Info) Description 06/19/2017 Conversion Encounter [facility] - [address] [address] Social History Tobacco Use Types Packs/Day Years [...] on filedocumented in this encounter Care Teams Dental Detail Representative Relationship Specialty Start Date End Date Nati Winter NP PCP - General 06/13/17 04/09/23 documented as of this encounter
--- OUTSIDE RECORDS SUMMARY | 2025-07-26 16:01 | XMS_ITS | Encounter Summary ---
Author Organization [facility] Address [address] [place] [address] Phone Care Team Providers Care Social Media Marketing Manager Name Role Phone Nati Winter NP Primary Care Provider Raven jackson Encounter Details Date Type Department Care Team (Late st Contact Info) Description 07/09/2012 Documentation EM Family Medicine [address] [place], [place] [phone] Family Medicine, Physician [address] [place] [address] Social History Tobacco Use Types Packs/Day Years [...] on filedocumented in this encounter Care Teams Social Media Marketing Manager Relationship Specialty Start Date End Date Nati Winter NP PCP - General 06/13/17 04/09/23 documented as of this encounter
--- OUTSIDE RECORDS SUMMARY | 2025-07-26 16:01 | XMS_ITS | Encounter Summary ---
Author Organization [facility] Address [address] [place] [address] Phone Care Team Providers Care Arts And Sciences Dean Name Role Phone Nati Winter NP Primary Care Provider Raven jackson Encounter Details Date Type Department Care Team (Late st Contact Info) Description 01/27/2015 Documentation EM Family Medicine [address] [place], [place] [phone] Family Medicine, Physician [address] [place] [address] Social History Tobacco Use Types Packs/Day Years [...] on filedocumented in this encounter Care Teams Arts And Sciences Dean Relationship Specialty Start Date End Date Nati Winter NP PCP - General 06/13/17 04/09/23 documented as of this encounter
--- OUTSIDE RECORDS SUMMARY | 2025-07-26 16:01 | XMS_ITS | Encounter Summary ---
Author Organization [facility] Address [address] [place] [address] Phone Care Team Providers Care Detasseler Name Role Phone Nati Winter NP Primary Care Provider Raven jackson Encounter Details Date Type Department Care Team (Late st Contact Info) Description 12/21/2014 Documentation EM Family Medicine [address] [place], [place] [phone] Family Medicine, Physician [address] [place] [address] Social History Tobacco Use Types Packs/Day Years [...] on filedocumented in this encounter Care Teams Detasseler Relationship Specialty Start Date End Date Nati Winter NP PCP - General 06/13/17 04/09/23 documented as of this encounter
--- OUTSIDE RECORDS SUMMARY | 2025-07-26 16:01 | XMS_ITS | Encounter Summary ---
Author Organization [facility] Address [address] [place] [address] Phone Care Team Providers Care Clock And Watch Hands Dipper Name Role Phone Nati Winter NP Primary Care Provider Raven jackson Encounter Details Date Type Department Care Team (Late st Contact Info) Description 07/09/2012 Documentation EM Family Medicine [address] [place], [place] [phone] Family Medicine, Physician [address] [place] [address] Social History Tobacco Use Types Packs/Day Years [...] on filedocumented in this encounter Care Teams Clock And Watch Hands Dipper Relationship Specialty Start Date End Date Nati Winter NP PCP - General 06/13/17 04/09/23 documented as of this encounter
--- OUTSIDE RECORDS SUMMARY | 2025-07-26 16:01 | XMS_ITS | Clinical Summary ---
Author Organization [facility] Address [address] [place] [address] Phone Care Team Providers Care Consulting Solution Director Name Role Phone Unavailable Primary Care Provider [...] history of Deafness, Family history of *Sudden /[place] under 55, Family history of Migraines, Family [...]
--- OUTSIDE RECORDS SUMMARY | 2025-07-26 16:01 | XMS_ITS | Clinical Summary ---
Author Organization [facility] Address [address] [place] [address] Phone Care Team Providers Care Inspector Final Assembly Conveyor Line Name Role Phone Unknown, Unknown Primary Care [...] topic Medical Devices Not on file Insurance [facility] [place] [id number] [facility] [employer] [place] [address] [place] [address] [employer] DIRECT [facility] DIRECT [facility] DIRECT [facility] [employer] DIRECT [facility] [employer] DIRECT [facility] [employer] DIRECT Care Teams Inspector Final Assembly Conveyor Line Relationship Specialty Start Date End Date Unknown, Unknown, PCP - General 09/30/20 Additional Source Comments The information contained in this document represents components of the legal health record. It is not the complete legal health record.[facility]
--- OUTSIDE RECORDS SUMMARY | 2025-07-26 16:01 | XMS_ITS | Encounter Summary ---
Author Organization [facility] Address [address] [place] [address] Phone Care Team Providers Care Bean Snapper Name Role Phone Nati Winter NP Primary Care Provider Raven jackson Encounter Details Date Type Department Care Team (Late st Contact Info) Description 06/17/2014 Documentation EM Family Medicine [address] [place], [place] [phone] Family Medicine, Physician [address] [place] [address] Social History Tobacco Use Types Packs/Day Years [...] on filedocumented in this encounter Care Teams Bean Snapper Relationship Specialty Start Date End Date Nati Winter NP PCP - General 06/13/17 04/09/23 documented as of this encounter
--- OUTSIDE RECORDS SUMMARY | 2025-07-26 16:01 | XMS_ITS | Encounter Summary ---
Author Organization [facility] Address [address] [place] [address] [address] [place] [address] Care Team Providers Care Dispatcher Maintenance Name Role Phone Toshia KingP Primary Care Provider Keturah vailable Encounter Details Date Type Department Care Team (Latest Contact Info) Description 04/23/2019 Abstract [facility] CONVERSIONS Dental, Provider, DDS Social [...] on filedocumented in this encounter Care Teams Dispatcher Maintenance Relationship Specialty Start Date End Date Toshia King FNP PCP - General Family Medicine 08/24/21 04/17/23 documented as of this encounter
--- OUTSIDE RECORDS SUMMARY | 2025-07-26 16:01 | XMS_ITS | Encounter Summary ---
Author Organization [facility] Address [address] [place] [address] Phone Care Team Providers Care Domestic Violence Counselor Name Role Phone Nati Winter NP Primary Care Provider Raven jackson Encounter Details Date Type Department Care Team (Late st Contact Info) Description 07/31/2012 Documentation EM Family Medicine [address] [place], [place] [phone] Family Medicine, Physician [address] [place] [address] Social History Tobacco Use Types Packs/Day Years [...] on filedocumented in this encounter Care Teams Domestic Violence Counselor Relationship Specialty Start Date End Date Nati Winter NP PCP - General 06/13/17 04/09/23 documented as of this encounter
--- OUTSIDE RECORDS SUMMARY | 2025-07-26 16:01 | XMS_ITS | Encounter Summary ---
Author Organization [facility] Address [address] [place] [address] Phone Care Team Providers Care Engraver Ornamental Design Name Role Phone Nati Winter NP Primary Care Provider Raven jackson Encounter Details Date Type Department Care Team (Late st Contact Info) Description 07/09/2012 Documentation EM Family Medicine [address] [place], [place] [phone] Family Medicine, Physician [address] [place] [address] Social History Tobacco Use Types Packs/Day Years [...] on filedocumented in this encounter Care Teams Engraver Ornamental Design Relationship Specialty Start Date End Date Nati Winter NP PCP - General 06/13/17 04/09/23 documented as of this encounter
--- OUTSIDE RECORDS SUMMARY | 2025-07-26 16:01 | XMS_ITS | Encounter Summary ---
Author Organization [facility] Address [address] [place] [address] Phone Care Team Providers Care Tube Blower Name Role Phone Nati Winter NP Primary Care Provider Raven jackson Encounter Details Date Type Department Care Team (Late st Contact Info) Description 07/09/2012 Documentation EM Family Medicine [address] [place], [place] [phone] Family Medicine, Physician [address] [place] [address] Social History Tobacco Use Types Packs/Day Years [...] on filedocumented in this encounter Care Teams Tube Blower Relationship Specialty Start Date End Date Nati Winter NP PCP - General 06/13/17 04/09/23 documented as of this encounter
--- OUTSIDE RECORDS SUMMARY | 2025-07-26 16:01 | XMS_ITS | Clinical Summary ---
Author Organization [employer] [facility] Address [address] [place] [address] [address] [place] [address] Care Team Providers Care Firewall Administrator Name Role Phone Unavailable Primary Care Provider [...]
--- OUTSIDE RECORDS SUMMARY | 2025-07-26 16:01 | XMS_ITS | Encounter Summary ---
Author Organization [facility] Address [address] [place] [address] Phone Care Team Providers Care Fashion Consultant Sales Name Role Phone Nati Winter NP Primary Care Provider Raven jackson Encounter Details Date Type Department Care Team (Late st Contact Info) Description 02/10/2015 Documentation EM Family Medicine [address] [place], [place] [phone] Family Medicine, Physician [address] [place] [address] Social History Tobacco Use Types Packs/Day Years [...] on filedocumented in this encounter Care Teams Fashion Consultant Sales Relationship Specialty Start Date End Date Nati Winter NP PCP - General 06/13/17 04/09/23 documented as of this encounter
[2025-08-10 15:09] VITALS: BMI 28.5
--- NOTE | 2025-08-11 09:03 | HO.ANESPROP2 ---
HPI - Anesthesia Eval Consult details Narrative: 29yo F for Upper Endoscopy and Colonoscopy Daily prednisone 2.5 - SLE, plaquinel PMFSH Active Problems Active Problems: All Active Problems Major depressive disorder, recurrent, moderate (Acute) PTSD (post-traumatic stress disorder) (Acute) Bright red blood per rectum (Acute) Fibromyalgia, primary (Acute) Abdominal pain (Acute) Hair loss (Acute) Long-term use of hydroxychloroquine (Acute) SLE (systemic lupus erythematosus) (Acute) Vitamin D deficiency (Acute) Unspecified scleritis, left eye (Acute) GERD (gastroesophageal reflux disease) (Acute) Past Medical History Medical History (Updated 08/10/25 @ 15:10 by Caroline Mcdaniel RN) SLE (systemic lupus erythematosus) Fibromyalgia PTSD (post-traumatic stress disorder) Depression GERD (gastroesophageal reflux disease) Joint pain Kidney stones Family History Family History Mother HTN (hypertension) Osteoarthritis Father Rosana Gehrig's disease Maternal Grandfather Rheumatoid arthritis Other Mental health disorder Surgical History Surgical History History of lithotripsy No pertinent past surgical history Social History Social History Household Members: Family Housing: House Alcohol intake: current Alcohol intake frequency: a few times a month Patient Tobacco Use Status: Never used Tobacco Tobacco use type: Cigarette e-Cigarette/Vaping Use: Never Used Second Hand Smoke Exposure: No service: No Current occupational status: employed 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
[2025-08-12 08:13] VITALS: BMI 27.7
[2025-08-12 08:23] LABS: UPreg QC Valid YES
[2025-08-12 08:25] VITALS: BP 112/75; PULSE 86; RESP 16; TEMP 36.4; O2SAT 97
--- NOTE | 2025-08-12 08:51 | PC.NURSE ---
spoke to patient regarding her positive result. cancelled. aware of plan. md lamar aware and anesthesia. patient to follow up with her pcp. she called for her own ride.
== END ==
LOC: HO.SSS 08:02
PROVIDERS: Nurse Practitioner; PCP Internal Medicine; Visit Provider Internal Medicine Gastroenterology
DX: K62.5 Hemorrhage of anus and rectum (principal); Z53.09 Procedure and treatment not carried out because of other contraindication; Z33.1 Pregnant state, incidental; R10.84 Generalized abdominal pain; R10.13 Epigastric pain; K21.9 Gastro-esophageal reflux disease without esophagitis
CPT/HCPCS: 81025

== ENCOUNTER 2025-08-24 11:07 | Outpatient (REF) | payer OTHER, SELFPAY ==
--- OUTSIDE RECORDS SUMMARY | 2025-08-24 16:57 | XMS_ITS | Encounter Summary ---
Author Organization [facility] Address [address] [place] [address] Phone Care Team Providers Care Tube Repairer Name Role Phone Nati Winter NP Primary Care Provider Raven jackson Encounter Details Date Type Department Care Team (Late st Contact Info) Description 06/17/2014 Documentation EM Family Medicine [address] [place], [place] [phone] Family Medicine, Physician [address] [place] [address] Social History Tobacco Use Types Packs/Day Years [...] filedocumented in this encounter Care Teams Tube Repairer Relationship Specialty Start Date End Date Nati Winter NP PCP - General 06/13/17 04/09/23 documented as of this encounter
--- OUTSIDE RECORDS SUMMARY | 2025-08-24 16:57 | XMS_ITS | Clinical Summary ---
Author Organization [employer] Address [address] [place] [address] [address] [place] [address] Care Team Providers Care Evaluation Advisor Name Role Phone Unavailable Primary Care Provider [...]
--- OUTSIDE RECORDS SUMMARY | 2025-08-24 16:57 | XMS_ITS | Encounter Summary ---
Author Organization [employer] [facility] Address [address] [place] [address] [address]t [place] [address] Care Team Providers Care Signal Technician Name Role Phone Toshia KingP Primary Care Provider Keturah vailable Encounter Details Date Type Department Care Team (Latest Contact Info) Description 04/23/2019 Abstract [facility] CONVERSIONS Dental, Provider, DDS Social History [...] on filedocumented in this encounter Care Teams Signal Technician Relationship Specialty Start Date End Date Toshia King FNP PCP - General Family Medicine 08/24/21 04/17/23 documented as of this encounter
--- OUTSIDE RECORDS SUMMARY | 2025-08-24 16:57 | XMS_ITS | Patient Health Record ---
Author Organization [facility] Address [address] [facility] [place] [address] Care Team Providers Care Granular Operator Name Role Phone Bing Singh Unavailable [phone] Allergies No Known Allergies Reason For Referral [...] 1 days as directed disp in house [id number] exp. 12/2802/12/2024 Active predniSONE Active Hydroxychloroquine Sulfate [...] Notes PrEP for HIV Is the client intere sted in beginning/continuing PrEP for HIV? No Sexual [...] MAB today. Yes Patient would like to discus s STI testing today. No Patient would like to discJobzle s contraception today. Yes, at follow up appt Would be open to nexplanon Some people experience press ure around or [...] Use: Do you/have you used tobacco? No Encounters Encounter Location Date Provider Diagnosis [facility] [address] [place], [place] [id number] 08/22/2025 Bing Singh Plan Of Treatment Next Appt Details Provider Name:Bing Lazcano, 08/31/2025 05:00:00 PM, [address] [place] [address], [address], [place], [place], [phone], Insurance Providers Payer Name Payer Address Payer Phone Subscriber Number Group Number Insured Name Patient Relationship to Insured Coverage Start Date [facility]age End Date [facility] [address] [place] [phone] [id number] Keerthi Ureña Self - patient is the insured 2022 Medical (General) History Medical History History ICD Code Past hx of BV Depression/Anxiety lupus sepsis age 16 with acute renal and hepat ic failure Hospitalization History Reason Date(Month/Year) Years ago hospitalization for TSS
--- OUTSIDE RECORDS SUMMARY | 2025-08-24 16:58 | XMS_ITS | Encounter Summary ---
Author Organization [facility] Address [address] [place] [address] Phone Care Team Providers Care Interior Paneler Name Role Phone Nati Winter NP Primary Care Provider Raven jackson Encounter Details Date Type Department Care Team (Late st Contact Info) Description 02/10/2015 Documentation EM Family Medicine [address] [place], [place] [phone] Family Medicine, Physician [address] [place] [address] Social History Tobacco Use Types Packs/Day Years [...] on filedocumented in this encounter Care Teams Interior Paneler Relationship Specialty Start Date End Date Nati Winter NP PCP - General 06/13/17 04/09/23 documented as of this encounter
--- OUTSIDE RECORDS SUMMARY | 2025-08-24 16:58 | XMS_ITS | Clinical Summary ---
Author Organization [facility] Address [address] [place] [address] Care Team Providers Care News Correspondent Name Role Phone Marija Rubio MD Primary [...] 3-dose series) 2015 COVID-19 Vaccine ( - 2024-2 6 season) 2025 Influenza (#1) 2025 Zoster (Shingrix) [...] age to complete this topic Care Teams News Correspondent Relationship Specialty Start Date End Date Marija Rubio MD [address] [place] [address] PCP - General 06/09/23
--- OUTSIDE RECORDS SUMMARY | 2025-08-24 16:58 | XMS_ITS | Encounter Summary ---
Author Organization [facility] Address [address] [place] [address] Phone Care Team Providers Care Director Of Academic Support Name Role Phone Nati Winter NP Primary Care Provider Raven jackson Encounter Details Date Type Department Care Team (Late st Contact Info) Description 07/09/2012 Documentation EM Family Medicine [address] [place], [place] [phone] Family Medicine, Physician [address] [place] [address] Social History Tobacco Use Types Packs/Day Years [...] in this encounter Care Teams Director Of Academic Support Relationship Specialty Start Date End Date Nati Winter NP PCP - General 06/13/17 04/09/23 documented as of this encounter
--- OUTSIDE RECORDS SUMMARY | 2025-08-24 16:58 | XMS_ITS | Encounter Summary ---
Author Organization [facility] Address [address] [place] [address] Phone Care Team Providers Care English Composition Teacher Name Role Phone Nati Winter NP Primary Care Provider Raven jackson Encounter Details Date Type Department Care Team (Late st Contact Info) Description 07/09/2012 Documentation EM Family Medicine [address] [place], [place] [phone] Family Medicine, Physician [address] [place] [address] Social History Tobacco Use Types Packs/Day Years [...] on filedocumented in this encounter Care Teams English Composition Teacher Relationship Specialty Start Date End Date Nati Winter NP PCP - General 06/13/17 04/09/23 documented as of this encounter
--- OUTSIDE RECORDS SUMMARY | 2025-08-24 16:58 | XMS_ITS | Encounter Summary ---
Author Organization [facility] Address [address] [place] [address] Phone Care Team Providers Care Spice Grinder Name Role Phone Nati Winter NP Primary Care Provider Raven jackson Encounter Details Date Type Department Care Team (Late st Contact Info) Description 07/09/2012 Documentation EM Family Medicine [address] [place], [place] [phone] Family Medicine, Physician [address] [place] [address] Social History Tobacco Use Types Packs/Day Years [...] on filedocumented in this encounter Care Teams Spice Grinder Relationship Specialty Start Date End Date Nati Winter NP PCP - General 06/13/17 04/09/23 documented as of this encounter
--- OUTSIDE RECORDS SUMMARY | 2025-08-24 16:58 | XMS_ITS | Clinical Summary ---
Author Organization [facility] Address [address] [place] [address] Phone Care Team Providers Care Portuguese Tutor Name Role Phone Unknown, Unknown Primary Care [...] topic Medical Devices Not on file Insurance [place] [address] [facility] [place] [address] [place] [address] [facility] DIRECT [facility] DIRECT [facility] DIRECT [facility] DIRECT [facility] DIRECT Care Teams Portuguese Tutor Relationship Specialty Start Date End Date Unknown, Unknown, PCP - General 09/30/20 Additional Source Comments The information contained in this document represents components of the legal health record. It is not the complete legal health record.[facility]
--- OUTSIDE RECORDS SUMMARY | 2025-08-24 16:58 | XMS_ITS | Encounter Summary ---
Author Organization [facility] Address [address] [place] [address] Phone Care Team Providers Care Metal Wire Technician Name Role Phone Nati Winter NP Primary Care Provider Raven jackson Encounter Details Date Type Department Care Team (Late st Contact Info) Description 06/19/2017 Conversion Encounter [facility] - [address] [address] Social History Tobacco Use Types Packs/Day Years [...] filedocumented in this encounter Care Teams Metal Wire Technician Relationship Specialty Start Date End Date Nati Winter NP PCP - General 06/13/17 04/09/23 documented as of this encounter
--- OUTSIDE RECORDS SUMMARY | 2025-08-24 16:58 | XMS_ITS | Encounter Summary ---
Author Organization [facility] Address [address] [place] [address] Phone Care Team Providers Care Child Care Nurse Name Role Phone Nati Winter NP Primary Care Provider Raven jackson Encounter Details Date Type Department Care Team (Late st Contact Info) Description 01/27/2015 Documentation EM Family Medicine [address] [place], [place] [phone] Family Medicine, Physician [address] [place] [address] Social History Tobacco Use Types Packs/Day Years [...] on filedocumented in this encounter Care Teams Child Care Nurse Relationship Specialty Start Date End Date Nati Winter NP PCP - General 06/13/17 04/09/23 documented as of this encounter
--- OUTSIDE RECORDS SUMMARY | 2025-08-24 16:58 | XMS_ITS | Encounter Summary ---
Author Organization [facility] Address [address] [place] [address] Phone Care Team Providers Care Yield Engineer Name Role Phone Nati Winter NP Primary Care Provider Raven jackson Encounter Details Date Type Department Care Team (Late st Contact Info) Description 09/06/2013 Documentation EM Family Medicine [address] [place], [place] [phone] Family Medicine, Physician [address] [place] [address] Social History Tobacco Use Types Packs/Day Years [...] on filedocumented in this encounter Care Teams Yield Engineer Relationship Specialty Start Date End Date Nati Winter NP PCP - General 06/13/17 04/09/23 documented as of this encounter
--- OUTSIDE RECORDS SUMMARY | 2025-08-24 16:58 | XMS_ITS | Encounter Summary ---
Author Organization [facility] Address [address] [place] [address] Phone Care Team Providers Care Quality Associate Name Role Phone Nati Winter NP Primary Care Provider Raven jackson Encounter Details Date Type Department Care Team (Late st Contact Info) Description 12/21/2014 Documentation EM Family Medicine [address] [place], [place] [phone] Family Medicine, Physician [address] [place] [address] Social History Tobacco Use Types Packs/Day Years [...] filedocumented in this encounter Care Teams Quality Associate Relationship Specialty Start Date End Date Nati Winter NP PCP - General 06/13/17 04/09/23 documented as of this encounter
--- OUTSIDE RECORDS SUMMARY | 2025-08-24 16:58 | XMS_ITS | Clinical Summary ---
Author Organization [facility] Address [address] [place] [address] Phone Care Team Providers Care Cash Processing Specialist Name Role Phone Unavailable Primary Care [...] history of Deafness, Family history of *Sudden /[place] under 55, Family history of Migraines, Family [...]
--- OUTSIDE RECORDS SUMMARY | 2025-08-24 16:58 | XMS_ITS | Encounter Summary ---
Author Organization [facility] Address [address] [place] [address] Phone Care Team Providers Care Acreage Reporter Name Role Phone Nati Winter NP Primary Care Provider Raven jackson Encounter Details Date Type Department Care Team (Late st Contact Info) Description 07/09/2012 Documentation EM Family Medicine [address] [place], [place] [phone] Family Medicine, Physician [address] [place] [address] Social History Tobacco Use Types Packs/Day Years [...] on filedocumented in this encounter Care Teams Acreage Reporter Relationship Specialty Start Date End Date Nati Winter NP PCP - General 06/13/17 04/09/23 documented as of this encounter
--- OUTSIDE RECORDS SUMMARY | 2025-08-24 16:58 | XMS_ITS | Encounter Summary ---
Author Organization [facility] Address [address] [place] [address] Phone Care Team Providers Care Credit Review Manager Name Role Phone Nati Winter NP Primary Care Provider Raven jackson Encounter Details Date Type Department Care Team (Late st Contact Info) Description 07/31/2012 Documentation EM Family Medicine [address] [place], [place] [phone] Family Medicine, Physician [address] [place] [address] Social History Tobacco Use Types Packs/Day Years [...] on filedocumented in this encounter Care Teams Credit Review Manager Relationship Specialty Start Date End Date Nati Winter NP PCP - General 06/13/17 04/09/23 documented as of this encounter
== END 2025-08-24 11:08 | disposition home or self-care (01) ==
LOC: HO.LAB 11:07
PROVIDERS: PCP Internal Medicine; Visit Provider Internal Medicine
DX: N91.1 Secondary amenorrhea (principal)
CPT/HCPCS: 36415; 81025; 84702; 99212

== ENCOUNTER 2025-08-24 11:07 | Outpatient (AMB) | payer OTHER, SELFPAY ==
--- NOTE | 2025-08-24 11:20 | MHC.PC.OV ---
Vital Signs 08/24/25 11:21 Height 5 ft 2 in Weight 156 lb 6 oz BMI 28.6 BP 130/76 Blood Pressure Location Lt brachial Position Sitting Pulse 89 Pulse Source Pulse Oximeter Temp 97.3 F Temp Source Temporal Artery Scan Pulse Oximetry (%) 98 Oxygen Delivery Method Room Air Intake Visit Reasons: Test Collection Systems Modeler Required: No Cell Stripper: Not Required per policy Accompanied by: Self / Same As Patient Allergies No Known Allergies (No Known Allergies*) Allergy (Verified 08/24/25 11:51) Tobacco use date assessed: 08/24/25 Dental Screening Dental Screen Date: 02/28/25 [facility] Medical History (Updated 08/10/25 @ 15:10 by Caroline Mcdaniel RN) SLE (systemic lupus erythematosus) Fibromyalgia PTSD (post-traumatic stress disorder) Depression GERD (gastroesophageal reflux disease) Joint pain Kidney stones Surgical History History of lithotripsy No pertinent past surgical history Family History Mother HTN (hypertension) Osteoarthritis Father Rosana Gehrig's disease Maternal Grandfather Rheumatoid arthritis Other Mental health disorder Social History Household Members: Family Housing: House Alcohol intake: current Alcohol intake frequency: a few times a month Patient Tobacco Use Status: Never used Tobacco Tobacco use type: Cigarette e-Cigarette/Vaping Use: Never Used Second Hand Smoke Exposure: No service: No Current occupational status: employed 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 Current occupational exposures/hazards: No Cognitive needs: No Hearing needs: No Vision needs: Yes (Glasses) Questionnaire Thrive Questionnaire Date Thrive assessed: 02/28/25 I am a: Patient What is your living situation today?: I choose not to answer this question Within the past 12 months, did the food you bought not last and you didn't have the money to get more?: I choose not to answer this question Within the past 12 months, did you worry whether your food would run out before you got money to buy more?: I choose not to answer this question Do you have trouble paying for medicines?: I choose not to answer this question Do you have trouble getting transportation to medical appointments?: I choose not to answer this question Do you have trouble paying your heating and electricity bill?: I choose not to answer this question Do you have trouble taking care of your child, family member or friend?: I choose not to answer this question Do you have trouble with day-to-day activities such as bathing, preparing meals, shopping, managing finances, etc.?: I choose not to answer this question Are you currently unemployed and looking for a job?: I choose not to answer this question Are you interested in more education?: I choose not to answer this question Currently or been in a relationship where the following occur: I choose not to answer THRIVE Score: 0 FERNY-7 AMB Questionnaire FERNY-7 Date FERNY - 7 assessed: 02/28/25 Source: Developed by Drs. Travis Bolton, Christelle Vences, Isaiah Mahoney and colleagues, with an educational damian from [employer]. Physical exam (Primary Care) Vital Signs: Last Vital Signs Temp 97.3 F 08/24/25 11:21 Pulse 89 08/24/25 11:21 BP 130/76 08/24/25 11:21 Pulse Ox 98 08/24/25 11:21 Oxygen Delivery Method Room Air 08/24/25 11:21 BMI result Body Mass Index 28.6 Tobacco/Smoking Status: Tobacco use Status Tobacco use date assessed 08/24/25 08/24/25 11:34 Patient Tobacco Use Status Never used Tobacco 08/24/25 11:34 Tobacco use type Cigarette 08/24/25 11:34 e-Cigarette/Vaping Use Never Used 08/24/25 11:34 Thrive Assessment: Date of Thrive Assessment Date Thrive assessed 02/28/25 08/24/25 11:34 Currently or been in a relationship where the following occur: I choose not to answer Results AMB Test Urine AMB Test Urine Negative Last Edit by CLYDE Ruiz on 08/24/25 11:38 Results Reviewed Results Reviewed: Laboratory Last Values [facility] Clinic Negative 08/24/25 11:36 Coding Level of Care Code Est Pt Level 3 (17901) Complex EM visit Add On G2211 Diagnoses 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
[2025-08-24 11:21] VITALS: BP 130/76; PULSE 89; TEMP 36.3; O2SAT 98; BMI 28.6
== END 2025-08-24 11:52 | disposition home or self-care (01) ==
LOC: HO.HMCH 11:08
PROVIDERS: PCP Internal Medicine; Visit Provider Internal Medicine
DX: Z13.9 Encounter for screening, unspecified (principal); N91.1 Secondary amenorrhea

== ENCOUNTER 2025-08-30 12:54 | Day surgery (SDC) | payer OTHER, SELFPAY ==
--- OUTSIDE RECORDS SUMMARY | 2025-08-29 08:44 | XMS_ITS | Clinical Summary ---
Author Organization [email or web address] Address [address] [place] [address] [address] [place] [address] Care Team Providers Care Culinary Chef Name Role Phone Unavailable Primary Care Provider [...]
--- OUTSIDE RECORDS SUMMARY | 2025-08-29 08:44 | XMS_ITS | Patient Health Record ---
Author Organization [facility] Address [address] [facility] [place] [address] Care Team Providers Care Supervising Law Enforcement Analyst Name Role Phone Bing Singh Unavailable [phone] Allergies No Known Allergies Reason For Referral [...] 1 days as directed disp in house A86391 exp. 12/2802/12/2024 Active predniSONE Active Hydroxychloroquine Sulfate [...] MAB today. Yes Patient would like to [employer] STI testing today. No Patient would like to [employer] contraception today. Yes, at follow up [...] No Encounters Encounter Location Date Provider Diagnosis [facility] [address] [place], [place] [id number] 08/22/2025 Bing Singh Plan Of Treatment No Information Insurance Providers Payer Name Payer Address Payer Phone Subscriber Number Group Number Insured Name Patient Relationship to Insured Coverage Start Date Coverage End Date [facility] [address] [place] [phone] [id number] Keerthi Ureña Self - patient is the insured 2022 Medical (General) History Medical History History ICD Code Past hx of BV Depression/Anxiety lupus sepsis age 16 with acute renal and hepat ic failure Hospitalization History Reason Date(Month/Year) Years ago hospitalization for TSS
--- OUTSIDE RECORDS SUMMARY | 2025-08-29 08:44 | XMS_ITS | Encounter Summary ---
Author Organization [employer] [facility] Address [address] [place] [address] [address] [place] [address] Care Team Providers Care Budget Technician Name Role Phone Toshia KingP Primary Care Provider Keturah vailable Encounter Details Date Type Department Care Team (Latest Contact Info) Description 04/23/2019 Abstract [facility] CONVERSIONS Dental, Provider, DDS Social [...] on filedocumented in this encounter Care Teams Budget Technician Relationship Specialty Start Date End Date Toshia King FNP PCP - General Family Medicine 08/24/21 04/17/23 documented as of this encounter
--- OUTSIDE RECORDS SUMMARY | 2025-08-29 08:45 | XMS_ITS | Encounter Summary ---
Author Organization [facility] Address [address] [place] [address] Phone Care Team Providers Care Emr Trainer Name Role Phone Nati Winter NP Primary Care Provider Raven jackson Encounter Details Date Type Department Care Team (Late st Contact Info) Description 09/06/2013 Documentation EM Family Medicine [address] [place], [place] [phone] Family Medicine, Physician [address] [place] [address] Social History Tobacco Use Types Packs/Day Years [...] on filedocumented in this encounter Care Teams Emr Trainer Relationship Specialty Start Date End Date Nati Winter NP PCP - General 06/13/17 04/09/23 documented as of this encounter
--- OUTSIDE RECORDS SUMMARY | 2025-08-29 08:45 | XMS_ITS | Clinical Summary ---
Author Organization [facility] Address [address] [place] [address] Phone Care Team Providers Care Icing Coater Name Role Phone Unknown, Unknown Primary Care [...] topic Medical Devices Not on file Insurance [facility] [id number] [facility] [employer] [place] [address] [place] [address] [employer] DIRECT [facility] DIRECT [facility] DIRECT [facility] [employer] DIRECT [facility] [employer] DIRECT [facility] [employer] DIRECT [facility] DIRECT Care Teams Icing Coater Relationship Specialty Start Date End Date Unknown, Unknown, PCP - General 09/30/20 Additional Source Comments The information contained in this document represents components of the legal health record. It is not the complete legal health record.[facility]
--- OUTSIDE RECORDS SUMMARY | 2025-08-29 08:45 | XMS_ITS | Encounter Summary ---
Author Organization [facility] Address [address] [place] [address] Phone Care Team Providers Care Stand Up Forklift Operator Name Role Phone Nati Winter NP Primary Care Provider Raven jackson Encounter Details Date Type Department Care Team (Late st Contact Info) Description 07/09/2012 Documentation EM Family Medicine [address] [place], [place] [phone] Family Medicine, Physician [address] [place] [address] Social History Tobacco Use Types Packs/Day Years [...] on filedocumented in this encounter Care Teams Stand Up Forklift Operator Relationship Specialty Start Date End Date Nati Winter NP PCP - General 06/13/17 04/09/23 documented as of this encounter
--- OUTSIDE RECORDS SUMMARY | 2025-08-29 08:45 | XMS_ITS | Clinical Summary ---
Author Organization [facility] Address [address] [place] [address] Phone Care Team Providers Care Berry Grower Name Role Phone Unavailable Primary Care Provider [...] history of Deafness, Family history of *Sudden /[place] under 55, Family history of Migraines, Family [...]
--- OUTSIDE RECORDS SUMMARY | 2025-08-29 08:45 | XMS_ITS | Encounter Summary ---
Author Organization [facility] Address [address] [place] [address] Phone Care Team Providers Care Simulation Developer Name Role Phone Nati Winter NP Primary Care Provider Raven jackson Encounter Details Date Type Department Care Team (Late st Contact Info) Description 02/10/2015 Documentation EM Family Medicine [address] [place], [place] [phone] Family Medicine, Physician [address] [place] [address] Social History Tobacco Use Types Packs/Day Years [...] on filedocumented in this encounter Care Teams Simulation Developer Relationship Specialty Start Date End Date Nati Winter NP PCP - General 06/13/17 04/09/23 documented as of this encounter
--- OUTSIDE RECORDS SUMMARY | 2025-08-29 08:45 | XMS_ITS | Encounter Summary ---
Author Organization [facility] Address [address] [place] [address] Phone Care Team Providers Care Solution Sales Senior Executive Name Role Phone Nati Winter NP Primary Care Provider Raven jackson Encounter Details Date Type Department Care Team (Late st Contact Info) Description 07/09/2012 Documentation EM Family Medicine [address] [place], [place] [phone] Family Medicine, Physician [address] [place] [address] Social History Tobacco Use Types Packs/Day Years [...] on filedocumented in this encounter Care Teams Solution Sales Senior Executive Relationship Specialty Start Date End Date Nati Winter NP PCP - General 06/13/17 04/09/23 documented as of this encounter
--- OUTSIDE RECORDS SUMMARY | 2025-08-29 08:45 | XMS_ITS | Encounter Summary ---
Author Organization [facility] Address [address] [place] [address] Phone Care Team Providers Care Concrete Mixer Truck Driver Name Role Phone Nati Winter NP Primary Care Provider Raven jackson Encounter Details Date Type Department Care Team (Late st Contact Info) Description 06/19/2017 Conversion Encounter [facility] - [address] [address] Social History Tobacco Use Types Packs/Day Years [...] on filedocumented in this encounter Care Teams Concrete Mixer Truck Driver Relationship Specialty Start Date End Date Nati Winter NP PCP - General 06/13/17 04/09/23 documented as of this encounter
--- OUTSIDE RECORDS SUMMARY | 2025-08-29 08:45 | XMS_ITS | Encounter Summary ---
Author Organization [facility] Address [address] [place] [address] Phone Care Team Providers Care Greens Cutter Name Role Phone Nati Winter NP Primary Care Provider Raven jackson Encounter Details Date Type Department Care Team (Late st Contact Info) Description 07/09/2012 Documentation EM Family Medicine [address] [place], [place] [phone] Family Medicine, Physician [address] [place] [address] Social History Tobacco Use Types Packs/Day Years [...] on filedocumented in this encounter Care Teams Greens Cutter Relationship Specialty Start Date End Date Nati Winter NP PCP - General 06/13/17 04/09/23 documented as of this encounter
--- OUTSIDE RECORDS SUMMARY | 2025-08-29 08:45 | XMS_ITS | Encounter Summary ---
Author Organization [facility] Address [address] [place] [address] Phone Care Team Providers Care Candle Wrapping Machine Operator Name Role Phone Nati Winter NP Primary Care Provider Raven jackson Encounter Details Date Type Department Care Team (Late st Contact Info) Description 12/21/2014 Documentation EM Family Medicine [address] [place], [place] [phone] Family Medicine, Physician [address] [place] [address] Social History Tobacco Use Types Packs/Day Years [...] on filedocumented in this encounter Care Teams Candle Wrapping Machine Operator Relationship Specialty Start Date End Date Nati Winter NP PCP - General 06/13/17 04/09/23 documented as of this encounter
--- OUTSIDE RECORDS SUMMARY | 2025-08-29 08:45 | XMS_ITS | Encounter Summary ---
Author Organization [facility] Address [address] [place] [address] Phone Care Team Providers Care Physical Education Aide Name Role Phone Nati Winter NP Primary Care Provider Raven jackson Encounter Details Date Type Department Care Team (Late st Contact Info) Description 07/09/2012 Documentation EM Family Medicine [address] [place], [place] [phone] Family Medicine, Physician [address] [place] [address] Social History Tobacco Use Types Packs/Day Years [...] on filedocumented in this encounter Care Teams Physical Education Aide Relationship Specialty Start Date End Date Nati Winter NP PCP - General 06/13/17 04/09/23 documented as of this encounter
--- OUTSIDE RECORDS SUMMARY | 2025-08-29 08:45 | XMS_ITS | Encounter Summary ---
Author Organization [facility] Address [address] [place] [address] Phone Care Team Providers Care Wind Operations Supervisor Name Role Phone Nati Winter NP Primary Care Provider Raven jackson Encounter Details Date Type Department Care Team (Late st Contact Info) Description 06/17/2014 Documentation EM Family Medicine [address] [place], [place] [phone] Family Medicine, Physician [address] [place] [address] Social History Tobacco Use Types Packs/Day Years [...] on filedocumented in this encounter Care Teams Wind Operations Supervisor Relationship Specialty Start Date End Date Nati Winter NP PCP - General 06/13/17 04/09/23 documented as of this encounter
--- OUTSIDE RECORDS SUMMARY | 2025-08-29 08:45 | XMS_ITS | Encounter Summary ---
Author Organization [facility] Address [address] [place] [address] Phone Care Team Providers Care Plc Controls Engineer Name Role Phone Nati Winter NP Primary Care Provider Raven jackson Encounter Details Date Type Department Care Team (Late st Contact Info) Description 07/31/2012 Documentation EM Family Medicine [address] [place], [place] [phone] Family Medicine, Physician [address] [place] [address] Social History Tobacco Use Types Packs/Day Years [...] on filedocumented in this encounter Care Teams Plc Controls Engineer Relationship Specialty Start Date End Date Nati Winter NP PCP - General 06/13/17 04/09/23 documented as of this encounter
--- OUTSIDE RECORDS SUMMARY | 2025-08-29 08:45 | XMS_ITS | Clinical Summary ---
Author Organization [facility] Address [address] [place] [address] Care Team Providers Care Machine Adjuster Name Role Phone Marija Rubio MD Primary [...] age to complete this topic Care Teams Machine Adjuster Relationship Specialty Start Date End Date Marija Rubio MD [address] [place] [address] PCP - General 06/09/23
--- OUTSIDE RECORDS SUMMARY | 2025-08-29 08:45 | XMS_ITS | Encounter Summary ---
Author Organization [facility] Address [address] [place] [address] Phone Care Team Providers Care Repair Manager Name Role Phone Nati Winter NP Primary Care Provider Raven jackson Encounter Details Date Type Department Care Team (Late st Contact Info) Description 01/27/2015 Documentation EM Family Medicine [address] [place], [place] [phone] Family Medicine, Physician [address] [place] [address] Social History Tobacco Use Types Packs/Day Years [...] on filedocumented in this encounter Care Teams Repair Manager Relationship Specialty Start Date End Date Nati Winter NP PCP - General 06/13/17 04/09/23 documented as of this encounter
--- NOTE | 2025-08-30 11:46 | P.HPSUR_ITS ---
Pre-Procedural Eval Section A - 24 Hr Update-Section A only Date of Service: 08/30/25 Section B - Complete if H&P > 30 days Chief Complaint: Hemorrhage of anus and rectum,gerd, Relevant Family History (Specify if Yes): No Relevant Social History: None Present Medications: see Short Stay Collaborative assessment Medical History: Significant History (GERD (gastroesophageal reflux disease) Joint pain Kidney stones) History of Previous Operations: Relevant previous surgery/procedure and date(s) ( History of lithotripsy) Allergies: Allergies Allergy/AdvReac Type Severity Reaction Status Date / Time No Known Allergies (No Known Allergy Verified 08/24/25 11:51 Allergies*) Review of Systems Sugical H&P ROS: Negative: Constitution, Cardiovascular, Respiratory, Neurological, Psychiatric, Hem-Onc, Allergic/Immunologic, Gastrointestinal, Genitourinary, Musculoskeletal, Integumentary, Endocrine and Eyes/Ears/Nose/Throat Exam Surgical H&P Exam: Normal: HEENT, Normal: Heart, Normal: Lungs, Normal: Extr emities, Normal: Abdomen, Normal: Skin and Normal: Neurological Plan Diagnosis/Plan: Unchanged I have reviewed the history and physical and performed a pertinent physical examination on my patient. No changes have occurred unless specified. Time Spent With Patient Time: Total time managing care of this patient today ____ minutes.
[2025-08-30 13:11] VITALS: BMI 27.5
[2025-08-30 13:12] LABS: UPreg QC Valid YES
[2025-08-30 13:15] VITALS: BP 117/80; PULSE 102; RESP 18; TEMP 36.6; O2SAT 96
[2025-08-30] MEDS: Lactated Ringers 1,000 ML 100 ML IVCONT (13:16)
--- NOTE | 2025-08-30 13:30 | HO.ANESPROP2 ---
Documented by User: Gela Benavidez NP 08/29/25 09:09 HPI - Anesthesia Eval Consult details Narrative: 29yo F for Upper Endoscopy and Colonoscopy SLE - prednisone and hydroxychlorquine daily, belimumab IV q4wks, PMFSH Active Problems Active Problems: All Active Problems Major depressive disorder, recurrent, moderate (Acute) PTSD (post-traumatic stress disorder) (Acute) Bright red blood per rectum (Acute) Fibromyalgia, primary (Acute) Abdominal pain (Acute) Hair loss (Acute) Long-term use of hydroxychloroquine (Acute) SLE (systemic lupus erythematosus) (Acute) Vitamin D deficiency (Acute) Unspecified scleritis, left eye (Acute) GERD (gastroesophageal reflux disease) (Acute) Past Medical History Medical History (Updated 08/10/25 @ 15:10 by Caroline Mcdaniel RN) SLE (systemic lupus erythematosus) Fibromyalgia PTSD (post-traumatic stress disorder) Depression GERD (gastroesophageal reflux disease) Joint pain Kidney stones Family History Family History Mother HTN (hypertension) Osteoarthritis Father Rosana Gehrig's disease Maternal Grandfather Rheumatoid arthritis Other Mental health disorder Surgical History Surgical History (Updated 08/30/25 @ 10:00 by Sheeba Quick RN) History of lithotripsy Social History Social History Household Members: Family Housing: House Are you a primary outdoor emergency care technician to a significant other at home: No Do you presently have visiting nurse or other home services: No Alcohol intake: current Alcohol intake frequency: a few times a month Patient Tobacco Use Status: Never used Tobacco Tobacco use type: Cigarette e-Cigarette/Vaping Use: Never Used Second Hand Smoke Exposure: No Have you been hit, kicked, punched, or otherwise hurt by someone within the past year? 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 Current occupational exposures/hazards: No Cognitive needs: No Hearing needs: No Vision needs: Yes (Glasses) Meds Allergies Allergy/AdvReac Type Severity Reaction Status Date / Time No Known Allergies (No Known Allergy Verified 08/24/25 11:51 Allergies*) Home Medications ?Medication ?Instructions ?Recorded ?Confirmed ?Last Taken ?Type belimumab 400 mg intravenous 400 mg IV Q4W 03/22/25 08/10/25 Unknown History solution (Benlysta) Assessment and Plan Assessment Anesthesia Assessment: Chart Reviewed Documented by User: Charlee Alas DO 08/30/25 13:30 HPI - Anesthesia Eval Consult details Narrative: 29yo F for Upper Endoscopy and Colonoscopy SLE - prednisone and hydroxychlorquine daily, belimumab IV q4wks PMFSH Past Medical History Medical History (Updated 08/10/25 @ 15:10 by Caroline Mcdaniel RN) SLE (systemic lupus erythematosus) Fibromyalgia PTSD (post-traumatic stress disorder) Depression GERD (gastroesophageal reflux disease) Joint pain Kidney stones Family History Family History Mother HTN (hypertension) Osteoarthritis Father Rosana Gehrig's disease Maternal Grandfather Rheumatoid arthritis Other Mental health disorder Family history of problems with anesthesia: No Surgical History Surgical History (Updated 08/30/25 @ 10:00 by Sheeba Quick RN) History of lithotripsy History of Problems with Anesthesia: No Social History Social History Household Members: Family Housing: House Are you a primary outdoor emergency care technician to a significant other at home: No Do you presently have visiting nurse or other home services: No Alcohol intake: current Alcohol intake frequency: a few times a month Patient Tobacco Use Status: Never used Tobacco Tobacco use type: Cigarette e-Cigarette/Vaping Use: Never Used Second Hand Smoke Exposure: No Have you been hit, kicked, punched, or otherwise hurt by someone within the past year? 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 Current occupational exposures/hazards: No Cognitive needs: No Hearing needs: No Vision needs: Yes (Glasses) Meds Allergies Allergy/AdvReac Type Severity Reaction Status Date / Time No Known Allergies (No Known Allergy Verified 08/24/25 11:51 Allergies*) Home Medications ?Medication ?Instructions ?Recorded ?Confirmed ?Last Taken ?Type belimumab 400 mg intravenous 400 mg IV Q4W 03/22/25 08/10/25 Unknown History solution (Benlysta) Exam Exam Date and Time: 08/30/25 1328 Height,Weight and Vital Signs: Height 5 ft 3 in Weight 70.307 kg Airway Mallampati Class: I TM Dist: >3cm Neck ROM: Full Loose/Missing/Broken Teeth: No (patient denies any loose or broken teeth) Heart: S1S2 Lungs: CTAB Assessment and Plan Assessment Anesthesia Assessment: Anesthesia Plan Discussed and Chart Reviewed Final Anesthetic Review Family History of Problems with Anesthesia: No History of Problems with Anesthesia: No NPO: Yes ASA Class: II Final Preanesthetic Review: No Changes in Pt Med Stat, Meds/Allgs Chart Reviewed, Consent Obtained/Reviewed and Anes Risks/Benef Reviewed Patient Risk: Low Procedure Risk: Low Anesthetic Plan Anesthetic Plan: MAC: and Agree w/ Assess. and Plan Disposition: Standard PACU
--- NOTE | 2025-08-30 13:57 | P.OPN-COLO_ITS ---
Colonoscopy Operative Note Operative Note Date of Service: 08/30/25 Narrative: Operative Information Procedure Description: EGD, Colonoscopy Indication: rectal bleeding and GERD Anesthesia: MAC FLEXIBLE TRANSORAL UPPER GASTROINTESTINAL ENDOSCOPY AND COLONOSCOPY PROCEDURE NOTE UPPER ENDOSCOPY Consent: Indications for the procedure and potential complications of bleeding, perforation, reaction to medications and missed diagnosis were discussed with the patient and informed consent was obtained. Instrument: Olympus GIF H 190 J mid size upper endoscope Monitoring: Vital signs and clinical assessment, continuous EKG monitoring, Pulse oximetry, Carbon Dioxide monitoring and blood pressure monitoring were done throughout the procedure. Procedure: The patient was placed in the left lateral decubitis position and pre-procedure medications were administered and a bite block was placed. The endoscope was inserted into the mouth and advanced under direct vision to the third part of duodenum. A careful inspection was made as the upper endoscope was withdrawn including a retroflexed examination of the proximal stomach; Findings and interventions are described below. Findings: Larynx:normal Esophagus: GE junction at 37 cm, diaphragm hiatus at 37 cm, bx taken from GEJ, and distal, proximal esophagus, mild erythema at GEJ Stomach: Mild erythema with reduced gastric motility. Biopsies were obtained. Grade 2 flap valve on retroflexed examination of the cardia. Duodenum: Normal bulb and descending duodenum, bx taken Intervention: Biopsies as noted above, COLONOSCOPY Instrument: Olympus variable stiffness pediatric scope 190L Colonoscopy Monitoring: Vital signs and clinical assessment, continuous EKG monitoring, Pulse oximetry, Carbon Dioxide monitoring and blood pressure monitoring were done throughout the procedure. Colon withdrawal time was 6 minutes. Procedure: The patient was placed in the left lateral decubitis position and pre-procedure medications were administered. After a digital rectal examination of the ano-rectum, the video colonoscope was inserted into the rectum and advanced through the colon to the cecum/TI. The colonoscope was slowly withdrawn in a retrograde panoramic fashion and the colon mucosa was carefully examined including a retroflexed view of the rectum. Findings and interventions are described below. Procedure Difficulty: easy- reduced motility of colon noted Findings: Terminal Ileum-normal, bx taken random bx taken from right and left colon Cecum:normal Ascending Colon: normal Transverse Colon -normal Descending Colon:normal Sigmoid Colon: normal Rectum: Retroflexion with small internal hemorrhoids, grade I Anorectum - normal Colon preparation: [place] Bowel Preparation Scale Right colon; 3 Transverse colon: 3 Left colon; 3 (0 = Unprepared colon segment with mucosa not seen due to solid stool that cannot be cleared. 1 = Portion of mucosa of the colon segment seen, but other areas of the colon segment not well seen due to staining, residual stool and/or opaque liquid. 2 = Minor amount of residual staining, small fragments of stool and/or opaque liquid, but mucosa of colon segment seen well. 3 = Entire mucosa of colon segment seen well with no residual staining, small fragments of stool or opaque liquid) Impression and Post Procedure Diagnosis: Endoscopy Findings: possible gastroparesis Colonoscopy Findings: possible colonic dysmotility Plan: Await Pathology results Repeat Colonoscopy aged 45 years or earlier if clinically indicated High fiber diet leaflet avoid straining at stool, epsom salts and sitz bath, anusol supps or cream if ongoing sx consider gastric study, maybe trial of motegrity Above findings were reviewed with the patient and relevant handouts were provided if indicated.
[2025-08-30 14:03] VITALS: BP 103/69; PULSE 93; RESP 14; TEMP 36.2; O2SAT 100
[2025-08-30 14:15] VITALS: BP 110/69; PULSE 78; RESP 14; TEMP 36.1; O2SAT 100
== END 2025-08-30 14:45 | disposition home or self-care (01) ==
PROVIDERS: Nurse Practitioner; PCP Internal Medicine; Visit Provider Internal Medicine Gastroenterology
PROC: (CPT 45378; principal; 2025-08-30 14:00)
DX: K62.5 Hemorrhage of anus and rectum (principal); K21.9 Gastro-esophageal reflux disease without esophagitis; R10.84 Generalized abdominal pain; R10.13 Epigastric pain; L53.9 Erythematous condition, unspecified; K64.0 First degree hemorrhoids
CPT/HCPCS: 45378; 43239; 81025; 88305; 88313; 88342; J2003; J2704

== ENCOUNTER → 2025-08-30 12:54 | Outpatient (BNV) | payer OTHER, SELFPAY | PROVIDERS: PCP Internal Medicine; Visit Provider Internal Medicine Gastroenterology | DX: K21.9 Gastro-esophageal reflux disease without esophagitis (principal); K22.89 Other specified disease of esophagus; K62.5 Hemorrhage of anus and rectum; K64.0 First degree hemorrhoids | CPT/HCPCS: 43239; 45380 ==

== ENCOUNTER 2025-09-12 10:13 | Outpatient (AMB) | payer OTHER, SELFPAY ==
--- NOTE | 2025-09-12 10:44 | MHC.OFFVISPS ---
Intake Intake Visit Reasons: follow up Billet Checker Required: No Allergies No Known Allergies (No Known Allergies*) Allergy (Verified 08/30/25 13:33) Medication List - Last Reconciled 09/12/25 by Gisell Cespedes APRN belimumab (Benlysta) 400 mg IV Q4W cholecalciferol (vitamin D3) 1,250 mcg PO QWEEK 90 days fluoxetine (Prozac) 20 mg PO DAILY hydroxychloroquine orally; Take 400 mg daily X 5 days a week and 200 mg daily X 2 days a week omeprazole 20 mg PO DAILY prednisone 2.5 mg PO DAILY sennosides (Natural Senna Laxative) 17.2 mg (2 x 8.6 mg) PO BEDTIME HPI- Psychiatric Chief Complaint: follow up HPI Narrative: Pt here for follow up re: depression, anxiety and attention and focus difficulty. She is tolerating the prozac well. She reports some improvement in mood, anxiety, worry. She is sleeping better and having fewer nightmares. She continues to have passive SI several days a week but no plan or intention. Her PHQ9=14 down from 23 and Her GAD7 is 10 down from 18 at first visit. She continue to have difficulty with brain fog. She reports difficulty with attention, concentration, focus and completing complex tasks that require high level of organization. Pt completed the adult self report ADHD scale (ASRS) nad score a total of 46/72 and a 29 on inattentive symptoms. Pt reports problems with attention and focus for years starting back in childhood. She was never dx with ADHD but thinks its because the focus was always on her physical health; she was dx with autoimmune disorder at age 16. she has been able to cope with inattention and distractibility but now she is in school and working which is making it harder to cope. the symptoms are interfering with her functioning both at home and at school and work. Past Psychiatric History: outpt therapy in past ; NO IPLOC, no hx of meds hx of suicide attempts age [age] by cutting -no interventions Subjective Subjective Medication Compliance: Yes Side effects from medications: No Review of Systems Medical Review of Systems: unchanged Mental Status Exam Mental Status Exam Patient Appearance: Well Grooomed and Appropriate Patient Orientation: Person, Place, Time and Situation Level of Consciousness: Awake and Alert Patient Behavior: Appropriate, Cooperative and Anxious Mood Description: Depressed and Anxious Affect Description: Depressed and Anxious Patient Cognition Impaired: No Ability to Follow Directions: Good Speech Pattern: Clear and Soft-Spoken Memory Description: Intact Hallucinations: None Delusions: Not Present Thought Process: Intact and Rumination Thought Content: positive for Intact and positive for Suicidal Ideation (passive, no plan or intent) Judgement: Good Assessment and Plan Assessment & Plan (1) PTSD (post-traumatic stress disorder): Status: Acute Code(s): F43.10 - Post-traumatic stress disorder, unspecified (2) Major depressive disorder, recurrent, moderate: Status: Acute Code(s): F33.1 - Major depressive disorder, recurrent, moderate (3) ADHD (attention deficit hyperactivity disorder), inattentive type: Status: Acute Code(s): F90.0 - Attention-deficit hyperactivity disorder, predominantly inattentive type Plan continue prozac 20 mg daily trial of ritalin 10mg bid return in 4 weeks Medications: New methylphenidate HCl (Ritalin) Partial Fill upon patient request. 10 mg PO BID 60 tabs 0RF F90.0 - Attention-deficit hyperactivity disorder, predominantly inattentive type Counseling and coordination of Care Pt. Self Management counseling: Mod caffeine/ETOH intake, Nutrition education and improvement and General coping skills Medication management counseling: Effectiveness, Side effects, Dosing range, Duration and Drug interaction Diagnosis and Prognosis Counseling: Accuracy of diagnosis, Prognosis over time, Impact of diagnosis on life functions, Impact of family relationship, Problematic behaviors secondary to diagnosis and Adequacy of current interventions Details: I spent 35 minutes reviewing the record, seeing the patient and documenting in the medical record. Counseling provided to the patient/caregiver as outlined below. Addressed patient/caregiver concerns regarding current medication regime including effective adherence. Addressed patient/caregiver concerns regarding diagnosis and prognosis including accuracy of diagnosis, prognosis over time, impact of diagnosis. Addressed patient/caregiver concerns regarding impact of recent stressors. [facility] Medical History (Updated 09/12/25 @ 11:04 by Gisell Cespedes APRN) SLE (systemic lupus erythematosus) Fibromyalgia PTSD (post-traumatic stress disorder) Depression GERD (gastroesophageal reflux disease) Joint pain Kidney stones Surgical History History of lithotripsy Family History Mother HTN (hypertension) Osteoarthritis Father Rosana Gehrig's disease Maternal Grandfather Rheumatoid arthritis Other Mental health disorder Social History Household Members: Family Housing: House Are you a primary insurance healthcare consultant to a significant other at home: No Do you presently have visiting nurse or other home services: No Alcohol intake: current Alcohol intake frequency: a few times a month Patient Tobacco Use Status: Never used Tobacco Tobacco use type: Cigarette e-Cigarette/Vaping Use: Never Used Second Hand Smoke Exposure: No service: No Current occupational status: employed 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
--- OUTSIDE RECORDS SUMMARY | 2025-09-12 11:58 | XMS_ITS | Encounter Summary ---
Author Organization [employer] Address [address] [place] [address] [address] [place] [address] Care Team Providers Care Hub Cutter Apprentice Name Role Phone Toshia KingP Primary Care Provider Keturah vailable Encounter Details Date Type Department Care Team (Latest Contact Info) Description 04/23/2019 Abstract [facility] CONVERSIONS Dental, Provider, DDS Social History [...] on filedocumented in this encounter Care Teams Hub Cutter Apprentice Relationship Specialty Start Date End Date Toshia King FNP PCP - General Family Medicine 08/24/21 04/17/23 documented as of this encounter
--- OUTSIDE RECORDS SUMMARY | 2025-09-12 11:59 | XMS_ITS | Clinical Summary ---
Author Organization [employer] Address [address] [place] [address] [address] [place] [address] Care Team Providers Care Manager Digital Name Role Phone Unavailable Primary Care Provider [...]
--- OUTSIDE RECORDS SUMMARY | 2025-09-12 11:59 | XMS_ITS | Encounter Summary ---
Author Organization [facility] Address [address] [place] [address] Phone Care Team Providers Care Telecommunications Repairer Name Role Phone Nati Winter NP Primary Care Provider Raven jackson Encounter Details Date Type Department Care Team (Late st Contact Info) Description 06/17/2014 Documentation EM Family Medicine [address] [place], [place] [phone] Family Medicine, Physician [address] [place] [address] Social History Tobacco Use Types Packs/Day Years [...] on filedocumented in this encounter Care Teams Telecommunications Repairer Relationship Specialty Start Date End Date Nati Winter NP PCP - General 06/13/17 04/09/23 documented as of this encounter
--- OUTSIDE RECORDS SUMMARY | 2025-09-12 11:59 | XMS_ITS | Encounter Summary ---
Author Organization [facility] Address [address] [place] [address] Phone Care Team Providers Care Levers Lace Machine Operator Name Role Phone Nati Winter NP Primary Care Provider Raven jackson Encounter Details Date Type Department Care Team (Late st Contact Info) Description 12/21/2014 Documentation EM Family Medicine [address] [place], [place] [phone] Family Medicine, Physician [address] [place] [address] Social History Tobacco Use Types Packs/Day Years [...] on filedocumented in this encounter Care Teams Levers Lace Machine Operator Relationship Specialty Start Date End Date Nati Winter NP PCP - General 06/13/17 04/09/23 documented as of this encounter
--- OUTSIDE RECORDS SUMMARY | 2025-09-12 11:59 | XMS_ITS | Encounter Summary ---
Author Organization [facility] Address [address] [place] [address] Phone Care Team Providers Care Elevator Erector Helper Name Role Phone Nati Winter NP Primary Care Provider Raven jackson Encounter Details Date Type Department Care Team (Late st Contact Info) Description 07/09/2012 Documentation EM Family Medicine [address] [place], [place] [phone] Family Medicine, Physician [address] [place] [address] Social History Tobacco Use Types Packs/Day Years [...] on filedocumented in this encounter Care Teams Elevator Erector Helper Relationship Specialty Start Date End Date Nati Winter NP PCP - General 06/13/17 04/09/23 documented as of this encounter
--- OUTSIDE RECORDS SUMMARY | 2025-09-12 11:59 | XMS_ITS | Encounter Summary ---
Author Organization [facility] Address [address] [place] [address] Phone Care Team Providers Care Computer Technology Instructor Name Role Phone Nati Winter NP Primary Care Provider Raven jackson Encounter Details Date Type Department Care Team (Late st Contact Info) Description 06/19/2017 Conversion Encounter [facility] - [address] [address] Social History Tobacco Use Types Packs/Day Years [...] on filedocumented in this encounter Care Teams Computer Technology Instructor Relationship Specialty Start Date End Date Nati Winter NP PCP - General 06/13/17 04/09/23 documented as of this encounter
--- OUTSIDE RECORDS SUMMARY | 2025-09-12 11:59 | XMS_ITS | Encounter Summary ---
Author Organization [facility] Address [address] [place] [address] Phone Care Team Providers Care Cotton Farmworker Name Role Phone Nati Winter NP Primary Care Provider Raven jackson Encounter Details Date Type Department Care Team (Late st Contact Info) Description 07/09/2012 Documentation EM Family Medicine [address] [place], [place] [phone] Family Medicine, Physician [address] [place] [address] Social History Tobacco Use Types Packs/Day Years [...] on filedocumented in this encounter Care Teams Cotton Farmworker Relationship Specialty Start Date End Date Nati Winter NP PCP - General 06/13/17 04/09/23 documented as of this encounter
--- OUTSIDE RECORDS SUMMARY | 2025-09-12 11:59 | XMS_ITS | Encounter Summary ---
Author Organization [facility] Address [address] [place] [address] Phone Care Team Providers Care Bioinformatics Software Engineer Name Role Phone Nati Winter NP Primary Care Provider Raven jackson Encounter Details Date Type Department Care Team (Late st Contact Info) Description 07/09/2012 Documentation EM Family Medicine [address] [place], [place] [phone] Family Medicine, Physician [address] [place] [address] Social History Tobacco Use Types Packs/Day Years [...] on filedocumented in this encounter Care Teams Bioinformatics Software Engineer Relationship Specialty Start Date End Date Nati Winter NP PCP - General 06/13/17 04/09/23 documented as of this encounter
--- OUTSIDE RECORDS SUMMARY | 2025-09-12 11:59 | XMS_ITS | Encounter Summary ---
Author Organization [facility] Address [address] [place] [address] Phone Care Team Providers Care Hedis Specialist Name Role Phone Nati Winter NP Primary Care Provider Raven jackson Encounter Details Date Type Department Care Team (Late st Contact Info) Description 07/09/2012 Documentation EM Family Medicine [address] [place], [place] [phone] Family Medicine, Physician [address] [place] [address] Social History Tobacco Use Types Packs/Day Years [...] on filedocumented in this encounter Care Teams Hedis Specialist Relationship Specialty Start Date End Date Nati Winter NP PCP - General 06/13/17 04/09/23 documented as of this encounter
--- OUTSIDE RECORDS SUMMARY | 2025-09-12 11:59 | XMS_ITS | Encounter Summary ---
Author Organization [facility] Address [address] [place] [address] Phone Care Team Providers Care Master Rigger Name Role Phone Nati Winter NP Primary Care Provider Raven jackson Encounter Details Date Type Department Care Team (Late st Contact Info) Description 09/06/2013 Documentation EM Family Medicine [address] [place], [place] [phone] Family Medicine, Physician [address] [place] [address] Social History Tobacco Use Types Packs/Day Years [...] on filedocumented in this encounter Care Teams Master Rigger Relationship Specialty Start Date End Date Nati Winter NP PCP - General 06/13/17 04/09/23 documented as of this encounter
--- OUTSIDE RECORDS SUMMARY | 2025-09-12 11:59 | XMS_ITS | Clinical Summary ---
Author Organization [facility] Address [address] [place] [address] Care Team Providers Care Jira Developer Name Role Phone Marija Rubio MD Primary [...] age to complete this topic Care Teams Jira Developer Relationship Specialty Start Date End Date Marija Rubio MD [address] [place] [address] PCP - General 06/09/23
--- OUTSIDE RECORDS SUMMARY | 2025-09-12 11:59 | XMS_ITS | Encounter Summary ---
Author Organization [facility] Address [address] [place] [address] Phone Care Team Providers Care Fire Support Specialist Name Role Phone Nati Winter NP Primary Care Provider Raven jackson Encounter Details Date Type Department Care Team (Late st Contact Info) Description 01/27/2015 Documentation EM Family Medicine [address] [place], [place] [phone] Family Medicine, Physician [address] [place] [address] Social History Tobacco Use Types Packs/Day Years [...] on filedocumented in this encounter Care Teams Fire Support Specialist Relationship Specialty Start Date End Date Nati Winter NP PCP - General 06/13/17 04/09/23 documented as of this encounter
--- OUTSIDE RECORDS SUMMARY | 2025-09-12 11:59 | XMS_ITS | Clinical Summary ---
Author Organization [facility] Address [address] [place] [address] Phone Care Team Providers Care Personal Care Aide Name Role Phone Unknown, Unknown Primary Care [...] 05/01/1998, 12/1996, 01/27/1997, Additional history exists IPV VACCINES Completed 11/02/2001, 12/1996, 01/27/1997, Additional history exists HEPATITIS A [...] topic Medical Devices Not on file Insurance [facility] DIRECT [facility] DIRECT [facility] DIRECT [facility] DIRECT [facility] DIRECT [facility] DIRECT Care Teams Personal Care Aide Relationship Specialty Start Date End Date Unknown, Unknown, PCP - General 09/30/20 Additional Source Comments The information contained in this document represents components of the legal health record. It is not the complete legal health record.[facility]
--- OUTSIDE RECORDS SUMMARY | 2025-09-12 11:59 | XMS_ITS | Clinical Summary ---
Author Organization [facility] Address [address] [place] [address] Phone Care Team Providers Care Accounting Clerks Supervisor Name Role Phone Unavailable Primary Care [...] history of Deafness, Family history of *Sudden /IA under 55, Family history of Migraines, Family [...]
--- OUTSIDE RECORDS SUMMARY | 2025-09-12 11:59 | XMS_ITS | Encounter Summary ---
Author Organization [facility] Address [address] [place] [address] Phone Care Team Providers Care Alignment Specialist Name Role Phone Nati Winter NP Primary Care Provider Raven jackson Encounter Details Date Type Department Care Team (Late st Contact Info) Description 02/10/2015 Documentation EM Family Medicine [address] [place], [place] [phone] Family Medicine, Physician [address] [place] [address] Social History Tobacco Use Types Packs/Day Years [...] on filedocumented in this encounter Care Teams Alignment Specialist Relationship Specialty Start Date End Date Nati Winter NP PCP - General 06/13/17 04/09/23 documented as of this encounter
--- OUTSIDE RECORDS SUMMARY | 2025-09-12 11:59 | XMS_ITS | Encounter Summary ---
Author Organization [facility] Address [address] [place] [address] Phone Care Team Providers Care Wire Loop Machine Operator Name Role Phone Nati Winter NP Primary Care Provider Raven jackson Encounter Details Date Type Department Care Team (Late st Contact Info) Description 07/31/2012 Documentation EM Family Medicine [address] [place], [place] [phone] Family Medicine, Physician [address] [place] [address] Social History Tobacco Use Types Packs/Day Years [...] on filedocumented in this encounter Care Teams Wire Loop Machine Operator Relationship Specialty Start Date End Date Nati Winter NP PCP - General 06/13/17 04/09/23 documented as of this encounter
== END 2025-09-12 11:16 | disposition home or self-care (01) ==
LOC: HO.HOP 10:13
PROVIDERS: PCP Internal Medicine; Visit Provider Clinical Nurse Specialist Psychiatric/Mental Health
DX: F43.10 Post-traumatic stress disorder, unspecified (principal); F33.1 Major depressive disorder, recurrent, moderate; F90.0 Attention-deficit hyperactivity disorder, predominantly inattentive type
CPT/HCPCS: 99214

== ENCOUNTER → 2025-09-12 10:13 | Outpatient (BNVA) | payer OTHER, SELFPAY | PROVIDERS: PCP Internal Medicine; Visit Provider Clinical Nurse Specialist Psychiatric/Mental Health | DX: F33.1 Major depressive disorder, recurrent, moderate (principal); F43.10 Post-traumatic stress disorder, unspecified; F90.0 Attention-deficit hyperactivity disorder, predominantly inattentive type | CPT/HCPCS: 99212 ==

== ENCOUNTER 2025-10-17 13:56 | Outpatient (AMB) | payer OTHER, SELFPAY ==
--- OUTSIDE RECORDS SUMMARY | 2025-08-31 12:00 | XMS_ITS ---
Author Organization [facility] Address [address] [place] [address] Care Team Providers Care Solid Waste Collector Name Role Phone SinghJoanna jallohshana Unavailable [phone] REASON FOR VISIT 5wk 4 days Social History Sex Assigned At : Social History Observation Description Sex Assigned At Female Encounters Encounter Location Date Provider Diagnosis [address] [place] [phone] 08/31/2025 Bing Singh Plan Of Treatment No Information Progress Notes * Asuncion UREÑAiDOB:1995 (30 yo F)Acc No.[id number]:08/31/2025 Patient: Keerthi Farr Provider: Izzy Singh CNM :1995 A ge:29 Y S ex:Female Date:08/31/2025 Address:[address] [place], [place] [id number] Subjective: * Chief Complaints: * 5 wk 4 days * Electronic signature of Qasim Singh CNM on 10/17/2025 at 08:17 PM EST Sign off status: Pending * Provider: Izzy Singh CNM Date: Generated for Mark wylie/Karlee/eTransmitting on: 12/18/2024 08:17 PM EST
--- NOTE | 2025-10-17 14:06 | A.OFFVIS_ITS ---
Vital Signs 10/17/25 14:14 Height 5 ft 2 in Weight 154 lb BMI 28.2 BP 114/68 Blood Pressure Location Rt brachial Position Sitting Pulse 74 Pulse Source Pulse Oximeter Pulse Oximetry (%) 99 Oxygen Delivery Method Room Air Intake Visit Reasons: GERD mgmt. Intake Note: Est pt for mgmt of GERD w/ chronic abd pain. Labs done but fecal outstanding, likely not approved by insurance ([facility]). Imaging next month. CC; Pt denies any new GI concerns or sx at this time. Confirms that she is taking her Rx as instructed and w/o complication. Network Mgr Required: No Accompanied by: Self / Same As Patient Allergies No Known Allergies (No Known Allergies*) Allergy (Verified 08/30/25 13:33) HPI HPI GERD mgmt.: Details: LAST VISIT Vitamin D deficiency Bright red blood per rectum Abdominal pain GERD (gastroesophageal reflux disease) Postprandial epigastric pain Plan Patient will continue to take omeprazole. Avoid dietary triggers and late night snacking. Staying upright for minimum 3 hours after meals discussed with patient. Patient will be sent for upper endoscopy to check for gastritis, esophagitis, duodenitis, celiac, Cervantes's. Patient will be sent for colonoscopy. She continues to have due blood in her stools. Moving her bowels better now. Patient reports that her stool is soft. What to expect before during and after procedure discussed with patient. Stressed importance of good bowel prep and clear liquid diet day before procedure. Patient reports no issues with anesthesia in the past. No history of sleep apnea. Not on any anticoagulation medication. We will see patient after the procedure, sooner on as needed basis. She has to understanding of instructions. She was given the opportunity to ask questions and all questions answered. ? Thank you for allowing me to participate in her care New bisacodyl (Dulcolax (bisacodyl)) take 4 tabs at noon the day before your colonoscopy 20 mg (4 x 5 mg) PO ONCE 4 tabs 0RF constipation 1 day Z12.11 polyethylene glycol 3350 (Miralax) As directed by gastro[facility]ology department at [facility] 238 grams PO ONCE 238 grams 0RF Z12.11 UPPER ENDOSCOPY AND COLONOSCOPY Findings: Larynx:normal Esophagus: GE junction at 37 cm, diaphragm hiatus at 37 cm, bx taken from GEJ, and distal, proximal esophagus, mild erythema at GEJ Stomach: Mild erythema with reduced gastric motility. Biopsies were obtained. Grade 2 flap valve on retroflexed examination of the cardia. Duodenum: Normal bulb and descending duodenum, bx taken Intervention: Biopsies as noted above, COLONOSCOPY Instrument: Olympus variable stiffness pediatric scope 190L Colonoscopy Monitoring: Vital signs and clinical assessment, continuous EKG monitoring, Pulse oximetry, Carbon Dioxide monitoring and blood pressure monitoring were done throughout the procedure. Colon withdrawal time was 6 minutes. Procedure: The patient was placed in the left lateral decubitis position and pre-procedure medications were administered. After a digital rectal examination of the ano-rectum, the video colonoscope was inserted into the rectum and advanced through the colon to the cecum/TI. The colonoscope was slowly withdrawn in a retrograde panoramic fashion and the colon mucosa was carefully examined including a retroflexed view of the rectum. Findings and interventions are described below. Procedure Difficulty: easy- reduced motility of colon noted Findings: Terminal Ileum-normal, bx taken random bx taken from right and left colon Cecum:normal Ascending Colon: normal Transverse Colon -normal Descending Colon:normal Sigmoid Colon: normal Rectum: Retroflexion with small internal hemorrhoids, grade I Anorectum - normal Colon preparation: Kelley Bowel Preparation Scale Right colon; 3 Transverse colon: 3 Left colon; 3 (0 = Unprepared colon segment with mucosa not seen due to solid stool that cannot be cleared. 1 = Portion of mucosa of the colon segment seen, but other areas of the colon segment not well seen due to staining, residual stool and/or opaque liquid. 2 = Minor amount of residual staining, small fragments of stool and/or opaque liquid, but mucosa of colon segment seen well. 3 = Entire mucosa of colon segment seen well with no residual staining, small fragments of stool or opaque liquid) Impression and Post Procedure Diagnosis: Endoscopy Findings: possible gastroparesis Colonoscopy Findings: possible colonic dysmotility Plan: Await Pathology results Repeat Colonoscopy aged 45 years or earlier if clinically indicated High fiber diet leaflet avoid straining at stool, epsom salts and sitz bath, anusol supps or cream if ongoing sx consider gastric study, maybe trial of motegrity PATHOLOGY RESULTS Diagnosis A. Duodenum, biopsy: Duodenal mucosa with preserved villi and no specific change. B. Stomach, biopsy: Gastric body mucosa with focal minimal chronic inactive inflammation; negative for H. pylori, intestinal metaplasia and dysplasia. C. Gastroesophageal junction, biopsy: Squamous mucosa with hyperplasia and focal intraepithelial eosinophils (up to 2 per high-power field) consistent with esophagitis and columnar mucosa with focal intestinal metaplasia; negative for dysplasia. D. Esophagus, distal, biopsy: Squamous mucosa with no specific change; no columnar mucosa present. E. Esophagus, proximal, biopsy: Squamous mucosa with no specific change; no columnar mucosa present. F. Terminal ileum, biopsy: Ileal mucosa with no specific change. G. Colon, right, biopsy: Colonic mucosa with reactive lymphoid follicle and no specific change. H. Colon, left, biopsy: Colonic mucosa with no specific change. Comment: (C): These findings are consistent with Cervantes's esophagus if the biopsies were taken from above the anatomic gastroesophageal junction. Clinical and endoscopic correlation is advised. TODAY'S VISIT Patient is here today for follow-up and to discuss upper endoscopy and colonoscopy results. Patient denies any ill effects from the prep, anesthesia or procedure itself. Patient had normal colonoscopy, repeat at age 46, sooner if clinically necessary. Possible Cervantes' and esophagitis. Patient reports that she has been feeling better when taking omeprazole. Patient tries to take it daily. Denies dyspepsia, dysphagia or odynophagia. She continues to have trouble moving her bowels. Patient does reports that she is trying to drink more water. Patient denies melena, hematochezia, unintentional weight loss or ribbon like stools. Patient reports bowel movements every 3-4 days [facility] Medical History (Updated 09/12/25 @ 11:04 by Gisell Cespedes APRN) SLE (systemic lupus erythematosus) Fibromyalgia PTSD (post-traumatic stress disorder) Depression GERD (gastroesophageal reflux disease) Joint pain Kidney stones Surgical History History of lithotripsy Family History Mother HTN (hypertension) Osteoarthritis Father Rosana Gehrig's disease Maternal Grandfather Rheumatoid arthritis Other Mental health disorder Social History Household Members: Family Housing: House Are you a primary director of career resources to a significant other at home: No Do you presently have visiting nurse or other home services: No Alcohol intake: current Alcohol intake frequency: a few times a month Patient Tobacco Use Status: Never used Tobacco Tobacco use type: Cigarette e-Cigarette/Vaping Use: Never Used Second Hand Smoke Exposure: No service: No Current occupational status: employed 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 Current occupational exposures/hazards: No Cognitive needs: No Hearing needs: No Vision needs: Yes (Glasses) Assessment & Plan Assessment & Plan (1) Vitamin D deficiency: Code(s): E55.9 - Vitamin D deficiency, unspecified Category: Medical (2) Bright red blood per rectum: Code(s): K62.5 - Hemorrhage of anus and rectum Category: Medical (3) Abdominal pain: Code(s): R10.9 - Unspecified abdominal pain Category: Medical Qualifiers: Abdominal location: generalized Qualified Code(s): R10.84 - Generalized abdominal pain (4) GERD (gastroesophageal reflux disease): Code(s): K21.9 - Gastro-esophageal reflux disease without esophagitis Category: Medical Qualifiers: Esophagitis presence: esophagitis presence not specified Qualified Code(s): K21.9 - Gastro-esophageal reflux disease without esophagitis (5) Postprandial epigastric pain: Code(s): R10.13 - Epigastric pain Plan Patient will continue taking omeprazole. Avoid dietary triggers and late night snacking. Staying upright for minimum 3 hours after meals discussed with patient. Patient has a upper GI series in November. Will start her on Motegrity. Patient does report that she feels full quickly. Increase fluid intake and activity to promote bowel motility. Follow-up in 2 months. Patient will call us if she will have any GI concerning symptoms. Colonoscopy at age 46, sooner if clinically necessary. May repeat upper endoscopy in a year to 2 years if her symptoms will persist. Patient denies any family history of esophageal cancer. Patient is agreeable to current plan of care and verbalizes understanding of instructions. She was given the opportunity to ask questions and all questions answered. Thank you for allowing me to participate in her care for Medications: New prucalopride (Motegrity) 2 mg PO DAILY 30 tabs 2RF K59.04 - Chronic idiopathic constipation Refilled omeprazole 20 mg PO DAILY 90 caps 3RF K21.9 - Gastro-esophageal reflux disease without esophagitis Discontinued sennosides (Natural Senna Laxative) Discontinued Reason: Doctor's Order 17.2 mg (2 x 8.6 mg) PO BEDTIME 60 tabs 3RF constipation K59.00 - Constipation, unspecified Coding Level of Care Code Est Pt Level 4 (80686) Add On Problem Visit Only Diagnoses Vitamin D deficiency E55.9 Bright red blood per rectum K62.5 Generalized abdominal pain R10.84 Abdominal location: generalized Gastroesophageal reflux disease, unspecified whether esophagitis present K21.9 Esophagitis presence: esophagitis presence not specified Postprandial epigastric pain R10.13 Time Spent (min) 40 Comment 25 minutes spent with patient and additional 15 minutes spent reviewing her records
[2025-10-17 14:14] VITALS: BP 114/68; PULSE 74; O2SAT 99; BMI 28.2
--- OUTSIDE RECORDS SUMMARY | 2025-10-17 20:17 | XMS_ITS | Clinical Summary ---
Author Organization [facility] Address [address] [place] [address] Phone Care Team Providers Care Client Care Consultant Name Role Phone Unknown, Unknown Primary Care [...] topic Medical Devices Not on file [facility] [place] [id number] [facility] DIRECT [facility] [place] [address] [place] [address] [employer]CTORC[facility] DIRECT [facility] DIRECT [facility] DIRECT [facility] DIRECT [facility] DIRECT [facility] DIRECT Care Teams Client Care Consultant Relationship Specialty Start Date End Date Unknown, Unknown, PCP - General 09/30/20 Additional Source Comments The information contained in this document represents components of the legal health record. It is not the complete legal health record.[facility]
--- OUTSIDE RECORDS SUMMARY | 2025-10-17 20:17 | XMS_ITS | Encounter Summary ---
Author Organization [facility] Address [address] [place] [address] Phone Care Team Providers Care Women Specialist Name Role Phone Nati Winter NP Primary Care Provider Raven jackson Encounter Details Date Type Department Care Team (Late st Contact Info) Description 12/21/2014 Documentation EM Family Medicine [address] [place], [place] [phone] Family Medicine, Physician [address] [place] [address] Social History Tobacco Use Types Packs/Day Years [...] on filedocumented in this encounter Care Teams Women Specialist Relationship Specialty Start Date End Date Nati Winter NP PCP - General 06/13/17 04/09/23 documented as of this encounter
--- OUTSIDE RECORDS SUMMARY | 2025-10-17 20:17 | XMS_ITS | Encounter Summary ---
Author Organization [facility] Address [address] [place] [address] Phone Care Team Providers Care Solar Project Engineer Name Role Phone Nati Winter NP Primary Care Provider Raven jackson Encounter Details Date Type Department Care Team (Late st Contact Info) Description 01/27/2015 Documentation EM Family Medicine [address] [place], [place] [phone] Family Medicine, Physician [address] [place] [address] Social History Tobacco Use Types Packs/Day Years [...] on filedocumented in this encounter Care Teams Solar Project Engineer Relationship Specialty Start Date End Date Nati Winter NP PCP - General 06/13/17 04/09/23 documented as of this encounter
--- OUTSIDE RECORDS SUMMARY | 2025-10-17 20:17 | XMS_ITS | Encounter Summary ---
Author Organization [facility] Address [address] [place] [address] Phone Care Team Providers Care Model Artists' Name Role Phone Nati Winter NP Primary Care Provider Raven jackson Encounter Details Date Type Department Care Team (Late st Contact Info) Description 09/06/2013 Documentation EM Family Medicine [address] [place], [place] [phone] Family Medicine, Physician [address] [place] [address] Social History Tobacco Use Types Packs/Day Years [...] on filedocumented in this encounter Care Teams Model Artists' Relationship Specialty Start Date End Date Nati Winter NP PCP - General 06/13/17 04/09/23 documented as of this encounter
--- OUTSIDE RECORDS SUMMARY | 2025-10-17 20:17 | XMS_ITS | Encounter Summary ---
Author Organization [facility] Address [address] [place] [address] Phone Care Team Providers Care Cost Specialist Name Role Phone Nati Winter NP Primary Care Provider Raven jackson Encounter Details Date Type Department Care Team (Late st Contact Info) Description 06/17/2014 Documentation EM Family Medicine [address] [place], [place] [phone] Family Medicine, Physician [address] [place] [address] Social History Tobacco Use Types Packs/Day Years [...] on filedocumented in this encounter Care Teams Cost Specialist Relationship Specialty Start Date End Date Nati Winter NP PCP - General 06/13/17 04/09/23 documented as of this encounter
--- OUTSIDE RECORDS SUMMARY | 2025-10-17 20:17 | XMS_ITS | Encounter Summary ---
Author Organization [facility] Address [address] [place] [address] [address] [place] [address] Care Team Providers Care Psychology Clinician Name Role Phone Toshia KingP Primary Care Provider Keturah vailable Encounter Details Date Type Department Care Team (Latest Contact Info) Description 04/23/2019 Abstract [facility]VERSION[facility] Dental, Provider, DDS Social History Tobacco [...] on filedocumented in this encounter Care Teams Psychology Clinician Relationship Specialty Start Date End Date Toshia King FNP PCP - General Family Medicine 08/24/21 04/17/23 documented as of this encounter
--- OUTSIDE RECORDS SUMMARY | 2025-10-17 20:17 | XMS_ITS | Patient Health Record ---
Author Organization [facility] Address [address] [facility] [place] [place] [address] Care Team Providers Care Assistant Womens Volleyball Coach Name Role Phone Bing Singh Unavailable [phone] Allergies No Known Allergies Reason For Referral [...] 1 days as directed disp in house [id number] exp. 12/2802/12/2024 Active predniSONE Active Hydroxychloroquine Sulfate [...] MAB today. Yes Patient would like to [email or web address] s STI testing today. No Patient would like to [email or web address] s contraception today. Yes, at follow up [...] No Encounters Encounter Location Date Provider Diagnosis [facility] [address] [place], [place] [id number] 08/22/2025 Bing Singh Plan Of Treatment No Information Insurance Providers Payer Name Payer Address Payer Phone Subscriber Number Group Number Insured Name Patient Relationship to Insured Coverage Start Date Coverage End Date [facility] [address] [place] [phone] [id number] Keerhti Ureña Self - patient is the insured 2022 Medical (General) History Medical History History ICD Code Past hx of BV Depression/Anxiety lupus sepsis age 16 with acute renal and hepat ic failure Hospitalization History Reason Date(Month/Year) Years ago hospitalization for TSS
--- OUTSIDE RECORDS SUMMARY | 2025-10-17 20:17 | XMS_ITS | Encounter Summary ---
Author Organization [facility] Address [address] [place] [address] Phone Care Team Providers Care Cash Grain Grower Name Role Phone Nati Winter NP Primary Care Provider Raven jackson Encounter Details Date Type Department Care Team (Late st Contact Info) Description 02/10/2015 Documentation EM Family Medicine [address] [place], [place] [phone] Family Medicine, Physician [address] [place] [address] Social History Tobacco Use Types Packs/Day Years [...] filedocumented in this encounter Care Teams Cash Grain Grower Relationship Specialty Start Date End Date Nati Winter NP PCP - General 06/13/17 04/09/23 documented as of this encounter
--- OUTSIDE RECORDS SUMMARY | 2025-10-17 20:17 | XMS_ITS | Clinical Summary ---
Author Organization [employer] [facility] Address [address] [place] [address] [address] [place] [address] Care Team Providers Care Ethnoarchaeology Professor Name Role Phone Unavailable Primary Care Provider [...] series) 03/25/2019 02/25/2019 COVID-19 Vaccine ( - 2024-2 6 season) 2025 Influenza Vaccine (#1) 2025 8, 09/29/2017 DTaP/Tdap/Td Vaccines (2 - T d or Tdap) 02/25/2029 02/25/2019 Zoster Vaccines (1 of 2) 2046 RSV Patients and Patients Aged 60 years or older (1 - 1-dose 75+ series) 2071 Meningococcal Vaccine Aged Out 06/11/2016 No neeraj remigio eligible based on patient's age to complete this topic HIB Vaccines Aged Out No longer eligi [...]
--- OUTSIDE RECORDS SUMMARY | 2025-10-17 20:18 | XMS_ITS | Encounter Summary ---
Author Organization [facility] Address [address] [place] [address] Phone Care Team Providers Care Heavy Equipment Service Technician Name Role Phone Nati Winter NP Primary Care Provider Raven jackson Encounter Details Date Type Department Care Team (Late st Contact Info) Description 07/09/2012 Documentation EM Family Medicine [address] [place], [place] [phone] Family Medicine, Physician [address] [place] [address] Social History Tobacco Use Types Packs/Day Years [...] on filedocumented in this encounter Care Teams Heavy Equipment Service Technician Relationship Specialty Start Date End Date Nati Winter NP PCP - General 06/13/17 04/09/23 documented as of this encounter
--- OUTSIDE RECORDS SUMMARY | 2025-10-17 20:18 | XMS_ITS | Encounter Summary ---
Author Organization [facility] Address [address] [place] [address] Phone Care Team Providers Care Manager Statistical Programming Name Role Phone Nati Winter NP Primary Care Provider Raven jackson Encounter Details Date Type Department Care Team (Late st Contact Info) Description 07/31/2012 Documentation EM Family Medicine [address] [place], [place] [phone] Family Medicine, Physician [address] [place] [address] Social History Tobacco Use Types Packs/Day Years [...] on filedocumented in this encounter Care Teams Manager Statistical Programming Relationship Specialty Start Date End Date Nati Winter NP PCP - General 06/13/17 04/09/23 documented as of this encounter
--- OUTSIDE RECORDS SUMMARY | 2025-10-17 20:18 | XMS_ITS | Clinical Summary ---
Author Organization [facility] Address [address] [place] [address] Phone Care Team Providers Care Solar Sales Manager Name Role Phone Unavailable Primary Care Provider [...] history of Deafness, Family history of *Sudden /MS under 55, Family history of Migraines, Family [...]
--- OUTSIDE RECORDS SUMMARY | 2025-10-17 20:18 | XMS_ITS | Encounter Summary ---
Author Organization [facility] Address [address] [place] [address] Phone Care Team Providers Care Guard Museum Name Role Phone Nati Winter NP Primary Care Provider Raven jackson Encounter Details Date Type Department Care Team (Late st Contact Info) Description 07/09/2012 Documentation EM Family Medicine [address] [place], [place] [id number] Family Medicine, Physician [address] [place] [address] Social History Tobacco Use Types Packs/Day Years [...] on filedocumented in this encounter Care Teams Guard Museum Relationship Specialty Start Date End Date Nati Winter NP PCP - General 06/13/17 04/09/23 documented as of this encounter
--- OUTSIDE RECORDS SUMMARY | 2025-10-17 20:18 | XMS_ITS | Clinical Summary ---
Author Organization [facility] Address [address] [place] [address] Care Team Providers Care Seismic Prospecting Supervisor Name Role Phone Marija Rubio MD [...] age to complete this topic Care Teams Seismic Prospecting Supervisor Relationship Specialty Start Date End Date Marija Rubio MD [address] [place] [address] PCP - General 06/09/23
--- OUTSIDE RECORDS SUMMARY | 2025-10-17 20:18 | XMS_ITS | Encounter Summary ---
Author Organization [facility] Address [address] [place] [address] Phone Care Team Providers Care Winter Intern Name Role Phone Nati Winter NP Primary Care Provider Raven jackson Encounter Details Date Type Department Care Team (Late st Contact Info) Description 07/09/2012 Documentation EM Family Medicine [address] [place], [place] [phone] Family Medicine, Physician [address] [place] [address] Social History Tobacco Use Types Packs/Day Years [...] on filedocumented in this encounter Care Teams Winter Intern Relationship Specialty Start Date End Date Nati Winter NP PCP - General 06/13/17 04/09/23 documented as of this encounter
--- OUTSIDE RECORDS SUMMARY | 2025-10-17 20:18 | XMS_ITS | Encounter Summary ---
Author Organization [facility] Address [address] [place] [address] Phone Care Team Providers Care Paint Supervisor Name Role Phone Nati Winter NP Primary Care Provider Raven jackson Encounter Details Date Type Department Care Team (Late st Contact Info) Description 06/19/2017 Conversion Encounter [facility] - [address] [address] Social History Tobacco Use Types Packs/Day Years [...] on filedocumented in this encounter Care Teams Paint Supervisor Relationship Specialty Start Date End Date Nati Winter NP PCP - General 06/13/17 04/09/23 documented as of this encounter
--- OUTSIDE RECORDS SUMMARY | 2025-10-17 20:18 | XMS_ITS | Encounter Summary ---
Author Organization [facility] Address [address] [place] [address] Phone Care Team Providers Care Top Lift Trimmer Name Role Phone Nati Winter NP Primary Care Provider Raven jackson Encounter Details Date Type Department Care Team (Late st Contact Info) Description 07/09/2012 Documentation EM Family Medicine [address] [place], [place] [phone] Family Medicine, Physician [address] [place] [address] Social History Tobacco Use Types Packs/Day Years [...] on filedocumented in this encounter Care Teams Top Lift Trimmer Relationship Specialty Start Date End Date Nati Winter NP PCP - General 06/13/17 04/09/23 documented as of this encounter
== END 2025-10-17 14:28 | disposition home or self-care (01) ==
PROVIDERS: PCP Internal Medicine; Visit Provider Nurse Practitioner Family
DX: E55.9 Vitamin D deficiency, unspecified (principal); K62.5 Hemorrhage of anus and rectum; R10.84 Generalized abdominal pain; K21.9 Gastro-esophageal reflux disease without esophagitis; R10.13 Epigastric pain
CPT/HCPCS: 99214

== ENCOUNTER → 2025-10-17 13:56 | Outpatient (BNVA) | payer OTHER, SELFPAY | PROVIDERS: PCP Internal Medicine; Visit Provider Nurse Practitioner Family | DX: K21.9 Gastro-esophageal reflux disease without esophagitis (principal); K62.5 Hemorrhage of anus and rectum; K59.04 Chronic idiopathic constipation; R10.84 Generalized abdominal pain; E55.9 Vitamin D deficiency, unspecified; R10.13 Epigastric pain; Z79.899 Other long term (current) drug therapy | CPT/HCPCS: 99212 ==